=== PATIENT | male | born 1930 | race Caucasian/White ===

== ENCOUNTER 2018-02-15 01:20 | Inpatient (IN) | END 2018-02-26 18:18 | disposition home or self-care (01) | DRG 308 ==

== ENCOUNTER 2018-04-25 11:39 | Inpatient (IN) | END 2018-04-30 21:25 | disposition home health service (06) | DRG 292 ==

== ENCOUNTER 2018-10-05 14:47 | Inpatient (IN) | payer OTHER ==
[~2018-10-05] VITALS: Ht 167.6 cm; Wt 68.6 kg
[~2018-10-05 14:47] MED LIST: APIX2.5T PO; BUME1TAB PO; CARV3.1260 PO; CHOL400T10 PO; DIGO125T93 PO; FER325 PO; FINA5TAB4 PO; IPRA3AMP29 INHALATION; NEBU-27 MC; OMEG-157 PO; OMEG1CAP17 PO; POTA8CAP PO; TAMS-14 PO
--- NOTE | 2018-10-05 16:42 | ERD ---
ER Documentation Chief Complaint Chief Complaint Sent from for evaluation blanche [facility] The patient is a 88-year-old male, presenting to the ER because of generalized weakness. He went to see his physician today who ordered a blood test and he was found to have severe anemia, therefore sent to the ER for further evaluation. He denies syncope, near syncope, neck pain, chest pain, abdominal pain, vomiting, complains of loose stool. He had a digital exam in the office today that were positive for blood according to him. He does not smoke, drinks socially Past medical history: History of CHF, atrial fibrillation, hypertension, dyslipidemia, aortic stenosis, pulmonary hypertension, leukopenia, BPH Past surgical history: He had EGD and colonoscopy about a year ago that was unremarkable according to him ROS All systems reviewed and are negative except as per history of present illness. Medications Home Meds Active Scripts Bumetanide* (Bumetanide*) 1 Mg Tablet, 1 MG PO BID DIURETICS for 30 Days, #60 TAB Prov:JEIMY EWING. 04/30/18 Reliance-3/Dha/Epa/Fish Oil (FISH OIL EC 1,000 MG SOFTGEL) 1 Each Capsule.dr, 2000 MG PO BID for 30 Days, #60 CAP 1 Refill Prov:JEIMY EWING . 04/30/18 Finasteride* (Finasteride*) 5 Mg Tablet, 5 MG PO DAILY for 30 Days, #30 TAB Prov:JEIMY EWING. 04/28/18 Carvedilol* (Carvedilol*) 3.125 Mg Tablet, 3.125 MG PO BID, #60 TAB Prov:JEIMY EWING. 04/28/18 Tamsulosin Hcl* (Flomax*) 0.4 Mg Cap.er.24h, 0.4 MG PO HS, #30 CAP Prov:JEIMY EWING. 04/28/18 Nebulizer (ALTERA NEBULIZER) 1 Each Each, EACH MC Q4H PRN for SHORTNESS OF BREATH, #1 Prov:JEIMY EWING 02/25/18 Ipratropium-Albuterol (Ipratropium-Albuterol) 0.5-3 Mg/3 Ml Ampul.neb, 3 ML INHALATION Q4 PRN for SHORTNESS OF BREATH, #30 VIAL Prov:JEIMY EWING. 02/25/18 Cholecalciferol* (Vitamin D*) 400 Unit Tablet, 400 UNIT PO DAILY for 30 Days, #30 TAB Prov:JEIMY EWING 02/25/18 Ferrous Sulfate* (Ferrous Sulfate*) 325 Mg Tabec, 325 MG PO BID for 30 Days, #60 TAB Prov:JEIMY EWING 02/25/18 Potassium Chloride* (Potassium Chloride*) 8 Meq Capsule.er, 8 MEQ PO DAILY for 30 Days, #30 CAP Prov:JEIMY EWING. 02/25/18 Reported Medications Apixaban* (Eliquis*) 2.5 Mg Tablet, 2.5 MG PO BID, TAB 02/15/18 Reliance-3 Fatty Acids/Fish Oil (Fish Oil 1,000 mg Softgel) 1 Each Capsule, 1 EACH PO TID, CAP 02/15/18 Digoxin* (Lanoxin*) 0.125 Mg Tablet, 0.125 MG PO DAILY, TAB 04/19/16 Allergies Allergies: Coded Allergies: No Known Allergy (Unverified , 04/19/16) PMhx/Soc History of Surgery: No Anesthesia Reaction: No Hx Neurological Disorder: No Hx Respiratory Disorders: No Hx Cardiac Disorders: Yes (CHF, AFIB, HTN, HIGH CHOLESTEROL) Hx Psychiatric Problems: No Hx Miscellaneous Medical Probl: Yes (A-FIB , MOD.AORTIC STENOSIS , CHRONIC CHF. ) Hx Alcohol Use: No Hx Substance Use: No Hx Tobacco Use: No Smoking Status: Never smoker Physical Exam Vitals Vital Signs Date Temp Pulse Resp B/P (MAP) Pulse Ox O2 O2 Flow FiO2 Time Delivery Rate 10/05/18 69 17 96/63 (74) 99 Room Air 18:46 10/05/18 98.1 78 20 100/55 100 16:10 (70) Physical Exam Const: No acute distress. Head: Atraumatic. Eyes: Normal Conjunctiva. ENT: Normal External Ears, Nose and Mouth. Neck: Full range of motion. No meningismus. Resp: Clear to auscultation bilaterally. Cardio: Irregularly irregular, 3/6 systolic murmur best heard at the apex Abd: Soft, non distended, normal bowel sounds, non tender. Skin: No petechiae or rashes. Back: No midline or flank tenderness. Ext: No cyanosis, or edema. Neur: Awake and alert. No focal deficit Psych: Normal Mood and Affect. Result Diagram: 10/05/18 1651 10/05/18 1651 Results 24 hrs Laboratory Tests Test 10/05/18 16:51 White Blood Count 3.1 10^3/ul Red Blood Count 2.07 10^6/ul Hemoglobin 7.0 g/dl Hematocrit 23.0 % Mean Corpuscular Volume 111.1 fl Mean Corpuscular Hemoglobin 33.8 pg Mean Corpuscular Hemoglobin Concent 30.4 g/dl Red Cell Distribution Width 16.1 % Platelet Count 156 10^3/UL Mean Platelet Volume 9.9 fl Immature Granulocytes % 0.700 % Neutrophils % % Segmented Neutrophils % (Manual) 76 % Lymphocytes % % Lymphocytes % (Manual) 19 % Monocytes % % Monocytes % (Manual) 3 % Eosinophils % % Eosinophils % (Manual) 1 % Basophils % % Basophils % (Manual) 1 % Nucleated Red Blood Cells % 0.0 /100WBC Immature Granulocytes # 0.020 10^3/ul Neutrophils # 10^3/ul Lymphocytes (Manual) 0.5 10^3/ul Lymphocytes # 10^3/ul Monocytes # 10^3/ul Monocytes # (Manual) 0.0 10^3/ul Eosinophils # 10^3/ul Basophils # 10^3/ul Basophils # (Manual) 0.0 10^3/ul Nucleated Red Blood Cells # 10^3/ul Platelet Estimate NORMAL Giant Platelets 2 % Polychromasia 2+ Hypochromasia 1+ Poikilocytosis 1+ Anisocytosis 2+ Macrocytosis 2+ Tear Drop Cells 1+ Ovalocytes 1+ Prothrombin Time 15.0 Sec Prothrombin Time Ratio 1.2 INR International Normalized Ratio 1.17 Activated Partial Thromboplast Time 39.1 Sec Sodium Level 134 mmol/L Potassium Level 3.5 mmol/L Chloride Level 95 mmol/L Carbon Dioxide Level 34 mmol/L Anion Gap 5 Blood Urea Nitrogen 18 mg/dl Creatinine 0.76 mg/dl Est Glomerular Filtrat Rate mL/min mL/min Glucose Level 111 mg/dl Calcium Level 8.0 mg/dl Total Bilirubin 4.1 mg/dl Direct Bilirubin 0.00 mg/dl Indirect Bilirubin 4.1 mg/dl Aspartate Amino Transf (AST/SGOT) 27 IU/L Alanine Aminotransferase (ALT/SGPT) 17 IU/L Alkaline Phosphatase 176 IU/L Troponin I < 0.012 ng/ml B-Type Natriuretic Peptide 4580 PG/ML Total Protein 6.7 g/dl Albumin 2.9 g/dl Globulin 3.80 g/dl Albumin/Globulin Ratio 0.76 Digoxin Level 1.1 ng/ml Procedures/MDM Chest x-ray read by ER physician showed acute CHF, no pneumonia, no pneumothorax, radiology report is pending EKG: Read by emergency physician Rate/Rhythm: Atrial Fibrillation at 70 beats/min QRS, ST, T-waves: No ST elevation, no T inversion Impression: Abnormal EKG MEDICAL MAKING DECISION: The patient is a 88-year-old male, presenting with acute cinematic anemia, acute CHF exacerbation. He was treated with 2 unit of pRBC for acute symptomatic anemia. Lasix will be given after the first unit of blood test because of low blood pressure The differential diagnoses considered include but are not limited to asthma, COPD, pneumonia, pulmonary embolus, pleural effusion, congestive heart failure, gastrointestinal bleeding. Departure Diagnosis: Primary Impression: Symptomatic anemia Additional Impressions: CHF (congestive heart failure) Abnormal LFTs Leukopenia Condition: Stable Comments I discussed the findings with the patient. I discussed the patient with the hospitalist Dr Becerra at 7 pm. who was made aware of the lab, the treatment, the patient condition. The patient is admitted to [facility] Disclaimer: Inadvertent spelling and grammatical errors are likely due to EHR/dictation software use and do not reflect on the overall quality of patient care. Also, please note that the electronic time recorded on this note does not necessarily reflect the actual time of the patient encounter. PRINCESS GALLO MD Oct 05, 2018 16:42
[2018-10-05 22:08] VITALS: Ht 167.6 cm; Wt 68.6 kg
[2018-10-05 23:18] VITALS: BP 102/57; PULSE 59; RESP 16
--- NOTE | 2018-10-05 23:46 | HP ---
Date/Time of Note Date/Time of Note DATE: 10/05/18 TIME: 23:46 Assessment/Plan VTE Prophylaxis Pharmacological prophylaxis: LMWH Lines/Catheters IV Catheter Type (from Nrs): Saline Lock Urinary Cath still in place: No Assessment/Plan Assessment/Plan 1. Anemia -Patient with a history of chronic iron deficiency anemia and he is on ferrous sulfate -On questioning, patient reported dark stool. Plan is for GI consult and FOBT. Will transfuse PRBCs -Check for ferritin/iron -Patient with history of moderate aortic stenosis. Chronic anemia could be from the shearing effect 2. Acute on chronic systolic CHF -We will diurese 3. Atrial fibrillation: Rate controlled -Continue digoxin and Coreg. Hold blood thinner 4. Hypertension: Currently BP within goal 5. BPH: Continue Flomax Result Diagram: 10/05/18 1651 10/05/18 1651 Results 24hrs Laboratory Tests Test 10/05/18 16:51 White Blood Count 3.1 #L Red Blood Count 2.07 #L Hemoglobin 7.0 L Hematocrit 23.0 L Mean Corpuscular Volume 111.1 H Mean Corpuscular Hemoglobin 33.8 H Mean Corpuscular Hemoglobin Concent 30.4 L Red Cell Distribution Width 16.1 H Platelet Count 156 Mean Platelet Volume 9.9 Immature Granulocytes % 0.700 H Neutrophils % Segmented Neutrophils % (Manual) 76 Lymphocytes % Lymphocytes % (Manual) 19 Monocytes % Monocytes % (Manual) 3 Eosinophils % Eosinophils % (Manual) 1 Basophils % Basophils % (Manual) 1 Nucleated Red Blood Cells % 0.0 Immature Granulocytes # 0.020 Neutrophils # Lymphocytes (Manual) 0.5 L Lymphocytes # Monocytes # Monocytes # (Manual) 0.0 L Eosinophils # Basophils # Basophils # (Manual) 0.0 Nucleated Red Blood Cells # Platelet Estimate NORMAL Giant Platelets 2 H Polychromasia 2+ Hypochromasia 1+ Poikilocytosis 1+ Anisocytosis 2+ Macrocytosis 2+ Tear Drop Cells 1+ Ovalocytes 1+ Prothrombin Time 15.0 H Prothrombin Time Ratio 1.2 INR International Normalized Ratio 1.17 Activated Partial Thromboplast Time 39.1 H Sodium Level 134 L Potassium Level 3.5 Chloride Level 95 L Carbon Dioxide Level 34 H Anion Gap 5 Blood Urea Nitrogen 18 Creatinine 0.76 Est Glomerular Filtrat Rate mL/min Glucose Level 111 Calcium Level 8.0 L Total Bilirubin 4.1 H Direct Bilirubin 0.00 Indirect Bilirubin 4.1 H Aspartate Amino Transf (AST/SGOT) 27 Alanine Aminotransferase (ALT/SGPT) 17 Alkaline Phosphatase 176 H Troponin I < 0.012 B-Type Natriuretic Peptide 4580 H Total Protein 6.7 Albumin 2.9 L Globulin 3.80 H Albumin/Globulin Ratio 0.76 Digoxin Level 1.1 HPI/ROS Admit Date/Time Admit Date/Time Oct 05, 2018 at 19:53 Hx of Present Illness This is an 88-year-old male with a history of CHF with systolic dysfunction (EF 35% in 02/2018), pulmonary hypertension, atrial fibrillation, chronic iron deficiency anemia, leukopenia, chronic bilateral pleural effusion, BPH. Patient was sent to ER for anemia. Upon questioning, patient reported dark stool. Den ied BRBPR and hematemesis. He also reported generalized weakness and occasional shortness of breath. When he presented to ER, he was found to have a hemoglobin of 7 with MCV of 111. BNP is 4600. Chest x-ray shows stable bilateral pleural effusion. Patient was last admitted here in April of last year for lower extremity edema and shortness of breath. At that time he was ruled out for ACS. Chest CT shows bilateral pleural effusion. PMH/Family/Social Past Medical History Medical History: other (see hpi) Coded Allergies: No Known Allergy (Unverified , 04/19/16) Past Surgical History Past Surgical Hx: other (see hpi) Family History Significant Family History: no pertinent family hx Social History Alcohol Use: other Smoking Status: Unknown if ever smoked Drug Use: none, other Exam/Review of Systems Vital Signs Vitals Vital Signs Date Temp Pulse Resp B/P (MAP) Pulse Ox O2 O2 Flow FiO2 Time Delivery Rate 10/05/18 98.4 59 16 102/57 100 23:18 (72) 10/05/18 Room Air 21:13 Exam Constitutional: other (no acute distress) Head: normocephalic, atraumatic Eyes: PERRL Respiratory: clear to auscultation Cardiovascular: regular rate and rhythm Gastrointestinal: soft SAUL MAGAÑA MD Oct 05, 2018 23:46
[2018-10-06] VITALS (13 sets, daily range): BP systolic 93–170; BP diastolic 53–96; PULSE 61–95; RESP 16
[2018-10-06] MEDS ORDERED: ONDANSETRON 4 MG INJ IV PRN
[2018-10-06] MEDS ORDERED: NACL 0.9% 3 ML SYG IV SCH
[2018-10-06] MEDS ORDERED: ALBUTEROL/IPRATROPIUM (NEB) 3 ML AMP HHN PRN
[2018-10-06] MEDS ORDERED: ACETAMINOPHEN 325 MG TAB PO PRN
[2018-10-06] MEDS: FISH OIL 1,000 MG CAP PO SCH ×2 (00:13→08:22)
[2018-10-06] MEDS ORDERED: BUMETANIDE 1 MG TAB PO SCH (06:00)
[2018-10-06] MEDS: DIGOXIN 0.125 MG TAB PO SCH (08:22)
[2018-10-06] MEDS: FINASTERIDE 5 MG TAB PO SCH (08:22)
[2018-10-06] MEDS: POTASSIUM CHLORIDE (SR) 8 MEQ CAP PO SCH (08:22)
[2018-10-06] MEDS ORDERED: CHOLECALCIFEROL 400 UNITS TAB PO SCH (09:00)
[2018-10-06] MEDS ORDERED: FERROUS SULFATE (EC) 325 MG TAB PO SCH (09:00)
[2018-10-06] MEDS ORDERED: PANTOPRAZOLE 40 MG INJ IV SCH (15:00)
--- NOTE | 2018-10-06 15:12 | PN ---
Date/Time of Note Date/Time of Note DATE: 10/06/18 TIME: 15:07 Assessment/Plan VTE Prophylaxis Risk score (from [facility])>0 risk: 4 SCD applied (from [facility]): Yes SCD contraindicated: low risk/ambulating Pharmacological prophylaxis: NA/contraindicated Pharm contraindication: bleeding Lines/Catheters IV [facility] (from [facility] Saline Lock Urinary Cath still in place: No Assessment/Plan Hospital Course A/P 1. Gi bleed likely upper, mod stable, awaiting blood from blood bank. 2. Chr A fib discontinue Eliquis 3. Chr hypertension 4. Chr CAD? 5. 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 Doses started. No active chest pain dyspnea. r/b ratio noted. May proceed forward to EGD/ colonoscopy as indicated, with low perioperative risk 6. Pulmonary hypertension moderate. Prognosis guarded 7. Chronic BPH 8. Valvular heart disease: Moderate aortic stenosis 9. Acute blood loss anemia, for transfusion soon. Transfuse for hb less than 7 Subjective: No further melena. No dyspnea chest pain fever. Objective: Vital signs stable Physical exam No pallor adenopathy JVD Regular +sm, no/r/g Clear Bs+ nt/ nd no RRG Mild edema Result Diagram: 10/06/18 0557 10/06/18 0557 Results 24hrs Laboratory Tests Test 10/05/18 16:51 10/06/18 05:57 White Blood Count 3.1 #L 2.3 #L Red Blood Count 2.07 #L 1.73 L Hemoglobin 7.0 L 6.0 *L Hematocrit 23.0 L 19.4 L Mean Corpuscular Volume 111.1 H 112.1 H Mean Corpuscular Hemoglobin 33.8 H 34.7 H Mean Corpuscular Hemoglobin Concent 30.4 L 30.9 L Red Cell Distribution Width 16.1 H 15.9 H Platelet Count 156 141 Mean Platelet Volume 9.9 9.9 Immature Granulocytes % 0.700 H 0.400 Neutrophils % 64.1 Segmented Neutrophils % (Manual) 76 68 Lymphocytes % 25.6 Lymphocytes % (Manual) 19 15 Monocytes % 6.4 Monocytes % (Manual) 3 4 Eosinophils % 2.6 Eosinophils % (Manual) 1 4 Basophils % 0.9 Basophils % (Manual) 1 1 Nucleated Red Blood Cells % 0.0 0.0 Immature Granulocytes # 0.020 0.010 Neutrophils # 1.5 L Lymphocytes (Manual) 0.5 L 0.3 L Lymphocytes # 0.6 L Monocytes # 0.2 L Monocytes # (Manual) 0.0 L 0.0 L Eosinophils # 0.1 Basophils # 0.0 Basophils # (Manual) 0.0 0.0 Nucleated Red Blood Cells # 0.0 Platelet Estimate NORMAL NORMAL Giant Platelets 2 H Polychromasia 2+ 2+ Hypochromasia 1+ 1+ Poikilocytosis 1+ 1+ Anisocytosis 2+ 2+ Macrocytosis 2+ 2+ Tear Drop Cells 1+ Ovalocytes 1+ Prothrombin Time 15.0 H Prothrombin Time Ratio 1.2 INR International Normalized Ratio 1.17 Activated Partial Thromboplast Time 39.1 H Sodium Level 134 L 134 L Potassium Level 3.5 3.7 Chloride Level 95 L 97 Carbon Dioxide Level 34 H 34 H Anion Gap 5 3 L Blood Urea Nitrogen 18 17 Creatinine 0.76 0.71 Est Glomerular Filtrat Rate mL/min Glucose Level 111 86 Calcium Level 8.0 L 7.7 L Total Bilirubin 4.1 H 3.8 H Direct Bilirubin 0.00 0.00 Indirect Bilirubin 4.1 H 3.8 H Aspartate Amino Transf (AST/SGOT) 27 21 Alanine Aminotransferase (ALT/SGPT) 17 22 Alkaline Phosphatase 176 H 144 H Troponin I < 0.012 B-Type Natriuretic Peptide 4580 H Total Protein 6.7 5.5 #L Albumin 2.9 L 2.3 L Globulin 3.80 H 3.20 Albumin/Globulin Ratio 0.76 0.71 Digoxin Level 1.1 0.9 L Band Neutrophils % (Manual) 6 H Reactive Lymphocytes % (Manual) 2 H Neutrophils # (Manual) 1.6 Band Neutrophils # 0.1 Reactive Lymphocytes # 0.0 Pathologist Review (Hematology) YES Target Cells 1+ Hemoglobin A1c Iron Level 85 Total Iron Binding Capacity 236 L Percent Iron Saturation 36 Ferritin 177.0 Triglycerides Level 47 Cholesterol Level 86 L LDL Cholesterol, Calculated 40 HDL Cholesterol 37 Cholesterol/HDL Ratio 2.3 Exam/Review of Systems Exam Vitals Vital Signs Date Temp Pulse Resp B/P (MAP) Pulse Ox O2 O2 Flow FiO2 Time Delivery Rate 10/06/18 68 12:01 10/06/18 98.9 16 94/54 (67) 99 11:19 10/05/18 Room Air 21:13 Results Results 24hrs Laboratory Tests Test 10/05/18 16:51 10/06/18 05:57 White Blood Count 3.1 #L 2.3 #L Red Blood Count 2.07 #L 1.73 L Hemoglobin 7.0 L 6.0 *L Hematocrit 23.0 L 19.4 L Mean Corpuscular Volume 111.1 H 112.1 H Mean Corpuscular Hemoglobin 33.8 H 34.7 H Mean Corpuscular Hemoglobin Concent 30.4 L 30.9 L Red Cell Distribution Width 16.1 H 15.9 H Platelet Count 156 141 Mean Platelet Volume 9.9 9.9 Immature Granulocytes % 0.700 H 0.400 Neutrophils % 64.1 Segmented Neutrophils % (Manual) 76 68 Lymphocytes % 25.6 Lymphocytes % (Manual) 19 15 Monocytes % 6.4 Monocytes % (Manual) 3 4 Eosinophils % 2.6 Eosinophils % (Manual) 1 4 Basophils % 0.9 Basophils % (Manual) 1 1 Nucleated Red Blood Cells % 0.0 0.0 Immature Granulocytes # 0.020 0.010 Neutrophils # 1.5 L Lymphocytes (Manual) 0.5 L 0.3 L Lymphocytes # 0.6 L Monocytes # 0.2 L Monocytes # (Manual) 0.0 L 0.0 L Eosinophils # 0.1 Basophils # 0.0 Basophils # (Manual) 0.0 0.0 Nucleated Red Blood Cells # 0.0 Platelet Estimate NORMAL NORMAL Giant Platelets 2 H Polychromasia 2+ 2+ Hypochromasia 1+ 1+ Poikilocytosis 1+ 1+ Anisocytosis 2+ 2+ Macrocytosis 2+ 2+ Tear Drop Cells 1+ Ovalocytes 1+ Prothrombin Time 15.0 H Prothrombin Time Ratio 1.2 INR International Normalized Ratio 1.17 Activated Partial Thromboplast Time 39.1 H Sodium Level 134 L 134 L Potassium Level 3.5 3.7 Chloride Level 95 L 97 Carbon Dioxide Level 34 H 34 H Anion Gap 5 3 L Blood Urea Nitrogen 18 17 Creatinine 0.76 0.71 Est Glomerular Filtrat Rate mL/min Glucose Level 111 86 Calcium Level 8.0 L 7.7 L Total Bilirubin 4.1 H 3.8 H Direct Bilirubin 0.00 0.00 Indirect Bilirubin 4.1 H 3.8 H Aspartate Amino Transf (AST/SGOT) 27 21 Alanine Aminotransferase (ALT/SGPT) 17 22 Alkaline Phosphatase 176 H 144 H Troponin I < 0.012 B-Type Natriuretic Peptide 4580 H Total Protein 6.7 5.5 #L Albumin 2.9 L 2.3 L Globulin 3.80 H 3.20 Albumin/Globulin Ratio 0.76 0.71 Digoxin Level 1.1 0.9 L Band Neutrophils % (Manual) 6 H Reactive Lymphocytes % (Manual) 2 H Neutrophils # (Manual) 1.6 Band Neutrophils # 0.1 Reactive Lymphocytes # 0.0 Pathologist Review (Hematology) YES Target Cells 1+ Hemoglobin A1c Iron Level 85 Total Iron Binding Capacity 236 L Percent Iron Saturation 36 Ferritin 177.0 Triglycerides Level 47 Cholesterol Level 86 L LDL Cholesterol, Calculated 40 HDL Cholesterol 37 Cholesterol/HDL Ratio 2.3 Medications Medication Current Medications IV Flush (NS 3 ml) 3 ml PER PROTOCOL IV ; Start 10/06/18 at 00:00 Ondansetron HCl (Zofran Inj) 4 mg Q6H PRN IV NAUSEA/VOMITING; Start 10/06/18 at 00:00 Acetaminophen (Tylenol Tab) 650 mg Q6H PRN PO .PAIN 1-3 OR TEMP; Start 10/06/18 at 00:00 Carvedilol (Coreg) 3.125 mg BID PO ; Start 10/06/18 at 09:00 Digoxin (Digoxin) 0.125 mg DAILY PO Last administered on 10/06/18at 08:22; Admin Dose 0.125 MG; Start 10/06/18 at 09:00 Finasteride (Proscar) 5 mg DAILY PO Last administered on 10/06/18at 08:22; Admin Dose 5 MG; Start 10/06/18 at 09:00 Albuterol/ Ipratropium (Duoneb) 3 ml Q4H RESP THERAPY PRN INH SHORTNESS OF BREATH; Start 10/06/18 at 00:00 Potassium Chloride (Micro-K) 8 meq DAILY PO Last administered on 10/06/18at 08:22; Admin Dose 8 MEQ; Start 10/06/18 at 09:00 Tamsulosin HCl (Flomax) 0.4 mg HS PO ; Start 10/06/18 at 21:00 Potassium Chloride/Dextrose/ Sod Cl 1,000 ml @ 40 mls/hr Q24H IV ; Start 10/06/18 at 15:30 Pantoprazole (Protonix Iv) 40 mg DAILY@06 IV ; Start 10/06/18 at 15:00 MALINI SALDANA MD Oct 06, 2018 15:12
--- NOTE | 2018-10-06 19:43 | CONS ---
Assessment/Plan Assessment/Plan Hospital Course (Demo Recall) Summary Assessment and Plan: Assessment: Melena/anemia Indirect hyperbilirubinemia CHF - 02/2018 EF 35% HTN CAD Pulmonary hypertension, moderate Chronic BPH Valvular heart disease, moderate aortic stenosis Plan: Cardiac clearance Tentative plan for EGD tomorrow pending cardiac clearance Clear liquid diet today N.p.o. after 10/07/1907 100 Monitor labs transfuse for hemoglobin less than 7.5 Endoscopy - risks/benefits/alternatives/indications of procedure and sedation/ anesthesia discussed with patient who states understanding and gives informed consent to proceed. Increase PPI to twice daily Further recommendations based on clinical course Patient seen in collaboration with Dr. Larkin CC: TRES LARKIN MD ; Consultation Date/Type/Reason Admit Date/Time Oct 05, 2018 at 19:53 Date of Consultation: Oct 06, 2018 Type of Consult GI Reason for Consultation melena/anemia Date/Time of Note DATE: 10/06/18 TIME: 19:32 Hx of Present Illness This is an 88-year-old male with past medical history of CHF, pulmonary hypertension, atrial fibrillation, anemia, leukopenia, chronic bilateral pleural effusion, BPH. Who was admitted to the hospital with anemia initial workup patient's hemoglobin was 7.0 was checked again today patient was 6.0 is packed RBCs have been ordered 1 has been transfused patient states he was having black colored stool of notes patient was on Eliquis for atrial fibrillation. He de nies hematochezia nausea or vomiting or abdominal pain currently. Patient states his last upper endoscopy was completed at this hospital records show colonoscopy 04/19/16 moderate degree of internal/external hemorrhoids 3 polyps noted. An EGD was completed the same day showing gastric erosions rather tortuous esophagus without ulceration or neoplasm discussed plan with patient and family for EGD tomorrow pending cardiac clearance reviewed risk/benefits all verbalized understanding are agreeable to plan. Review of Systems: A 12 system, review was conducted and is negative except as noted in the HPI or here. Past Medical History Home Meds Active Scripts Bumetanide* (Bumetanide*) 1 Mg Tablet, 1 MG PO BID DIURETICS for 30 Days, #60 TAB Prov:JEIMY EWING 04/30/18 Colbert-3/Dha/Epa/Fish Oil (FISH OIL EC 1,000 MG SOFTGEL) 1 Each Capsule., 2000 MG PO BID for 30 Days, #60 CAP 1 Refill Prov:JEIMY EWING 04/30/18 Finasteride* (Finasteride*) 5 Mg Tablet, 5 MG PO DAILY for 30 Days, #30 TAB Prov:JEIMY EWING. 04/28/18 Carvedilol* (Carvedilol*) 3.125 Mg Tablet, 3.125 MG PO BID, #60 TAB Prov:JEIMY EWING 04/28/18 Tamsulosin Hcl* (Flomax*) 0.4 Mg Cap.er.24h, 0.4 MG PO HS, #30 CAP Prov:JEIMY EWING 04/28/18 Nebulizer (ALTERA NEBULIZER) 1 Each Each, EACH MC Q4H PRN for SHORTNESS OF BREATH, #1 Prov:JEIMY EWING 02/25/18 Ipratropium-Albuterol (Ipratropium-Albuterol) 0.5-3 Mg/3 Ml Ampul.neb, 3 ML INHALATION Q4 PRN for SHORTNESS OF BREATH, #30 VIAL Prov:JEIMY EWING 02/25/18 Cholecalciferol* (Vitamin D*) 400 Unit Tablet, 400 UNIT PO DAILY for 30 Days, #30 TAB Prov:JEIMY EWING 02/25/18 Ferrous Sulfate* (Ferrous Sulfate*) 325 Mg Tabec, 325 MG PO BID for 30 Days, #60 TAB Prov:JEIMY EWING 02/25/18 Potassium Chloride* (Potassium Chloride*) 8 Meq Capsule.er, 8 MEQ PO DAILY for 30 Days, #30 CAP Prov:JEIMY EWING 02/25/18 Reported Medications Apixaban* (Eliquis*) 2.5 Mg Tablet, 2.5 MG PO BID, TAB 02/15/18 Colbert-3 Fatty Acids/Fish Oil (Fish Oil 1,000 mg Softgel) 1 Each Capsule, 1 EACH PO TID, CAP 02/15/18 Digoxin* (Lanoxin*) 0.125 Mg Tablet, 0.125 MG PO DAILY, TAB 04/19/16 Medications Current Medications IV Flush (NS 3 ml) 3 ml PER PROTOCOL IV ; Start 10/06/18 at 00:00 Ondansetron HCl (Zofran Inj) 4 mg Q6H PRN IV NAUSEA/VOMITING; Start 10/06/18 at 00:00 Acetaminophen (Tylenol Tab) 650 mg Q6H PRN PO .PAIN 1-3 OR TEMP; Start 10/06/18 at 00:00 Carvedilol (Coreg) 3.125 mg BID PO ; Start 10/06/18 at 09:00 Digoxin (Digoxin) 0.125 mg DAILY PO Last administered on 10/06/18at 08:22; Admin Dose 0.125 MG; Start 10/06/18 at 09:00 Finasteride (Proscar) 5 mg DAILY PO Last administered on 10/06/18at 08:22; Admin Dose 5 MG; Start 10/06/18 at 09:00 Albuterol/ Ipratropium (Duoneb) 3 ml Q4H RESP THERAPY PRN INH SHORTNESS OF BREATH; Start 10/06/18 at 00:00 Potassium Chloride (Micro-K) 8 meq DAILY PO Last administered on 10/06/18at 08:22; Admin Dose 8 MEQ; Start 10/06/18 at 09:00 Tamsulosin HCl (Flomax) 0.4 mg HS PO ; Start 10/06/18 at 21:00 Potassium Chloride/Dextrose/ Sod Cl 1,000 ml @ 40 mls/hr Q24H IV ; Start at 15:30 Pantoprazole (Protonix Iv) 40 mg DAILY@06 IV Last administered on 10/06/18at 15:00; Admin Dose 40 MG; Start 10/06/18 at 15:00 Allergies: Coded Allergies: No Known Allergy (Unverified , 04/19/16) Past Surgical History Past Surgical Hx: other Social History Smoking Status: Never smoker Exam/Review of Systems Exam Vitals Vital Signs Date Temp Pulse Resp B/P (MAP) Pulse Ox O2 O2 Flow FiO2 Time Delivery Rate 10/06/18 74 16:01 10/06/18 98.8 16 107/61 98 15:31 (76) 10/05/18 Room Air 21:13 Exam PHYSICAL EXAMINATION: GENERAL:Elderly gentleman, alert & oriented x 3, in no acute distress SKIN: Facial discoloration EYES: Pupils equal reactive to light, no discharge. EARS/NOSE AND THROAT: Ears normal, nose normal NECK: Supple. CHEST: Inspection within normal limits. CARDIOVASCULAR: Heart: Irregular rate and rhythm RESPIRATORY: Lungs clear to auscultation GASTROINTESTINAL AND LIVER: Abdomen: Soft, non tenderness, non-distended, no hernias, no masses, no organomegaly, no ascites, no guarding, no rebound tenderness, normoactive bowel sounds. Rectal: Deferred. EXTREMITIES: No cyanosis, clubbing or edema. Results Result Diagram: 10/06/18 0557 10/06/18 0557 Results 24hrs Laboratory Tests Test 10/06/18 05:57 White Blood Count 2.3 #L Red Blood Count 1.73 L Hemoglobin 6.0 *L Hematocrit 19.4 L Mean Corpuscular Volume 112.1 H Mean Corpuscular Hemoglobin 34.7 H Mean Corpuscular Hemoglobin Concent 30.9 L Red Cell Distribution Width 15.9 H Platelet Count 141 Mean Platelet Volume 9.9 Immature Granulocytes % 0.400 Neutrophils % 64.1 Segmented Neutrophils % (Manual) 68 Band Neutrophils % (Manual) 6 H Lymphocytes % 25.6 Lymphocytes % (Manual) 15 Reactive Lymphocytes % (Manual) 2 H Monocytes % 6.4 Monocytes % (Manual) 4 Eosinophils % 2.6 Eosinophils % (Manual) 4 Basophils % 0.9 Basophils % (Manual) 1 Nucleated Red Blood Cells % 0.0 Immature Granulocytes # 0.010 Neutrophils # 1.5 L Neutrophils # (Manual) 1.6 Band Neutrophils # 0.1 Lymphocytes (Manual) 0.3 L Lymphocytes # 0.6 L Reactive Lymphocytes # 0.0 Monocytes # 0.2 L Monocytes # (Manual) 0.0 L Eosinophils # 0.1 Basophils # 0.0 Basophils # (Manual) 0.0 Nucleated Red Blood Cells # 0.0 Pathologist Review (Hematology) YES Platelet Estimate NORMAL Polychromasia 2+ Hypochromasia 1+ Poikilocytosis 1+ Anisocytosis 2+ Macrocytosis 2+ Target Cells 1+ Sodium Level 134 L Potassium Level 3.7 Chloride Level 97 Carbon Dioxide Level 34 H Anion Gap 3 L Blood Urea Nitrogen 17 Creatinine 0.71 Est Glomerular Filtrat Rate mL/min Glucose Level 86 Hemoglobin A1c Calcium Level 7.7 L Iron Level 85 Total Iron Binding Capacity 236 L Percent Iron Saturation 36 Ferritin 177.0 Total Bilirubin 3.8 H Direct Bilirubin 0.00 Indirect Bilirubin 3.8 H Aspartate Amino Transf (AST/SGOT) 21 Alanine Aminotransferase (ALT/SGPT) 22 Alkaline Phosphatase 144 H Total Protein 5.5 #L Albumin 2.3 L Globulin 3.20 Albumin/Globulin Ratio 0.71 Triglycerides Level 47 Cholesterol Level 86 L LDL Cholesterol, Calculated 40 HDL Cholesterol 37 Cholesterol/HDL Ratio 2.3 Digoxin Level 0.9 L Medications Medication Current Medications IV Flush (NS 3 ml) 3 ml PER PROTOCOL IV ; Start 10/06/18 at 00:00 Ondansetron HCl (Zofran Inj) 4 mg Q6H PRN IV NAUSEA/VOMITING; Start 10/06/18 at 00:00 Acetaminophen (Tylenol Tab) 650 mg Q6H PRN PO .PAIN 1-3 OR TEMP; Start 10/06/18 at 00:00 Carvedilol (Coreg) 3.125 mg BID PO ; Start 10/06/18 at 09:00 Digoxin (Digoxin) 0.125 mg DAILY PO Last administered on 10/06/18at 08:22; Admin Dose 0.125 MG; Start 10/06/18 at 09:00 Finasteride (Proscar) 5 mg DAILY PO Last administered on 10/06/18at 08:22; Admin Dose 5 MG; Start 10/06/18 at 09:00 Albuterol/ Ipratropium (Duoneb) 3 ml Q4H RESP THERAPY PRN INH SHORTNESS OF LUIS TH; Start 10/06/18 at 00:00 Potassium Chloride (Micro-K) 8 meq DAILY PO Last administered on 10/06/18at 08:22; Admin Dose 8 MEQ; Start 10/06/18 at 09:00 Tamsulosin HCl (Flomax) 0.4 mg HS PO ; Start 10/06/18 at 21:00 Potassium Chloride/Dextrose/ Sod Cl 1,000 ml @ 40 mls/hr Q24H IV ; Start 10/06/18 at 15:30 Pantoprazole (Protonix Iv) 40 mg DAILY@06 IV Last administered on 10/06/18at 15:00; Admin Dose 40 MG; Start 10/06/18 at 15:00 ELOINA CRUZ Oct 06, 2018 19:43
[2018-10-06] MEDS: TAMSULOSIN (SR) 0.4 MG CAP PO SCH (20:14)
[2018-10-06] MEDS: PANTOPRAZOLE 40 MG INJ IV SCH (20:17)
[2018-10-06] MEDS: D5W-0.45 NACL + KCL 10 MEQ 1,000 ML IV SCH (21:21)
[2018-10-06] MEDS ORDERED: MIDODRINE 5 MG TAB PO ONE (23:00)
[2018-10-07] VITALS (16 sets, daily range): BP systolic 80–119; BP diastolic 51–83; PULSE 57–151; RESP 16–18
[2018-10-07] MEDS ORDERED: ALBUMIN HUMAN 25% 100 ML IV ONE (04:30)
[2018-10-07] MEDS: PANTOPRAZOLE 40 MG INJ IV SCH ×2 (04:53→18:36)
[2018-10-07] MEDS: DIGOXIN 0.125 MG TAB PO SCH (09:09)
[2018-10-07] MEDS: FINASTERIDE 5 MG TAB PO SCH (09:09)
[2018-10-07] MEDS: POTASSIUM CHLORIDE (SR) 8 MEQ CAP PO SCH (09:09)
[2018-10-07] MEDS ORDERED: POTASSIUM CHLORIDE 100 ML IVPB ONE (15:00)
[2018-10-07] MEDS ORDERED: SOD CHLORIDE 0.9% 250 ML IV* ONE (15:02)
--- NOTE | 2018-10-07 15:25 | PN ---
Date/Time of Note Date/Time of Note DATE: 10/07/18 TIME: 15:23 Assessment/Plan VTE Prophylaxis Risk score (from Ns)>0 risk: 4 SCD applied (from Ns): Yes Pharmacological prophylaxis: other (scds) Lines/Catheters IV [facility] Type (from [facility] Peripheral IV Urinary Cath still in place: No Assessment/Plan Hospital Course Summary Assessment and Plan: Assessment: Melena/anemia Indirect hyperbilirubinemia CHF - 02/2018 EF 35% HTN CAD Pulmonary hypertension, moderate Chronic BPH Valvular heart disease, moderate aortic stenosis Plan: Cardiac clearance- pending Will reschedule EGD to tomorrow Restart clear liquid diet today N.p.o. after 10/08/18 0800 Monitor labs transfuse for hemoglobin less than 7.5 Endoscopy - risks/benefits/alternatives/indications of procedure and sedation/anesthesia discussed with patient who states understanding and gives informed consent to proceed. PPI to twice daily Further recommendations based on clinical course Patient seen in collaboration with Dr. Larkin Subjective: Course reviewed with nursing staff Patient interviewed and examined All labs, imaging and other results reviewed The patient feels well Discussed plan to reschedule to tomorrow No over night events No c/o n/v or abd pain PHYSICAL EXAMINATION: GENERAL:Elderly gentleman, alert & oriented x 3, in no acute distress SKIN: Facial discoloration EYES: Pupils equal reactive to light, no discharge. EARS/NOSE AND THROAT: Ears normal, nose normal NECK: Supple. CHEST: Inspection within normal limits. CARDIOVASCULAR: Heart: Irregular rate and rhythm RESPIRATORY: Lungs clear to auscultation GASTROINTESTINAL AND LIVER: Abdomen: Soft, non tenderness, non-distended, no hernias, no masses, no organomegaly, no ascites, no guarding, no rebound tenderness, normoactive bowel sounds. Rectal: Deferred. EXTREMITIES: No cyanosis, clubbing or edema. Result Diagram: 10/07/1860410/07/18604 Results 24hrs Laboratory Tests Test 10/07/18 00:32 10/07/18 06:05 10/07/18 07:09 10/07/18 12:14 Hemoglobin 8.6 #L 7.9 L Hematocrit 27.0 #L 24.5 L White Blood 2.7 L Count Red Blood Count 2.35 #L Mean Corpuscular 104.3 H Volume Mean Corpuscular 33.6 H Hemoglobin Mean Corpuscular 32.2 Hemoglobin April nt Red Cell 19.7 #H Distribution Width Platelet Count 127 L Mean Platelet 10.2 Volume Immature 1.100 H Granulocytes % Neutrophils % 71.4 Lymphocytes % 17.5 Monocytes % 7.1 Eosinophils % 2.2 Basophils % 0.7 Nucleated Red 0.0 Blood Cells % Immature 0.030 Granulocytes # Neutrophils # 1.9 Lymphocytes # 0.5 L Monocytes # 0.2 L Eosinophils # 0.1 Basophils # 0.0 Nucleated Red 0.0 Blood Cells # Sodium Level 135 Potassium Level 3.6 Chloride Level 96 L Carbon Dioxide 33 H Level Anion Gap 6 Blood Urea 15 Nitrogen Creatinine 0.70 Est Glomerular Filtrat Rate mL/min Glucose Level 91 Calcium Level 7.8 L Phosphorus Level 3.3 Magnesium Level 2.2 Total Bilirubin 4.5 H Direct Bilirubin 0.00 Indirect 4.5 H Bilirubin Aspartate Amino 18 Transf (AST/SGOT ) Alanine 21 Aminotransferase (ALT/SGPT) Alkaline 140 H Phosphatase Total Protein 5.7 L Albumin 2.6 L Globulin 3.10 Albumin/Globulin 0.83 Ratio Thyroid 2.630 Stimulating Hormone (TSH) Lab Scanned BLOOD TRANSFUSI REFERENCE LAB Report ON Exam/Review of Systems Exam Vitals Vital Signs Date Temp Pulse Resp B/P (MAP) Pulse Ox O2 O2 Flow FiO2 Time Delivery Rate 10/07/18 76 12:07 10/07/18 97.9 16 97/52 (67) 97 11:41 10/07/18 Room Air 04:02 Intake and Output 10/06/18 10/06/18 10/07/18 1515:00 23:00 07:00 IntakeIntake Total 0 ml 970 ml OutputOutput Total 600 ml BalanceBalance 0 ml 370 ml Results Results 24hrs Laboratory Tests Test 10/07/18 00:32 10/07/18 06:05 10/07/18 07:09 10/07/18 12:14 Hemoglobin 8.6 #L 7.9 L Hematocrit 27.0 #L 24.5 L White Blood 2.7 L Count Red Blood Count 2.35 #L Mean Corpuscular 104.3 H Volume Mean Corpuscular 33.6 H Hemoglobin Mean Corpuscular 32.2 Hemoglobin April nt Red Cell 19.7 #H Distribution Width Platelet Count 127 L Mean Platelet 10.2 Volume Immature 1.100 H Granulocytes % Neutrophils % 71.4 Lymphocytes % 17.5 Monocytes % 7.1 Eosinophils % 2.2 Basophils % 0.7 Nucleated Red 0.0 Blood Cells % Immature 0.030 Granulocytes # Neutrophils # 1.9 Lymphocytes # 0.5 L Monocytes # 0.2 L Eosinophils # 0.1 Basophils # 0.0 Nucleated Red 0.0 Blood Cells # Sodium Level 135 Potassium Level 3.6 Chloride Level 96 L Carbon Dioxide 33 H Level Anion Gap 6 Blood Urea 15 Nitrogen Creatinine 0.70 Est Glomerular Filtrat Rate mL/min Glucose Level 91 Calcium Level 7.8 L Phosphorus Level 3.3 Magnesium Level 2.2 Total Bilirubin 4.5 H Direct Bilirubin 0.00 Indirect 4.5 H Bilirubin Aspartate Amino 18 Transf (AST/SGOT ) Alanine 21 Aminotransferase (ALT/SGPT) Alkaline 140 H Phosphatase Total Protein 5.7 L Albumin 2.6 L Globulin 3.10 Albumin/Globulin 0.83 Ratio Thyroid 2.630 Stimulating Hormone (TSH) Lab Scanned BLOOD TRANSFUSI REFERENCE LAB Report ON Medications Medication Current Medications IV Flush (NS 3 ml) 3 ml PER PROTOCOL IV ; Start 10/06/18 at 00:00 Ondansetron HCl (Zofran Inj) 4 mg Q6H PRN IV NAUSEA/VOMITING; Start 10/06/18 at 00:00 Acetaminophen (Tylenol Tab) 650 mg Q6H PRN PO .PAIN 1-3 OR TEMP; Start 10/06/18 at 00:00 Carvedilol (Coreg) 3.125 mg BID PO ; Start 10/06/18 at 09:00 Digoxin (Digoxin) 0.125 mg DAILY PO Last administered on 10/07/18at 09:09; Admin Dose 0.125 MG; Start 10/06/18 at 09:00 Finasteride (Proscar) 5 mg DAILY PO Last administered on 10/07/18at 09:09; Admin Dose 5 MG; Start 10/06/18 at 09:00 Albuterol/ Ipratropium (Duoneb) 3 ml Q4H RESP THERAPY PRN INH SHORTNESS OF BREATH; Start 10/06/18 at 00:00 Potassium Chloride (Micro-K) 8 meq DAILY PO Last administered on 10/07/18at 09:09; Admin Dose 8 MEQ; Start 10/06/18 at 09:00 Tamsulosin HCl (Flomax) 0.4 mg HS PO Last administered on 10/06/18at 20:14; Admin Dose 0.4 MG; Start 10/06/18 at 21:00 Potassium Chloride/Dextrose/ Sod Cl 1,000 ml @ 40 mls/hr Q24H IV Last administered on 10/06/18at 21:21; Admin Dose 40 MLS/HR; Start 10/06/18 at 15:30 Pantoprazole (Protonix Iv) 40 mg BID@0600,1800 IV Last administered on 10/07/18at 04:53; Admin Dose 40 MG; Start 10/06/18 at 21:00 Potassium Chloride 100 ml @ 50 mls/hr ONCE ONCE IVPB ; Start 10/07/18 at 15:00; Stop 10/07/18 at 16:59 Furosemide (Lasix) 20 mg ONCE IV ; Start 10/07/18 at 15:30; Stop 10/08/18 at 15:29 ELOINA CRUZ Oct 07, 2018 15:25
[2018-10-07] MEDS: D5W-0.45 NACL + KCL 10 MEQ 1,000 ML IV SCH (15:30)
[2018-10-07] MEDS ORDERED: FUROSEMIDE 40 MG INJ IV SCH (15:30)
--- NOTE | 2018-10-07 17:02 | PN ---
Date/Time of Note Date/Time of Note DATE: 10/07/18 TIME: 16:59 Assessment/Plan VTE [place]axis [place] [facility] [place]: 4 [place]CD [place] [facility] Yes SCD contraindicated: low risk/ambulating Pharmacological prophylaxis: NA/contraindicated Pharm contraindication: bleeding Lines/Catheters IV [facility] Type (from [facility] Peripheral IV Urinary Cath still in place: No Assessment/Plan Hospital Course A/P 1. Gi bleed likely upper, mod stable, status post transfusion. EGD tomorrow. 2. Chr A fib discontinue Eliquis/aspirin 3. Chr hypertension 4. Chr CAD? 5. Chronic ischemic cardiomyopathy. EF of 30. No active chest pain dyspnea. r/b ratio noted. May proceed forward to EGD/ colonoscopy as indicated, with low perioperative risk 6. Pulmonary hypertension moderate. Prognosis guarded 7. Chr BPH 8. Valvular heart dz. Mod aortic stenosis 9. Acute blood loss anemia, for transfusion soon. Transfuse for hb less than 7 10. Nsvt. Electrolytes noted. May require repeat transfusion S: 10/06 no further melena. No dyspnea chest pain fever. 10/07: No further GI bleed noted. Low blood pressure and nsvt noted. Albumin/ midodrine overnight O: Vital signs stable PE No pallor adenopathy JVD Regular +sm, no/r/g Clear Bs+ nt/ nd no RRG Mild edema Result Diagram: 10/07/1860410/07/18604 Results 24hrs Laboratory Tests Test 10/07/18 00:32 10/07/18 06:05 10/07/18 07:09 10/07/18 12:14 Hemoglobin 8.6 #L 7.9 L Hematocrit 27.0 #L 24.5 L White Blood 2.7 L Count Red Blood Count 2.35 #L Mean Corpuscular 104.3 H Volume Mean Corpuscular 33.6 H Hemoglobin Mean Corpuscular 32.2 Hemoglobin April nt Red Cell 19.7 #H Distribution Width Platelet Count 127 L Mean Platelet 10.2 Volume Immature 1.100 H Granulocytes % Neutrophils % 71.4 Lymphocytes % 17.5 Monocytes % 7.1 Eosinophils % 2.2 Basophils % 0.7 Nucleated Red 0.0 Blood Cells % Immature 0.030 Granulocytes # Neutrophils # 1.9 Lymphocytes # 0.5 L Monocytes # 0.2 L Eosinophils # 0.1 Basophils # 0.0 Nucleated Red 0.0 Blood Cells # Sodium Level 135 Potassium Level 3.6 Chloride Level 96 L Carbon Dioxide 33 H Level Anion Gap 6 Blood Urea 15 Nitrogen Creatinine 0.70 Est Glomerular Filtrat Rate mL/min Glucose Level 91 Calcium Level 7.8 L Phosphorus Level 3.3 Magnesium Level 2.2 Total Bilirubin 4.5 H Direct Bilirubin 0.00 Indirect 4.5 H Bilirubin Aspartate Amino 18 Transf (AST/SGOT ) Alanine 21 Aminotransferase (ALT/SGPT) Alkaline 140 H Phosphatase Total Protein 5.7 L Albumin 2.6 L Globulin 3.10 Albumin/Globulin 0.83 Ratio Thyroid 2.630 Stimulating Hormone (TSH) Lab Scanned BLOOD TRANSFUSI REFERENCE LAB Report ON Exam/Review of Systems Exam Vitals Vital Signs Date Temp Pulse Resp B/P (MAP) Pulse Ox O2 O2 Flow FiO2 Time Delivery Rate 10/07/18 70 16:09 10/07/18 97.7 16 107/62 98 15:25 (77) 10/07/18 Room Air 04:02 Intake and Output 10/06/18 10/06/18 10/07/18 1515:00 23:00 07:00 IntakeIntake Total 0 ml 970 ml OutputOutput Total 600 ml BalanceBalance 0 ml 370 ml Results Results 24hrs Laboratory Tests Test 10/07/18 00:32 10/07/18 06:05 10/07/18 07:09 10/07/18 12:14 Hemoglobin 8.6 #L 7.9 L Hematocrit 27.0 #L 24.5 L White Blood 2.7 L Count Red Blood Count 2.35 #L Mean Corpuscular 104.3 H Volume Mean Corpuscular 33.6 H Hemoglobin Mean Corpuscular 32.2 Hemoglobin April nt Red Cell 19.7 #H Distribution Width Platelet Count 127 L Mean Platelet 10.2 Volume Immature 1.100 H Granulocytes % Neutrophils % 71.4 Lymphocytes % 17.5 Monocytes % 7.1 Eosinophils % 2.2 Basophils % 0.7 Nucleated Red 0.0 Blood Cells % Immature 0.030 Granulocytes # Neutrophils # 1.9 Lymphocytes # 0.5 L Monocytes # 0.2 L Eosinophils # 0.1 Basophils # 0.0 Nucleated Red 0.0 Blood Cells # Sodium Level 135 Potassium Level 3.6 Chloride Level 96 L Carbon Dioxide 33 H Level Anion Gap 6 Blood Urea 15 Nitrogen Creatinine 0.70 Est Glomerular Filtrat Rate mL/min Glucose Level 91 Calcium Level 7.8 L Phosphorus Level 3.3 Magnesium Level 2.2 Total Bilirubin 4.5 H Direct Bilirubin 0.00 Indirect 4.5 H Bilirubin Aspartate Amino 18 Transf (AST/SGOT ) Alanine 21 Aminotransferase (ALT/SGPT) Alkaline 140 H Phosphatase Total Protein 5.7 L Albumin 2.6 L Globulin 3.10 Albumin/Globulin 0.83 Ratio Thyroid 2.630 Stimulating Hormone (TSH) Lab Scanned BLOOD TRANSFUSI REFERENCE LAB Report ON Medications Medication Current Medications IV Flush (NS 3 ml) 3 ml PER PROTOCOL IV ; Start 10/06/18 at 00:00 Ondansetron HCl (Zofran Inj) 4 mg Q6H PRN IV NAUSEA/VOMITING; Start 10/06/18 at 00:00 Acetaminophen (Tylenol Tab) 650 mg Q6H PRN PO .PAIN 1-3 OR TEMP; Start 10/06/18 at 00:00 Carvedilol (Coreg) 3.125 mg BID PO ; Start 10/06/18 at 09:00 Digoxin (Digoxin) 0.125 mg DAILY PO Last administered on 10/07/18 09:09; Admin Dose 0.125 MG; Start 10/06/18 at 09:00 Finasteride (Proscar) 5 mg DAILY PO Last administered on 10/07/18 09:09; Admin Dose 5 MG; Start 10/06/18 at 09:00 Albuterol/ Ipratropium (Duoneb) 3 ml Q4H RESP THERAPY PRN INH SHORTNESS OF BREATH; Start 10/06/18 at 00:00 Potassium Chloride (Micro-K) 8 meq DAILY PO Last administered on 10/07/18 09:09; Admin Dose 8 MEQ; Start 10/06/18 at 09:00 Tamsulosin HCl (Flomax) 0.4 mg HS PO Last administered on 10/06/18at 20:14; Admin Dose 0.4 MG; Start 10/06/18 at 21:00 Potassium Chloride/Dextrose/ Sod Cl 1,000 ml @ 40 mls/hr Q24H IV Last administered on 10/06/18at 21:21; Admin Dose 40 MLS/HR; Start 10/06/18 at 15:30 Pantoprazole (Protonix Iv) 40 mg BID@0600,1800 IV Last administered on 10/07/18at 04:53; Admin Dose 40 MG; Start 10/06/18 at 21:00 Furosemide (Lasix) 20 mg ONCE IV ; Start 10/07/18 at 15:30; Stop 10/08/18 at 15:29 MALINI SALDANA MD Oct 07, 2018 17:02
--- NOTE | 2018-10-07 17:43 | PREAC ---
Date/Time of Note Date/Time of Note DATE: 10/07/18 TIME: 17:42 Anesthesia Eval and Record Evaluation Time Pre-Procedure Interview DATE: 10/07/18 TIME: 17:42 Age 88 Sex male NPO: 8 hrs Preoperative diagnosis Melena/anemia Planned procedure Cardiomegaly with small bilateral pleural effusions and hazy airspace opacities in the bilateral mid lung zones, which may represent pulmonary edema. Past Medical History Past Medical History: Includes (*AWAITING CARDIAC CLEARANCE) Cardio: HTN, CAD, CHF (EF 35%), Other (Valvular heart dz. Mod aortic stenosis) Pulm: Other (Pulmonary HTN) Heme: Anemia Surgery & Anesthesia Issues No known issue Meds Anticoagulation: No Beta Kerrie within 24 hr: No Reason Beta Kerrie not given: Pt. not on B-Kerrie Active Scripts Bumetanide* (Bumetanide*) 1 Mg Tablet, 1 MG PO BID DIURETICS for 30 Days, #60 TAB Prov:JEIMY EWING. 04/30/18 [place]-3/Dha/Epa/Fish Oil (FISH OIL EC 1,000 MG SOFTGEL) 1 Each Capsule.dr, 2000 MG PO BID for 30 Days, #60 CAP 1 Refill Prov:JEIMY EWING . 04/30/18 Finasteride* (Finasteride*) 5 Mg Tablet, 5 MG PO DAILY for 30 Days, #30 TAB Prov:JEIMY EWING . 04/28/18 Carvedilol* (Carvedilol*) 3.125 Mg Tablet, 3.125 MG PO BID, #60 TAB Prov:JEIMY EWING. 04/28/18 Tamsulosin Hcl* (Flomax*) 0.4 Mg Cap.er.24h, 0.4 MG PO HS, #30 CAP Prov:JEIMY EWING . 04/28/18 Nebulizer (ALTERA NEBULIZER) 1 Each Each, EACH MC Q4H PRN for SHORTNESS OF BREATH, #1 Prov:JEIMY EWING 02/25/18 Ipratropium-Albuterol (Ipratropium-Albuterol) 0.5-3 Mg/3 Ml Ampul.neb, 3 ML INHALATION Q4 PRN for SHORTNESS OF BREATH, #30 VIAL Prov:JEIMY EWING 02/25/18 Cholecalciferol* (Vitamin D*) 400 Unit Tablet, 400 UNIT PO DAILY for 30 Days, #30 TAB Prov:JEIMY EWING. 02/25/18 Ferrous Sulfate* (Ferrous Sulfate*) 325 Mg Tabec, 325 MG PO BID for 30 Days, #60 TAB Prov:JEIMY EWING. 02/25/18 Potassium Chloride* (Potassium Chloride*) 8 Meq Capsule.er, 8 MEQ PO DAILY for 30 Days, #30 CAP Prov:JEIMY EWING M. 02/25/18 Reported Medications Apixaban* (Eliquis*) 2.5 Mg Tablet, 2.5 MG PO BID, TAB 02/15/18 Branch-3 Fatty Acids/Fish Oil (Fish Oil 1,000 mg Softgel) 1 Each Capsule, 1 EACH PO TID, CAP 02/15/18 Digoxin* (Lanoxin*) 0.125 Mg Tablet, 0.125 MG PO DAILY, TAB 04/19/16 Current Medications IV Flush (NS 3 ml) 3 ml PER PROTOCOL IV ; Start 10/06/18 at 00:00 Ondansetron HCl (Zofran Inj) 4 mg Q6H PRN IV NAUSEA/VOMITING; Start 10/06/18 at 00:00 Acetaminophen (Tylenol Tab) 650 mg Q6H PRN PO .PAIN 1-3 OR TEMP; Start 10/06/18 at 00:00 Carvedilol (Coreg) 3.125 mg BID PO ; Start 10/06/18 at 09:00 Digoxin (Digoxin) 0.125 mg DAILY PO Last administered on 10/07/18at 09:09; Admin Dose 0.125 MG; Start 10/06/18 at 09:00 Finasteride (Proscar) 5 mg DAILY PO Last administered on 10/07/18at 09:09; Admin Dose 5 MG; Start 10/06/18 at 09:00 Albuterol/ Ipratropium (Duoneb) 3 ml Q4H RESP THERAPY PRN INH SHORTNESS OF BREATH; Start 10/06/18 at 00:00 Potassium Chloride (Micro-K) 8 meq DAILY PO Last administered on 10/07/18at 09:09; Admin Dose 8 MEQ; Start 10/06/18 at 09:00 Tamsulosin HCl (Flomax) 0.4 mg HS PO Last administered on 10/06/18at 20:14; Admin Dose 0.4 MG; Start 10/06/18 at 21:00 Potassium Chloride/Dextrose/ Sod Cl 1,000 ml @ 40 mls/hr Q24H IV Last administered on 10/06/18at 21:21; Admin Dose 40 MLS/HR; Start 10/06/18 at 15:30 Pantoprazole (Protonix Iv) 40 mg BID@0600,1800 IV Last administered on 10/07/18at 04:53; Admin Dose 40 MG; Start 10/06/18 at 21:00 Furosemide (Lasix) 20 mg ONCE IV ; Start 10/07/18 at 15:30; Stop 10/08/18 at 15:29 Meds reviewed: Yes Allergies Coded Allergies: No Known Allergy (Unverified , 04/19/16) Allergies Reviewed: Yes Labs/Studies Labs Reviewed: Reviewed by anesthesiologist Result Diagram: 10/07/18 0605 10/07/18 0605 Laboratory Tests 10/07/18 06:05 test: N/A Studies: ECG (a-fib) Pre-procedure Exam Last vitals Vital Signs Date Temp Pulse Resp B/P (MAP) Pulse Ox O2 O2 Flow FiO2 Time Delivery Rate 10/07/18 70 16:09 10/07/18 97.7 16 107/62 98 15:25 (77) 10/07/18 Room Air 04:02 Airway: Adequate mouth opening Mallampati: Mallampati II Teeth: Normal Lung: Normal Heart: Normal ASA Physical Status ASA physical status: 3 Emergency: None Planned Anesthetic General/MAC: MAC Pre-operative Attestations Prior to commencing anesthesia and surgery, the patient was re-evaluated, there was verification of: *The patient's identity *The results of appropriate recent lab work and preoperative vital signs *The above evaluation not changing prior to induction *Anesthetic plan, risk benefits, alternative and complications discussed with patient/family; questions answered; patient/family understands, accepts and wishes to proceed. CLOTILDE SOMMER Oct 07, 2018 17:43
[2018-10-07] MEDS: TAMSULOSIN (SR) 0.4 MG CAP PO SCH (21:24)
[2018-10-08] VITALS (14 sets, daily range): BP systolic 102–124; BP diastolic 58–76; PULSE 71–190; RESP 16–20
[2018-10-08] MEDS: PANTOPRAZOLE 40 MG INJ IV SCH ×2 (05:11→17:13)
[2018-10-08] MEDS: DIGOXIN 0.125 MG TAB PO SCH (08:29)
[2018-10-08] MEDS: POTASSIUM CHLORIDE (SR) 8 MEQ CAP PO SCH (08:29)
[2018-10-08] MEDS: FINASTERIDE 5 MG TAB PO SCH (08:29)
--- NOTE | 2018-10-08 09:06 | CONS ---
Assessment/Plan Assessment/Plan Hospital Course (Demo Recall) Pre-procedural evaluation: though the pt will undergo low risk EGD/colo, he is not currently optimized as he is decompensated and has significant CHF on exam. Will diurese and reassess tomorrow am and hopefully he will be ready by then Acute on chronic systolic heart failure: EF 35% 02/25. Decompensated on exam due to blood products Acute GI bleed/anemia: Hgb down tyo 6, s/p 4 units chronic afib: Rates controlled. Was on Eliquis but held due to GI bleed Ischemic cardiomyopathy CAD Mild-mod Pulm HTN -lasix 40mg IV x 2 doses today -CXR -will assess tomorrow am to see if he is ready for EGD, for now would postpone unless active bleeding and urgent -continue coreg 3.125mg BID -continue digoxin -hold Eliquis 2.5mg BID Consultation Date/Type/Reason Admit Date/Time Oct 05, 2018 at 19:53 Date of Consultation: Oct 08, 2018 Type of Consult Cardiology Reason for Consultation Preprocedural evaluation Requesting Provider: MALINI SALDANA MD Date/Time of Note DATE: 10/08/18 TIME: 09:05 Hx of Present Illness 88 yo M with a h/o chronic systolic heart failure (EF 35%), ischemic cardiomyopathy, CAD, chronic afib on Eliquis, mild-mod , who presented with weakness and was sent in by his PCP for evaluation of anemia. He was also noted to have melena/GI bleed. His hgb was 7 on admission, then down to 6. He has received 4 units PRBCs so far and hgb is now >10. An site interpreter was used for history. He denies dyspnea but he is visibly short of breath. No chest pain. Past Medical History per HPI Medical History: other (see hpi) Home Meds Active Scripts Bumetanide* (Bumetanide*) 1 Mg Tablet, 1 MG PO BID DIURETICS for 30 Days, #60 TAB Prov:JEIMY EWING M. 04/30/18 [place]-3/Dha/Epa/Fish Oil (FISH OIL EC 1,000 MG SOFTGEL) 1 Each Capsule.dr, 2000 MG PO BID for 30 Days, #60 CAP 1 Refill Prov:JEIMY EWING M. 04/30/18 Finasteride* (Finasteride*) 5 Mg Tablet, 5 MG PO DAILY for 30 Days, #30 TAB Prov:JEIMY WEING 04/28/18 Carvedilol* (Carvedilol*) 3.125 Mg Tablet, 3.125 MG PO BID, #60 TAB Prov:JEIMY EWING 04/28/18 Tamsulosin Hcl* (Flomax*) 0.4 Mg Cap.er.24h, 0.4 MG PO HS, #30 CAP Prov:JEIMY EWING 04/28/18 Nebulizer (ALTERA NEBULIZER) 1 Each Each, EACH MC Q4H PRN for SHORTNESS OF BREATH, #1 Prov:JEIMY EWING 02/25/18 Ipratropium-Albuterol (Ipratropium-Albuterol) 0.5-3 Mg/3 Ml Ampul.neb, 3 ML INHALATION Q4 PRN for SHORTNESS OF BREATH, #30 VIAL Prov:JEIMY EWING 02/25/18 Cholecalciferol* (Vitamin D*) 400 Unit Tablet, 400 UNIT PO DAILY for 30 Days, #30 TAB [facility] 02/25/18 Ferrous Sulfate* (Ferrous Sulfate*) 325 Mg Tabec, 325 MG PO BID for 30 Days, #60 TAB Prov:JEIMY EWING 02/25/18 Potassium Chloride* (Potassium Chloride*) 8 Meq Capsule.er, 8 MEQ PO DAILY for 30 Days, #30 CAP Prov:JEIMY EWING 02/25/18 Reported Medications Apixaban* (Eliquis*) 2.5 Mg Tablet, 2.5 MG PO BID, TAB 02/15/18 [place]-3 Fatty Acids/Fish Oil (Fish Oil 1,000 mg Softgel) 1 Each Capsule, 1 EACH PO TID, CAP 02/15/18 Digoxin* (Lanoxin*) 0.125 Mg Tablet, 0.125 MG PO DAILY, TAB 04/19/16 Medications Current Medications IV Flush (NS 3 ml) 3 ml PER PROTOCOL IV ; Start 10/06/18 at 00:00 Ondansetron HCl (Zofran Inj) 4 mg Q6H PRN IV NAUSEA/VOMITING; Start 10/06/18 at 00:00 Acetaminophen (Tylenol Tab) 650 mg Q6H PRN PO .PAIN 1-3 OR TEMP; Start 10/06/18 at 00:00 Carvedilol (Coreg) 3.125 mg BID PO ; Start 10/06/18 at 09:00 Digoxin (Digoxin) 0.125 mg DAILY PO Last administered on 10/08/18 08:29; Admin Dose 0.125 MG; Start 10/06/18 at 09:00 Finasteride (Proscar) 5 mg DAILY PO Last administered on 10/08/18 08:29; Admin Dose 5 MG; Start 10/06/18 at 09:00 Albuterol/ Ipratropium (Duoneb) 3 ml Q4H RESP THERAPY PRN INH SHORTNESS OF BREATH; Start 10/06/18 at 00:00 Potassium Chloride (Micro-K) 8 meq DAILY PO Last administered on 10/08/18 08:29; Admin Dose 8 MEQ; Start 10/06/18 at 09:00 Tamsulosin HCl (Flomax) 0.4 mg HS PO Last administered on 10/07/18 21:24; Admin Dose 0.4 MG; Start 10/06/18 at 21:00 Potassium Chloride/Dextrose/ Sod Cl 1,000 ml @ 40 mls/hr Q24H IV Last administered on 10/06/18 21:21; Admin Dose 40 MLS/HR; Start 10/06/18 at 15:30 Pantoprazole (Protonix Iv) 40 mg BID@0600,1800 IV Last administered on 9at 05:11; Admin Dose 40 MG; Start 10/06/18 at 21:00 Furosemide (Lasix) 20 mg ONCE IV Last administered on 10/07/18 22:31; Admin Dose 20 MG; Start 10/07/18 at 15:30; Stop 10/08/18 at 15:29 Allergies: Coded Allergies: No Known Allergy (Unverified , 04/19/16) Past Surgical History Past Surgical Hx: other (see hpi) Social History Alcohol Use: other Smoking Status: Unknown if ever smoked Drug Use: none, other Exam/Review of Systems Exam Vitals Vital Signs Date Temp Pulse Resp B/P (MAP) Pulse Ox O2 O2 Flow FiO2 Time Delivery Rate 10/08/18 73 08:02 10/08/18 98.6 18 102/61 97 Room Air 07:33 (75) Intake and Output 10/07/18 10/07/18 10/08/18 1414:59 22:59 06:59 IntakeIntake Total 600 ml 1120 ml OutputOutput Total 800 ml BalanceBalance 600 ml 320 ml Constitutional: alert, oriented, distress (mild respiratory ) Psych: no complaints Head: normocephalic, atraumatic Neck: jvd (10cm) Respiratory: crackles/rales (mid lungs ), wheezing; No clear to auscultation Cardiovascular: edema (trace), systolic murmur (3/6 mid peaking ); No regular rate and rhythm (IRIR) Neurological: nl mental status, nl speech Results Result Diagram: 10/08/18 0629 10/08/18 0629 Results 24hrs Laboratory Tests Test 10/07/18 12:14 10/07/18 15:24 10/08/18 06:27 10/08/18 06:29 Lab Scanned REFERENCE LAB Report Stool Occult NEGATIVE Blood Prothrombin Time 15.2 H Prothrombin Time 1.2 Ratio INR International 1.19 Normalized Ratio White Blood Count 3.7 #L Red Blood Count 3.25 #L Hemoglobin 10.4 #L Hematocrit 32.6 #L Mean Corpuscular 100.3 Volume Mean Corpuscular 32.0 Hemoglobin Mean Corpuscular 31.9 L Hemoglobin Concen t Red Cell 20.4 H Distribution Width Platelet Count 122 L Mean Platelet 9.8 Volume Immature 1.100 H Granulocytes % Neutrophils % Segmented 84 H Neutrophils % (Manual) Band Neutrophils 2 % (Manual) Lymphocytes % Lymphocytes % 11 L (Manual) Monocytes % Monocytes % 1 (Manual) Eosinophils % Basophils % Basophils % 2 (Manual) Nucleated Red 0.0 Blood Cells % Immature 0.040 H Granulocytes # Neutrophils # Neutrophils # 3.1 (Manual) Band Neutrophils 0.0 # Lymphocytes 0.4 L (Manual) Lymphocytes # Monocytes # Monocytes # 0.0 L (Manual) Eosinophils # Basophils # Basophils # 0.0 (Manual) Nucleated Red Blood Cells # Platelet Estimate DECREASED Giant Platelets 2 H Poikilocytosis 1+ Anisocytosis 1+ Macrocytosis 1+ Sodium Level 135 Potassium Level 4.0 Chloride Level 99 Carbon Dioxide 31 Level Anion Gap 5 Blood Urea 15 Nitrogen Creatinine 0.73 Est Glomerular Filtrat Rate mL/min Glucose Level 99 Calcium Level 7.8 L Phosphorus Level 3.0 Magnesium Level 2.1 Troponin I < 0.012 Test 10/08/18 08:00 Lab Scanned BLOOD TRANSFUSIO Report N Medications Medication Current Medications IV Flush (NS 3 ml) 3 ml PER PROTOCOL IV ; Start 10/06/18 at 00:00 Ondansetron HCl (Zofran Inj) 4 mg Q6H PRN IV NAUSEA/VOMITING; Start 10/06/18 at 00:00 Acetaminophen (Tylenol Tab) 650 mg Q6H PRN PO .PAIN 1-3 OR TEMP; Start 10/06/18 at 00:00 Carvedilol (Coreg) 3.125 mg BID PO ; Start 10/06/18 at 09:00 Digoxin (Digoxin) 0.125 mg DAILY PO Last administered on 10/08/18at 08:29; Admin Dose 0.125 MG; Start 10/06/18 at 09:00 Finasteride (Proscar) 5 mg DAILY PO Last administered on 10/08/18 08:29; Admin Dose 5 MG; Start 10/06/18 at 09:00 Albuterol/ Ipratropium (Duoneb) 3 ml Q4H RESP THERAPY PRN INH SHORTNESS OF BREATH; Start 10/06/18 at 00:00 Potassium Chloride (Micro-K) 8 meq DAILY PO Last administered on 10/08/18 08:29; Admin Dose 8 MEQ; Start 10/06/18 at 09:00 Tamsulosin HCl (Flomax) 0.4 mg HS PO Last administered on 10/07/18at 21:24; Admin Dose 0.4 MG; Start 10/06/18 at 21:00 Potassium Chloride/Dextrose/ Sod Cl 1,000 ml @ 40 mls/hr Q24H IV Last administered on 10/06/18 21:21; Admin Dose 40 MLS/HR; Start 10/06/18 at 15:30 Pantoprazole (Protonix Iv) 40 mg BID@0600,1800 IV Last administered on 10/08/18at 05:11; Admin Dose 40 MG; Start 10/06/18 at 21:00 Furosemide (Lasix) 20 mg ONCE IV Last administered on 10/07/18at 22:31; Admin Dose 20 MG; Start 10/07/18 at 15:30; Stop 10/08/18 at 15:29 WOLFGANG SHERIDAN Oct 08, 2018 09:06
[2018-10-08] MEDS: FUROSEMIDE 40 MG INJ IV SCH ×2 (09:47→17:13)
--- NOTE | 2018-10-08 15:11 | PN ---
Date/Time of Note Date/Time of Note DATE: 10/08/18 TIME: 15:06 Assessment/Plan VTE Prophylaxis Risk score (from Ns)>0 risk: 5 SCD applied (from Ns): Yes Pharmacological prophylaxis: other (scds) Lines/Catheters IV [facility]from [facility] Peripheral IV Urinary Cath still in place: No Assessment/Plan Hospital Course Summary Assessment and Plan: Assessment: Melena/anemia Indirect hyperbilirubinemia CHF - 02/2018 EF 35% HTN CAD Pulmonary hypertension, moderate Chronic BPH Valvular heart disease, moderate aortic stenosis Plan: Per cardiology "will assess tomorrow am to see if he is ready for EGD, for now would postpone unless active bleeding and urgent" Will reschedule EGD to tomorrow PPI to twice daily Start 2 gm Na diet- monitor for overt signs of GI bleed Patient seen in collaboration with Dr. Larkin/Rashida Subjective: Course reviewed with nursing staff Patient interviewed and examined All labs, imaging and other results reviewed Pt feels well, hgb responded well to blood transfusion Currently no overt signs of GI bleed, will start diet today, NPO after midnight PHYSICAL EXAMINATION: GENERAL:Elderly gentleman, alert & oriented x 3, in no acute distress SKIN: Facial discoloration EYES: Pupils equal reactive to light, no discharge. EARS/NOSE AND THROAT: Ears normal, nose normal NECK: Supple. CHEST: Inspection within normal limits. CARDIOVASCULAR: Heart: Irregular rate and rhythm RESPIRATORY: Lungs clear to auscultation GASTROINTESTINAL AND LIVER: Abdomen: Soft, non tenderness, non-distended, no hernias, no masses, no organomegaly, no ascites, no guarding, no rebound tenderness, normoactive bowel sounds. Rectal: Deferred. EXTREMITIES: No cyanosis, clubbing or edema. Result Diagram: 10/08/1862810/08/18628 Results 24hrs Laboratory Tests Test 10/07/18 15:24 10/08/18 06:27 10/08/18 06:29 10/08/18 08:00 Stool Occult NEGATIVE Blood Prothrombin Time 15.2 H Prothrombin Time 1.2 Ratio INR International 1.19 Normalized Ratio White Blood Count 3.7 #L Red Blood Count 3.25 #L Hemoglobin 10.4 #L Hematocrit 32.6 #L Mean Corpuscular 100.3 Volume Mean Corpuscular 32.0 Hemoglobin Mean Corpuscular 31.9 L Hemoglobin Concen t Red Cell 20.4 H Distribution Width Platelet Count 122 L Mean Platelet 9.8 Volume Immature 1.100 H Granulocytes % Neutrophils % Segmented 84 H Neutrophils % (Manual) Band Neutrophils 2 % (Manual) Lymphocytes % Lymphocytes % 11 L (Manual) Monocytes % Monocytes % 1 (Manual) Eosinophils % Basophils % Basophils % 2 (Manual) Nucleated Red 0.0 Blood Cells % Immature 0.040 H Granulocytes # Neutrophils # Neutrophils # 3.1 (Manual) Band Neutrophils 0.0 # Lymphocytes 0.4 L (Manual) Lymphocytes # Monocytes # Monocytes # 0.0 L (Manual) Eosinophils # Basophils # Basophils # 0.0 (Manual) Nucleated Red Blood Cells # Platelet Estimate DECREASED Giant Platelets 2 H Poikilocytosis 1+ Anisocytosis 1+ Macrocytosis 1+ Sodium Level 135 Potassium Level 4.0 Chloride Level 99 Carbon Dioxide 31 Level Anion Gap 5 Blood Urea 15 Nitrogen Creatinine 0.73 Est Glomerular Filtrat Rate mL/min Glucose Level 99 Calcium Level 7.8 L Phosphorus Level 3.0 Magnesium Level 2.1 Troponin I < 0.012 Lab Scanned BLOOD TRANSFUSIO Report N Exam/Review of Systems Exam Vitals Vital Signs Date Temp Pulse Resp B/P (MAP) Pulse Ox O2 O2 Flow FiO2 Time Delivery Rate 10/08/18 98.0 86 18 124/69 95 Room Air 15:03 (87) Intake and Output 10/07/18 10/07/18 10/08/18 1515:00 23:00 07:00 IntakeIntake Total 600 ml 1120 ml OutputOutput Total 800 ml BalanceBalance 600 ml 320 ml Results Results 24hrs Laboratory Tests Test 10/07/18 15:24 10/08/18 06:27 10/08/18 06:29 10/08/18 08:00 Stool Occult NEGATIVE Blood Prothrombin Time 15.2 H Prothrombin Time 1.2 Ratio INR International 1.19 Normalized Ratio White Blood Count 3.7 #L Red Blood Count 3.25 #L Hemoglobin 10.4 #L Hematocrit 32.6 #L Mean Corpuscular 100.3 Volume Mean Corpuscular 32.0 Hemoglobin Mean Corpuscular 31.9 L Hemoglobin Concen t Red Cell 20.4 H Distribution Width Platelet Count 122 L Mean Platelet 9.8 Volume Immature 1.100 H Granulocytes % Neutrophils % Segmented 84 H Neutrophils % (Manual) Band Neutrophils 2 % (Manual) Lymphocytes % Lymphocytes % 11 L (Manual) Monocytes % Monocytes % 1 (Manual) Eosinophils % Basophils % Basophils % 2 (Manual) Nucleated Red 0.0 Blood Cells % Immature 0.040 H Granulocytes # Neutrophils # Neutrophils # 3.1 (Manual) Band Neutrophils 0.0 # Lymphocytes 0.4 L (Manual) Lymphocytes # Monocytes # Monocytes # 0.0 L (Manual) Eosinophils # Basophils # Basophils # 0.0 (Manual) Nucleated Red Blood Cells # Platelet Estimate DECREASED Giant Platelets 2 H Poikilocytosis 1+ Anisocytosis 1+ Macrocytosis 1+ Sodium Level 135 Potassium Level 4.0 Chloride Level 99 Carbon Dioxide 31 Level Anion Gap 5 Blood Urea 15 Nitrogen Creatinine 0.73 Est Glomerular Filtrat Rate mL/min Glucose Level 99 Calcium Level 7.8 L Phosphorus Level 3.0 Magnesium Level 2.1 Troponin I < 0.012 Lab Scanned BLOOD TRANSFUSIO Report N Medications Medication Current Medications IV Flush (NS 3 ml) 3 ml PER PROTOCOL IV ; Start 10/06/18 at 00:00 Ondansetron HCl (Zofran Inj) 4 mg Q6H PRN IV NAUSEA/VOMITING; Start 10/06/18 at 00:00 Acetaminophen (Tylenol Tab) 650 mg Q6H PRN PO .PAIN 1-3 OR TEMP; Start 10/06/18 at 00:00 Carvedilol (Coreg) 3.125 mg BID PO ; Start 10/06/18 at 09:00 Digoxin (Digoxin) 0.125 mg DAILY PO Last administered on 10/08/18 08:29; Admin Dose 0.125 MG; Start 10/06/18 at 09:00 Finasteride (Proscar) 5 mg DAILY PO Last administered on 10/08/18at 08:29; Admin Dose 5 MG; Start 10/06/18 at 09:00 Albuterol/ Ipratropium (Duoneb) 3 ml Q4H RESP THERAPY PRN INH SHORTNESS OF BREATH; Start 10/06/18 at 00:00 Potassium Chloride (Micro-K) 8 meq DAILY PO Last administered on 10/08/18at 08:29; Admin Dose 8 MEQ; Start 10/06/18 at 09:00 Tamsulosin HCl (Flomax) 0.4 mg HS PO Last administered on 10/07/18at 21:24; Ad min Dose 0.4 MG; Start 10/06/18 at 21:00 Potassium Chloride/Dextrose/ Sod Cl 1,000 ml @ 40 mls/hr Q24H IV Last administered on 10/06/18at 21:21; Admin Dose 40 MLS/HR; Start 10/06/18 at 15:30 Pantoprazole (Protonix Iv) 40 mg BID@0600,1800 IV Last administered on 10/08/18at 05:11; Admin Dose 40 MG; Start 10/06/18 at 21:00 Furosemide (Lasix) 20 mg ONCE IV Last administered on 10/07/18at 22:31; Admin Dose 20 MG; Start 10/07/18 at 15:30; Stop 10/08/18 at 15:29 Furosemide (Lasix) 40 mg BID DIURETICS IV Last administered on 10/08/18at 09:47; Admin Dose 40 MG; Start 10/08/18 at 09:30; Stop 10/08/18 at 23:00 ELOINA CRUZ Oct 08, 2018 15:11
[2018-10-08] MEDS: D5W-0.45 NACL + KCL 10 MEQ 1,000 ML IV SCH (15:30)
--- NOTE | 2018-10-08 17:07 | PN ---
Date/Time of Note Date/Time of Note DATE: 10/08/18 TIME: 17:06 Assessment/Plan VTE Prophylaxis Risk score (from Ns)>0 risk: 5 SCD applied (from [facility] [place]): Yes SCD contraindicated: low risk/ambulating Pharmacological prophylaxis: NA/contraindicated Pharm contraindication: bleeding Lines/Catheters IV Catheter Type (from [facility]): Peripheral IV Urinary Cath still in place: No Assessment/Plan Hospital Course A/P 1. Gi bleed likely upper, mod stable, sp transfusion. Possible EGD tomorrow. 2. Chr A fib discontinue Eliquis/aspirin 3. Chr hypertension 4. Chr CAD? 5. Chronic ischemic cardiomyopathy. EF of 30. No active chest pain dyspnea. r/b ratio noted. May proceed forward to EGD/ colonoscopy as indicated, with low perioperative risk 6. Pulmonary hypertension moderate. Prognosis guarded 7. Chr BPH 8. Valvular heart dz. Mod aortic stenosis 9. Acute blood loss anemia, for transfusion soon. Transfuse for hb less than 7 10. Nsvt. Electrolytes noted. May require repeat transfusion S: 10/06 no further melena. No dyspnea chest pain fever. 10/07: No further GI bleed noted. Low blood pressure and nsvt noted. Albumin/ midodrine overnight 10/08: No distress. No active bleed. Probably fluid overloaded. EGD will be postponed until probably tomorrow. O: Vital signs stable PE No pallor/ JVD Regular +sm, no/r/g Clear Bs+ nt/ nd no RRG Mild edema Result Diagram: 10/08/18 0629 10/08/18 0629 Results 24hrs Laboratory Tests Test 10/08/18 06:27 10/08/18 06:29 10/08/18 08:00 Prothrombin Time 15.2 H Prothrombin Time Ratio 1.2 INR International 1.19 Normalized Ratio White Blood Count 3.7 #L Red Blood Count 3.25 #L Hemoglobin 10.4 #L Hematocrit 32.6 #L Mean Corpuscular Volume 100.3 Mean Corpuscular Hemoglobin 32.0 Mean Corpuscular 31.9 L Hemoglobin Concent Red Cell Distribution Width 20.4 H Platelet Count 122 L Mean Platelet Volume 9.8 Immature Granulocytes % 1.100 H Neutrophils % Segmented Neutrophils 84 H % (Manual) Band Neutrophils % (Manual) 2 Lymphocytes % Lymphocytes % (Manual) 11 L Monocytes % Monocytes % (Manual) 1 Eosinophils % Basophils % Basophils % (Manual) 2 Nucleated Red Blood Cells % 0.0 Immature Granulocytes # 0.040 H Neutrophils # Neutrophils # (Manual) 3.1 Band Neutrophils # 0.0 Lymphocytes (Manual) 0.4 L Lymphocytes # Monocytes # Monocytes # (Manual) 0.0 L Eosinophils # Basophils # Basophils # (Manual) 0.0 Nucleated Red Blood Cells # Platelet Estimate DECREASED Giant Platelets 2 H Poikilocytosis 1+ Anisocytosis 1+ Macrocytosis 1+ Sodium Level 135 Potassium Level 4.0 Chloride Level 99 Carbon Dioxide Level 31 Anion Gap 5 Blood Urea Nitrogen 15 Creatinine 0.73 Est Glomerular Filtrat Rate mL/min Glucose Level 99 Calcium Level 7.8 L Phosphorus Level 3.0 Magnesium Level 2.1 Troponin I < 0.012 Lab Scanned Report BLOOD TRANSFUSION Exam/Review of Systems Exam Vitals Vital Signs Date Temp Pulse Resp B/P (MAP) Pulse Ox O2 O2 Flow FiO2 Time Delivery Rate 10/08/18 82 16:02 10/08/18 98.0 18 124/69 95 Room Air 15:03 (87) Intake and Output 10/07/18 10/07/18 10/08/18 1515:00 23:00 07:00 IntakeIntake Total 600 ml 1120 ml OutputOutput Total 800 ml BalanceBalance 600 ml 320 ml Results Results 24hrs Laboratory Tests Test 10/08/18 06:27 10/08/18 06:29 10/08/18 08:00 Prothrombin Time 15.2 H Prothrombin Time Ratio 1.2 INR International 1.19 Normalized Ratio White Blood Count 3.7 #L Red Blood Count 3.25 #L Hemoglobin 10.4 #L Hematocrit 32.6 #L Mean Corpuscular Volume 100.3 Mean Corpuscular Hemoglobin 32.0 Mean Corpuscular 31.9 L Hemoglobin Concent Red Cell Distribution Width 20.4 H Platelet Count 122 L Mean Platelet Volume 9.8 Immature Granulocytes % 1.100 H Neutrophils % Segmented Neutrophils 84 H % (Manual) Band Neutrophils % (Manual) 2 Lymphocytes % Lymphocytes % (Manual) 11 L Monocytes % Monocytes % (Manual) 1 Eosinophils % Basophils % Basophils % (Manual) 2 Nucleated Red Blood Cells % 0.0 Immature Granulocytes # 0.040 H Neutrophils # Neutrophils # (Manual) 3.1 Band Neutrophils # 0.0 Lymphocytes (Manual) 0.4 L Lymphocytes # Monocytes # Monocytes # (Manual) 0.0 L Eosinophils # Basophils # Basophils # (Manual) 0.0 Nucleated Red Blood Cells # Platelet Estimate DECREASED Giant Platelets 2 H Poikilocytosis 1+ Anisocytosis 1+ Macrocytosis 1+ Sodium Level 135 Potassium Level 4.0 Chloride Level 99 Carbon Dioxide Level 31 Anion Gap 5 Blood Urea Nitrogen 15 Creatinine 0.73 Est Glomerular Filtrat Rate mL/min Glucose Level 99 Calcium Level 7.8 L Phosphorus Level 3.0 Magnesium Level 2.1 Troponin I < 0.012 Lab Scanned Report BLOOD TRANSFUSION Medications Medication Current Medications IV Flush (NS 3 ml) 3 ml PER PROTOCOL IV ; Start 10/06/18 at 00:00 Ondansetron HCl (Zofran Inj) 4 mg Q6H PRN IV NAUSEA/VOMITING; Start 10/06/18 at 00:00 Acetaminophen (Tylenol Tab) 650 mg Q6H PRN PO .PAIN 1-3 OR TEMP; Start 10/06/18 at 00:00 Carvedilol (Coreg) 3.125 mg BID PO ; Start 10/06/18 at 09:00 Digoxin (Digoxin) 0.125 mg DAILY PO Last administered on 10/08/18 08:29; Admin Dose 0.125 MG; Start 10/06/18 at 09:00 Finasteride (Proscar) 5 mg DAILY PO Last administered on 10/08/18 08:29; Admin Dose 5 MG; Start 10/06/18 at 09:00 Albuterol/ Ipratropium (Duoneb) 3 ml Q4H RESP THERAPY PRN INH SHORTNESS OF BREATH; Start 10/06/18 at 00:00 Potassium Chloride (Micro-K) 8 meq DAILY PO Last administered on 10/08/18 08:29; Admin Dose 8 MEQ; Start 10/06/18 at 09:00 Tamsulosin HCl (Flomax) 0.4 mg HS PO Last administered on 10/07/18 21:24; Admin Dose 0.4 MG; Start 10/06/18 at 21:00 Pantoprazole (Protonix Iv) 40 mg BID@0600,1800 IV Last administered on 10/08/18 05:11; Admin Dose 40 MG; Start 10/06/18 at 21:00 Furosemide (Lasix) 40 mg BID DIURETICS IV Last administered on 2/28/19at 09:47; Admin Dose 40 MG; Start 10/08/18 at 09:30; Stop 10/08/18 at 23:00 MALINI SALDANA MD Oct 08, 2018 17:07
[2018-10-08] MEDS: TAMSULOSIN (SR) 0.4 MG CAP PO SCH (20:42)
[2018-10-08] MEDS: ALBUTEROL/IPRATROPIUM (NEB) 3 ML AMP INH PRN (21:11)
[2018-10-09] VITALS (11 sets, daily range): BP systolic 99–120; BP diastolic 55–77; PULSE 72–110; RESP 20–22
[2018-10-09] MEDS: PANTOPRAZOLE 40 MG INJ IV SCH ×2 (05:52→18:12)
[2018-10-09] MEDS ORDERED: FUROSEMIDE 40 MG INJ IV ONE (07:30)
--- NOTE | 2018-10-09 07:35 | CONS ---
Assessment/Plan Assessment/Plan Hospital Course (Demo Recall) Pre-procedural evaluation: To undergo low risk EGD/colo. His CHF has improved with diuresis but he has wheezing on exam this am Acute on chronic systolic heart failure: EF 35% 02/25. Decompensated on exam due to blood products. Improved with diuresis with improvement in JVP and crackles but now with expiratory wheezing which may be bronchospastic Acute GI bleed/anemia: Hgb down to 6, s/p 4 units. >10 chronic afib: Rates controlled. Was on Eliquis but held due to GI bleed Ischemic cardiomyopathy CAD Mild-mod Pulm HTN -lasix 60mg IV x 1 -nebs as appears to have a bronchospastic component as opposed to cardiogenic wheezing -would reassess later this morning or afternoon. If respiratory status stable and not wheezing, can proceed with EGD. Otherwise may need to postpone again -continue coreg 3.125mg BID -continue digoxin -hold Eliquis 2.5mg BID Consultation Date/Type/Reason Admit Date/Time Oct 05, 2018 at 19:53 Initial Consult Date 10/08/18 Type of Consult Cardiology Requesting Provider: MALINI SALDANA MD Date/Time of Note DATE: 10/09/18 TIME: 07:31 24 HR Interval Summary Free Text/Dictation Short lived episodes of afib with RVR last night. Controlled this am. No complaints but has mild wheezing. No chest pain Exam/Review of Systems Exam Vitals Vital Signs Date Temp Pulse Resp B/P (MAP) Pulse Ox O2 O2 Flow FiO2 Time Delivery Rate 10/09/18 98.4 83 22 105/77 96 Room Air 07:14 (86) 10/08/18 21 21:11 Intake and Output 10/08/18 10/08/18 10/09/18 1414:59 22:59 06:59 IntakeIntake Total 580 ml OutputOutput Total 650 ml BalanceBalance -70 ml Constitutional: alert, oriented Neck: jvd (8cm) Respiratory: crackles/rales (improved but present at bases ), wheezing (expiratory ); No clear to auscultation Cardiovascular: regular rate and rhythm, systolic murmur (3/6 mid peaking KERRY); No edema Results Result Diagram: 10/09/18 0553 10/09/18 0554 Results 24hrs Laboratory Tests Test 2/28/19 08:00 10/09/18 05:53 10/09/18 05:54 Lab Scanned Report BLOOD TRANSFUSION White Blood Count 4.8 # Red Blood Count 3.12 L Hemoglobin 10.0 L Hematocrit 31.5 L Mean Corpuscular Volume 101.0 Mean Corpuscular Hemoglobin 32.1 Mean Corpuscular 31.7 L Hemoglobin Concent Red Cell Distribution Width 19.8 H Platelet Count 104 L Mean Platelet Volume 9.7 Immature Granulocytes % 0.400 Neutrophils % 79.2 H Lymphocytes % 15.8 Monocytes % 3.6 Eosinophils % 0.6 Basophils % 0.4 Nucleated Red Blood Cells % 0.0 Immature Granulocytes # 0.020 Neutrophils # 3.8 Lymphocytes # 0.8 Monocytes # 0.2 L Eosinophils # 0.0 Basophils # 0.0 Nucleated Red Blood Cells # 0.0 Digoxin Level 0.9 L Sodium Level 138 Potassium Level 4.3 Chloride Level 102 Carbon Dioxide Level 32 H Anion Gap 4 L Blood Urea Nitrogen 22 H Creatinine 0.76 Est Glomerular Filtrat Rate mL/min Glucose Level 101 Calcium Level 8.0 L Total Bilirubin 8.2 #H Direct Bilirubin 0.60 #H Indirect Bilirubin 7.6 H Aspartate Amino Transf (AST/SGOT) 20 Alanine 18 Aminotransferase (ALT/SGPT) Alkaline Phosphatase 174 H Total Protein 5.8 L Albumin 2.5 L Globulin 3.30 H Albumin/Globulin Ratio 0.75 Medications Medication Current Medications IV Flush (NS 3 ml) 3 ml PER PROTOCOL IV ; Start 10/06/18 at 00:00 Ondansetron HCl (Zofran Inj) 4 mg Q6H PRN IV NAUSEA/VOMITING; Start 10/06/18 at 00:00 Acetaminophen (Tylenol Tab) 650 mg Q6H PRN PO .PAIN 1-3 OR TEMP; Start 10/06/18 at 00:00 Carvedilol (Coreg) 3.125 mg BID PO Last administered on 10/08/18at 20:44; Admin Dose 3.125 MG; Start 10/06/18 at 09:00 Digoxin (Digoxin) 0.125 mg DAILY PO Last administered on 10/08/18at 08:29; Admin Dose 0.125 MG; Start 10/06/18 at 09:00 Finasteride (Proscar) 5 mg DAILY PO Last administered on 10/08/18 08:29; Admin Dose 5 MG; Start 10/06/18 at 09:00 Albuterol/ Ipratropium (Duoneb) 3 ml Q4H RESP THERAPY PRN INH SHORTNESS OF BREATH Last administered on 10/08/18 21:11; Admin Dose 3 ML; Start 10/06/18 at 00:00 Potassium Chloride (Micro-K) 8 meq DAILY PO Last administered on 10/08/18 08:29; Admin Dose 8 MEQ; Start 10/06/18 at 09:00 Tamsulosin HCl (Flomax) 0.4 mg HS PO Last administered on 10/08/18 20:42; Admin Dose 0.4 MG; Start 10/06/18 at 21:00 Pantoprazole (Protonix Iv) 40 mg BID@0600,1800 IV Last administered on 10/09/18 05:52; Admin Dose 40 MG; Start 10/06/18 at 21:00 WOLFGANG SHERIDAN Oct 09, 2018 07:35
[2018-10-09] MEDS: ALBUTEROL/IPRATROPIUM (NEB) 3 ML AMP INH PRN (08:29)
[2018-10-09] MEDS: FINASTERIDE 5 MG TAB PO SCH (10:35)
[2018-10-09] MEDS: DIGOXIN 0.125 MG TAB PO SCH (10:38)
[2018-10-09] MEDS: POTASSIUM CHLORIDE (SR) 8 MEQ CAP PO SCH (10:38)
--- NOTE | 2018-10-09 15:06 | PN ---
Date/Time of Note Date/Time of Note DATE: 10/09/18 TIME: 15:05 Assessment/Plan VTE Prophylaxis Risk score (from Ns)>0 risk: 4 SCD applied (from [facility] [place]): Yes SCD contraindicated: low risk/ambulating Pharmacological prophylaxis: NA/contraindicated Pharm contraindication: surgical contra Lines/Catheters IV C[facility]ter Type (from [facility]): Peripheral IV Urinary Cath still in place: No Assessment/Plan Hospital Course A/P 1. Gi bleed likely upper, stable, sp transfusion. Possible EGD soon 2. Chr A fib discontinue Eliquis/asa 3. Chr hypertension 4. Chr CAD? 5. Chronic ischemic cardiomyopathy. EF of 30. No active chest pain dyspnea. r/b ratio noted. May proceed forward to EGD/ colonoscopy as indicated, with low perioperative risk 6. Pulmonary hypertension moderate. Prognosis guarded 7. Chr BPH 8. Valvular heart dz. Mod aortic stenosis 9. Acute blood loss anemia, for transfusion soon. Transfuse for hb less than 7 10. Nsvt. Electrolytes noted. May require repeat transfusion S: 10/06 no further melena. No dyspnea chest pain fever. 10/07: No further GI bleed noted. Low blood pressure and nsvt noted. Albumin/ midodrine overnight 10/08: No distress. No active bleed. Probably fluid overloaded. EGD will be postponed until probably tomorrow. 10/09: cough, but stable vitals. should be able to tolerate surgery. will limit ivf post op O: Vital signs stable PE No pallor/ JVD Regular +sm, no/r/g Clear Bs+ nt/ nd no RRG Mild edema Result Diagram: 10/09/18 0553 10/09/18 0554 Results 24hrs Laboratory Tests Test 10/09/18 05:53 10/09/18 05:54 White Blood Count 4.8 # Red Blood Count 3.12 L Hemoglobin 10.0 L Hematocrit 31.5 L Mean Corpuscular Volume 101.0 Mean Corpuscular Hemoglobin 32.1 Mean Corpuscular Hemoglobin Concent 31.7 L Red Cell Distribution Width 19.8 H Platelet Count 104 L Mean Platelet Volume 9.7 Immature Granulocytes % 0.400 Neutrophils % 79.2 H Lymphocytes % 15.8 Monocytes % 3.6 Eosinophils % 0.6 Basophils % 0.4 Nucleated Red Blood Cells % 0.0 Immature Granulocytes # 0.020 Neutrophils # 3.8 Lymphocytes # 0.8 Monocytes # 0.2 L Eosinophils # 0.0 Basophils # 0.0 Nucleated Red Blood Cells # 0.0 Digoxin Level 0.9 L Sodium Level 138 Potassium Level 4.3 Chloride Level 102 Carbon Dioxide Level 32 H Anion Gap 4 L Blood Urea Nitrogen 22 H Creatinine 0.76 Est Glomerular Filtrat Rate mL/min Glucose Level 101 Calcium Level 8.0 L Total Bilirubin 8.2 #H Direct Bilirubin 0.60 #H Indirect Bilirubin 7.6 H Aspartate Amino Transf (AST/SGOT) 20 Alanine Aminotransferase (ALT/SGPT) 18 Alkaline Phosphatase 174 H Total Protein 5.8 L Albumin 2.5 L Globulin 3.30 H Albumin/Globulin Ratio 0.75 Exam/Review of Systems Exam Vitals Vital Signs Date Temp Pulse Resp B/P (MAP) Pulse Ox O2 O2 Flow FiO2 Time Delivery Rate 10/09/18 80 12:00 10/09/18 98.0 20 99/59 (72) 94 Room Air 11:30 10/09/18 21 08:32 Intake and Output 10/08/18 10/08/18 10/09/18 1515:00 23:00 07:00 IntakeIntake Total 580 ml OutputOutput Total 650 ml BalanceBalance -70 ml Results Results 24hrs Laboratory Tests Test 10/09/18 05:53 10/09/18 05:54 White Blood Count 4.8 # Red Blood Count 3.12 L Hemoglobin 10.0 L Hematocrit 31.5 L Mean Corpuscular Volume 101.0 Mean Corpuscular Hemoglobin 32.1 Mean Corpuscular Hemoglobin Concent 31.7 L Red Cell Distribution Width 19.8 H Platelet Count 104 L Mean Platelet Volume 9.7 Immature Granulocytes % 0.400 Neutrophils % 79.2 H Lymphocytes % 15.8 Monocytes % 3.6 Eosinophils % 0.6 Basophils % 0.4 Nucleated Red Blood Cells % 0.0 Immature Granulocytes # 0.020 Neutrophils # 3.8 Lymphocytes # 0.8 Monocytes # 0.2 L Eosinophils # 0.0 Basophils # 0.0 Nucleated Red Blood Cells # 0.0 Digoxin Level 0.9 L Sodium Level 138 Potassium Level 4.3 Chloride Level 102 Carbon Dioxide Level 32 H Anion Gap 4 L Blood Urea Nitrogen 22 H Creatinine 0.76 Est Glomerular Filtrat Rate mL/min Glucose Level 101 Calcium Level 8.0 L Total Bilirubin 8.2 #H Direct Bilirubin 0.60 #H Indirect Bilirubin 7.6 H Aspartate Amino Transf (AST/SGOT) 20 Alanine Aminotransferase (ALT/SGPT) 18 Alkaline Phosphatase 174 H Total Protein 5.8 L Albumin 2.5 L Globulin 3.30 H Albumin/Globulin Ratio 0.75 Medications Medication Current Medications IV Flush (NS 3 ml) 3 ml PER PROTOCOL IV ; Start 10/06/18 at 00:00 Ondansetron HCl (Zofran Inj) 4 mg Q6H PRN IV NAUSEA/VOMITING; Start 10/06/18 at 00:00 Acetaminophen (Tylenol Tab) 650 mg Q6H PRN PO .PAIN 1-3 OR TEMP; Start 10/06/18 at 00:00 Carvedilol (Coreg) 3.125 mg BID PO Last administered on 10/08/18 20:44; Admin Dose 3.125 MG; Start 10/06/18 at 09:00 Digoxin (Digoxin) 0.125 mg DAILY PO Last administered on 10/09/18 10:38; Admin Dose 0.125 MG; Start 10/06/18 at 09:00 Finasteride (Proscar) 5 mg DAILY PO Last administered on 10/09/18 10:35; Admin Dose 5 MG; Start 10/06/18 at 09:00 Albuterol/ Ipratropium (Duoneb) 3 ml Q4H RESP THERAPY PRN INH SHORTNESS OF BREATH Last administered on 10/09/18 08:29; Admin Dose 3 ML; Start 10/06/18 at 00:00 Potassium Chloride (Micro-K) 8 meq DAILY PO Last administered on 10/09/18 10:38; Admin Dose 8 MEQ; Start 10/06/18 at 09:00 Tamsulosin HCl (Flomax) 0.4 mg HS PO Last administered on 10/08/18 20:42; Admin Dose 0.4 MG; Start 10/06/18 at 21:00 Pantoprazole (Protonix Iv) 40 mg BID@0600,1800 IV Last administered on 10/09/18 05:52; Admin Dose 40 MG; Start 10/06/18 at 21:00 MALINI SALDANA MD Oct 09, 2018 15:06
--- NOTE | 2018-10-09 16:14 | QN ---
Documentation Comment GI INTERIM FOLLOWUP Waiting for cardiac clearance for EGD. Unable to proceed and unable to wait any further. New urgent cases to be performed on other patients. Since case is non-urgent, will reattempt EGD on Friday. SARAHY TAVAREZ Oct 09, 2018 16:14
[2018-10-09] MEDS: TAMSULOSIN (SR) 0.4 MG CAP PO SCH (20:29)
[2018-10-10] VITALS (12 sets, daily range): BP systolic 91–115; BP diastolic 52–63; PULSE 62–103; RESP 18–22
[2018-10-10] MEDS: PANTOPRAZOLE 40 MG INJ IV SCH ×2 (05:41→17:40)
[2018-10-10] MEDS: DIGOXIN 0.125 MG TAB PO SCH (09:04)
[2018-10-10] MEDS: POTASSIUM CHLORIDE (SR) 8 MEQ CAP PO SCH (09:04)
[2018-10-10] MEDS: FINASTERIDE 5 MG TAB PO SCH (09:04)
[2018-10-10] MEDS: ALBUTEROL/IPRATROPIUM (NEB) 3 ML AMP INH PRN ×3 (11:35→19:29)
--- NOTE | 2018-10-10 12:48 | PN ---
Date/Time of Note Date/Time of Note DATE: 10/10/18 TIME: 12:47 Assessment/Plan VTE Prophylaxis Risk score (from Ns)>0 risk: 3 SCD applied (from Ns): Yes Pharmacological prophylaxis: other (scds) Lines/Catheters [facility]ter Type [facility]from [facility] Peripheral IV Urinary Cath still in place: No Assessment/Plan Hospital Course Summary Assessment and Plan: Assessment: Melena/anemia Indirect hyperbilirubinemia CHF - 02/2018 EF 35% HTN CAD Pulmonary hypertension, moderate Chronic BPH Valvular heart disease, moderate aortic stenosis Plan: EGD-postponed to Friday as patient is no longer actively bleeding and not deemed an urgent procedure PPI to twice daily Ok to advance diet from GI point of view Patient seen in collaboration with Dr. Larkin/Rashida Subjective: Course reviewed with nursing staff Patient interviewed and examined All labs, imaging and other results reviewed No over night events, pt appears comfortable HGB is stable, without overt signs of GI bleed. Continue to monitor PHYSICAL EXAMINATION: GENERAL:Elderly gentleman, alert & oriented x 3, in no acute distress SKIN: Facial discoloration EYES: Pupils equal reactive to light, no discharge. EARS/NOSE AND THROAT: Ears normal, nose normal NECK: Supple. CHEST: Inspection within normal limits. CARDIOVASCULAR: Heart: Irregular rate and rhythm RESPIRATORY: Wheezing GASTROINTESTINAL AND LIVER: Abdomen: Soft, non tenderness, non-distended, no hernias, no masses, no organomegaly, no ascites, no guarding, no rebound tende rness, normoactive bowel sounds. Rectal: Deferred. EXTREMITIES: No cyanosis, clubbing or edema. Result Diagram: 10/10/18 0552 10/10/18 0552 Results 24hrs Laboratory Tests Test 10/10/18 05:52 White Blood Count 3.3 #L Red Blood Count 3.07 L Hemoglobin 9.9 L Hematocrit 31.5 L Mean Corpuscular Volume 102.6 H Mean Corpuscular Hemoglobin 32.2 Mean Corpuscular Hemoglobin Concent 31.4 L Red Cell Distribution Width 18.7 H Platelet Count 106 L Mean Platelet Volume 10.2 Immature Granulocytes % 0.300 Neutrophils % Segmented Neutrophils % (Manual) 69 Band Neutrophils % (Manual) 12 H Lymphocytes % Lymphocytes % (Manual) 8 L Reactive Lymphocytes % (Manual) 6 H Monocytes % Monocytes % (Manual) 3 Eosinophils % Eosinophils % (Manual) 2 Basophils % Nucleated Red Blood Cells % 0.0 Immature Granulocytes # 0.010 Neutrophils # Neutrophils # (Manual) 2.3 Band Neutrophils # 0.3 Lymphocytes (Manual) 0.2 L Lymphocytes # Reactive Lymphocytes # 0.1 H Monocytes # Monocytes # (Manual) 0.0 L Eosinophils # Basophils # Nucleated Red Blood Cells # Platelet Estimate DECREASED Polychromasia 1+ Poikilocytosis 1+ Anisocytosis 2+ Macrocytosis 1+ Target Cells 1+ Sodium Level 136 Potassium Level 3.8 Chloride Level 99 Carbon Dioxide Level 33 H Anion Gap 4 L Blood Urea Nitrogen 29 H Creatinine 0.74 Est Glomerular Filtrat Rate mL/min Glucose Level 100 Calcium Level 8.0 L Phosphorus Level 3.7 Magnesium Level 2.0 Total Bilirubin 9.5 H Direct Bilirubin 1.70 #H Indirect Bilirubin 7.8 H Aspartate Amino Transf (AST/SGOT) 17 Alanine Aminotransferase (ALT/SGPT) 17 Alkaline Phosphatase 156 H Total Protein 5.9 L Albumin 2.5 L Globulin 3.40 H Albumin/Globulin Ratio 0.73 Exam/Review of Systems Exam Vitals Vital Signs Date Temp Pulse Resp B/P (MAP) Pulse Ox O2 O2 Flow FiO2 Time Delivery Rate 10/10/18 83 12:00 10/10/18 16 96 21 11:37 10/10/18 98.0 103/52 Room Air 11:16 (69) Intake and Output 10/09/18 10/09/18 10/10/18 1515:00 23:00 07:00 IntakeIntake Total 30 ml 400 ml OutputOutput Total 1200 ml 450 ml BalanceBalance -1170 ml -50 ml Results Results 24hrs Laboratory Tests Test 10/10/18 05:52 White Blood Count 3.3 #L Red Blood Count 3.07 L Hemoglobin 9.9 L Hematocrit 31.5 L Mean Corpuscular Volume 102.6 H Mean Corpuscular Hemoglobin 32.2 Mean Corpuscular Hemoglobin Concent 31.4 L Red Cell Distribution Width 18.7 H Platelet Count 106 L Mean Platelet Volume 10.2 Immature Granulocytes % 0.300 Neutrophils % Segmented Neutrophils % (Manual) 69 Band Neutrophils % (Manual) 12 H Lymphocytes % Lymphocytes % (Manual) 8 L Reactive Lymphocytes % (Manual) 6 H Monocytes % Monocytes % (Manual) 3 Eosinophils % Eosinophils % (Manual) 2 Basophils % Nucleated Red Blood Cells % 0.0 Immature Granulocytes # 0.010 Neutrophils # Neutrophils # (Manual) 2.3 Band Neutrophils # 0.3 Lymphocytes (Manual) 0.2 L Lymphocytes # Reactive Lymphocytes # 0.1 H Monocytes # Monocytes # (Manual) 0.0 L Eosinophils # Basophils # Nucleated Red Blood Cells # Platelet Estimate DECREASED Polychromasia 1+ Poikilocytosis 1+ Anisocytosis 2+ Macrocytosis 1+ Target Cells 1+ Sodium Level 136 Potassium Level 3.8 Chloride Level 99 Carbon Dioxide Level 33 H Anion Gap 4 L Blood Urea Nitrogen 29 H Creatinine 0.74 Est Glomerular Filtrat Rate mL/min Glucose Level 100 Calcium Level 8.0 L Phosphorus Level 3.7 Magnesium Level 2.0 Total Bilirubin 9.5 H Direct Bilirubin 1.70 #H Indirect Bilirubin 7.8 H Aspartate Amino Transf (AST/SGOT) 17 Alanine Aminotransferase (ALT/SGPT) 17 Alkaline Phosphatase 156 H Total Protein 5.9 L Albumin 2.5 L Globulin 3.40 H Albumin/Globulin Ratio 0.73 Medications Medication Current Medications IV Flush (NS 3 ml) 3 ml PER PROTOCOL IV ; Start 10/06/18 at 00:00 Ondansetron HCl (Zofran Inj) 4 mg Q6H PRN IV NAUSEA/VOMITING; Start 10/06/18 at 00:00 Acetaminophen (Tylenol Tab) 650 mg Q6H PRN PO .PAIN 1-3 OR TEMP; Start 10/06/18 at 00:00 Carvedilol (Coreg) 3.125 mg BID PO Last administered on 10/10/18 09:04; Admin Dose 3.125 MG; Start 10/06/18 at 09:00 Digoxin (Digoxin) 0.125 mg DAILY PO Last administered on 10/10/18 09:04; Admin Dose 0.125 MG; Start 10/06/18 at 09:00 Finasteride (Proscar) 5 mg DAILY PO Last administered on 10/10/18 09:04; Admin Dose 5 MG; Start 10/06/18 at 09:00 Albuterol/ Ipratropium (Duoneb) 3 ml Q4H RESP THERAPY PRN INH SHORTNESS OF BR EATH Last administered on 10/10/18 11:35; Admin Dose 3 ML; Start 10/06/18 at 00:00 Potassium Chloride (Micro-K) 8 meq DAILY PO Last administered on 10/10/18 09:04; Admin Dose 8 MEQ; Start 10/06/18 at 09:00 Tamsulosin HCl (Flomax) 0.4 mg HS PO Last administered on 10/09/18 20:29; Admin Dose 0.4 MG; Start 10/06/18 at 21:00 Pantoprazole (Protonix Iv) 40 mg BID@0600,1800 IV Last administered on 10/10/18 05:41; Admin Dose 40 MG; Start 10/06/18 at 21:00 ELOINA CRUZ Oct 10, 2018 12:47
[2018-10-10] MEDS ORDERED: FUROSEMIDE 40 MG INJ IV ONE (17:00)
--- NOTE | 2018-10-10 17:54 | CONS ---
Assessment/Plan Assessment/Plan Hospital Course (Demo Recall) Pre-procedural evaluation: To undergo low risk EGD/colo. His CHF has improved with diuresis, but he still has wheezing on exam Acute on chronic systolic heart failure: EF 35% 02/25. Decompensated on exam due to blood products. Improved with diuresis with improvement in JVP and crackles but now with expiratory wheezing which may be bronchospastic Acute GI bleed/anemia: Hgb down to 6, s/p 4 units. >10 chronic afib: Rates controlled. Was on Eliquis but held due to GI bleed Ischemic cardiomyopathy CAD Mild-mod Pulm HTN -additional Lasix 40mg IV x 1 now -nebs as appears to have a bronchospastic component as opposed to cardiogenic wheezing -continue digoxin -hold coreg 3.125mg BID due to wheezing -hold Eliquis 2.5mg BID Consultation Date/Type/Reason Admit Date/Time Oct 05, 2018 at 19:53 Initial Consult Date 10/08/18 Type of Consult Cardiology Date/Time of Note DATE: 10/10/18 TIME: 17:51 24 HR Interval Summary Free Text/Dictation Having shortness of breath and wheezing. Detailed Summary Additional Comments 14 point review of systems without changes. Exam/Review of Systems Vital Signs Vitals Vital Signs Date Temp Pulse Resp B/P (MAP) Pulse Ox O2 O2 Flow FiO2 Time Delivery Rate 10/10/18 70 22 96 21 16:38 10/10/18 98.2 99/59 (72) Room Air 15:34 Intake and Output 10/09/18 10/09/18 10/10/18 1414:59 22:59 06:59 IntakeIntake Total 30 ml 400 ml OutputOutput Total 1200 ml 450 ml BalanceBalance -1170 ml -50 ml Exam Constitutional: alert, distress Psych: no complaints, nl mood/affect Head: normocephalic, atraumatic Eyes: nl conjunctiva, nl lids ENMT: nl external ears & nose, nl nasal mucosa & septum Neck: supple, non-tender Respiratory: crackles/rales, wheezing Cardiovascular: regular rate and rhythm, systolic murmur Gastrointestinal: soft, non-tender Musculoskeletal: nl extremities to inspection Extremities: No cyanosis, No clubbing, No edema Neurological: nl mental status, nl speech Labs Result Diagram: 10/10/18 0552 10/10/18 0552 Results 24hrs Laboratory Tests Test 10/10/18 05:52 White Blood Count 3.3 #L Red Blood Count 3.07 L Hemoglobin 9.9 L Hematocrit 31.5 L Mean Corpuscular Volume 102.6 H Mean Corpuscular Hemoglobin 32.2 Mean Corpuscular Hemoglobin Concent 31.4 L Red Cell Distribution Width 18.7 H Platelet Count 106 L Mean Platelet Volume 10.2 Immature Granulocytes % 0.300 Neutrophils % Segmented Neutrophils % (Manual) 69 Band Neutrophils % (Manual) 12 H Lymphocytes % Lymphocytes % (Manual) 8 L Reactive Lymphocytes % (Manual) 6 H Monocytes % Monocytes % (Manual) 3 Eosinophils % Eosinophils % (Manual) 2 Basophils % Nucleated Red Blood Cells % 0.0 Immature Granulocytes # 0.010 Neutrophils # Neutrophils # (Manual) 2.3 Band Neutrophils # 0.3 Lymphocytes (Manual) 0.2 L Lymphocytes # Reactive Lymphocytes # 0.1 H Monocytes # Monocytes # (Manual) 0.0 L Eosinophils # Basophils # Nucleated Red Blood Cells # Platelet Estimate DECREASED Polychromasia 1+ Poikilocytosis 1+ Anisocytosis 2+ Macrocytosis 1+ Target Cells 1+ Sodium Level 136 Potassium Level 3.8 Chloride Level 99 Carbon Dioxide Level 33 H Anion Gap 4 L Blood Urea Nitrogen 29 H Creatinine 0.74 Est Glomerular Filtrat Rate mL/min Glucose Level 100 Calcium Level 8.0 L Phosphorus Level 3.7 Magnesium Level 2.0 Total Bilirubin 9.5 H Direct Bilirubin 1.70 #H Indirect Bilirubin 7.8 H Aspartate Amino Transf (AST/SGOT) 17 Alanine Aminotransferase (ALT/SGPT) 17 Alkaline Phosphatase 156 H Total Protein 5.9 L Albumin 2.5 L Globulin 3.40 H Albumin/Globulin Ratio 0.73 Medications Medications Current Medications IV Flush (NS 3 ml) 3 ml PER PROTOCOL IV ; Start 10/06/18 at 00:00 Ondansetron HCl (Zofran Inj) 4 mg Q6H PRN IV NAUSEA/VOMITING; Start 10/06/18 at 00:00 Acetaminophen (Tylenol Tab) 650 mg Q6H PRN PO .PAIN 1-3 OR TEMP; Start 10/06/18 at 00:00 Carvedilol (Coreg) 3.125 mg BID PO Last administered on 10/10/18at 09:04; Admin Dose 3.125 MG; Start 10/06/18 at 09:00 Digoxin (Digoxin) 0.125 mg DAILY PO Last administered on 10/10/18 09:04; Admin Dose 0.125 MG; Start 10/06/18 at 09:00 Finasteride (Proscar) 5 mg DAILY PO Last administered on 10/10/18 09:04; Admin Dose 5 MG; Start 10/06/18 at 09:00 Albuterol/ Ipratropium (Duoneb) 3 ml Q4H RESP THERAPY PRN INH SHORTNESS OF BREATH Last administered on 10/10/18 16:35; Admin Dose 3 ML; Start 10/06/18 at 00:00 Potassium Chloride (Micro-K) 8 meq DAILY PO Last administered on 10/10/18 09:04; Admin Dose 8 MEQ; Start 10/06/18 at 09:00 Tamsulosin HCl (Flomax) 0.4 mg HS PO Last administered on 10/09/18 20:29; Admin Dose 0.4 MG; Start 10/06/18 at 21:00 Pantoprazole (Protonix Iv) 40 mg BID@0600,1800 IV Last administered on 10/10/18 17:40; Admin Dose 40 MG; Start 10/06/18 at 21:00 Lactobacillus Acidophilus/ Rhamnosus (Culturelle) 1 cap BID PO ; Start 10/10/18 at 21:00 GLORIA ARTIS MD Oct 10, 2018 17:54
[2018-10-10] MEDS: TAMSULOSIN (SR) 0.4 MG CAP PO SCH (21:09)
[2018-10-10] MEDS: LACTOBACILLUS RHAMNOSUS CAP PO SCH (22:27)
[2018-10-11] VITALS (12 sets, daily range): BP systolic 105–118; BP diastolic 61–71; PULSE 63–106; RESP 16–21
[2018-10-11] MEDS: ALBUTEROL/IPRATROPIUM (NEB) 3 ML AMP INH PRN (00:35)
[2018-10-11] MEDS ORDERED: LEVALBUTEROL (NEB) 0.63 MG/3 ML AMP HHN PRN (01:30)
[2018-10-11] MEDS ORDERED: IPRATROPIUM (NEB) 0.5 MG/2.5 ML AMP HHN PRN (01:30)
[2018-10-11] MEDS: IPRATROPIUM (NEB) 0.5 MG/2.5 ML AMP HHN SCH ×5 (04:49→21:44)
[2018-10-11] MEDS: LEVALBUTEROL (NEB) 0.63 MG/3 ML AMP HHN SCH ×5 (04:49→21:44)
[2018-10-11] MEDS: PANTOPRAZOLE 40 MG INJ IV SCH ×2 (05:31→17:22)
[2018-10-11] MEDS ORDERED: METHYLPREDNISOLONE 125 MG INJ IV ONE (07:00)
[2018-10-11] MEDS: POTASSIUM CHLORIDE (SR) 8 MEQ CAP PO SCH (08:59)
[2018-10-11] MEDS: LACTOBACILLUS RHAMNOSUS CAP PO SCH ×2 (08:59→20:11)
[2018-10-11] MEDS: FINASTERIDE 5 MG TAB PO SCH (08:59)
--- NOTE | 2018-10-11 12:15 | PN ---
Date/Time of Note Date/Time of Note DATE: 10/11/18 TIME: 12:12 Assessment/Plan VTE Prophylaxis Risk score (from Ns)>0 risk: 3 SCD applied (from Ns): Yes SCD contraindicated: low risk/ambulating Pharmacological prophylaxis: NA/contraindicated Pharm contraindication: bleeding Lines/Catheters [facility] Saline Lock Urinary Cath still in place: No Assessment/Plan Hospital Course A/P 1. Gi bleed likely upper, stable, sp transfusion. Hold off on EGD due to respiratory/cardio comorbidities. 2. Chr A fib dced Eliquis/asa 3. Chr hypertension 4. Chr CAD? 5. Chronic ischemic cardiomyopathy. EF of 30. May proceed forward to EGD/ colonoscopy as indicated, with low perioperative risk 6. Pulmonary hypertension moderate. Prognosis guarded 7. Chr BPH 8. Valvular heart dz. Mod aortic stenosis 9. Acute blood loss anemia, for transfusion soon. Transfuse for hb less than 7 10. Nsvt. Electrolytes noted. May require repeat transfusion 11. Pneumonia, stable start Vanco/Rocephin. Check lactic acid/ pro calcitonin. Influenza negative. 12. Bronchospasm, start short course of steroids; aerosols. S: 10/06 no further melena. No dyspnea chest pain fever. 10/07: No further GI bleed noted. Low blood pressure and nsvt noted. Albumin/ midodrine overnight 10/08: No distress. No active bleed. Probably fluid overloaded. EGD will be postponed until probably tomorrow. 10/09: cough, but stable vitals. should be able to tolerate surgery. will limit ivf post op 3 dyspnea noted 10/11: Dyspnea continues no chest pain or fever. Productive cough. CT results noted. Started on Solu-Medrol/prednisone addition O: Vital signs stable PE No pallor/ JVD Regular +sm, no/r/g Clear scattered wheezing Bs+ nt/ nd no RRG Mild edema Result Diagram: 10/10/18 0552 10/11/18 0543 Results 24hrs Laboratory Tests Test 10/11/18 05:43 Sodium Level 136 Potassium Level 3.4 L Chloride Level 96 L Carbon Dioxide Level 32 H Anion Gap 8 Blood Urea Nitrogen 33 H Creatinine 0.78 Est Glomerular Filtrat Rate mL/min Glucose Level 98 Calcium Level 8.1 L Magnesium Level 2.0 Exam/Review of Systems Exam Vitals Vital Signs Date Temp Pulse Resp B/P (MAP) Pulse Ox O2 O2 Flow FiO2 Time Delivery Rate 10/11/18 97.8 99 19 111/61 95 11:31 (78) 10/11/18 Nasal 2.0 09:02 Cannula 10/10/18 21 19:29 Intake and Output 10/10/18 10/10/18 10/11/18 1414:59 22:59 06:59 IntakeIntake Total 500 ml 200 ml OutputOutput Total 500 ml BalanceBalance 500 ml -300 ml Results Results 24hrs Laboratory Tests Test 10/11/18 05:43 Sodium Level 136 Potassium Level 3.4 L Chloride Level 96 L Carbon Dioxide Level 32 H Anion Gap 8 Blood Urea Nitrogen 33 H Creatinine 0.78 Est Glomerular Filtrat Rate mL/min Glucose Level 98 Calcium Level 8.1 L Magnesium Level 2.0 Medications Medication Current Medications IV Flush (NS 3 ml) 3 ml PER PROTOCOL IV ; Start 10/06/18 at 00:00 Ondansetron HCl (Zofran Inj) 4 mg Q6H PRN IV NAUSEA/VOMITING; Start 10/06/18 at 00:00 Acetaminophen (Tylenol Tab) 650 mg Q6H PRN PO .PAIN 1-3 OR TEMP; Start 10/06/18 at 00:00 Finasteride (Proscar) 5 mg DAILY PO Last administered on 10/11/18 08:59; Admin Dose 5 MG; Start 10/06/18 at 09:00 Potassium Chloride (Micro-K) 8 meq DAILY PO Last administered on 10/11/18 08:59; Admin Dose 8 MEQ; Start 10/06/18 at 09:00 Tamsulosin HCl (Flomax) 0.4 mg HS PO Last administered on 10/10/18 21:09; Admin Dose 0.4 MG; Start 10/06/18 at 21:00 Pantoprazole (Protonix Iv) 40 mg BID@0600,1800 IV Last administered on 10/11/18 05:31; Admin Dose 40 MG; Start 10/06/18 at 21:00 Lactobacillus Acidophilus/ Rhamnosus (Culturelle) 1 cap BID PO Last administered on 10/11/18 08:59; Admin Dose 1 CAP; Start 10/10/18 at 21:00 Levalbuterol (Xopenex Neb) 0.63 mg Q4H RESP THERAPY HHN Last administered on 10/11/18at 09:01; Admin Dose 0.63 MG; Start 10/11/18 at 05:00 Levalbuterol (Xopenex Neb) 0.63 mg Q2H RESP THERAPY PRN HHN WHEEZING AND SOB; Start 10/11/18 at 01:30 Ipratropium [place] (Atrovent 0.02% (Neb)) 0.5 mg Q4H RESP THERAPY HHN Last a dministered on 10/11/18at 09:01; Admin Dose 0.5 MG; Start 10/11/18 at 05:00 Ipratropium [place] (Atrovent 0.02% (Neb)) 0.5 mg Q2H RESP THERAPY PRN HHN WHEEZING AND SOB; Start 10/11/18 at 01:30 Digoxin (Digoxin) 0.125 mg DAILY@1300 PO ; Start 10/11/18 at 13:00 Methylprednisolone Sodium Succinate (Solu-Medrol) 80 mg Q8 IV ; Start 10/11/18 at 14:00; Stop 10/12/18 at 14:00; Status UNV Prednisone (Prednisone) 60 mg DAILY PO ; Start 10/13/18 at 09:00; Status UNV Ceftriaxone Sodium 50 ml @ 100 mls/hr Q24H IVPB ; Start 10/11/18 at 12:30; Status UNV Guaifenesin/ Dextromethorphan (Robitussin Dm Liquid Cup) 10 ml Q4H PRN PO COUGH; Start 10/11/18 at 12:30; Status UNV MALINI SALDANA MD Oct 11, 2018 12:15
[2018-10-11] MEDS: DIGOXIN 0.125 MG TAB PO SCH (12:18)
[2018-10-11] MEDS ORDERED: GUAIFENESIN/DM 5ML CUP PO PRN (12:30)
[2018-10-11] MEDS ORDERED: VANCOMYCIN IV PER PHARMACY XX SCH (12:30)
[2018-10-11] MEDS ORDERED: VANCOMYCIN HCL 1.25 GM in SOD CHLORIDE 0.9% 250 ML IVPB SCH (14:30)
[2018-10-11] MEDS: METHYLPREDNISOLONE 125 MG INJ IV SCH ×2 (14:47→22:36)
[2018-10-11] MEDS: CEFTRIAXONE 2 GM/50 ML (PMX) 50 ML IVPB SCH (14:47)
--- NOTE | 2018-10-11 15:20 | PN ---
Date/Time of Note Date/Time of Note DATE: 10/11/18 TIME: 15:09 Assessment/Plan VTE Prophylaxis Risk score (from Ns)>0 risk: 3 SCD applied (from Ns): Yes Pharmacological prophylaxis: NA/contraindicated (suspected gi bleeding) Pharm contraindication: bleeding Lines/Catheters [facility] Saline Lock Urinary Cath still in place: No Assessment/Plan Hospital Course Hospital Course Summary Assessment and Plan: Assessment: Melena/anemia Indirect hyperbilirubinemia CHF - 02/2018 EF 35% HTN CAD Pulmonary hypertension, moderate Chronic BPH Valvular heart disease, moderate aortic stenosis Plan: EGD-cancelled for Friday as patient is no longer actively bleeding. He now appears to have respiratory congestion and CT chest evidence of pulmonary in filtrated indicative of pneumonia. PPI to twice daily Diet as tolerated Patient seen in collaboration with Dr. Larkin/Rashida Subjective: Course reviewed with nursing staff Patient interviewed and examined All labs, imaging and other results reviewed No over night events, pt appears comfortable. Denies abdominal pain. Tolerating diet. HGB is stable, without overt signs of GI bleed. Continue to monitor PHYSICAL EXAMINATION: GENERAL:Elderly gentleman, alert & oriented x 3, in no acute distress SKIN: Facial discoloration EYES: Pupils equal reactive to light, no discharge. EARS/NOSE AND THROAT: Ears normal, nose normal NECK: Supple. CHEST: Inspection within normal limits. CARDIOVASCULAR: Heart: Irregular rate and rhythm RESPIRATORY: Wheezing GASTROINTESTINAL AND LIVER: Abdomen: Soft, non tenderness, non-distended, no hernias, no masses, no organomegaly, no ascites, no guarding, no rebound ten derness, normoactive bowel sounds. Rectal: Deferred. EXTREMITIES: No cyanosis, clubbing or edema. Result Diagram: 10/10/18 0552 10/11/18 0543 Results 24hrs Laboratory Tests Test 10/11/18 05:43 Sodium Level 136 Potassium Level 3.4 L Chloride Level 96 L Carbon Dioxide Level 32 H Anion Gap 8 Blood Urea Nitrogen 33 H Creatinine 0.78 Est Glomerular Filtrat Rate mL/min Glucose Level 98 Calcium Level 8.1 L Magnesium Level 2.0 CC: SARAHY TAVAREZ ; Exam/Review of Systems Exam Vitals Vital Signs Date Temp Pulse Resp B/P (MAP) Pulse Ox O2 O2 Flow FiO2 Time Delivery Rate 3/3/19 90 18 97 21 14:13 10/11/18 97.8 111/61 11:31 (78) 10/11/18 Nasal 2.0 09:02 Cannula Intake and Output 10/10/18 10/10/18 10/11/18 1515:00 23:00 07:00 IntakeIntake Total 500 ml 200 ml OutputOutput Total 500 ml BalanceBalance 500 ml -300 ml Results Results 24hrs Laboratory Tests Test 10/11/18 05:43 Sodium Level 136 Potassium Level 3.4 L Chloride Level 96 L Carbon Dioxide Level 32 H Anion Gap 8 Blood Urea Nitrogen 33 H Creatinine 0.78 Est Glomerular Filtrat Rate mL/min Glucose Level 98 Calcium Level 8.1 L Magnesium Level 2.[address] chest 10/11/18: IMPRESSION: 1. New patchy ground-glass interstitial and alveolar infiltrates in the anterior segment of the right upper lobe, medial left upper lobe and apex suggestive of multifocal pneumonia. Underlying neoplastic process , although considered less likely, cannot be excluded . 2. Stable moderate to large bilateral pleural effusions and bibasilar atelectasis. 3. No evidence of lymphadenopathy. 4. Mild hepatomegaly ascites. Medications Medication Current Medications IV Flush (NS 3 ml) 3 ml PER PROTOCOL IV ; Start 10/06/18 at 00:00 Ondansetron HCl (Zofran Inj) 4 mg Q6H PRN IV NAUSEA/VOMITING; Start 10/06/18 at 00:00 Acetaminophen (Tylenol Tab) 650 mg Q6H PRN PO .PAIN 1-3 OR TEMP; Start 10/06/18 at 00:00 Finasteride (Proscar) 5 mg DAILY PO Last administered on 10/11/18at 08:59; Admin Dose 5 MG; Start 10/06/18 at 09:00 Potassium Chloride (Micro-K) 8 meq DAILY PO Last administered on 10/11/18at 08:59; Admin Dose 8 MEQ; Start 10/06/18 at 09:00 Tamsulosin HCl (Flomax) 0.4 mg HS PO Last administered on 10/10/18at 21:09; Admin Dose 0.4 MG; Start 10/06/18 at 21:00 Pantoprazole (Protonix Iv) 40 mg BID@0600,1800 IV Last administered on 10/11/18 05:31; Admin Dose 40 MG; Start 10/06/18 at 21:00 Lactobacillus Acidophilus/ Rhamnosus (Culturelle) 1 cap BID PO Last administered on 10/11/18 08:59; Admin Dose 1 CAP; Start 10/10/18 at 21:00 Levalbuterol (Xopenex Neb) 0.63 mg Q4H RESP THERAPY HHN Last administered on 10/11/18 14:13; Admin Dose 0.63 MG; Start 10/11/18 at 05:00 Levalbuterol (Xopenex Neb) 0.63 mg Q2H RESP THERAPY PRN HHN WHEEZING AND SOB; Start 10/11/18 at 01:30 Ipratropium [place] (Atrovent 0.02% (Neb)) 0.5 mg Q4H RESP THERAPY HHN Last administered on 10/11/18 14:13; Admin Dose 0.5 MG; Start 10/11/18 at 05:00 Ipratropium [place] (Atrovent 0.02% (Neb)) 0.5 mg Q2H RESP THERAPY PRN HHN WHEEZING AND SOB; Start 10/11/18 at 01:30 Digoxin (Digoxin) 0.125 mg DAILY@1300 PO Last administered on 10/11/18 12:18; Admin Dose 0.125 MG; Start 10/11/18 at 13:00 Methylprednisolone Sodium Succinate (Solu-Medrol) 80 mg Q8 IV Last administered on 10/11/18 14:47; Admin Dose 80 MG; Start 10/11/18 at 14:00; Stop 10/12/18 at 14:00 Prednisone (Prednisone) 60 mg DAILY PO ; Start 10/13/18 at 09:00 Ceftriaxone Sodium 50 ml @ 100 mls/hr Q24H IVPB Last administered on 10/11/18 14:47; Admin Dose 100 MLS/HR; Start 10/11/18 at 14:00 Guaifenesin/ Dextromethorphan (Robitussin Dm Liquid Cup) 10 ml Q4H PRN PO COUGH; Start 10/11/18 at 12:30 Vancomycin HCl (Vanco Iv Per Pharmacy) VANCOMYCIN PER PHARM... PER PROTOCOL XX ; Start 10/11/18 at 12:30 Vancomycin HCl 1.25 gm/Sodium Chloride 250 ml @ 83.333 mls/ hr ONCE IVPB Last administered on 10/11/18 14:47; Admin Dose 83.333 MLS/HR; Start 10/11/18 at 14:30; Stop 10/11/18 at 17:29 JASWANT MEREDITH NP Oct 11, 2018 15:19
--- NOTE | 2018-10-11 17:53 | CONS ---
Assessment/Plan Assessment/Plan Hospital Course (Demo Recall) Pre-procedural evaluation: To undergo low risk EGD/colo. His CHF has improved with diuresis. Acute on chronic systolic heart failure: EF 35% 02/25. Decompensated on exam due to blood products. Improved with diuresis with improvement in JVP and crackles but now with expiratory wheezing which may be bronchospastic Acute GI bleed/anemia: Hgb down to 6, s/p 4 units. >10 chronic afib: Rates controlled. Was on Eliquis but held due to GI bleed Ischemic cardiomyopathy CAD Mild-mod Pulm HTN Bronchospasm: shortness of breath and wheezing improved on IV solumedrol -continue nebs and steroids -continue digoxin -holding coreg 3.125mg BID due to wheezing -hold Eliquis 2.5mg BID Consultation Date/Type/Reason Admit Date/Time Oct 05, 2018 at 19:53 Initial Consult Date 10/08/18 Type of Consult Cardiology Date/Time of Note DATE: 10/11/18 TIME: 17:51 24 HR Interval Summary Free Text/Dictation Started on intravenous steroids. Shortness of breath and wheezing has improved. Detailed Summary Additional Comments 14 point review of systems without changes. Exam/Review of Systems Vital Signs Vitals Vital Signs Date Temp Pulse Resp B/P (MAP) Pulse Ox O2 O2 Flow FiO2 Time Delivery Rate 10/11/18 90 18 94 21 17:15 10/11/18 97.3 106/71 15:21 (83) 10/11/18 Nasal 2.0 09:02 Cannula Intake and Output 10/10/18 10/10/18 10/11/18 1515:00 23:00 07:00 IntakeIntake Total 500 ml 200 ml OutputOutput Total 500 ml BalanceBalance 500 ml -300 ml Exam Exam Constitutional: alert, distress Psych: no complaints, nl mood/affect Head: normocephalic, atraumatic Eyes: nl conjunctiva, nl lids ENMT: nl external ears & nose, nl nasal mucosa & septum Neck: supple, non-tender Respiratory: crackles/rales, scattered wheezing Cardiovascular: regular rate and rhythm, systolic murmur Gastrointestinal: soft, non-tender Musculoskeletal: nl extremities to inspection Extremities: No cyanosis, No clubbing, No edema Neurological: nl mental status, nl speech Labs Result Diagram: 10/10/18 0552 10/11/18 0543 Results 24hrs Laboratory Tests Test 10/11/18 05:43 Sodium Level 136 Potassium Level 3.4 L Chloride Level 96 L Carbon Dioxide Level 32 H Anion Gap 8 Blood Urea Nitrogen 33 H Creatinine 0.78 Est Glomerular Filtrat Rate mL/min Glucose Level 98 Calcium Level 8.1 L Magnesium Level 2.0 Medications Medications Current Medications IV Flush (NS 3 ml) 3 ml PER PROTOCOL IV ; Start 10/06/18 at 00:00 Ondansetron HCl (Zofran Inj) 4 mg Q6H PRN IV NAUSEA/VOMITING; Start 10/06/18 at 00:00 Acetaminophen (Tylenol Tab) 650 mg Q6H PRN PO .PAIN 1-3 OR TEMP; Start 10/06/18 at 00:00 Finasteride (Proscar) 5 mg DAILY PO Last administered on 10/11/18 08:59; Admin Dose 5 MG; Start 10/06/18 at 09:00 Potassium Chloride (Micro-K) 8 meq DAILY PO Last administered on 10/11/18 08:59; Admin Dose 8 MEQ; Start 10/06/18 at 09:00 Tamsulosin HCl (Flomax) 0.4 mg HS PO Last administered on 10/10/18 21:09; Admin Dose 0.4 MG; Start 10/06/18 at 21:00 Pantoprazole (Protonix Iv) 40 mg BID@0600,1800 IV Last administered on 10/11/18 17:22; Admin Dose 40 MG; Start 10/06/18 at 21:00 Lactobacillus Acidophilus/ Rhamnosus (Culturelle) 1 cap BID PO Last admi nistered on 10/11/18 08:59; Admin Dose 1 CAP; Start 10/10/18 at 21:00 Levalbuterol (Xopenex Neb) 0.63 mg Q4H RESP THERAPY HHN Last administered on 10/11/18 17:14; Admin Dose 0.63 MG; Start 10/11/18 at 05:00 Levalbuterol (Xopenex Neb) 0.63 mg Q2H RESP THERAPY PRN HHN WHEEZING AND SOB; Start 10/11/18 at 01:30 Ipratropium [place] (Atrovent 0.02% (Neb)) 0.5 mg Q4H RESP THERAPY HHN Last administered on 10/11/18at 17:14; Admin Dose 0.5 MG; Start 10/11/18 at 05:00 Ipratropium [place] (Atrovent 0.02% (Neb)) 0.5 mg Q2H RESP THERAPY PRN HHN WHEEZING AND SOB; Start 10/11/18 at 01:30 Digoxin (Digoxin) 0.125 mg DAILY@1300 PO Last administered on 10/11/18 12:18; Admin Dose 0.125 MG; Start 10/11/18 at 13:00 Methylprednisolone Sodium Succinate (Solu-Medrol) 80 mg Q8 IV Last administered on 10/11/18at 14:47; Admin Dose 80 MG; Start 10/11/18 at 14:00; Stop 10/12/18 at 14:00 Prednisone (Prednisone) 60 mg DAILY PO ; Start 10/13/18 at 09:00 Ceftriaxone Sodium 50 ml @ 100 mls/hr Q24H IVPB Last administered on 10/11/18at 14:47; Admin Dose 100 MLS/HR; Start 10/11/18 at 14:00 Guaifenesin/ Dextromethorphan (Robitussin Dm Liquid Cup) 10 ml Q4H PRN PO COUGH; Start 10/11/18 at 12:30 Vancomycin HCl (Vanco Iv Per Pharmacy) VANCOMYCIN PER PHARM... PER PROTOCOL XX ; Start 10/11/18 at 12:30 GLORIA ARTIS MD Oct 11, 2018 17:53
[2018-10-11] MEDS: TAMSULOSIN (SR) 0.4 MG CAP PO SCH (20:11)
[2018-10-12] VITALS (12 sets, daily range): BP systolic 85–107; BP diastolic 44–62; PULSE 66–83; RESP 18
[2018-10-12] MEDS: LEVALBUTEROL (NEB) 0.63 MG/3 ML AMP HHN SCH ×6 (01:46→20:23)
[2018-10-12] MEDS: IPRATROPIUM (NEB) 0.5 MG/2.5 ML AMP HHN SCH ×6 (01:46→20:23)
[2018-10-12] MEDS: PANTOPRAZOLE 40 MG INJ IV SCH ×2 (05:42→17:56)
[2018-10-12] MEDS: METHYLPREDNISOLONE 125 MG INJ IV SCH ×2 (05:42→13:25)
[2018-10-12] MEDS: LACTOBACILLUS RHAMNOSUS CAP PO SCH ×2 (08:57→20:48)
[2018-10-12] MEDS: FINASTERIDE 5 MG TAB PO SCH (08:57)
[2018-10-12] MEDS: POTASSIUM CHLORIDE (SR) 8 MEQ CAP PO SCH (08:57)
--- NOTE | 2018-10-12 12:51 | PN ---
Date/Time of Note Date/Time of Note DATE: 10/12/18 TIME: 12:43 Assessment/Plan VTE Prophylaxis Risk score (from Ns)>0 risk: 6 SCD applied (from Ns): Yes Pharmacological prophylaxis: other (scds) Lines/Catheters [facility] Saline Lock Urinary Cath still in place: No Assessment/Plan Hospital Course Summary Assessment and Plan: Assessment: Melena- resolved Macrocytic anemia- trending down Indirect hyperbilirubinemia- trending down Thrombocytopenia Leukopenia CHF - 02/2018 EF 35% HTN CAD Pulmonary hypertension, moderate Chronic BPH Valvular heart disease, moderate aortic stenosis Plan: EGD-currently cancelled as patient is no longer actively bleeding. He now appears to have respiratory congestion and CT chest evidence of pulmonary infiltrated indicative of pneumonia HGB trending down- will proceed with EGD when cleared by cardio/medical team. Given thrombocytopenia and macrocytic anemia - will order abd us to assess the liver Continue PPI to twice daily Diet as tolerated Patient seen in collaboration with Dr. Larkin/Rashida Subjective: Course reviewed with nursing staff Patient interviewed and examined All labs, imaging and other results reviewed No over night events, pt appears comfortable. Denies abdominal pain. No over signs of GI bleed. Maintain close observation PHYSICAL EXAMINATION: GENERAL:Elderly gentleman, alert & oriented x 3, in no acute distress SKIN: Facial discoloration EYES: Pupils equal reactive to light, no discharge. EARS/NOSE AND THROAT: Ears normal, nose normal NECK: Supple. CHEST: Inspection within normal limits. CARDIOVASCULAR: Heart: Irregular rate and rhythm RESPIRATORY: Wheezing GASTROINTESTINAL AND LIVER: Abdomen: Soft, non tenderness, non-distended, no hernias, no masses, no organomegaly, no ascites, no guarding, no rebound tenderness, normoactive bowel sounds. Rectal: Deferred. EXTREMITIES: No cyanosis, clubbing or edema. Result Diagram: 10/12/18 0545 10/12/18 0545 Results 24hrs Laboratory Tests Test 10/12/18 05:45 White Blood Count 1.5 #L Red Blood Count 2.52 L Hemoglobin 8.3 L Hematocrit 26.0 L Mean Corpuscular Volume 103.2 H Mean Corpuscular Hemoglobin 32.9 Mean Corpuscular Hemoglobin Concent 31.9 L Red Cell Distribution Width 17.2 H Platelet Count 86 L Mean Platelet Volume 10.4 Immature Granulocytes % 0.000 L Neutrophils % Segmented Neutrophils % (Manual) 77 Band Neutrophils % (Manual) 16 H Lymphocytes % Lymphocytes % (Manual) 5 L Monocytes % Monocytes % (Manual) 2 Eosinophils % Basophils % Nucleated Red Blood Cells % 0.0 Immature Granulocytes # 0.000 Neutrophils # Neutrophils # (Manual) 1.2 L Band Neutrophils # 0.2 Lymphocytes (Manual) 0.0 L Lymphocytes # Monocytes # Monocytes # (Manual) 0.0 L Eosinophils # Basophils # Nucleated Red Blood Cells # Platelet Estimate DECREASED Giant Platelets 6 H Poikilocytosis 1+ Anisocytosis 2+ Macrocytosis 2+ Sodium Level 136 Potassium Level 3.8 Chloride Level 98 Carbon Dioxide Level 31 Anion Gap 7 Blood Urea Nitrogen 37 H Creatinine 0.77 Est Glomerular Filtrat Rate mL/min Glucose Level 132 Lactic Acid Level 1.2 Calcium Level 8.3 L Phosphorus Level 3.7 Magnesium Level 2.2 Total Bilirubin 3.2 #H Direct Bilirubin 0.20 # Indirect Bilirubin 3.0 H Aspartate Amino Transf (AST/SGOT) 11 L Alanine Aminotransferase (ALT/SGPT) 16 Alkaline Phosphatase 107 Troponin I < 0.012 Total Protein 5.7 L Albumin 2.4 L Globulin 3.30 H Albumin/Globulin Ratio 0.72 Exam/Review of Systems Exam Vitals Vital Signs Date Temp Pulse Resp B/P (MAP) Pulse Ox O2 O2 Flow FiO2 Time Delivery Rate 10/12/18 67 12:04 10/12/18 97.2 18 95/52 (66) 93 Nasal 11:58 Cannula 10/12/18 2.0 11:29 10/12/18 28 01:45 Intake and Output 10/11/18 10/11/18 10/12/18 1515:00 23:00 07:00 IntakeIntake Total 660 ml 200 ml OutputOutput Total 450 ml BalanceBalance 660 ml -250 ml Results Results 24hrs Laboratory Tests Test 10/12/18 05:45 White Blood Count 1.5 #L Red Blood Count 2.52 L Hemoglobin 8.3 L Hematocrit 26.0 L Mean Corpuscular Volume 103.2 H Mean Corpuscular Hemoglobin 32.9 Mean Corpuscular Hemoglobin Concent 31.9 L Red Cell Distribution Width 17.2 H Platelet Count 86 L Mean Platelet Volume 10.4 Immature Granulocytes % 0.000 L Neutrophils % Segmented Neutrophils % (Manual) 77 Band Neutrophils % (Manual) 16 H Lymphocytes % Lymphocytes % (Manual) 5 L Monocytes % Monocytes % (Manual) 2 Eosinophils % Basophils % Nucleated Red Blood Cells % 0.0 Immature Granulocytes # 0.000 Neutrophils # Neutrophils # (Manual) 1.2 L Band Neutrophils # 0.2 Lymphocytes (Manual) 0.0 L Lymphocytes # Monocytes # Monocytes # (Manual) 0.0 L Eosinophils # Basophils # Nucleated Red Blood Cells # Platelet Estimate DECREASED Giant Platelets 6 H Poikilocytosis 1+ Anisocytosis 2+ Macrocytosis 2+ Sodium Level 136 Potassium Level 3.8 Chloride Level 98 Carbon Dioxide Level 31 Anion Gap 7 Blood Urea Nitrogen 37 H Creatinine 0.77 Est Glomerular Filtrat Rate mL/min Glucose Level 132 Lactic Acid Level 1.2 Calcium Level 8.3 L Phosphorus Level 3.7 Magnesium Level 2.2 Total Bilirubin 3.2 #H Direct Bilirubin 0.20 # Indirect Bilirubin 3.0 H Aspartate Amino Transf (AST/SGOT) 11 L Alanine Aminotransferase (ALT/SGPT) 16 Alkaline Phosphatase 107 Troponin I < 0.012 Total Protein 5.7 L Albumin 2.4 L Globulin 3.30 H Albumin/Globulin Ratio 0.72 Medications Medication Current Medications IV Flush (NS 3 ml) 3 ml PER PROTOCOL IV ; Start 10/06/18 at 00:00 Ondansetron HCl (Zofran Inj) 4 mg Q6H PRN IV NAUSEA/VOMITING; Start 10/06/18 at 00:00 Acetaminophen (Tylenol Tab) 650 mg Q6H PRN PO .PAIN 1-3 OR TEMP Last administered on 10/12/18 08:58; Admin Dose 650 MG; Start 10/06/18 at 00:00 Finasteride (Proscar) 5 mg DAILY PO Last administered on 10/12/18 08:57; Admin Dose 5 MG; Start 10/06/18 at 09:00 Potassium Chloride (Micro-K) 8 meq DAILY PO Last administered on 10/12/18 08:57; Admin Dose 8 MEQ; Start 10/06/18 at 09:00 Tamsulosin HCl (Flomax) 0.4 mg HS PO Last administered on 10/11/18 20:11; Admin Dose 0.4 MG; Start 10/06/18 at 21:00 Pantoprazole (Protonix Iv) 40 mg BID@0600,1800 IV Last administered on 10/12/18 05:42; Admin Dose 40 MG; Start 10/06/18 at 21:00 Lactobacillus Acidophilus/ Rhamnosus (Culturelle) 1 cap BID PO Last administered on 10/12/18 08:57; Admin Dose 1 CAP; Start 10/10/18 at 21:00 Levalbuterol (Xopenex Neb) 0.63 mg Q4H RESP THERAPY HHN Last administered on 10/12/18 11:24; Admin Dose 0.63 MG; Start 10/11/18 at 05:00 Levalbuterol (Xopenex Neb) 0.63 mg Q2H RESP THERAPY PRN HHN WHEEZING AND SOB; Start 10/11/18 at 01:30 Ipratropium [place] (Atrovent 0.02% (Neb)) 0.5 mg Q4H RESP THERAPY HHN Last administered on 10/12/18at 09:00; Admin Dose 0.5 MG; Start 10/11/18 at 05:00 Ipratropium [place] (Atrovent 0.02% (Neb)) 0.5 mg Q2H RESP THERAPY PRN HHN WHEEZING AND SOB; Start 10/11/18 at 01:30 Digoxin (Digoxin) 0.125 mg DAILY@1300 PO Last administered on 10/11/18at 12:18; Admin Dose 0.125 MG; Start 10/11/18 at 13:00 Methylprednisolone Sodium Succinate (Solu-Medrol) 80 mg Q8 IV Last administered on 10/12/18 05:42; Admin Dose 80 MG; Start 10/11/18 at 14:00; Stop 10/12/18 at 14:00 Prednisone (Prednisone) 60 mg DAILY PO ; Start 10/13/18 at 09:00 Ceftriaxone Sodium 50 ml @ 100 mls/hr Q24H IVPB Last administered on 10/11/18at 14:47; Admin Dose 100 MLS/HR; Start 10/11/18 at 14:00 Guaifenesin/ Dextromethorphan (Robitussin Dm Liquid Cup) 10 ml Q4H PRN PO COUGH; Start 10/11/18 at 12:30 Vancomycin HCl (Vanco Iv Per Pharmacy) VANCOMYCIN PER PHARM... PER PROTOCOL XX ; Start 10/11/18 at 12:30 Vancomycin HCl 1.25 gm/Sodium Chloride 250 ml @ 83.333 mls/ hr Q24H IVPB ; Start 10/12/18 at 14:00 ELOINA CRUZ Oct 12, 2018 12:51
[2018-10-12] MEDS: DIGOXIN 0.125 MG TAB PO SCH (13:25)
--- NOTE | 2018-10-12 13:53 | PN ---
Date/Time of Note Date/Time of Note DATE: 10/12/18 TIME: 13:52 Assessment/Plan VTE Prophylaxis Risk score (from Ns)>0 risk: 6 SCD applied (from Ns): Yes Pharmacological prophylaxis: NA/contraindicated Pharm contraindication: anticoag not tolerated Lines/Catheters [facility] Peripheral IV Urinary Cath still in place: No Assessment/Plan Hospital Course SUBJECTIVE: Denies any chest pain. Denies any dyspnea. OBJECTIVE: Physical Exam General: Adequately build 88 year-old male lying in bed in no apparent distress. HEENT: Normocephalic, atraumatic. Eyes: Anicteric sclerae, conjunctivae clear. ENT: Nasal septum midline, oral mucosa moist. Neck supple, JVD noticed. Respiratory: Bilaterally diminished breath sounds. No use of accessory muscles of respiration. B/L Expiratory wheezing. Cardiovascular: S1, S2 heard. Irregularly irregular rhythm. Grade 2/3 systolic ejection murmur. Abdomen: Soft, nontender, and nondistended. Bowel sounds positive in all 4 quadrants. Genitourinary: Deferred. Extremities: No cyanosis, no clubbing, no edema. Peripheral pulses palpable. Neurologic: Cranial nerves II through XII grossly intact. The patient is awake, alert, and oriented. Skin: Normal skin turgor. No skin rashes. Labs & Vitals per chart ASSESSMENT & PLAN 71-year-old male with comorbidities including cardiomyopathy with ejection fraction 35%, pulmonary hypertension, moderate aortic stenosis, moderate tricuspid regurgitation, chronic atrial fibrillation on anticoagulation, hypertension, prostate hypertrophy, chronic bilateral pleural effusions, and chronic anemia. The patient came to the emergency room for further evaluation of anemia. The patient was admitted to inpatient setting for further treatment and evaluation. 1. Anemia. -Microcytic. -Etiology unclear. Stool for OB x1 negative. -Status post 4 units of PRBC transfusion. -Initial plan was for esophagogastroduodenoscopy. However, this was canceled because of the patient's comorbidities and high risk for undergoing endoscopy and the patient's H&H remained stable and there was no evidence of any active bleeding. 2. Acute on chronic congestive heart failure exacerbation. -Continue spot diuretics -Being followed by cardiology. 3. Ischemic cardiomyopathy. -Ejection fraction of 30%. -Continue digoxin -Unable to start the patient on beta-blockers/SUHAIL inhibitors because of low blood pressure readings. 4. Multifocal pneumonia. -CT scan from 10/11/2018 showing new patchy ground-glass interstitial and alveolar infiltrates in the anterior segment of the right upper lobe, medial left upper lobe, and apex suggestive of multifocal pneumonia. -Continue antimicrobials. 5. Reactive airway disease. -Continue tapering dose of steroids. 6. Pulmonary hypertension. -Probably secondary to valvular heart disease. 7. Chronic atrial fibrillation. -Rate controlled. -Continue digoxin. -Not a good candidate for anticoagulation because of anemia. 8. Prostatic hypertrophy. -Continue Flomax and Proscar. 9. Fluids, electrolytes, and nutrition. -Low-sodium diet. 10. Plan. -Continue diuresis. -Continue antimicrobials -Monitor H&H closely. The patient was seen in collaboration with Dr. Whyte. Result Diagram: 10/12/1845 10/12/1845 Results 24hrs Laboratory Tests Test 10/12/18 05:45 White Blood Count 1.5 #L Red Blood Count 2.52 L Hemoglobin 8.3 L Hematocrit 26.0 L Mean Corpuscular Volume 103.2 H Mean Corpuscular Hemoglobin 32.9 Mean Corpuscular Hemoglobin Concent 31.9 L Red Cell Distribution Width 17.2 H Platelet Count 86 L Mean Platelet Volume 10.4 Immature Granulocytes % 0.000 L Neutrophils % Segmented Neutrophils % (Manual) 77 Band Neutrophils % (Manual) 16 H Lymphocytes % Lymphocytes % (Manual) 5 L Monocytes % Monocytes % (Manual) 2 Eosinophils % Basophils % Nucleated Red Blood Cells % 0.0 Immature Granulocytes # 0.000 Neutrophils # Neutrophils # (Manual) 1.2 L Band Neutrophils # 0.2 Lymphocytes (Manual) 0.0 L Lymphocytes # Monocytes # Monocytes # (Manual) 0.0 L Eosinophils # Basophils # Nucleated Red Blood Cells # Platelet Estimate DECREASED Giant Platelets 6 H Poikilocytosis 1+ Anisocytosis 2+ Macrocytosis 2+ Sodium Level 136 Potassium Level 3.8 Chloride Level 98 Carbon Dioxide Level 31 Anion Gap 7 Blood Urea Nitrogen 37 H Creatinine 0.77 Est Glomerular Filtrat Rate mL/min Glucose Level 132 Lactic Acid Level 1.2 Calcium Level 8.3 L Phosphorus Level 3.7 Magnesium Level 2.2 Total Bilirubin 3.2 #H Direct Bilirubin 0.20 # Indirect Bilirubin 3.0 H Aspartate Amino Transf (AST/SGOT) 11 L Alanine Aminotransferase (ALT/SGPT) 16 Alkaline Phosphatase 107 Troponin I < 0.012 Total Protein 5.7 L Albumin 2.4 L Globulin 3.30 H Albumin/Globulin Ratio 0.72 Exam/Review of Systems Exam Vitals Vital Signs Date Temp Pulse Resp B/P (MAP) Pulse Ox O2 O2 Flow FiO2 Time Delivery Rate 10/12/18 67 12:04 10/12/18 97.2 18 95/52 (66) 93 Nasal 11:58 Cannula 10/12/18 2.0 11:29 10/12/18 28 01:45 Intake and Output 10/11/18 10/11/18 10/12/18 1515:00 23:00 07:00 IntakeIntake Total 660 ml 200 ml OutputOutput Total 450 ml BalanceBalance 660 ml -250 ml Results Results 24hrs Laboratory Tests Test 10/12/18 05:45 White Blood Count 1.5 #L Red Blood Count 2.52 L Hemoglobin 8.3 L Hematocrit 26.0 L Mean Corpuscular Volume 103.2 H Mean Corpuscular Hemoglobin 32.9 Mean Corpuscular Hemoglobin Concent 31.9 L Red Cell Distribution Width 17.2 H Platelet Count 86 L Mean Platelet Volume 10.4 Immature Granulocytes % 0.000 L Neutrophils % Segmented Neutrophils % (Manual) 77 Band Neutrophils % (Manual) 16 H Lymphocytes % Lymphocytes % (Manual) 5 L Monocytes % Monocytes % (Manual) 2 Eosinophils % Basophils % Nucleated Red Blood Cells % 0.0 Immature Granulocytes # 0.000 Neutrophils # Neutrophils # (Manual) 1.2 L Band Neutrophils # 0.2 Lymphocytes (Manual) 0.0 L Lymphocytes # Monocytes # Monocytes # (Manual) 0.0 L Eosinophils # Basophils # Nucleated Red Blood Cells # Platelet Estimate DECREASED Giant Platelets 6 H Poikilocytosis 1+ Anisocytosis 2+ Macrocytosis 2+ Sodium Level 136 Potassium Level 3.8 Chloride Level 98 Carbon Dioxide Level 31 Anion Gap 7 Blood Urea Nitrogen 37 H Creatinine 0.77 Est Glomerular Filtrat Rate mL/min Glucose Level 132 Lactic Acid Level 1.2 Calcium Level 8.3 L Phosphorus Level 3.7 Magnesium Level 2.2 Total Bilirubin 3.2 #H Direct Bilirubin 0.20 # Indirect Bilirubin 3.0 H Aspartate Amino Transf (AST/SGOT) 11 L Alanine Aminotransferase (ALT/SGPT) 16 Alkaline Phosphatase 107 Troponin I < 0.012 Total Protein 5.7 L Albumin 2.4 L Globulin 3.30 H Albumin/Globulin Ratio 0.72 Medications Medication Current Medications IV Flush (NS 3 ml) 3 ml PER PROTOCOL IV ; Start 10/06/18 at 00:00 Ondansetron HCl (Zofran Inj) 4 mg Q6H PRN IV NAUSEA/VOMITING; Start 10/06/18 at 00:00 Acetaminophen (Tylenol Tab) 650 mg Q6H PRN PO .PAIN 1-3 OR TEMP Last administered on 10/12/18 08:58; Admin Dose 650 MG; Start 10/06/18 at 00:00 Finasteride (Proscar) 5 mg DAILY PO Last administered on 10/12/18 08:57; Admin Dose 5 MG; Start 10/06/18 at 09:00 Potassium Chloride (Micro-K) 8 meq DAILY PO Last administered on 10/12/18 08:57; Admin Dose 8 MEQ; Start 10/06/18 at 09:00 Tamsulosin HCl (Flomax) 0.4 mg HS PO Last administered on 10/11/18 20:11; Admin Dose 0.4 MG; Start 10/06/18 at 21:00 Pantoprazole (Protonix Iv) 40 mg BID@0600,1800 IV Last administered on 10/12/18 05:42; Admin Dose 40 MG; Start 10/06/18 at 21:00 Lactobacillus Acidophilus/ Rhamnosus (Culturelle) 1 cap BID PO Last administered on 10/12/18 08:57; Admin Dose 1 CAP; Start 10/10/18 at 21:00 Levalbuterol (Xopenex Neb) 0.63 mg Q4H RESP THERAPY HHN Last administered on 10/12/18 11:24; Admin Dose 0.63 MG; Start 10/11/18 at 05:00 Levalbuterol (Xopenex Neb) 0.63 mg Q2H RESP THERAPY PRN HHN WHEEZING AND SOB; Start 10/11/18 at 01:30 Ipratropium [place] (Atrovent 0.02% (Neb)) 0.5 mg Q4H RESP THERAPY HHN Last administered on 10/12/18 09:00; Admin Dose 0.5 MG; Start 10/11/18 at 05:00 Ipratropium [place] (Atrovent 0.02% (Neb)) 0.5 mg Q2H RESP THERAPY PRN HHN WHEEZING AND SOB; Start 10/11/18 at 01:30 Digoxin (Digoxin) 0.125 mg DAILY@1300 PO Last administered on 10/12/18 13:25; Admin Dose 0.125 MG; Start 10/11/18 at 13:00 Methylprednisolone Sodium Succinate (Solu-Medrol) 80 mg Q8 IV Last administered on 10/12/18at 13:25; Admin Dose 80 MG; Start 10/11/18 at 14:00; Stop 10/12/18 at 1 4:00 Prednisone (Prednisone) 60 mg DAILY PO ; Start 10/13/18 at 09:00 Ceftriaxone Sodium 50 ml @ 100 mls/hr Q24H IVPB Last administered on 10/11/18at 14:47; Admin Dose 100 MLS/HR; Start 10/11/18 at 14:00 Guaifenesin/ Dextromethorphan (Robitussin Dm Liquid Cup) 10 ml Q4H PRN PO COUGH; Start 10/11/18 at 12:30 Vancomycin HCl (Vanco Iv Per Pharmacy) VANCOMYCIN PER PHARM... PER PROTOCOL XX ; Start 10/11/18 at 12:30 Vancomycin HCl 1.25 gm/Sodium Chloride 250 ml @ 83.333 mls/ hr Q24H IVPB Last administered on 10/12/18 13:26; Admin Dose 83.333 MLS/HR; Start 10/12/18 at 14:00 BENTLEY CERVANTES NP Oct 12, 2018 13:53
[2018-10-12] MEDS ORDERED: VANCOMYCIN HCL 1.25 GM in SOD CHLORIDE 0.9% 250 ML IVPB SCH (14:00)
[2018-10-12] MEDS: CEFTRIAXONE 2 GM/50 ML (PMX) 50 ML IVPB SCH (14:14)
--- NOTE | 2018-10-12 14:38 | CONS ---
Assessment/Plan Assessment/Plan Hospital Course (Demo Recall) Pre-procedural evaluation: To undergo low risk EGD/colo. CHF resolved. Mild wheezing much improved and no symptoms. Acute on chronic systolic heart failure: EF 35% 02/25. Decompensated on exam due to blood products. S/p diuresis but also bronchospastic component as well as multifocal PNA on CXR. Acute GI bleed/anemia: Hgb down to 6, s/p 4 units and >10. Now all cell lines trending down chronic afib: Rates controlled. Was on Eliquis but held due to GI bleed Ischemic cardiomyopathy CAD Mild-mod Pulm HTN -ok for EGD from cardiac perspective but with pancytopenia and low plts, being held again -lasix 20mg PO daily -holding coreg 3.125mg BID -continue digoxin -hold Eliquis 2.5mg BID Consultation Date/Type/Reason Admit Date/Time Oct 05, 2018 at 19:53 Initial Consult Date 10/08/18 Type of Consult Cardiology Date/Time of Note DATE: 10/12/18 TIME: 14:33 24 HR Interval Summary Free Text/Dictation EGD could not be done over weekend due to scheduling and ongoing wheezing. Was started on steroids. Was to have EGD today but worsening plt count but also e/o pancytopenia. No complaints Exam/Review of Systems Exam Vitals Vital Signs Date Temp Pulse Resp B/P (MAP) Pulse Ox O2 O2 Flow FiO2 Time Delivery Rate 10/12/18 95 2.0 13:53 10/12/18 75 20 Nasal 13:51 Cannula 10/12/18 97.2 95/52 (66) 11:58 10/12/18 28 01:45 Intake and Output 10/11/18 10/11/18 10/12/18 1515:00 23:00 07:00 IntakeIntake Total 660 ml 200 ml OutputOutput Total 450 ml BalanceBalance 660 ml -250 ml Constitutional: alert, oriented Head: normocephalic, atraumatic Neck: jvd (7-8cm) Respiratory: crackles/rales (mild at bases ), wheezing (mild expiratory ); No clear to auscultation Gastrointestinal: soft, non-tender; No distended Neurological: nl mental status, nl speech Results Result Diagram: 10/12/18 0545 10/12/18 0545 Results 24hrs Laboratory Tests Test 10/12/18 05:45 White Blood Count 1.5 #L Red Blood Count 2.52 L Hemoglobin 8.3 L Hematocrit 26.0 L Mean Corpuscular Volume 103.2 H Mean Corpuscular Hemoglobin 32.9 Mean Corpuscular Hemoglobin Concent 31.9 L Red Cell Distribution Width 17.2 H Platelet Count 86 L Mean Platelet Volume 10.4 Immature Granulocytes % 0.000 L Neutrophils % Segmented Neutrophils % (Manual) 77 Band Neutrophils % (Manual) 16 H Lymphocytes % Lymphocytes % (Manual) 5 L Monocytes % Monocytes % (Manual) 2 Eosinophils % Basophils % Nucleated Red Blood Cells % 0.0 Immature Granulocytes # 0.000 Neutrophils # Neutrophils # (Manual) 1.2 L Band Neutrophils # 0.2 Lymphocytes (Manual) 0.0 L Lymphocytes # Monocytes # Monocytes # (Manual) 0.0 L Eosinophils # Basophils # Nucleated Red Blood Cells # Platelet Estimate DECREASED Giant Platelets 6 H Poikilocytosis 1+ Anisocytosis 2+ Macrocytosis 2+ Sodium Level 136 Potassium Level 3.8 Chloride Level 98 Carbon Dioxide Level 31 Anion Gap 7 Blood Urea Nitrogen 37 H Creatinine 0.77 Est Glomerular Filtrat Rate mL/min Glucose Level 132 Lactic Acid Level 1.2 Calcium Level 8.3 L Phosphorus Level 3.7 Magnesium Level 2.2 Total Bilirubin 3.2 #H Direct Bilirubin 0.20 # Indirect Bilirubin 3.0 H Aspartate Amino Transf (AST/SGOT) 11 L Alanine Aminotransferase (ALT/SGPT) 16 Alkaline Phosphatase 107 Troponin I < 0.012 Total Protein 5.7 L Albumin 2.4 L Globulin 3.30 H Albumin/Globulin Ratio 0.72 Medications Medication Current Medications IV Flush (NS 3 ml) 3 ml PER PROTOCOL IV ; Start 10/06/18 at 00:00 Ondansetron HCl (Zofran Inj) 4 mg Q6H PRN IV NAUSEA/VOMITING; Start 10/06/18 at 00:00 Acetaminophen (Tylenol Tab) 650 mg Q6H PRN PO .PAIN 1-3 OR TEMP Last administered on 10/12/18at 08:58; Admin Dose 650 MG; Start 10/06/18 at 00:00 Finasteride (Proscar) 5 mg DAILY PO Last administered on 10/12/18at 08:57; Admin Dose 5 MG; Start 10/06/18 at 09:00 Potassium Chloride (Micro-K) 8 meq DAILY PO Last administered on 10/12/18 08:57; Admin Dose 8 MEQ; Start 10/06/18 at 09:00 Tamsulosin HCl (Flomax) 0.4 mg HS PO Last administered on 10/11/18 20:11; Admin Dose 0.4 MG; Start 10/06/18 at 21:00 Pantoprazole (Protonix Iv) 40 mg BID@0600,1800 IV Last administered on 10/12/18 05:42; Admin Dose 40 MG; Start 10/06/18 at 21:00 Lactobacillus Acidophilus/ Rhamnosus (Culturelle) 1 cap BID PO Last administered on 10/12/18 08:57; Admin Dose 1 CAP; Start 10/10/18 at 21:00 Levalbuterol (Xopenex Neb) 0.63 mg Q4H RESP THERAPY HHN Last administered on 10/12/18 13:48; Admin Dose 0.63 MG; Start 10/11/18 at 05:00 Levalbuterol (Xopenex Neb) 0.63 mg Q2H RESP THERAPY PRN HHN WHEEZING AND SOB; Start 10/11/18 at 01:30 Ipratropium [place] (Atrovent 0.02% (Neb)) 0.5 mg Q4H RESP THERAPY HHN Last administered on 10/12/18 13:48; Admin Dose 0.5 MG; Start 10/11/18 at 05:00 Ipratropium [place] (Atrovent 0.02% (Neb)) 0.5 mg Q2H RESP THERAPY PRN HHN WHEEZING AND SOB; Start 10/11/18 at 01:30 Digoxin (Digoxin) 0.125 mg DAILY@1300 PO Last administered on 10/12/18 13:25; Admin Dose 0.125 MG; Start 10/11/18 at 13:00 Prednisone (Prednisone) 60 mg DAILY PO ; Start 10/13/18 at 09:00 Ceftriaxone Sodium 50 ml @ 100 mls/hr Q24H IVPB Last administered on 10/12/18 14:14; Admin Dose 100 MLS/HR; Start 10/11/18 at 14:00 Guaifenesin/ Dextromethorphan (Robitussin Dm Liquid Cup) 10 ml Q4H PRN PO COUGH; Start 10/11/18 at 12:30 Vancomycin HCl (Vanco Iv Per Pharmacy) VANCOMYCIN PER PHARM... PER PROTOCOL XX ; Start 10/11/18 at 12:30 Vancomycin HCl 1.25 gm/Sodium Chloride 250 ml @ 83.333 mls/ hr Q24H IVPB Last administered on 10/12/18at 13:26; Admin Dose 83.333 MLS/HR; Start 10/12/18 at 14:00 WOLFGANG SHERIDAN Oct 12, 2018 14:38
[2018-10-12] MEDS: FUROSEMIDE 20 MG TAB PO SCH (17:56)
[2018-10-12] MEDS: TAMSULOSIN (SR) 0.4 MG CAP PO SCH (20:48)
[2018-10-13] VITALS (13 sets, daily range): BP systolic 93–108; BP diastolic 52–67; PULSE 70–96; RESP 16–19
[2018-10-13] MEDS: IPRATROPIUM (NEB) 0.5 MG/2.5 ML AMP HHN SCH ×6 (00:09→20:22)
[2018-10-13] MEDS: LEVALBUTEROL (NEB) 0.63 MG/3 ML AMP HHN SCH ×6 (00:09→20:22)
--- NOTE | 2018-10-13 05:45 | PN ---
Date/Time of Note Date/Time of Note DATE: 10/13/18 TIME: 05:45 Assessment/Plan VTE Prophylaxis Risk score (from Ns)>0 risk: 7 SCD applied (from Ns): Yes Pharmacological prophylaxis: NA/contraindicated Pharm contraindication: anticoag not tolerated Lines/Catheters [facility] Saline Lock Urinary Cath still in place: No Assessment/Plan Hospital Course SUBJECTIVE: Denies any chest pain. Denies any dyspnea. OBJECTIVE: Physical Exam General: Adequately build 88 year-old male lying in bed in no apparent distress. HEENT: Normocephalic, atraumatic. Eyes: Anicteric sclerae, conjunctivae clear. ENT: Nasal septum midline, oral mucosa moist. Neck supple, JVD noticed. Respiratory: Bilaterally diminished breath sounds. No use of accessory muscles of respiration. Expiratory wheezing. Cardiovascular: S1, S2 heard. Irregularly irregular rhythm. Grade 2/3 systolic ejection murmur. Abdomen: Soft, nontender, and nondistended. Bowel sounds positive in all 4 quadrants. Genitourinary: Deferred. Extremities: No cyanosis, no clubbing, no edema. Peripheral pulses palpable. Neurologic: Cranial nerves II through XII grossly intact. The patient is awake, alert, and oriented. Skin: Normal skin turgor. No skin rashes. Labs & Vitals per chart ASSESSMENT & PLAN 71-year-old male with comorbidities including cardiomyopathy with ejection fraction 35%, pulmonary hypertension, moderate aortic stenosis, moderate tricuspid regurgitation, chronic atrial fibrillation on anticoagulation, hypertension, prostate hypertrophy, chronic bilateral pleural effusions, and chronic anemia. The patient came to the emergency room for further evaluation of anemia. The patient was admitted to inpatient setting for further treatment and evaluation. 1. Anemia. -Microcytic. -Etiology unclear. Stool for OB x1-. -Status post 4 units of PRBC transfusion. -Initial plan was for esophagogastroduodenoscopy. However, this was canceled because of the patient's comorbidities and high risk for undergoing endoscopy and the patient's H&H remained stable and there was no evidence of any active bleeding. 2. Acute on chronic congestive heart failure exacerbation. -Continue spot diuretics -Being followed by cardiology. 3. Ischemic cardiomyopathy. -Ejection fraction of 30%. -Continue digoxin -Unable to start the patient on beta-blockers/SUHAIL inhibitors because of low blood pressure readings. 4. Multifocal pneumonia. -CT scan from 10/11/2018 showing new patchy ground-glass interstitial and alveolar infiltrates in the anterior segment of the right upper lobe, medial left upper lobe, and apex suggestive of multifocal pneumonia. -Continue antimicrobials. 5. Reactive airway disease with bronchospasms. -Continue tapering dose of steroids. 6. Moderate aortic stenosis. -Patient not a good surgical candidate. -Being followed by cardiology. 7. Pulmonary hypertension. -Probably secondary to valvular heart disease. 8. Chronic atrial fibrillation. -Rate controlled. -Continue digoxin. -Not a good candidate for anticoagulation because of anemia. 10. Prostatic hypertrophy. -Continue Flomax and Proscar. 11. Fluids, electrolytes, and nutrition. -Low-sodium diet. 12. Plan. -Continue diuresis. -Continue antimicrobials -Monitor H&H closely. The patient was seen in collaboration with Dr. Whyte. Result Diagram: 10/12/1845 10/12/18544 Exam/Review of Systems Exam Vitals Vital Signs Date Temp Pulse Resp B/P (MAP) Pulse Ox O2 O2 Flow FiO2 Time Delivery Rate 10/13/18 2.0 04:55 10/13/18 66 18 96 Nasal 04:55 Cannula 10/13/18 97.5 99/57 (71) 03:54 10/12/18 28 01:45 Intake and Output 10/12/18 10/12/18 10/13/18 1515:00 23:00 07:00 IntakeIntake Total 300 ml 300 ml OutputOutput Total 500 ml 500 ml BalanceBalance -200 ml -200 ml Medications Medication Current Medications IV Flush (NS 3 ml) 3 ml PER PROTOCOL IV ; Start 10/06/18 at 00:00 Ondansetron HCl (Zofran Inj) 4 mg Q6H PRN IV NAUSEA/VOMITING; Start 10/06/18 at 00:00 Acetaminophen (Tylenol Tab) 650 mg Q6H PRN PO .PAIN 1-3 OR TEMP Last administered on 10/12/18at 08:58; Admin Dose 650 MG; Start 10/06/18 at 00:00 Finasteride (Proscar) 5 mg DAILY PO Last administered on 10/12/18 08:57; Admin Dose 5 MG; Start 10/06/18 at 09:00 Potassium Chloride (Micro-K) 8 meq DAILY PO Last administered on 10/12/18 08:57; Admin Dose 8 MEQ; Start 10/06/18 at 09:00 Tamsulosin HCl (Flomax) 0.4 mg HS PO Last administered on 10/12/18 20:48; Admin Dose 0.4 MG; Start 10/06/18 at 21:00 Pantoprazole (Protonix Iv) 40 mg BID@0600,1800 IV Last administered on 10/12/18 17:56; Admin Dose 40 MG; Start 10/06/18 at 21:00 Lactobacillus Acidophilus/ Rhamnosus (Culturelle) 1 cap BID PO Last administered on 10/12/18 20:48; Admin Dose 1 CAP; Start 10/10/18 at 21:00 Levalbuterol (Xopenex Neb) 0.63 mg Q4H RESP THERAPY HHN Last administered on 10/13/18 04:55; Admin Dose 0.63 MG; Start 10/11/18 at 05:00 Levalbuterol (Xopenex Neb) 0.63 mg Q2H RESP THERAPY PRN HHN WHEEZING AND SOB; Start 10/11/18 at 01:30 Ipratropium [place] (Atrovent 0.02% (Neb)) 0.5 mg Q4H RESP THERAPY HHN Last administered on 10/13/18 04:55; Admin Dose 0.5 MG; Start 10/11/18 at 05:00 Ipratropium [place] (Atrovent 0.02% (Neb)) 0.5 mg Q2H RESP THERAPY PRN HHN WHEEZING AND SOB; Start 10/11/18 at 01:30 Digoxin (Digoxin) 0.125 mg DAILY@1300 PO Last administered on 10/12/18 13:25; Admin Dose 0.125 MG; Start 10/11/18 at 13:00 Prednisone (Prednisone) 60 mg DAILY PO ; Start 10/13/18 at 09:00 Ceftriaxone Sodium 50 ml @ 100 mls/hr Q24H IVPB Last administered on 10/12/18 14:14; Admin Dose 100 MLS/HR; Start 10/11/18 at 14:00 Guaifenesin/ Dextromethorphan (Robitussin Dm Liquid Cup) 10 ml Q4H PRN PO COUGH; Start 10/11/18 at 12:30 Vancomycin HCl (Vanco Iv Per Pharmacy) VANCOMYCIN PER PHARM... PER PROTOCOL XX ; Start 10/11/18 at 12:30 Vancomycin HCl 1.25 gm/Sodium Chloride 250 ml @ 83.333 mls/ hr Q24H IVPB Last administered on 10/12/18at 13:26; Admin Dose 83.333 MLS/HR; Start 10/12/18 at 14:00 Furosemide (Lasix) 20 mg DAILY PO Last administered on 10/12/18at 17:56; Admin Dose 20 MG; Start 10/12/18 at 15:00 BENTLEY CERVANTES NP Oct 13, 2018 05:45
[2018-10-13] MEDS: PANTOPRAZOLE 40 MG INJ IV SCH ×2 (06:02→17:28)
[2018-10-13] MEDS: predniSONE 20 MG TAB PO SCH (08:53)
[2018-10-13] MEDS: FINASTERIDE 5 MG TAB PO SCH (08:53)
[2018-10-13] MEDS: LACTOBACILLUS RHAMNOSUS CAP PO SCH ×2 (08:53→20:06)
[2018-10-13] MEDS: FUROSEMIDE 20 MG TAB PO SCH (08:54)
[2018-10-13] MEDS: POTASSIUM CHLORIDE (SR) 8 MEQ CAP PO SCH (08:54)
[2018-10-13] MEDS: DIGOXIN 0.125 MG TAB PO SCH (13:05)
--- NOTE | 2018-10-13 13:28 | PN ---
Date/Time of Note Date/Time of Note DATE: 10/13/18 TIME: 13:19 Assessment/Plan VTE Prophylaxis Risk score (from Ns)>0 risk: 6 SCD applied (from Ns): Yes Pharmacological prophylaxis: other (scds) Lines/Catheters [facility] Saline Lock Urinary Cath still in place: No Assessment/Plan Hospital Course Summary Assessment and Plan: Assessment: Melena- resolved Imaging suspicious for cirrhosis Macrocytic anemia- trending down Indirect hyperbilirubinemia- trending down Thrombocytopenia Leukopenia- improved CHF - 02/2018 EF 35% HTN CAD Pulmonary hypertension, moderate Chronic BPH Valvular heart disease, moderate aortic stenosis Plan: EGD tomorrow- pt cleared by cardiology I spoke to the patient's daughter Kennedy - who verbalized understanding and is agreeable to EGD Continue PPI to twice daily NPO after 10/14/18 0100 abd us reviewed- suspicious for cirrhosis The common bile duct measures 5.5 mm. risks/benefits have been reviewed- understanding verbalized, and all agree to procedure Patient seen in collaboration with Dr. Larkin/Rashida Subjective: Course reviewed with nursing staff Patient interviewed and examined All labs, imaging and other results reviewed No over night events, pt appears comfortable. Denies abdominal pain. No over signs of GI bleed. Maintain close observation. Monitor labs PHYSICAL EXAMINATION: GENERAL:Elderly gentleman, alert & oriented x 3, in no acute distress SKIN: Facial discoloration EYES: Pupils equal reactive to light, no discharge. EARS/NOSE AND THROAT: Ears normal, nose normal NECK: Supple. CHEST: Inspection within normal limits. CARDIOVASCULAR: Heart: Irregular rate and rhythm RESPIRATORY: Wheezing GASTROINTESTINAL AND LIVER: Abdomen: Soft, non tenderness, non-distended, no hernias, no masses, no organomegaly, no ascites, no guarding, no rebound tenderness, normoactive bowel sounds. Rectal: Deferred. EXTREMITIES: No cyanosis, clubbing or edema. Result Diagram: 10/13/18 0616 10/13/18 0616 Results 24hrs Laboratory Tests Test 10/13/18 06:16 White Blood Count 3.1 #L Red Blood Count 2.49 L Hemoglobin 8.1 L Hematocrit 25.9 L Mean Corpuscular Volume 104.0 H Mean Corpuscular Hemoglobin 32.5 Mean Corpuscular Hemoglobin Concent 31.3 L Red Cell Distribution Width 16.6 H Platelet Count 95 L Mean Platelet Volume 10.8 H Immature Granulocytes % 0.300 Neutrophils % 84.9 H Lymphocytes % 7.7 L Monocytes % 7.1 Eosinophils % 0.0 Basophils % 0.0 Nucleated Red Blood Cells % 0.0 Immature Granulocytes # 0.010 Neutrophils # 2.6 Lymphocytes # 0.2 L Monocytes # 0.2 L Eosinophils # 0.0 Basophils # 0.0 Nucleated Red Blood Cells # 0.0 Sodium Level 136 Potassium Level 4.0 Chloride Level 102 Carbon Dioxide Level 31 Anion Gap 3 L Blood Urea Nitrogen 48 #H Creatinine 0.76 Est Glomerular Filtrat Rate mL/min Glucose Level 118 Calcium Level 8.6 Phosphorus Level 3.7 Magnesium Level 2.4 Vitamin B12 Level 474 Folate 3.6 Exam/Review of Systems Exam Vitals Vital Signs Date Temp Pulse Resp B/P (MAP) Pulse Ox O2 O2 Flow FiO2 Time Delivery Rate 10/13/18 76 12:04 10/13/18 98.2 19 96/52 (67) 92 11:30 10/13/18 Nasal 2.0 08:31 Cannula 10/12/18 28 01:45 Intake and Output 10/12/18 10/12/18 10/13/18 1515:00 23:00 07:00 IntakeIntake Total 300 ml 300 ml OutputOutput Total 500 ml 500 ml BalanceBalance -200 ml -200 ml Results Results 24hrs Laboratory Tests Test 10/13/18 06:16 White Blood Count 3.1 #L Red Blood Count 2.49 L Hemoglobin 8.1 L Hematocrit 25.9 L Mean Corpuscular Volume 104.0 H Mean Corpuscular Hemoglobin 32.5 Mean Corpuscular Hemoglobin Concent 31.3 L Red Cell Distribution Width 16.6 H Platelet Count 95 L Mean Platelet Volume 10.8 H Immature Granulocytes % 0.300 Neutrophils % 84.9 H Lymphocytes % 7.7 L Monocytes % 7.1 Eosinophils % 0.0 Basophils % 0.0 Nucleated Red Blood Cells % 0.0 Immature Granulocytes # 0.010 Neutrophils # 2.6 Lymphocytes # 0.2 L Monocytes # 0.2 L Eosinophils # 0.0 Basophils # 0.0 Nucleated Red Blood Cells # 0.0 Sodium Level 136 Potassium Level 4.0 Chloride Level 102 Carbon Dioxide Level 31 Anion Gap 3 L Blood Urea Nitrogen 48 #H Creatinine 0.76 Est Glomerular Filtrat Rate mL/min Glucose Level 118 Calcium Level 8.6 Phosphorus Level 3.7 Magnesium Level 2.4 Vitamin B12 Level 474 Folate 3.6 Medications Medication Current Medications IV Flush (NS 3 ml) 3 ml PER PROTOCOL IV ; Start 10/06/18 at 00:00 Ondansetron HCl (Zofran Inj) 4 mg Q6H PRN IV NAUSEA/VOMITING; Start 10/06/18 at 00:00 Acetaminophen (Tylenol Tab) 650 mg Q6H PRN PO .PAIN 1-3 OR TEMP Last administered on 10/12/18 08:58; Admin Dose 650 MG; Start 10/06/18 at 00:00 Finasteride (Proscar) 5 mg DAILY PO Last administered on 10/13/18 08:53; Admin Dose 5 MG; Start 10/06/18 at 09:00 Potassium Chloride (Micro-K) 8 meq DAILY PO Last administered on 10/13/18 08:54; Admin Dose 8 MEQ; Start 10/06/18 at 09:00 Tamsulosin HCl (Flomax) 0.4 mg HS PO Last administered on 10/12/18 20:48; Admin Dose 0.4 MG; Start 10/06/18 at 21:00 Pantoprazole (Protonix Iv) 40 mg BID@0600,1800 IV Last administered on 10/13/18 06:02; Admin Dose 40 MG; Start 10/06/18 at 21:00 Lactobacillus Acidophilus/ Rhamnosus (Culturelle) 1 cap BID PO Last administered on 10/13/18 08:53; Admin Dose 1 CAP; Start 10/10/18 at 21:00 Levalbuterol (Xopenex Neb) 0.63 mg Q4H RESP THERAPY HHN Last administered on 10/13/18 08:31; Admin Dose 0.63 MG; Start 10/11/18 at 05:00 Levalbuterol (Xopenex Neb) 0.63 mg Q2H RESP THERAPY PRN HHN WHEEZING AND SOB; Start 10/11/18 at 01:30 Ipratropium [place] (Atrovent 0.02% (Neb)) 0.5 mg Q4H RESP THERAPY HHN Last administered on 10/13/18 08:31; Admin Dose 0.5 MG; Start 10/11/18 at 05:00 Ipratropium [place] (Atrovent 0.02% (Neb)) 0.5 mg Q2H RESP THERAPY PRN HHN WHEEZING AND SOB; Start 10/11/18 at 01:30 Digoxin (Digoxin) 0.125 mg DAILY@1300 PO Last administered on 10/13/18 13:05; Admin Dose 0.125 MG; Start 10/11/18 at 13:00 Prednisone (Prednisone) 60 mg DAILY PO Last administered on 10/13/18 08:53; Admin Dose 60 MG; Start 10/13/18 at 09:00 Ceftriaxone Sodium 50 ml @ 100 mls/hr Q24H IVPB Last administered on 10/12/18 14:14; Admin Dose 100 MLS/HR; Start 10/11/18 at 14:00 Guaifenesin/ Dextromethorphan (Robitussin Dm Liquid Cup) 10 ml Q4H PRN PO COUGH; Start 10/11/18 at 12:30 Vancomycin HCl (Vanco Iv Per Pharmacy) VANCOMYCIN PER PHARM... PER PROTOCOL XX ; Start 10/11/18 at 12:30 Vancomycin HCl 1.25 gm/Sodium Chloride 250 ml @ 83.333 mls/ hr Q24H IVPB Last administered on 10/12/18 13:26; Admin Dose 83.333 MLS/HR; Start 10/12/18 at 14:00 Furosemide (Lasix) 20 mg DAILY PO Last administered on 10/13/18 08:54; Admin Dose 20 MG; Start 10/12/18 at 15:00 ELOINA CRUZ Oct 13, 2018 13:28
--- NOTE | 2018-10-13 14:56 | CONS ---
DATE OF ADMISSION: 10/05/2018 DATE OF CONSULTATION: 10/13/2018 TYPE OF CONSULTATION: Infectious disease. REASON FOR CONSULTATION: Antibiotic management. HISTORY OF PRESENT ILLNESS: Abdon Johnson is an 88-year-old male who was admitted with weakn ess. He went to see his physician in the emergency room, who ordered a blood test and found to be se verely anemic and sent to the ER. His past history includes: 1. Coronary artery disease with congestive heart failure. 2. Atrial fibrillation. 3. Hypertension. 4. Dyslipidemia. 5. Aortic stenosis. 6. Pulmonary hypertension. 7. Leukopenia. 8. Benign prostatic hypertrophy. PAST SURGICAL HISTORY: Negative except for an EGD and colonoscopy which he had a year ago and was un remarkable. PAST MEDICAL HISTORY: Essentially as outlined. FAMILY HISTORY: Noncontributory. SOCIAL HISTORY: He does not smoke, drink or abuse drugs. ALLERGIES: NONE TO PENICILLIN, SULFA OR FOODS. MEDICATIONS: Per chart. REVIEW OF SYSTEMS: As per HPI. HOSPITAL COURSE: On admission, his white count was 3.1, H and H of 7 and 23, platelet count 156,000. BUN and creatinine is 18/0.76, glucose of 111. His chest x-ray on admission showed cardiomegaly wi th small bilateral pleural effusions and hazy airspace opacities in the bilateral mid lung zone which may represent pulmonary edema; however infection could have a similar appearance. The patient is cu rrently on vancomycin and ceftriaxone. He is currently afebrile. He was seen by who noted to have pulmonary hypertension well as valvular heart disease, moderate aortic stenosis. There is a plan for an EGD pending clearance. The patient's ejection fraction was found to be 35%. The EGD wa s scheduled for 10/09/2018. EGD was postponed on 10/12/2018. Melena was resolved. EGD was canceled . We will proceed with EGD when cleared by cardiomedical team. The patient was seen today by Garret Stover, nurse practitioner. PHYSICAL EXAMINATION: GENERAL: The patient is an elderly appearing male in no acute distress. VITAL SIGNS: Stable. He is afebrile. SKIN: Without generalized rash. HEENT: Within normal limits. NECK: Supple. LYMPH NODES: None palpable. CHEST: Decreased breath sounds at the bases. HEART: Irregularly irregular rhythm, grade II/ systolic ejection murmur. ABDOMEN: Soft, nontender without organosplenomegaly or masses. EXTREMITIES: Without cyanosis, clubbing or edema. RECTAL AND GENITAL: Deferred. NEUROLOGIC: No focal neurological abnormality. ANCILLARY LABORATORY DATA: Today, the patient's white count is 1.5, H and H of 8.3 and 26, platelet count of 86,000. BUN and creatinine 37/0.77 and glucose random is 132. IMPRESSION AND PLAN: As noted, the patient is on vancomycin and ceftriaxone. The patient is schedul ed for EGD tomorrow, cleared by cardiology. His recent x-ray from 10/11/2018 shows new patchy ground glass interstitial and alveolar infiltrates in the anterior segment of the right upper lobe, medial left upper lobe and apex suggesting multifocal pneumonia, underlying neoplastic process although cons idered less likely cannot be excluded. We should get a sputum culture and change his ceftriaxone to cefepime. I will also discontinue his vancomycin. I may put him on meropenem instead of cefepime. I will dictate my findings to the hospitalist and to the aforementioned consultants. Dictated By: DULCE ORTIZ MD GRANT/NTS Conf#: [id number] DID#: [id number] CC: WOLFGANG SHERIDAN MD; SAUL MAGAÑA MD; MALINI SALDANA MD;*[facility]*
--- NOTE | 2018-10-13 16:57 | CONS ---
Assessment/Plan Assessment/Plan Hospital Course (Demo Recall) Pre-procedural evaluation: To undergo low risk EGD/colo. CHF resolved. Mild wheezing much improved and no symptoms. Acute on chronic systolic heart failure: EF 35% 02/25. Decompensated on exam due to blood products. S/p diuresis but also bronchospastic component as well as multifocal PNA on CXR. Acute GI bleed/anemia: Hgb down to 6, s/p 4 units and >10. Now all cell lines trending down but improved 10/13 chronic afib: Rates controlled. Was on Eliquis but held due to GI bleed Ischemic cardiomyopathy CAD Mild-mod Pulm HTN -ok for EGD from cardiac perspective if respiratory status remains stable -lasix 20mg PO daily -holding coreg 3.125mg BID -continue digoxin -hold Eliquis 2.5mg BID Consultation Date/Type/Reason Admit Date/Time Oct 05, 2018 at 19:53 Initial Consult Date 10/08/18 Type of Consult Cardiology Date/Time of Note DATE: 10/13/18 TIME: 16:56 24 HR Interval Summary Free Text/Dictation abd ultrasound shows cirrhosis. Plan for EGD tomorrow. Exam/Review of Systems Exam Vitals Vital Signs Date Temp Pulse Resp B/P (MAP) Pulse Ox O2 O2 Flow FiO2 Time Delivery Rate 10/13/18 89 20 95 Nasal 2.0 16:24 Cannula 10/13/18 98.2 107/56 15:29 (73) 10/12/18 28 01:45 Intake and Output 10/12/18 10/12/18 10/13/18 1515:00 23:00 07:00 IntakeIntake Total 300 ml 300 ml OutputOutput Total 500 ml 500 ml BalanceBalance -200 ml -200 ml Constitutional: alert Psych: no complaints, nl mood/affect Head: normocephalic, atraumatic Neck: jvd (7-8cm) Respiratory: crackles/rales, wheezing (mild); No clear to auscultation Cardiovascular: regular rate and rhythm; No edema Gastrointestinal: soft, non-tender; No distended Neurological: nl mental status, nl speech Results Result Diagram: 10/13/18 0616 10/13/18 0616 Results 24hrs Laboratory Tests Test 10/13/18 06:14 10/13/18 06:16 Hepatitis B Surface Antigen NEGATIVE Hepatitis B Surface Antibody NEGATIVE Hepatitis C Antibody NEGATIVE White Blood Count 3.1 #L Red Blood Count 2.49 L Hemoglobin 8.1 L Hematocrit 25.9 L Mean Corpuscular Volume 104.0 H Mean Corpuscular Hemoglobin 32.5 Mean Corpuscular Hemoglobin Concent 31.3 L Red Cell Distribution Width 16.6 H Platelet Count 95 L Mean Platelet Volume 10.8 H Immature Granulocytes % 0.300 Neutrophils % 84.9 H Lymphocytes % 7.7 L Monocytes % 7.1 Eosinophils % 0.0 Basophils % 0.0 Nucleated Red Blood Cells % 0.0 Immature Granulocytes # 0.010 Neutrophils # 2.6 Lymphocytes # 0.2 L Monocytes # 0.2 L Eosinophils # 0.0 Basophils # 0.0 Nucleated Red Blood Cells # 0.0 Sodium Level 136 Potassium Level 4.0 Chloride Level 102 Carbon Dioxide Level 31 Anion Gap 3 L Blood Urea Nitrogen 48 #H Creatinine 0.76 Est Glomerular Filtrat Rate mL/min Glucose Level 118 Calcium Level 8.6 Phosphorus Level 3.7 Magnesium Level 2.4 Vitamin B12 Level 474 Folate 3.6 Medications Medication Current Medications IV Flush (NS 3 ml) 3 ml PER PROTOCOL IV ; Start 10/06/18 at 00:00 Ondansetron HCl (Zofran Inj) 4 mg Q6H PRN IV NAUSEA/VOMITING; Start 10/06/18 at 00:00 Acetaminophen (Tylenol Tab) 650 mg Q6H PRN PO .PAIN 1-3 OR TEMP Last administered on 10/12/18 08:58; Admin Dose 650 MG; Start 10/06/18 at 00:00 Finasteride (Proscar) 5 mg DAILY PO Last administered on 10/13/18 08:53; Admin Dose 5 MG; Start 10/06/18 at 09:00 Potassium Chloride (Micro-K) 8 meq DAILY PO Last administered on 10/13/18 0 8:54; Admin Dose 8 MEQ; Start 10/06/18 at 09:00 Tamsulosin HCl (Flomax) 0.4 mg HS PO Last administered on 10/12/18 20:48; Admin Dose 0.4 MG; Start 10/06/18 at 21:00 Pantoprazole (Protonix Iv) 40 mg BID@0600,1800 IV Last administered on 10/13/18 06:02; Admin Dose 40 MG; Start 10/06/18 at 21:00 Lactobacillus Acidophilus/ Rhamnosus (Culturelle) 1 cap BID PO Last administered on 10/13/18 08:53; Admin Dose 1 CAP; Start 10/10/18 at 21:00 Levalbuterol (Xopenex Neb) 0.63 mg Q4H RESP THERAPY HHN Last administered on 10/13/18 16:23; Admin Dose 0.63 MG; Start 10/11/18 at 05:00 Levalbuterol (Xopenex Neb) 0.63 mg Q2H RESP THERAPY PRN HHN WHEEZING AND SOB; Start 10/11/18 at 01:30 Ipratropium [place] (Atrovent 0.02% (Neb)) 0.5 mg Q4H RESP THERAPY HHN Last administered on 10/13/18 16:23; Admin Dose 0.5 MG; Start 10/11/18 at 05:00 Ipratropium [place] (Atrovent 0.02% (Neb)) 0.5 mg Q2H RESP THERAPY PRN HHN WHEEZING AND SOB; Start 10/11/18 at 01:30 Digoxin (Digoxin) 0.125 mg DAILY@1300 PO Last administered on 10/13/18 13:05; Admin Dose 0.125 MG; Start 10/11/18 at 13:00 Prednisone (Prednisone) 60 mg DAILY PO Last administered on 10/13/18 08:53; Admin Dose 60 MG; Start 10/13/18 at 09:00 Guaifenesin/ Dextromethorphan (Robitussin Dm Liquid Cup) 10 ml Q4H PRN PO COUGH; Start 10/11/18 at 12:30 Furosemide (Lasix) 20 mg DAILY PO Last administered on 10/13/18 08:54; Admin Dose 20 MG; Start 10/12/18 at 15:00 Meropenem/Sodium Chloride 50 ml @ 100 mls/hr Q12 IVPB ; Start 10/13/18 at 21:00 WOLFGANG SHERIDAN Oct 13, 2018 16:57
[2018-10-13] MEDS: TAMSULOSIN (SR) 0.4 MG CAP PO SCH (20:06)
[2018-10-13] MEDS: MEROPENEM 1 GM/50ML(PMX) 50 ML IVPB SCH (20:07)
[2018-10-14] VITALS (18 sets, daily range): BP systolic 86–114; BP diastolic 53–81; PULSE 50–116; RESP 11–22
[2018-10-14] MEDS: IPRATROPIUM (NEB) 0.5 MG/2.5 ML AMP HHN SCH ×6 (01:02→20:00)
[2018-10-14] MEDS: LEVALBUTEROL (NEB) 0.63 MG/3 ML AMP HHN SCH ×6 (01:02→20:00)
--- NOTE | 2018-10-14 05:36 | PN ---
Date/Time of Note Date/Time of Note DATE: 10/14/18 TIME: 05:36 Assessment/Plan VTE Prophylaxis Risk score (from Ns)>0 risk: 7 SCD applied (from Ns): Yes Pharmacological prophylaxis: NA/contraindicated Pharm contraindication: bleeding Lines/Catheters IV Catheter Type (from [facility]): [facility] Urinary Cath still in place: No Assessment/Plan Hospital Course SUBJECTIVE: Denies any chest pain. Denies any dyspnea. OBJECTIVE: Physical Exam General: Adequately build 88 year-old male lying in bed in no apparent distress. HEENT: Normocephalic, atraumatic. Eyes: Anicteric sclerae, conjunctivae clear. ENT: Nasal septum midline, oral mucosa moist. Neck supple, JVD noticed. Respiratory: Bilaterally diminished breath sounds. No use of accessory muscles of respiration. Expiratory wheezing. Cardiovascular: S1, S2 heard. Irregularly irregular rhythm. Grade 2/3 systolic ejection murmur. Abdomen: Soft, nontender, and nondistended. Bowel sounds positive in all 4 quadrants. Genitourinary: Deferred. Extremities: No cyanosis, no clubbing, no edema. Peripheral pulses palpable. Neurologic: Cranial nerves II through XII grossly intact. The patient is awake, alert, and oriented. Skin: Normal skin turgor. No skin rashes. Labs & Vitals per chart ASSESSMENT & PLAN 71-year-old male with comorbidities including cardiomyopathy with ejection fraction 35%, pulmonary hypertension, moderate aortic stenosis, moderate tricuspid regurgitation, chronic atrial fibrillation on anticoagulation, hypertension, prostate hypertrophy, chronic bilateral pleural effusions, and chronic anemia. The patient came to the emergency room for further evaluation of anemia. The patient was admitted to inpatient setting for further treatment and evaluation. 1. Anemia. -Microcytic. -Etiology unclear. Stool for OB x1-. -Status post 4 units of PRBC transfusion. -Plan for esophagogastroduodenoscopy today. 2. Acute on chronic congestive heart failure exacerbation. -Continue spot diuretics -Being followed by cardiology. 3. Ischemic cardiomyopathy. -Ejection fraction of 30%. -Continue digoxin -Unable to start the patient on beta-blockers/SUHAIL inhibitors because of low blood pressure readings. 4. Multifocal pneumonia. -CT scan from 10/11/2018 showing new patchy ground-glass interstitial and alveolar infiltrates in the anterior segment of the right upper lobe, medial left upper lobe, and apex suggestive of multifocal pneumonia. -Continue antimicrobials. 5. Reactive airway disease with bronchospasms. -Continue tapering dose of steroids. 6. Moderate aortic stenosis. -Patient not a good surgical candidate. -Being followed by cardiology. 7. Pulmonary hypertension. -Probably secondary to valvular heart disease. 8. Chronic atrial fibrillation. -Rate controlled. -Continue digoxin. -Not a good candidate for anticoagulation because of anemia. 10. Prostatic hypertrophy. -Continue Flomax and Proscar. 11. Fluids, electrolytes, and nutrition. -Low-sodium diet. 12. Plan. -Continue diuresis. -Continue antimicrobials -Monitor H&H closely. -Awaiting esophagogastroduodenoscopy. The patient was seen in collaboration with Dr. Whyte. Result Diagram: 10/13/18 0616 10/13/18 0616 Results 24hrs Laboratory Tests Test 10/13/18 06:14 10/13/18 06:16 Hepatitis B Surface Antigen NEGATIVE Hepatitis B Surface Antibody NEGATIVE Hepatitis C Antibody NEGATIVE White Blood Count 3.1 #L Red Blood Count 2.49 L Hemoglobin 8.1 L Hematocrit 25.9 L Mean Corpuscular Volume 104.0 H Mean Corpuscular Hemoglobin 32.5 Mean Corpuscular Hemoglobin Concent 31.3 L Red Cell Distribution Width 16.6 H Platelet Count 95 L Mean Platelet Volume 10.8 H Immature Granulocytes % 0.300 Neutrophils % 84.9 H Lymphocytes % 7.7 L Monocytes % 7.1 Eosinophils % 0.0 Basophils % 0.0 Nucleated Red Blood Cells % 0.0 Immature Granulocytes # 0.010 Neutrophils # 2.6 Lymphocytes # 0.2 L Monocytes # 0.2 L Eosinophils # 0.0 Basophils # 0.0 Nucleated Red Blood Cells # 0.0 Sodium Level 136 Potassium Level 4.0 Chloride Level 102 Carbon Dioxide Level 31 Anion Gap 3 L Blood Urea Nitrogen 48 #H Creatinine 0.76 Est Glomerular Filtrat Rate mL/min Glucose Level 118 Calcium Level 8.6 Phosphorus Level 3.7 Magnesium Level 2.4 Vitamin B12 Level 474 Folate 3.6 Exam/Review of Systems Exam Vitals Vital Signs Date Temp Pulse Resp B/P (MAP) Pulse Ox O2 O2 Flow FiO2 Time Delivery Rate 10/14/18 84 20 96 Nasal 2.0 04:18 Cannula 10/14/18 97.4 96/53 (67) 03:54 10/13/18 21 20:22 Intake and Output 10/13/18 10/13/18 10/14/18 1414:59 22:59 06:59 IntakeIntake Total 720 ml OutputOutput Total 400 ml BalanceBalance 320 ml Results Results 24hrs Laboratory Tests Test 10/13/18 06:14 10/13/18 06:16 Hepatitis B Surface Antigen NEGATIVE Hepatitis B Surface Antibody NEGATIVE Hepatitis C Antibody NEGATIVE White Blood Count 3.1 #L Red Blood Count 2.49 L Hemoglobin 8.1 L Hematocrit 25.9 L Mean Corpuscular Volume 104.0 H Mean Corpuscular Hemoglobin 32.5 Mean Corpuscular Hemoglobin Concent 31.3 L Red Cell Distribution Width 16.6 H Platelet Count 95 L Mean Platelet Volume 10.8 H Immature Granulocytes % 0.300 Neutrophils % 84.9 H Lymphocytes % 7.7 L Monocytes % 7.1 Eosinophils % 0.0 Basophils % 0.0 Nucleated Red Blood Cells % 0.0 Immature Granulocytes # 0.010 Neutrophils # 2.6 Lymphocytes # 0.2 L Monocytes # 0.2 L Eosinophils # 0.0 Basophils # 0.0 Nucleated Red Blood Cells # 0.0 Sodium Level 136 Potassium Level 4.0 Chloride Level 102 Carbon Dioxide Level 31 Anion Gap 3 L Blood Urea Nitrogen 48 #H Creatinine 0.76 Est Glomerular Filtrat Rate mL/min Glucose Level 118 Calcium Level 8.6 Phosphorus Level 3.7 Magnesium Level 2.4 Vitamin B12 Level 474 Folate 3.6 Medications Medication Current Medications IV Flush (NS 3 ml) 3 ml PER PROTOCOL IV ; Start 10/06/18 at 00:00 Ondansetron HCl (Zofran Inj) 4 mg Q6H PRN IV NAUSEA/VOMITING; Start 10/06/18 at 00:00 Acetaminophen (Tylenol Tab) 650 mg Q6H PRN PO .PAIN 1-3 OR TEMP Last admi nistered on 10/12/18at 08:58; Admin Dose 650 MG; Start 10/06/18 at 00:00 Finasteride (Proscar) 5 mg DAILY PO Last administered on 10/13/18at 08:53; Admin Dose 5 MG; Start 10/06/18 at 09:00 Potassium Chloride (Micro-K) 8 meq DAILY PO Last administered on 10/13/18at 08:54; Admin Dose 8 MEQ; Start 10/06/18 at 09:00 Tamsulosin HCl (Flomax) 0.4 mg HS PO Last administered on 10/13/18 20:06; Admin Dose 0.4 MG; Start 10/06/18 at 21:00 Pantoprazole (Protonix Iv) 40 mg BID@0600,1800 IV Last administered on 10/13/18 17:28; Admin Dose 40 MG; Start 10/06/18 at 21:00 Lactobacillus Acidophilus/ Rhamnosus (Culturelle) 1 cap BID PO Last administered on 10/13/18 20:06; Admin Dose 1 CAP; Start 10/10/18 at 21:00 Levalbuterol (Xopenex Neb) 0.63 mg Q4H RESP THERAPY HHN Last administered on 10/14/18 04:18; Admin Dose 0.63 MG; Start 10/11/18 at 05:00 Levalbuterol (Xopenex Neb) 0.63 mg Q2H RESP THERAPY PRN HHN WHEEZING AND SOB; Start 10/11/18 at 01:30 Ipratropium [place] (Atrovent 0.02% (Neb)) 0.5 mg Q4H RESP THERAPY HHN Last administered on 10/14/18 04:18; Admin Dose 0.5 MG; Start 10/11/18 at 05:00 Ipratropium [place] (Atrovent 0.02% (Neb)) 0.5 mg Q2H RESP THERAPY PRN HHN WHEEZING AND SOB; Start 10/11/18 at 01:30 Digoxin (Digoxin) 0.125 mg DAILY@1300 PO Last administered on 10/13/18 13:05; Admin Dose 0.125 MG; Start 10/11/18 at 13:00 Prednisone (Prednisone) 60 mg DAILY PO Last administered on 10/13/18 08:53; Admin Dose 60 MG; Start 10/13/18 at 09:00 Guaifenesin/ Dextromethorphan (Robitussin Dm Liquid Cup) 10 ml Q4H PRN PO COUGH; Start 10/11/18 at 12:30 Furosemide (Lasix) 20 mg DAILY PO Last administered on 10/13/18 08:54; Admin Dose 20 MG; Start 10/12/18 at 15:00 Meropenem/Sodium Chloride 50 ml @ 100 mls/hr Q12 IVPB Last administered on 10/13/18 20:07; Admin Dose 100 MLS/HR; Start 10/13/18 at 21:00 BENTLEY CERVANTES NP Oct 14, 2018 05:36
[2018-10-14] MEDS: PANTOPRAZOLE 40 MG INJ IV SCH ×2 (05:45→18:03)
[2018-10-14] MEDS: MEROPENEM 1 GM/50ML(PMX) 50 ML IVPB SCH ×2 (09:17→21:23)
[2018-10-14] MEDS: FUROSEMIDE 20 MG TAB PO SCH (09:18)
[2018-10-14] MEDS: LACTOBACILLUS RHAMNOSUS CAP PO SCH ×2 (09:18→21:23)
[2018-10-14] MEDS: FINASTERIDE 5 MG TAB PO SCH (09:19)
[2018-10-14] MEDS: POTASSIUM CHLORIDE (SR) 8 MEQ CAP PO SCH (09:19)
[2018-10-14] MEDS: predniSONE 20 MG TAB PO SCH (09:19)
--- NOTE | 2018-10-14 13:16 | CONS ---
Assessment/Plan Assessment/Plan Hospital Course (Demo Recall) Pre-procedural evaluation: To undergo low risk EGD/colo. CHF resolved. Mild wheezing much improved and no symptoms. Acute on chronic systolic heart failure: EF 35% 02/25. Decompensated on exam due to blood products. S/p diuresis but also bronchospastic component as well as multifocal PNA on CXR. Mild CHF still Acute GI bleed/anemia: Hgb down to 6, s/p 4 units and >10. Now all cell lines trending down but improved 10/13 chronic afib: Rates controlled. Was on Eliquis but held due to GI bleed Ischemic cardiomyopathy CAD Mild-mod Pulm HTN Cirrhosis -ok for EGD from cardiac perspective -lasix 20mg PO daily with one extra 40mg IV now -holding coreg 3.125mg BID -continue digoxin -hold Eliquis 2.5mg BID Consultation Date/Type/Reason Admit Date/Time Oct 05, 2018 at 19:53 Initial Consult Date 10/08/18 Type of Consult Cardiology Date/Time of Note DATE: 10/14/18 TIME: 13:14 24 HR Interval Summary Free Text/Dictation No complaints. Exam/Review of Systems Exam Vitals Vital Signs Date Temp Pulse Resp B/P (MAP) Pulse Ox O2 O2 Flow FiO2 Time Delivery Rate 10/14/18 65 12:16 10/14/18 97.6 20 86/56 (66) 100 Nasal 11:50 Cannula 10/14/18 2.0 08:30 10/13/18 21 20:22 Intake and Output 10/13/18 10/13/18 10/14/18 1414:59 22:59 06:59 IntakeIntake Total 720 ml 400 ml OutputOutput Total 400 ml 550 ml BalanceBalance 320 ml -150 ml Constitutional: alert, oriented Neck: jvd (8-9cm) Respiratory: crackles/rales; No clear to auscultation Cardiovascular: systolic murmur (2/6 KERRY); No regular rate and rhythm, No edema Gastrointestinal: soft, non-tender; No distended Neurological: nl mental status, nl speech Results Result Diagram: 10/14/18 0719 10/14/18 0719 Results 24hrs Laboratory Tests Test 10/14/18 07:19 White Blood Count 3.3 L Red Blood Count 2.62 L Hemoglobin 8.5 L Hematocrit 27.2 L Mean Corpuscular Volume 103.8 H Mean Corpuscular Hemoglobin 32.4 Mean Corpuscular Hemoglobin Concent 31.3 L Red Cell Distribution Width 16.6 H Platelet Count 93 L Mean Platelet Volume 10.3 Immature Granulocytes % 0.300 Neutrophils % 77.3 H Lymphocytes % 13.5 L Monocytes % 8.6 Eosinophils % 0.3 Basophils % 0.0 Nucleated Red Blood Cells % 0.0 Immature Granulocytes # 0.010 Neutrophils # 2.5 Lymphocytes # 0.4 L Monocytes # 0.3 Eosinophils # 0.0 Basophils # 0.0 Nucleated Red Blood Cells # 0.0 Prothrombin Time 15.1 H Prothrombin Time Ratio 1.2 INR International Normalized Ratio 1.18 Sodium Level 138 Potassium Level 3.9 Chloride Level 101 Carbon Dioxide Level 33 H Anion Gap 4 L Blood Urea Nitrogen 41 H Creatinine 0.67 Est Glomerular Filtrat Rate mL/min Glucose Level 95 Calcium Level 8.6 Phosphorus Level 3.3 Magnesium Level 2.4 Total Bilirubin 1.4 H Direct Bilirubin 0.00 Indirect Bilirubin 1.4 H Aspartate Amino Transf (AST/SGOT) 17 Alanine Aminotransferase (ALT/SGPT) 19 Alkaline Phosphatase 127 H Total Protein 5.2 L Albumin 2.3 L Medications Medication Current Medications IV Flush (NS 3 ml) 3 ml PER PROTOCOL IV ; Start 10/06/18 at 00:00 Ondansetron HCl (Zofran Inj) 4 mg Q6H PRN IV NAUSEA/VOMITING; Start 10/06/18 at 00:00 Acetaminophen (Tylenol Tab) 650 mg Q6H PRN PO .PAIN 1-3 OR TEMP Last administered on 10/12/18 08:58; Admin Dose 650 MG; Start 10/06/18 at 00:00 Finasteride (Proscar) 5 mg DAILY PO Last administered on 10/14/18 09:19; Admin Dose 5 MG; Start 10/06/18 at 09:00 Potassium Chloride (Micro-K) 8 meq DAILY PO Last administered on 10/14/18 09:19; Admin Dose 8 MEQ; Start 10/06/18 at 09:00 Tamsulosin HCl (Flomax) 0.4 mg HS PO Last administered on 10/13/18at 20:06; Admin Dose 0.4 MG; Start 10/06/18 at 21:00 Pantoprazole (Protonix Iv) 40 mg BID@0600,1800 IV Last administered on 10/14/18 05:45; Admin Dose 40 MG; Start 10/06/18 at 21:00 Lactobacillus Acidophilus/ Rhamnosus (Culturelle) 1 cap BID PO Last administ ered on 10/14/18 09:18; Admin Dose 1 CAP; Start 10/10/18 at 21:00 Levalbuterol (Xopenex Neb) 0.63 mg Q4H RESP THERAPY HHN Last administered on 10/14/18 12:48; Admin Dose 0.63 MG; Start 10/11/18 at 05:00 Levalbuterol (Xopenex Neb) 0.63 mg Q2H RESP THERAPY PRN HHN WHEEZING AND SOB; Start 10/11/18 at 01:30 Ipratropium [place] (Atrovent 0.02% (Neb)) 0.5 mg Q4H RESP THERAPY HHN Last administered on 10/14/18 12:48; Admin Dose 0.5 MG; Start 10/11/18 at 05:00 Ipratropium [place] (Atrovent 0.02% (Neb)) 0.5 mg Q2H RESP THERAPY PRN HHN WHEEZING AND SOB; Start 10/11/18 at 01:30 Digoxin (Digoxin) 0.125 mg DAILY@1300 PO Last administered on 10/13/18 13:05; Admin Dose 0.125 MG; Start 10/11/18 at 13:00 Prednisone (Prednisone) 60 mg DAILY PO Last administered on 10/14/18 09:19; Admin Dose 60 MG; Start 10/13/18 at 09:00 Guaifenesin/ Dextromethorphan (Robitussin Dm Liquid Cup) 10 ml Q4H PRN PO COUGH Last administered on 10/14/18 09:22; Admin Dose 10 ML; Start 10/11/18 at 12:30 Furosemide (Lasix) 20 mg DAILY PO Last administered on 10/14/18 09:18; Admin Dose 20 MG; Start 10/12/18 at 15:00 Meropenem/Sodium Chloride 50 ml @ 100 mls/hr Q12 IVPB Last administered on 10/14/18 09:17; Admin Dose 100 MLS/HR; Start 10/13/18 at 21:00 WOLFGANG SHERIDAN 6, 2019 13:16
--- NOTE | 2018-10-14 13:21 | CONS ---
Assessment/Plan Assessment/Plan Hospital Course (Demo Recall) Patient is awake getting a breathing treatment he is afebrile. WBC 3.3 H&H 8.5 and 27.2 platelet count 93 neutrophils 77.3 BUN 41 creatinine 0.67 Antimicrobials: Meropenem CT of the chest 2 days ago revealed new patchy groundglass interstitial and alveolar infiltrates in the anterior segment of the right upper lobe, medial left upper lobe and apex suggestive of multifocal pneumonia. Physical examination: Well-developed well-nourished elderly man who is awake in no distress head atraumatic normocephalic neck is supple chest rise symmetrical breath sounds with bilateral rhonchi heart: S1-S2. Abdomen soft bowel sounds present. Extremities without cyanosis Assessment: 1. Multifocal pneumonia 2. Ongoing anemia 3. Ischemic cardiomyopathy with ejection fraction of 30% 4. CHF exacerbation 5. Chronic atrial fibrillation Plan: Patient is being seen by multiple consultants we will continue him on current antibiotics, trying to obtain sputum culture will order MRSA swab as well Consultation Date/Type/Reason Admit Date/Time Oct 05, 2018 at 19:53 Initial Consult Date 10/08/18 Type of Consult id Date/Time of Note DATE: 10/14/18 TIME: 13:21 Exam/Review of Systems Exam Vitals Vital Signs Date Temp Pulse Resp B/P (MAP) Pulse Ox O2 O2 Flow FiO2 Time Delivery Rate 10/14/18 65 12:16 10/14/18 97.6 20 86/56 (66) 100 Nasal 11:50 Cannula 10/14/18 2.0 08:30 10/13/18 21 20:22 Intake and Output 10/13/18 10/13/18 10/14/18 1515:00 23:00 07:00 IntakeIntake Total 720 ml 400 ml OutputOutput Total 400 ml 550 ml BalanceBalance 320 ml -150 ml Results Result Diagram: 10/14/1819 10/14/1819 Results 24hrs Laboratory Tests Test 10/14/18 07:19 White Blood Count 3.3 L Red Blood Count 2.62 L Hemoglobin 8.5 L Hematocrit 27.2 L Mean Corpuscular Volume 103.8 H Mean Corpuscular Hemoglobin 32.4 Mean Corpuscular Hemoglobin Concent 31.3 L Red Cell Distribution Width 16.6 H Platelet Count 93 L Mean Platelet Volume 10.3 Immature Granulocytes % 0.300 Neutrophils % 77.3 H Lymphocytes % 13.5 L Monocytes % 8.6 Eosinophils % 0.3 Basophils % 0.0 Nucleated Red Blood Cells % 0.0 Immature Granulocytes # 0.010 Neutrophils # 2.5 Lymphocytes # 0.4 L Monocytes # 0.3 Eosinophils # 0.0 Basophils # 0.0 Nucleated Red Blood Cells # 0.0 Prothrombin Time 15.1 H Prothrombin Time Ratio 1.2 INR International Normalized Ratio 1.18 Sodium Level 138 Potassium Level 3.9 Chloride Level 101 Carbon Dioxide Level 33 H Anion Gap 4 L Blood Urea Nitrogen 41 H Creatinine 0.67 Est Glomerular Filtrat Rate mL/min Glucose Level 95 Calcium Level 8.6 Phosphorus Level 3.3 Magnesium Level 2.4 Total Bilirubin 1.4 H Direct Bilirubin 0.00 Indirect Bilirubin 1.4 H Aspartate Amino Transf (AST/SGOT) 17 Alanine Aminotransferase (ALT/SGPT) 19 Alkaline Phosphatase 127 H Total Protein 5.2 L Albumin 2.3 L Medications Medication Current Medications IV Flush (NS 3 ml) 3 ml PER PROTOCOL IV ; Start 10/06/18 at 00:00 Ondansetron HCl (Zofran Inj) 4 mg Q6H PRN IV NAUSEA/VOMITING; Start 10/06/18 at 00:00 Acetaminophen (Tylenol Tab) 650 mg Q6H PRN PO .PAIN 1-3 OR TEMP Last administered on 10/12/18 08:58; Admin Dose 650 MG; Start 10/06/18 at 00:00 Finasteride (Proscar) 5 mg DAILY PO Last administered on 10/14/18 09:19; Admin Dose 5 MG; Start 10/06/18 at 09:00 Potassium Chloride (Micro-K) 8 meq DAILY PO Last administered on 10/14/18 09:19; Admin Dose 8 MEQ; Start 10/06/18 at 09:00 Tamsulosin HCl (Flomax) 0.4 mg HS PO Last administered on 10/13/18 20:06; Admin Dose 0.4 MG; Start 10/06/18 at 21:00 Pantoprazole (Protonix Iv) 40 mg BID@0600,1800 IV Last administered on 10/14/18 05:45; Admin Dose 40 MG; Start 10/06/18 at 21:00 Lactobacillus Acidophilus/ Rhamnosus (Culturelle) 1 cap BID PO Last administered on 10/14/18 09:18; Admin Dose 1 CAP; Start 10/10/18 at 21:00 Levalbuterol (Xopenex Neb) 0.63 mg Q4H RESP THERAPY HHN Last administered on 10/14/18 12:48; Admin Dose 0.63 MG; Start 10/11/18 at 05:00 Levalbuterol (Xopenex Neb) 0.63 mg Q2H RESP THERAPY PRN HHN WHEEZING AND SOB; Start 10/11/18 at 01:30 Ipratropium [place] (Atrovent 0.02% (Neb)) 0.5 mg Q4H RESP THERAPY HHN Last administered on 10/14/18 12:48; Admin Dose 0.5 MG; Start 10/11/18 at 05:00 Ipratropium [place] (Atrovent 0.02% (Neb)) 0.5 mg Q2H RESP THERAPY PRN HHN WHEEZING AND SOB; Start 10/11/18 at 01:30 Digoxin (Digoxin) 0.125 mg DAILY@1300 PO Last administered on 10/13/18 13:05; Admin Dose 0.125 MG; Start 10/11/18 at 13:00 Prednisone (Prednisone) 60 mg DAILY PO Last administered on 10/14/18 09:19; Admin Dose 60 MG; Start 10/13/18 at 09:00 Guaifenesin/ Dextromethorphan (Robitussin Dm Liquid Cup) 10 ml Q4H PRN PO COUGH Last administered on 10/14/18 09:22; Admin Dose 10 ML; Start 10/11/18 at 12:30 Furosemide (Lasix) 20 mg DAILY PO Last administered on 10/14/18 09:18; Admin Dose 20 MG; Start 10/12/18 at 15:00 Meropenem/Sodium Chloride 50 ml @ 100 mls/hr Q12 IVPB Last administered on 10/14/18 09:17; Admin Dose 100 MLS/HR; Start 10/13/18 at 21:00 Furosemide (Lasix) 40 mg ONCE ONCE IV ; Start 10/14/18 at 13:30; Stop 10/14/18 at 13:31 NGUYỄN BLANCA NP Oct 14, 2018 13:21
[2018-10-14] MEDS ORDERED: FUROSEMIDE 40 MG INJ IV ONE (13:30)
[2018-10-14] MEDS ORDERED: LIDOCAINE 100 MG SYRINGE ONE (15:42)
[2018-10-14] MEDS ORDERED: PROPOFOL 20 ML ONE (15:42)
[2018-10-14] MEDS ORDERED: FENTAnyl 50 MCG/ML VIAL ONE (15:43)
[2018-10-14] MEDS: DIGOXIN 0.125 MG TAB PO SCH (18:03)
[2018-10-14] MEDS: TAMSULOSIN (SR) 0.4 MG CAP PO SCH (21:23)
[2018-10-15] VITALS (12 sets, daily range): BP systolic 95–127; BP diastolic 61–74; PULSE 63–101; RESP 18
[2018-10-15] MEDS: LEVALBUTEROL (NEB) 0.63 MG/3 ML AMP HHN SCH ×6 (00:44→20:51)
[2018-10-15] MEDS: IPRATROPIUM (NEB) 0.5 MG/2.5 ML AMP HHN SCH ×6 (00:44→20:51)
[2018-10-15] MEDS: PANTOPRAZOLE 40 MG INJ IV SCH ×2 (05:47→17:11)
[2018-10-15] MEDS: MEROPENEM 1 GM/50ML(PMX) 50 ML IVPB SCH ×2 (08:16→20:16)
[2018-10-15] MEDS: FUROSEMIDE 20 MG TAB PO SCH (08:17)
[2018-10-15] MEDS: predniSONE 20 MG TAB PO SCH (08:17)
[2018-10-15] MEDS: POTASSIUM CHLORIDE (SR) 8 MEQ CAP PO SCH (08:17)
[2018-10-15] MEDS: FINASTERIDE 5 MG TAB PO SCH (08:17)
[2018-10-15] MEDS: LACTOBACILLUS RHAMNOSUS CAP PO SCH ×2 (08:18→20:16)
--- NOTE | 2018-10-15 11:34 | PN ---
Date/Time of Note Date/Time of Note DATE: 10/15/18 TIME: 11:29 Assessment/Plan VTE Prophylaxis Risk score (from Ns)>0 risk: 3 SCD applied (from Ns): Yes Pharmacological prophylaxis: other (scds) Lines/Catheters IV [facility]ter Type (from [facility]): Peripheral IV Urinary Cath still in place: No Assessment/Plan Hospital Course Summary Assessment and Plan: Assessment: Melena- resolved EGD 10/14/18 Mild distal esophagitis Small hiatal hernia Severe gastritis. Rule out H. pylori infection, biopsies obtained to Otherwise normal EGD Imaging suspicious for cirrhosis Macrocytic anemia- trending up Indirect hyperbilirubinemia- trending down Elevated Alk phos, mild -Improved since admission Thrombocytopenia Leukopenia- improved CHF - 02/2018 EF 35% HTN CAD Pulmonary hypertension, moderate Chronic BPH Valvular heart disease, moderate aortic stenosis Plan: Continue PPI Await bx Pt to f/u with GI after d/c re: questionable liver cirrhosis, hepatitis serology neg D/c planning per hospitalist Patient seen in collaboration with Dr. Larkin/Rashida Subjective: Course reviewed with nursing staff Patient interviewed and examined All labs, imaging and other results reviewed Pt resting in bed, appears comfortable HGB is stable, without evidence of GI bleed Indirect hyperbilirubinemia/Alk phos improving PHYSICAL EXAMINATION: GENERAL:Elderly gentleman, alert & oriented x 3, in no acute distress SKIN: Facial discoloration EYES: Pupils equal reactive to light, no discharge. EARS/NOSE AND THROAT: Ears normal, nose normal NECK: Supple. CHEST: Inspection within normal limits. CARDIOVASCULAR: Heart: Irregular rate and rhythm RESPIRATORY: Wheezing GASTROINTESTINAL AND LIVER: Abdomen: Soft, non tenderness, non-distended, no hernias, no masses, no organomegaly, no ascites, no guarding, no rebound tenderness, normoactive bowel sounds. Rectal: Deferred. EXTREMITIES: No cyanosis, clubbing or edema. Result Diagram: 10/15/18 0628 10/15/18 0628 Results 24hrs Laboratory Tests Test 10/15/18 06:28 White Blood Count 3.8 L Red Blood Count 2.66 L Hemoglobin 8.7 L Hematocrit 28.3 L Mean Corpuscular Volume 106.4 H Mean Corpuscular Hemoglobin 32.7 Mean Corpuscular Hemoglobin Concent 30.7 L Red Cell Distribution Width 16.7 H Platelet Count 88 L Mean Platelet Volume 10.4 Immature Granulocytes % 0.800 H Neutrophils % 73.1 Lymphocytes % 16.1 Monocytes % 8.7 Eosinophils % 1.3 Basophils % 0.0 Nucleated Red Blood Cells % 0.0 Immature Granulocytes # 0.030 Neutrophils # 2.8 Lymphocytes # 0.6 L Monocytes # 0.3 Eosinophils # 0.1 Basophils # 0.0 Nucleated Red Blood Cells # 0.0 Sodium Level 138 Potassium Level 3.9 Chloride Level 103 Carbon Dioxide Level 34 H Anion Gap 1 L Blood Urea Nitrogen 37 H Creatinine 0.65 Est Glomerular Filtrat Rate mL/min Glucose Level 88 Calcium Level 8.5 Phosphorus Level 3.2 Magnesium Level 2.4 Exam/Review of Systems Exam Vitals Vital Signs Date Temp Pulse Resp B/P (MAP) Pulse Ox O2 O2 Flow FiO2 Time Delivery Rate 10/15/18 76 20 97 Nasal 2.0 10:48 Cannula 10/15/18 97.6 118/61 07:16 (80) 10/13/18 21 20:22 Intake and Output 10/14/18 10/14/18 10/15/18 1515:00 23:00 07:00 IntakeIntake Total 50 ml 480 ml 300 ml OutputOutput Total 720 ml 410 ml BalanceBalance 50 ml -240 ml -110 ml Results Results 24hrs Laboratory Tests Test 10/15/18 06:28 White Blood Count 3.8 L Red Blood Count 2.66 L Hemoglobin 8.7 L Hematocrit 28.3 L Mean Corpuscular Volume 106.4 H Mean Corpuscular Hemoglobin 32.7 Mean Corpuscular Hemoglobin Concent 30.7 L Red Cell Distribution Width 16.7 H Platelet Count 88 L Mean Platelet Volume 10.4 Immature Granulocytes % 0.800 H Neutrophils % 73.1 Lymphocytes % 16.1 Monocytes % 8.7 Eosinophils % 1.3 Basophils % 0.0 Nucleated Red Blood Cells % 0.0 Immature Granulocytes # 0.030 Neutrophils # 2.8 Lymphocytes # 0.6 L Monocytes # 0.3 Eosinophils # 0.1 Basophils # 0.0 Nucleated Red Blood Cells # 0.0 Sodium Level 138 Potassium Level 3.9 Chloride Level 103 Carbon Dioxide Level 34 H Anion Gap 1 L Blood Urea Nitrogen 37 H Creatinine 0.65 Est Glomerular Filtrat Rate mL/min Glucose Level 88 Calcium Level 8.5 Phosphorus Level 3.2 Magnesium Level 2.4 Medications Medication Current Medications IV Flush (NS 3 ml) 3 ml PER PROTOCOL IV ; Start 10/06/18 at 00:00 Ondansetron HCl (Zofran Inj) 4 mg Q6H PRN IV NAUSEA/VOMITING; Start 10/06/18 at 00:00 Acetaminophen (Tylenol Tab) 650 mg Q6H PRN PO .PAIN 1-3 OR TEMP Last administered on 10/12/18 08:58; Admin Dose 650 MG; Start 10/06/18 at 00:00 Finasteride (Proscar) 5 mg DAILY PO Last administered on 10/15/18 08:17; Admin Dose 5 MG; Start 10/06/18 at 09:00 Potassium Chloride (Micro-K) 8 meq DAILY PO Last administered on 10/15/18 08:17; Admin Dose 8 MEQ; Start 10/06/18 at 09:00 Tamsulosin HCl (Flomax) 0.4 mg HS PO Last administered on 10/14/18 21:23; Admin Dose 0.4 MG; Start 10/06/18 at 21:00 Pantoprazole (Protonix Iv) 40 mg BID@0600,1800 IV Last administered on 10/15/18 05:47; Admin Dose 40 MG; Start 10/06/18 at 21:00 Lactobacillus Acidophilus/ Rhamnosus (Culturelle) 1 cap BID PO Last administered on 10/15/18 08:18; Admin Dose 1 CAP; Start 10/10/18 at 21:00 Levalbuterol (Xopenex Neb) 0.63 mg Q4H RESP THERAPY HHN Last administered on 10/15/18 10:47; Admin Dose 0.63 MG; Start 10/11/18 at 05:00 Levalbuterol (Xopenex Neb) 0.63 mg Q2H RESP THERAPY PRN HHN WHEEZING AND SOB; Start 10/11/18 at 01:30 Ipratropium [place] (Atrovent 0.02% (Neb)) 0.5 mg Q4H RESP THERAPY HHN Last administered on 10/15/18 10:47; Admin Dose 0.5 MG; Start 10/11/18 at 05:00 Ipratropium [place] (Atrovent 0.02% (Neb)) 0.5 mg Q2H RESP THERAPY PRN HHN WHEEZING AND SOB; Start 10/11/18 at 01:30 Digoxin (Digoxin) 0.125 mg DAILY@1300 PO Last administered on 10/14/18 18:03; Admin Dose 0.125 MG; Start 10/11/18 at 13:00 Prednisone (Prednisone) 60 mg DAILY PO Last administered on 10/15/18 08:17; Admin Dose 60 MG; Start 10/13/18 at 09:00 Guaifenesin/ Dextromethorphan (Robitussin Dm Liquid Cup) 10 ml Q4H PRN PO COUGH Last administered on 10/14/18 09:22; Admin Dose 10 ML; Start 10/11/18 at 12:30 Furosemide (Lasix) 20 mg DAILY PO Last administered on 10/15/18 08:17; Admin Dose 20 MG; Start 10/12/18 at 15:00 Meropenem/Sodium Chloride 50 ml @ 100 mls/hr Q12 IVPB Last administered on 10/15/18 08:16; Admin Dose 100 MLS/HR; Start 10/13/18 at 21:00 ELOINA CRUZ Oct 15, 2018 11:34
--- NOTE | 2018-10-15 12:40 | PAC ---
Date/Time of Note Date/Time of Note DATE: 10/15/18 TIME: 12:40 Post-Anesthesia Notes Post-Anesthesia Note Last documented vital signs Vital Signs Date Temp Pulse Resp B/P (MAP) Pulse Ox O2 O2 Flow FiO2 Time Delivery Rate 10/15/18 65 12:32 10/15/18 97.7 18 112/64 100 Nasal 11:25 (80) Cannula 10/15/18 2.0 10:48 10/13/18 21 20:22 Activity: WNL Respiratory function: WNL Cardiovascular function: WNL Mental status: Baseline Pain reasonably controlled: Yes Hydration appropriate: Yes Nausea/Vomiting absent: Yes Alex Cohen M.D. Oct 15, 2018 12:40
--- NOTE | 2018-10-15 12:55 | CONS ---
Assessment/Plan Assessment/Plan Hospital Course (Demo Recall) Patient is awake and comfortable on nasal cannula no fevers overnight WBC 3.8 H&H 8.7 and 28.3 platelets 88 neutrophils 73.1 BUN 37 creatinine 0.65 Antimicrobials: Meropenem CT of the chest 2 days ago revealed new patchy ground glass interstitial and alveolar infiltrates in the anterior segment of the right upper lobe, medial left upper lobe and apex suggestive of multifocal pneumonia. Physical examination: Well-developed well-nourished elderly man who is awake in no distress head atraumatic normocephalic neck is supple chest rise symmetrical breath sounds with bilateral rhonchi heart: S1-S2. Abdomen soft bowel sounds present. Extremities without cyanosis Assessment: 1. Multifocal pneumonia 2. Anemia/gastritis 3. Ischemic cardiomyopathy with ejection fraction of 30% 4. CHF exacerbation 5. Chronic atrial fibrillation Plan: Stable, continue abx, f/u sputum culture and MRSA swab Consultation Date/Type/Reason Admit Date/Time Oct 05, 2018 at 19:53 Initial Consult Date 10/08/18 Type of Consult id Date/Time of Note DATE: 10/15/18 TIME: 12:54 Exam/Review of Systems Exam Vitals Vital Signs Date Temp Pulse Resp B/P (MAP) Pulse Ox O2 O2 Flow FiO2 Time Delivery Rate 10/15/18 65 12:32 10/15/18 97.7 18 112/64 100 Nasal 11:25 (80) Cannula 10/15/18 2.0 10:48 10/13/18 21 20:22 Intake and Output 10/14/18 10/14/18 10/15/18 1515:00 23:00 07:00 IntakeIntake Total 50 ml 480 ml 300 ml OutputOutput Total 720 ml 410 ml BalanceBalance 50 ml -240 ml -110 ml Results Result Diagram: 10/15/1828 10/15/18 0628 Results 24hrs Laboratory Tests Test 10/15/18 06:28 White Blood Count 3.8 L Red Blood Count 2.66 L Hemoglobin 8.7 L Hematocrit 28.3 L Mean Corpuscular Volume 106.4 H Mean Corpuscular Hemoglobin 32.7 Mean Corpuscular Hemoglobin Concent 30.7 L Red Cell Distribution Width 16.7 H Platelet Count 88 L Mean Platelet Volume 10.4 Immature Granulocytes % 0.800 H Neutrophils % 73.1 Lymphocytes % 16.1 Monocytes % 8.7 Eosinophils % 1.3 Basophils % 0.0 Nucleated Red Blood Cells % 0.0 Immature Granulocytes # 0.030 Neutrophils # 2.8 Lymphocytes # 0.6 L Monocytes # 0.3 Eosinophils # 0.1 Basophils # 0.0 Nucleated Red Blood Cells # 0.0 Sodium Level 138 Potassium Level 3.9 Chloride Level 103 Carbon Dioxide Level 34 H Anion Gap 1 L Blood Urea Nitrogen 37 H Creatinine 0.65 Est Glomerular Filtrat Rate mL/min Glucose Level 88 Calcium Level 8.5 Phosphorus Level 3.2 Magnesium Level 2.4 Medications Medication Current Medications IV Flush (NS 3 ml) 3 ml PER PROTOCOL IV ; Start 10/06/18 at 00:00 Ondansetron HCl (Zofran Inj) 4 mg Q6H PRN IV NAUSEA/VOMITING; Start 10/06/18 at 00:00 Acetaminophen (Tylenol Tab) 650 mg Q6H PRN PO .PAIN 1-3 OR TEMP Last administered on 10/12/18 08:58; Admin Dose 650 MG; Start 10/06/18 at 00:00 Finasteride (Proscar) 5 mg DAILY PO Last administered on 10/15/18 08:17; Admin Dose 5 MG; Start 10/06/18 at 09:00 Potassium Chloride (Micro-K) 8 meq DAILY PO Last administered on 10/15/18 08:17; Admin Dose 8 MEQ; Start 10/06/18 at 09:00 Tamsulosin HCl (Flomax) 0.4 mg HS PO Last administered on 10/14/18 21:23; Admin Dose 0.4 MG; Start 10/06/18 at 21:00 Pantoprazole (Protonix Iv) 40 mg BID@0600,1800 IV Last administered on 10/15/18 05:47; Admin Dose 40 MG; Start 10/06/18 at 21:00 Lactobacillus Acidophilus/ Rhamnosus (Culturelle) 1 cap BID PO Last administered on 10/15/18 08:18; Admin Dose 1 CAP; Start 10/10/18 at 21:00 Levalbuterol (Xopenex Neb) 0.63 mg Q4H RESP THERAPY HHN Last administered on 10/15/18 10:47; Admin Dose 0.63 MG; Start 10/11/18 at 05:00 Levalbuterol (Xopenex Neb) 0.63 mg Q2H RESP THERAPY PRN HHN WHEEZING AND SOB; Start 10/11/18 at 01:30 Ipratropium [place] (Atrovent 0.02% (Neb)) 0.5 mg Q4H RESP THERAPY HHN Last administered on 10/15/18 10:47; Admin Dose 0.5 MG; Start 10/11/18 at 05:00 Ipratropium [place] (Atrovent 0.02% (Neb)) 0.5 mg Q2H RESP THERAPY PRN HHN WHE EZING AND SOB; Start 10/11/18 at 01:30 Digoxin (Digoxin) 0.125 mg DAILY@1300 PO Last administered on 10/14/18 18:03; Admin Dose 0.125 MG; Start 10/11/18 at 13:00 Guaifenesin/ Dextromethorphan (Robitussin Dm Liquid Cup) 10 ml Q4H PRN PO COUGH Last administered on 10/14/18 09:22; Admin Dose 10 ML; Start 10/11/18 at 12:30 Furosemide (Lasix) 20 mg DAILY PO Last administered on 10/15/18 08:17; Admin Do se 20 MG; Start 10/12/18 at 15:00 Meropenem/Sodium Chloride 50 ml @ 100 mls/hr Q12 IVPB Last administered on 10/15/18 08:16; Admin Dose 100 MLS/HR; Start 10/13/18 at 21:00 Prednisone (Prednisone) 30 mg DAILY PO ; Start 10/16/18 at 09:00 NGUYỄN BLANCA NP Oct 15, 2018 12:55
--- NOTE | 2018-10-15 13:21 | PN ---
Date/Time of Note Date/Time of Note DATE: 10/15/18 TIME: 12:30 Assessment/Plan VTE Prophylaxis Risk score (from Ns)>0 risk: 3 SCD applied (from Ns): Yes Pharmacological prophylaxis: NA/contraindicated Pharm contraindication: anticoag not tolerated Lines/Catheters IV [facility] Peripheral IV Urinary Cath still in place: No Assessment/Plan Hospital Course SUBJECTIVE: Denies any chest pain. Denies any dyspnea. OBJECTIVE: Physical Exam General: Adequately build 88 year-old male lying in bed in no apparent distress. HEENT: Normocephalic, atraumatic. Eyes: Anicteric sclerae, conjunctivae clear. ENT: Nasal septum midline, oral mucosa moist. Neck supple, JVD noticed. Respiratory: Bilaterally diminished breath sounds. No use of accessory muscles of respiration. Expiratory wheezing. Cardiovascular: S1, S2 heard. Irregularly irregular rhythm. Grade 2/3 systolic ejection murmur. Abdomen: Soft, nontender, and nondistended. Bowel sounds positive in all 4 quadrants. Genitourinary: Deferred. Extremities: No cyanosis, no clubbing, no edema. Peripheral pulses palpable. Neurologic: Cranial nerves II through XII grossly intact. The patient is awake, alert, and oriented. Skin: Normal skin turgor. No skin rashes. Labs & Vitals per chart ASSESSMENT & PLAN 71-year-old male with comorbidities including cardiomyopathy with ejection fraction 35%, pulmonary hypertension, moderate aortic stenosis, moderate tricuspid regurgitation, chronic atrial fibrillation on anticoagulation, hypertension, prostate hypertrophy, chronic bilateral pleural effusions, and chronic anemia. The patient came to the emergency room for further evaluation of anemia. The patient was admitted to inpatient setting for further treatment and evaluation. 1. Anemia. -Microcytic. -Etiology unclear. Stool for OB x1-. -Status post 4 units of PRBC transfusion. -Status post esophagogastroduodenoscopy on 10/14/2018 that showed mild distal esophagitis, severe gastritis, and small hiatal hernia. 2. Acute on chronic congestive heart failure exacerbation. -Continue spot diuretics -Being followed by cardiology. 3. Ischemic cardiomyopathy. -Ejection fraction of 30%. -Continue digoxin -Unable to start the patient on beta-blockers/SUHAIL inhibitors because of low blood pressure readings. 4. Multifocal pneumonia. -CT scan from 10/11/2018 showing new patchy ground-glass interstitial and alveolar infiltrates in the anterior segment of the right upper lobe, medial left upper lobe, and apex suggestive of multifocal pneumonia. -Continue antimicrobials. 5. Reactive airway disease with bronchospasms. -Continue tapering dose of steroids. 6. Moderate aortic stenosis. -Patient not a good surgical candidate. -Being followed by cardiology. 7. Pulmonary hypertension. -Probably secondary to valvular heart disease. 8. Chronic atrial fibrillation. -Rate controlled. -Continue digoxin. -Not a good candidate for anticoagulation because of anemia. 10. Prostatic hypertrophy. -Continue Flomax and Proscar. 11. Fluids, electrolytes, and nutrition. -Low-sodium diet. 12. Plan. -Continue diuresis. -Continue antimicrobials -Monitor H&H closely. -Await clinical improvement before discharging the patient home Updated the patient's status to the patient's daughter who was at the bedside. The patient was seen in collaboration with Dr. Whyte. Result Diagram: 10/15/1828 10/15/1828 Results 24hrs Laboratory Tests Test 10/15/18 06:28 White Blood Count 3.8 L Red Blood Count 2.66 L Hemoglobin 8.7 L Hematocrit 28.3 L Mean Corpuscular Volume 106.4 H Mean Corpuscular Hemoglobin 32.7 Mean Corpuscular Hemoglobin Concent 30.7 L Red Cell Distribution Width 16.7 H Platelet Count 88 L Mean Platelet Volume 10.4 Immature Granulocytes % 0.800 H Neutrophils % 73.1 Lymphocytes % 16.1 Monocytes % 8.7 Eosinophils % 1.3 Basophils % 0.0 Nucleated Red Blood Cells % 0.0 Immature Granulocytes # 0.030 Neutrophils # 2.8 Lymphocytes # 0.6 L Monocytes # 0.3 Eosinophils # 0.1 Basophils # 0.0 Nucleated Red Blood Cells # 0.0 Sodium Level 138 Potassium Level 3.9 Chloride Level 103 Carbon Dioxide Level 34 H Anion Gap 1 L Blood Urea Nitrogen 37 H Creatinine 0.65 Est Glomerular Filtrat Rate mL/min Glucose Level 88 Calcium Level 8.5 Phosphorus Level 3.2 Magnesium Level 2.4 Exam/Review of Systems Exam Vitals Vital Signs Date Temp Pulse Resp B/P (MAP) Pulse Ox O2 O2 Flow FiO2 Time Delivery Rate 10/15/18 97.7 80 18 112/64 100 Nasal 11:25 (80) Cannula 10/15/18 2.0 10:48 10/13/18 21 20:22 Intake and Output 10/14/18 10/14/18 10/15/18 1515:00 23:00 07:00 IntakeIntake Total 50 ml 480 ml 300 ml OutputOutput Total 720 ml 410 ml BalanceBalance 50 ml -240 ml -110 ml Results Results 24hrs Laboratory Tests Test 10/15/18 06:28 White Blood Count 3.8 L Red Blood Count 2.66 L Hemoglobin 8.7 L Hematocrit 28.3 L Mean Corpuscular Volume 106.4 H Mean Corpuscular Hemoglobin 32.7 Mean Corpuscular Hemoglobin Concent 30.7 L Red Cell Distribution Width 16.7 H Platelet Count 88 L Mean Platelet Volume 10.4 Immature Granulocytes % 0.800 H Neutrophils % 73.1 Lymphocytes % 16.1 Monocytes % 8.7 Eosinophils % 1.3 Basophils % 0.0 Nucleated Red Blood Cells % 0.0 Immature Granulocytes # 0.030 Neutrophils # 2.8 Lymphocytes # 0.6 L Monocytes # 0.3 Eosinophils # 0.1 Basophils # 0.0 Nucleated Red Blood Cells # 0.0 Sodium Level 138 Potassium Level 3.9 Chloride Level 103 Carbon Dioxide Level 34 H Anion Gap 1 L Blood Urea Nitrogen 37 H Creatinine 0.65 Est Glomerular Filtrat Rate mL/min Glucose Level 88 Calcium Level 8.5 Phosphorus Level 3.2 Magnesium Level 2.4 Medications Medication Current Medications IV Flush (NS 3 ml) 3 ml PER PROTOCOL IV ; Start 10/06/18 at 00:00 Ondansetron HCl (Zofran Inj) 4 mg Q6H PRN IV NAUSEA/VOMITING; Start 10/06/18 at 00:00 Acetaminophen (Tylenol Tab) 650 mg Q6H PRN PO .PAIN 1-3 OR TEMP Last administered on 10/12/18 08:58; Admin Dose 650 MG; Start 10/06/18 at 00:00 Finasteride (Proscar) 5 mg DAILY PO Last administered on 10/15/18 08:17; Admin Dose 5 MG; Start 10/06/18 at 09:00 Potassium Chloride (Micro-K) 8 meq DAILY PO Last administered on 10/15/18 08:17; Admin Dose 8 MEQ; Start 10/06/18 at 09:00 Tamsulosin HCl (Flomax) 0.4 mg HS PO Last administered on 10/14/18at 21:23; Admin Dose 0.4 MG; Start 10/06/18 at 21:00 Pantoprazole (Protonix Iv) 40 mg BID@0600,1800 IV Last administered on 10/15/18 05:47; Admin Dose 40 MG; Start 10/06/18 at 21:00 Lactobacillus Acidophilus/ Rhamnosus (Culturelle) 1 cap BID PO Last administered on 10/15/18 08:18; Admin Dose 1 CAP; Start 10/10/18 at 21:00 Levalbuterol (Xopenex Neb) 0.63 mg Q4H RESP THERAPY HHN Last administered on 10/15/18 10:47; Admin Dose 0.63 MG; Start 10/11/18 at 05:00 Levalbuterol (Xopenex Neb) 0.63 mg Q2H RESP THERAPY PRN HHN WHEEZING AND SOB; Start 10/11/18 at 01:30 Ipratropium [place] (Atrovent 0.02% (Neb)) 0.5 mg Q4H RESP THERAPY HHN Last administered on 10/15/18 10:47; Admin Dose 0.5 MG; Start 10/11/18 at 05:00 Ipratropium [place] (Atrovent 0.02% (Neb)) 0.5 mg Q2H RESP THERAPY PRN HHN WHEEZING AND SOB; Start 10/11/18 at 01:30 Digoxin (Digoxin) 0.125 mg DAILY@1300 PO Last administered on 10/14/18 18:03; Admin Dose 0.125 MG; Start 10/11/18 at 13:00 Prednisone (Prednisone) 60 mg DAILY PO Last administered on 10/15/18 08:17; Admin Dose 60 MG; Start 10/13/18 at 09:00 Guaifenesin/ Dextromethorphan (Robitussin Dm Liquid Cup) 10 ml Q4H PRN PO COUGH Last administered on 10/14/18 09:22; Admin Dose 10 ML; Start 10/11/18 at 12:30 Furosemide (Lasix) 20 mg DAILY PO Last administered on 10/15/18 08:17; Admin Dose 20 MG; Start 10/12/18 at 15:00 Meropenem/Sodium Chloride 50 ml @ 100 mls/hr Q12 IVPB Last administered on 10/15/18 08:16; Admin Dose 100 MLS/HR; Start 10/13/18 at 21:00 BENTLEY CERVANTES NP Oct 15, 2018 12:41
--- NOTE | 2018-10-15 14:39 | CONS ---
Assessment/Plan Assessment/Plan Hospital Course (Demo Recall) Acute on chronic systolic heart failure: EF 35% 02/25. Decompensated on exam due to blood products. S/p diuresis but also bronchospastic component as well as multifocal PNA on CXR. Mild CHF still Acute GI bleed/anemia: Hgb down to 6, s/p 4 units and >10. Now all cell lines trending down but improved again. EGD 10/14 showed severe gastritis as well as mild esophagitis and hiatal hernia chronic afib: Rates controlled. Was on Eliquis but held due to GI bleed Ischemic cardiomyopathy CAD Mild-mod Pulm HTN Cirrhosis -lasix 20mg IV now -switch to bumex 1mg PO daily -holding coreg 3.125mg BID due to bradycardia at times -continue digoxin, check level in am -hold Eliquis 2.5mg BID until cleared by GI Consultation Date/Type/Reason Admit Date/Time Oct 05, 2018 at 19:53 Initial Consult Date 10/08/18 Type of Consult Cardiology Date/Time of Note DATE: 10/15/18 TIME: 14:35 24 HR Interval Summary Free Text/Dictation s/p EGD yesterday. No complaints today Exam/Review of Systems Exam Vitals Vital Signs Date Temp Pulse Resp B/P (MAP) Pulse Ox O2 O2 Flow FiO2 Time Delivery Rate 10/15/18 79 20 96 Nasal 2.0 14:31 Cannula 10/15/18 97.7 112/64 11:25 (80) 10/13/18 21 20:22 Intake and Output 10/14/18 10/14/18 10/15/18 1515:00 23:00 07:00 IntakeIntake Total 50 ml 480 ml 300 ml OutputOutput Total 720 ml 410 ml BalanceBalance 50 ml -240 ml -110 ml Constitutional: alert, oriented Psych: no complaints, nl mood/affect Head: normocephalic, atraumatic Neck: jvd (8-9cm) Respiratory: crackles/rales; No clear to auscultation Cardiovascular: systolic murmur (2/6 KERRY); No regular rate and rhythm, No edema Gastrointestinal: soft, non-tender; No distended Neurological: nl mental status, nl speech Results Result Diagram: 10/15/1828 10/15/18 0628 Results 24hrs Laboratory Tests Test 10/15/18 06:28 White Blood Count 3.8 L Red Blood Count 2.66 L Hemoglobin 8.7 L Hematocrit 28.3 L Mean Corpuscular Volume 106.4 H Mean Corpuscular Hemoglobin 32.7 Mean Corpuscular Hemoglobin Concent 30.7 L Red Cell Distribution Width 16.7 H Platelet Count 88 L Mean Platelet Volume 10.4 Immature Granulocytes % 0.800 H Neutrophils % 73.1 Lymphocytes % 16.1 Monocytes % 8.7 Eosinophils % 1.3 Basophils % 0.0 Nucleated Red Blood Cells % 0.0 Immature Granulocytes # 0.030 Neutrophils # 2.8 Lymphocytes # 0.6 L Monocytes # 0.3 Eosinophils # 0.1 Basophils # 0.0 Nucleated Red Blood Cells # 0.0 Sodium Level 138 Potassium Level 3.9 Chloride Level 103 Carbon Dioxide Level 34 H Anion Gap 1 L Blood Urea Nitrogen 37 H Creatinine 0.65 Est Glomerular Filtrat Rate mL/min Glucose Level 88 Calcium Level 8.5 Phosphorus Level 3.2 Magnesium Level 2.4 Medications Medication Current Medications IV Flush (NS 3 ml) 3 ml PER PROTOCOL IV ; Start 10/06/18 at 00:00 Ondansetron HCl (Zofran Inj) 4 mg Q6H PRN IV NAUSEA/VOMITING; Start 10/06/18 at 00:00 Acetaminophen (Tylenol Tab) 650 mg Q6H PRN PO .PAIN 1-3 OR TEMP Last administered on 10/12/18 08:58; Admin Dose 650 MG; Start 10/06/18 at 00:00 Finasteride (Proscar) 5 mg DAILY PO Last administered on 10/15/18 08:17; Admin Dose 5 MG; Start 10/06/18 at 09:00 Potassium Chloride (Micro-K) 8 meq DAILY PO Last administered on 10/15/18 08:17; Admin Dose 8 MEQ; Start 10/06/18 at 09:00 Tamsulosin HCl (Flomax) 0.4 mg HS PO Last administered on 10/14/18 21:23; Admin Dose 0.4 MG; Start 10/06/18 at 21:00 Pantoprazole (Protonix Iv) 40 mg BID@0600,1800 IV Last administered on 10/15/18 05:47; Admin Dose 40 MG; Start 10/06/18 at 21:00 Lactobacillus Acidophilus/ Rhamnosus (Culturelle) 1 cap BID PO Last administered on 10/15/18 08:18; Admin Dose 1 CAP; Start 10/10/18 at 21:00 Levalbuterol (Xopenex Neb) 0.63 mg Q4H RESP THERAPY HHN Last administered on 10/15/18 14:28; Admin Dose 0.63 MG; Start 10/11/18 at 05:00 Levalbuterol (Xopenex Neb) 0.63 mg Q2H RESP THERAPY PRN HHN WHEEZING AND SOB; Start 10/11/18 at 01:30 Ipratropium [place] (Atrovent 0.02% (Neb)) 0.5 mg Q4H RESP THERAPY HHN Last administered on 10/15/18 14:28; Admin Dose 0.5 MG; Start 10/11/18 at 05:00 Ipratropium [place] (Atrovent 0.02% (Neb)) 0.5 mg Q2H RESP THERAPY PRN HHN WHEEZING AND SOB; Start 10/11/18 at 01:30 Digoxin (Digoxin) 0.125 mg DAILY@1300 PO Last administered on 10/14/18 18:03; Admin Dose 0.125 MG; Start 10/11/18 at 13:00 Guaifenesin/ Dextromethorphan (Robitussin Dm Liquid Cup) 10 ml Q4H PRN PO COUGH Last administered on 10/14/18 09:22; Admin Dose 10 ML; Start 10/11/18 at 12:30 Meropenem/Sodium Chloride 50 ml @ 100 mls/hr Q12 IVPB Last administered on 10/15/18 08:16; Admin Dose 100 MLS/HR; Start 10/13/18 at 21:00 Prednisone (Prednisone) 30 mg DAILY PO ; Start 10/16/18 at 09:00 Bumetanide (Bumex) 1 mg DAILY PO ; Start 10/16/18 at 09:00 WOLFGANG SHERIDAN Oct 15, 2018 14:39
[2018-10-15] MEDS: DIGOXIN 0.125 MG TAB PO SCH (14:45)
[2018-10-15] MEDS ORDERED: FUROSEMIDE 20 MG INJ IV ONE (15:00)
[2018-10-15] MEDS: TAMSULOSIN (SR) 0.4 MG CAP PO SCH (20:16)
[2018-10-16] VITALS (12 sets, daily range): BP systolic 92–111; BP diastolic 53–65; PULSE 66–85; RESP 18–22
[2018-10-16] MEDS: LEVALBUTEROL (NEB) 0.63 MG/3 ML AMP HHN SCH ×8 (00:43→21:00)
[2018-10-16] MEDS: IPRATROPIUM (NEB) 0.5 MG/2.5 ML AMP HHN SCH ×8 (00:43→21:00)
[2018-10-16] MEDS: PANTOPRAZOLE 40 MG INJ IV SCH ×2 (07:00→17:25)
[2018-10-16] MEDS: predniSONE 10 MG TAB PO SCH (08:48)
[2018-10-16] MEDS: FINASTERIDE 5 MG TAB PO SCH (08:48)
[2018-10-16] MEDS: POTASSIUM CHLORIDE (SR) 8 MEQ CAP PO SCH (08:49)
[2018-10-16] MEDS: BUMETANIDE 1 MG TAB PO SCH (08:49)
[2018-10-16] MEDS: LACTOBACILLUS RHAMNOSUS CAP PO SCH ×2 (08:49→21:02)
[2018-10-16] MEDS: MEROPENEM 1 GM/50ML(PMX) 50 ML IVPB SCH ×2 (08:50→21:02)
--- NOTE | 2018-10-16 10:37 | PN ---
Date/Time of Note Date/Time of Note DATE: 10/16/18 TIME: 10:34 Assessment/Plan VTE Prophylaxis Risk score (from Ns)>0 risk: 3 SCD applied (from Ns): Yes Pharmacological prophylaxis: NA/contraindicated Pharm contraindication: anticoag not tolerated Lines/Catheters IV Catheter Type (from [facility]): Saline Lock Urinary Cath still in place: No Assessment/Plan Hospital Course SUBJECTIVE: Denies any chest pain. Denies any dyspnea. OBJECTIVE: Physical Exam General: Adequately build 88 year-old male lying in bed in no apparent distress. HEENT: Normocephalic, atraumatic. Eyes: Anicteric sclerae, conjunctivae clear. ENT: Nasal septum midline, oral mucosa moist. Neck supple, JVD noticed. Respiratory: Bilaterally diminished breath sounds. No use of accessory muscles of respiration. Expiratory wheezing. Cardiovascular: S1, S2 heard. Irregularly irregular rhythm. Grade 2/3 systolic ejection murmur. Abdomen: Soft, nontender, and nondistended. Bowel sounds positive in all 4 quadrants. Genitourinary: Deferred. Extremities: No cyanosis, no clubbing, no edema. Peripheral pulses palpable. Neurologic: Cranial nerves II through XII grossly intact. The patient is awake, alert, and oriented. Skin: Normal skin turgor. No skin rashes. Labs & Vitals per chart ASSESSMENT & PLAN 71-year-old male with comorbidities including cardiomyopathy with ejection fraction 35%, pulmonary hypertension, moderate aortic stenosis, moderate tricuspid regurgitation, chronic atrial fibrillation on anticoagulation, hypertension, prostate hypertrophy, chronic bilateral pleural effusions, and chronic anemia. The patient came to the emergency room for further evaluation of anemia. The patient was admitted to inpatient setting for further treatment and evaluation. 1. Anemia. -Microcytic. -Etiology unclear. Stool for OB x1-. -Status post 4 units of PRBC transfusion. -Status post esophagogastroduodenoscopy on 10/14/2018 that showed mild distal esophagitis, severe gastritis, and small hiatal hernia. 2. Pancytopenia. -Etiology unclear. -Imaging showing hepatomegaly with mild contour nodularity. ? liver cirrhosis. -Hepatitis panel negative. 3. Acute on chronic congestive heart failure exacerbation. -Continue spot diuretics -Being followed by cardiology. 4. Ischemic cardiomyopathy. -Ejection fraction of 30%. -Continue digoxin -Unable to start the patient on beta-blockers/SUHAIL inhibitors because of low blood pressure readings. 5. Multifocal pneumonia. -CT scan from 10/11/2018 showing new patchy ground-glass interstitial and alveolar infiltrates in the anterior segment of the right upper lobe, medial left upper lobe, and apex suggestive of multifocal pneumonia. -Continue antimicrobials. 6. Reactive airway disease with bronchospasms. -Continue tapering dose of steroids. 7. Moderate aortic stenosis. -Patient not a good surgical candidate. -Being followed by cardiology. 8. Pulmonary hypertension. -Probably secondary to valvular heart disease. 9. Chronic atrial fibrillation. -Rate controlled. -Continue digoxin. -Not a good candidate for anticoagulation because of anemia. 10. Prostatic hypertrophy. -Continue Flomax and Proscar. 11. Fluids, electrolytes, and nutrition. -Low-sodium diet. 12. Plan. -Continue diuresis. -Continue antimicrobials -Monitor H&H closely. -Await clinical improvement before discharging the patient home The patient was seen in collaboration with Dr. Whyte. Result Diagram: 10/16/18 0623 10/16/18 0623 Results 24hrs Laboratory Tests Test 10/16/18 06:23 White Blood Count 3.8 L Red Blood Count 2.64 L Hemoglobin 8.5 L Hematocrit 28.2 L Mean Corpuscular Volume 106.8 H Mean Corpuscular Hemoglobin 32.2 Mean Corpuscular Hemoglobin Concent 30.1 L Red Cell Distribution Width 16.3 H Platelet Count 94 L Mean Platelet Volume 11.1 H Immature Granulocytes % 1.100 H Neutrophils % 75.1 Lymphocytes % 15.6 Monocytes % 6.1 Eosinophils % 2.1 Basophils % 0.0 Nucleated Red Blood Cells % 0.0 Immature Granulocytes # 0.040 H Neutrophils # 2.8 Lymphocytes # 0.6 L Monocytes # 0.2 L Eosinophils # 0.1 Basophils # 0.0 Nucleated Red Blood Cells # 0.0 Sodium Level 140 Potassium Level 4.1 Chloride Level 102 Carbon Dioxide Level 35 H Anion Gap 3 L Blood Urea Nitrogen 35 H Creatinine 0.73 Est Glomerular Filtrat Rate mL/min Glucose Level 89 Calcium Level 8.4 Phosphorus Level 2.8 Magnesium Level 2.4 Digoxin Level 0.7 L Exam/Review of Systems Exam Vitals Vital Signs Date Temp Pulse Resp B/P (MAP) Pulse Ox O2 O2 Flow FiO2 Time Delivery Rate 10/16/18 92 18 94 21 09:04 10/16/18 98.0 95/62 (73) Nasal 07:30 Cannula 10/16/18 2.0 07:29 Intake and Output 10/15/18 10/15/18 10/16/18 1515:00 23:00 07:00 IntakeIntake Total 740 ml 200 ml OutputOutput Total 500 ml BalanceBalance 740 ml -300 ml Results Results 24hrs Laboratory Tests Test 10/16/18 06:23 White Blood Count 3.8 L Red Blood Count 2.64 L Hemoglobin 8.5 L Hematocrit 28.2 L Mean Corpuscular Volume 106.8 H Mean Corpuscular Hemoglobin 32.2 Mean Corpuscular Hemoglobin Concent 30.1 L Red Cell Distribution Width 16.3 H Platelet Count 94 L Mean Platelet Volume 11.1 H Immature Granulocytes % 1.100 H Neutrophils % 75.1 Lymphocytes % 15.6 Monocytes % 6.1 Eosinophils % 2.1 Basophils % 0.0 Nucleated Red Blood Cells % 0.0 Immature Granulocytes # 0.040 H Neutrophils # 2.8 Lymphocytes # 0.6 L Monocytes # 0.2 L Eosinophils # 0.1 Basophils # 0.0 Nucleated Red Blood Cells # 0.0 Sodium Level 140 Potassium Level 4.1 Chloride Level 102 Carbon Dioxide Level 35 H Anion Gap 3 L Blood Urea Nitrogen 35 H Creatinine 0.73 Est Glomerular Filtrat Rate mL/min Glucose Level 89 Calcium Level 8.4 Phosphorus Level 2.8 Magnesium Level 2.4 Digoxin Level 0.7 L Medications Medication Current Medications IV Flush (NS 3 ml) 3 ml PER PROTOCOL IV ; Start 10/06/18 at 00:00 Ondansetron HCl (Zofran Inj) 4 mg Q6H PRN IV NAUSEA/VOMITING; Start 10/06/18 at 00:00 Acetaminophen (Tylenol Tab) 650 mg Q6H PRN PO .PAIN 1-3 OR TEMP Last adm inistered on 10/12/18 08:58; Admin Dose 650 MG; Start 10/06/18 at 00:00 Finasteride (Proscar) 5 mg DAILY PO Last administered on 10/16/18at 08:48; Admin Dose 5 MG; Start 10/06/18 at 09:00 Potassium Chloride (Micro-K) 8 meq DAILY PO Last administered on 10/16/18at 08:49; Admin Dose 8 MEQ; Start 10/06/18 at 09:00 Tamsulosin HCl (Flomax) 0.4 mg HS PO Last administered on 10/15/18 20:16; Admin Dose 0.4 MG; Start 10/06/18 at 21:00 Pantoprazole (Protonix Iv) 40 mg BID@0600,1800 IV Last administered on 10/16/18 07:00; Admin Dose 40 MG; Start 10/06/18 at 21:00 Lactobacillus Acidophilus/ Rhamnosus (Culturelle) 1 cap BID PO Last administered on 10/16/18 08:49; Admin Dose 1 CAP; Start 10/10/18 at 21:00 Levalbuterol (Xopenex Neb) 0.63 mg Q4H RESP THERAPY HHN Last administered on 10/16/18 09:04; Admin Dose 0.63 MG; Start 10/11/18 at 05:00 Levalbuterol (Xopenex Neb) 0.63 mg Q2H RESP THERAPY PRN HHN WHEEZING AND SOB; Start 10/11/18 at 01:30 Ipratropium [place] (Atrovent 0.02% (Neb)) 0.5 mg Q4H RESP THERAPY HHN Last administered on 10/16/18 09:04; Admin Dose 0.5 MG; Start 10/11/18 at 05:00 Ipratropium [place] (Atrovent 0.02% (Neb)) 0.5 mg Q2H RESP THERAPY PRN HHN WHEEZING AND SOB; Start 10/11/18 at 01:30 Digoxin (Digoxin) 0.125 mg DAILY@1300 PO Last administered on 10/15/18 14:45; Admin Dose 0.125 MG; Start 10/11/18 at 13:00 Guaifenesin/ Dextromethorphan (Robitussin Dm Liquid Cup) 10 ml Q4H PRN PO COUGH Last administered on 10/14/18 09:22; Admin Dose 10 ML; Start 10/11/18 at 12:30 Meropenem/Sodium Chloride 50 ml @ 100 mls/hr Q12 IVPB Last administered on 10/16/18 08:50; Admin Dose 100 MLS/HR; Start 10/13/18 at 21:00 Prednisone (Prednisone) 30 mg DAILY PO Last administered on 10/16/18 08:48; Admin Dose 30 MG; Start 10/16/18 at 09:00 Bumetanide (Bumex) 1 mg DAILY PO Last administered on 10/16/18at 08:49; Admin Dose 1 MG; Start 10/16/18 at 09:00 BENTLEY CERVANTES NP Oct 16, 2018 10:37
--- NOTE | 2018-10-16 11:46 | CONS ---
Assessment/Plan Assessment/Plan Hospital Course (Demo Recall) Acute on chronic systolic heart failure: EF 35% 02/25. Decompensated on exam due to blood products. S/p diuresis but also bronchospastic component as well as multifocal PNA on CXR. Euvolemic on exam with normal JVP Acute GI bleed/anemia: Hgb down to 6, s/p 4 units and >10. Now all cell lines trending down but improved again. EGD 10/14 showed severe gastritis as well as mi ld esophagitis and hiatal hernia chronic afib: Rates controlled. Was on Eliquis but held due to GI bleed Ischemic cardiomyopathy CAD Mild-mod Pulm HTN Cirrhosis -dispo planning -bumex 1mg PO daily -holding coreg 3.125mg BID due to bradycardia at times -continue digoxin, levels are ok -hold Eliquis 2.5mg BID until cleared by GI Consultation Date/Type/Reason Admit Date/Time Oct 05, 2018 at 19:53 Initial Consult Date 10/08/18 Type of Consult Cardiology Date/Time of Note DATE: 10/16/18 TIME: 11:45 24 HR Interval Summary Free Text/Dictation No events. Remains stable. No SOB. Exam/Review of Systems Exam Vitals Vital Signs Date Temp Pulse Resp B/P (MAP) Pulse Ox O2 O2 Flow FiO2 Time Delivery Rate 10/16/18 97.6 73 22 97/53 (68) 96 Room Air 11:30 10/16/18 21 09:04 10/16/18 2.0 07:29 Intake and Output 10/15/18 10/15/18 10/16/18 1515:00 23:00 07:00 IntakeIntake Total 740 ml 200 ml OutputOutput Total 500 ml BalanceBalance 740 ml -300 ml Constitutional: alert, oriented Head: normocephalic, atraumatic Neck: No jvd Respiratory: crackles/rales (at bases), wheezing (mild ); No clear to auscultation Gastrointestinal: soft, non-tender; No distended Neurological: nl mental status, nl speech Results Result Diagram: 10/16/18 0623 10/16/18 0623 Results 24hrs Laboratory Tests Test 10/16/18 06:23 White Blood Count 3.8 L Red Blood Count 2.64 L Hemoglobin 8.5 L Hematocrit 28.2 L Mean Corpuscular Volume 106.8 H Mean Corpuscular Hemoglobin 32.2 Mean Corpuscular Hemoglobin Concent 30.1 L Red Cell Distribution Width 16.3 H Platelet Count 94 L Mean Platelet Volume 11.1 H Immature Granulocytes % 1.100 H Neutrophils % 75.1 Lymphocytes % 15.6 Monocytes % 6.1 Eosinophils % 2.1 Basophils % 0.0 Nucleated Red Blood Cells % 0.0 Immature Granulocytes # 0.040 H Neutrophils # 2.8 Lymphocytes # 0.6 L Monocytes # 0.2 L Eosinophils # 0.1 Basophils # 0.0 Nucleated Red Blood Cells # 0.0 Sodium Level 140 Potassium Level 4.1 Chloride Level 102 Carbon Dioxide Level 35 H Anion Gap 3 L Blood Urea Nitrogen 35 H Creatinine 0.73 Est Glomerular Filtrat Rate mL/min Glucose Level 89 Calcium Level 8.4 Phosphorus Level 2.8 Magnesium Level 2.4 Digoxin Level 0.7 L Medications Medication Current Medications IV Flush (NS 3 ml) 3 ml PER PROTOCOL IV ; Start 10/06/18 at 00:00 Ondansetron HCl (Zofran Inj) 4 mg Q6H PRN IV NAUSEA/VOMITING; Start 10/06/18 at 00:00 Acetaminophen (Tylenol Tab) 650 mg Q6H PRN PO .PAIN 1-3 OR TEMP Last administered on 10/12/18 08:58; Admin Dose 650 MG; Start 10/06/18 at 00:00 Finasteride (Proscar) 5 mg DAILY PO Last administered on 10/16/18 08:48; Admin Dose 5 MG; Start 10/06/18 at 09:00 Potassium Chloride (Micro-K) 8 meq DAILY PO Last administered on 10/16/18 08:49; Admin Dose 8 MEQ; Start 10/06/18 at 09:00 Tamsulosin HCl (Flomax) 0.4 mg HS PO Last administered on 10/15/18 20:16; Admin Dose 0.4 MG; Start 10/06/18 at 21:00 Pantoprazole (Protonix Iv) 40 mg BID@0600,1800 IV Last administered on 10/16/18 07:00; Admin Dose 40 MG; Start 10/06/18 at 21:00 Lactobacillus Acidophilus/ Rhamnosus (Culturelle) 1 cap BID PO Last administered on 3/8/19at 08:49; Admin Dose 1 CAP; Start 10/10/18 at 21:00 Levalbuterol (Xopenex Neb) 0.63 mg Q4H RESP THERAPY HHN Last administered on 10/16/18 09:04; Admin Dose 0.63 MG; Start 10/11/18 at 05:00 Levalbuterol (Xopenex Neb) 0.63 mg Q2H RESP THERAPY PRN HHN WHEEZING AND SOB; Start 10/11/18 at 01:30 Ipratropium [place] (Atrovent 0.02% (Neb)) 0.5 mg Q4H RESP THERAPY HHN Last administered on 10/16/18 09:04; Admin Dose 0.5 MG; Start 10/11/18 at 05:00 Ipratropium [place] (Atrovent 0.02% (Neb)) 0.5 mg Q2H RESP THERAPY PRN HHN WHEEZING AND SOB; Start 10/11/18 at 01:30 Digoxin (Digoxin) 0.125 mg DAILY@1300 PO Last administered on 10/15/18 14:45; Admin Dose 0.125 MG; Start 10/11/18 at 13:00 Guaifenesin/ Dextromethorphan (Robitussin Dm Liquid Cup) 10 ml Q4H PRN PO COUGH Last administered on 10/14/18 09:22; Admin Dose 10 ML; Start 10/11/18 at 12:30 Meropenem/Sodium Chloride 50 ml @ 100 mls/hr Q12 IVPB Last administered on 10/16/18 08:50; Admin Dose 100 MLS/HR; Start 10/13/18 at 21:00 Prednisone (Prednisone) 30 mg DAILY PO Last administered on 10/16/18 08:48; Admin Dose 30 MG; Start 10/16/18 at 09:00 Bumetanide (Bumex) 1 mg DAILY PO Last administered on 10/16/18 08:49; Admin Dose 1 MG; Start 10/16/18 at 09:00 WOLFGANG SHERIDAN Oct 16, 2018 11:46
--- NOTE | 2018-10-16 13:31 | PN ---
Date/Time of Note Date/Time of Note DATE: 10/16/18 TIME: 13:27 Assessment/Plan VTE Prophylaxis Risk score (from Ns)>0 risk: 3 SCD applied (from Ns): Yes Pharmacological prophylaxis: NA/contraindicated Pharm contraindication: bleeding Lines/Catheters IV C[facility]ter Type (from [facility]): Saline Lock Urinary Cath still in place: No Assessment/Plan Assessment/Plan Assessment: Melena- resolved EGD 10/14/18 Mild distal esophagitis Small hiatal hernia Severe gastritis. Rule out H. pylori infection, biopsies obtained to Otherwise normal EGD Stomach body and antrum biopsy: -- Chronic gastritis, mild, with extensive intestinal metaplasia of antral mucosa. -- No Helicobacter organisms are identified in a Giemsa stain. -- There is no evidence of dysplasia or malignancy. Imaging suspicious for cirrhosis Macrocytic anemia- trending up Indirect hyperbilirubinemia- trending down Elevated Alk phos, mild -Improved since admission Thrombocytopenia Leukopenia- improved CHF - 02/2018 EF 35% HTN CAD Pulmonary hypertension, moderate Chronic BPH Valvular heart disease, moderate aortic stenosis Plan: Continue PPI Await bx Pt to f/u with GI after d/c re: questionable liver cirrhosis, hepatitis serology neg D/c planning per hospitalist Patient seen in collaboration with Dr. Larkin/Rashida Subjective: Course reviewed with nursing staff Patient interviewed and examined All labs, imaging and other results reviewed Pt resting is sitting in the recliner. He is tolerating regular diet well. Denies abdominal pain, nausea or vomiting. Discussed results of EGD with the patient. There is no evidence of GI bleed. Hemoglobin is stable. Continue monitoring. PHYSICAL EXAMINATION: GENERAL:Elderly gentleman, alert & oriented x 3, in no acute distress SKIN: Facial discoloration EYES: Pupils equal reactive to light, no discharge. EARS/NOSE AND THROAT: Ears normal, nose normal NECK: Supple. CHEST: Inspection within normal limits. CARDIOVASCULAR: Heart: Irregular rate and rhythm RESPIRATORY: Wheezing GASTROINTESTINAL AND LIVER: Abdomen: Soft, non tenderness, non-distended, no hernias, no masses, no organomegaly, no ascites, no guarding, no rebound tenderness, normoactive bowel sounds. Rectal: Deferred. EXTREMITIES: No cyanosis, clubbing or edema. Result Diagram: 10/16/18 0623 10/16/18 0623 Results 24hrs Laboratory Tests Test 10/16/18 06:23 White Blood Count 3.8 L Red Blood Count 2.64 L Hemoglobin 8.5 L Hematocrit 28.2 L Mean Corpuscular Volume 106.8 H Mean Corpuscular Hemoglobin 32.2 Mean Corpuscular Hemoglobin Concent 30.1 L Red Cell Distribution Width 16.3 H Platelet Count 94 L Mean Platelet Volume 11.1 H Immature Granulocytes % 1.100 H Neutrophils % 75.1 Lymphocytes % 15.6 Monocytes % 6.1 Eosinophils % 2.1 Basophils % 0.0 Nucleated Red Blood Cells % 0.0 Immature Granulocytes # 0.040 H Neutrophils # 2.8 Lymphocytes # 0.6 L Monocytes # 0.2 L Eosinophils # 0.1 Basophils # 0.0 Nucleated Red Blood Cells # 0.0 Sodium Level 140 Potassium Level 4.1 Chloride Level 102 Carbon Dioxide Level 35 H Anion Gap 3 L Blood Urea Nitrogen 35 H Creatinine 0.73 Est Glomerular Filtrat Rate mL/min Glucose Level 89 Calcium Level 8.4 Phosphorus Level 2.8 Magnesium Level 2.4 Digoxin Level 0.7 L CC: TRES LARKIN MD ; Exam/Review of Systems Exam Vitals Vital Signs Date Temp Pulse Resp B/P (MAP) Pulse Ox O2 O2 Flow FiO2 Time Delivery Rate 10/16/18 66 12:14 10/16/18 97.6 22 97/53 (68) 96 Room Air 11:30 10/16/18 21 09:04 10/16/18 2.0 07:29 Intake and Output 10/15/18 10/15/18 10/16/18 1414:59 22:59 06:59 IntakeIntake Total 740 ml 200 ml OutputOutput Total 500 ml BalanceBalance 740 ml -300 ml Results Results 24hrs Laboratory Tests Test 10/16/18 06:23 White Blood Count 3.8 L Red Blood Count 2.64 L Hemoglobin 8.5 L Hematocrit 28.2 L Mean Corpuscular Volume 106.8 H Mean Corpuscular Hemoglobin 32.2 Mean Corpuscular Hemoglobin Concent 30.1 L Red Cell Distribution Width 16.3 H Platelet Count 94 L Mean Platelet Volume 11.1 H Immature Granulocytes % 1.100 H Neutrophils % 75.1 Lymphocytes % 15.6 Monocytes % 6.1 Eosinophils % 2.1 Basophils % 0.0 Nucleated Red Blood Cells % 0.0 Immature Granulocytes # 0.040 H Neutrophils # 2.8 Lymphocytes # 0.6 L Monocytes # 0.2 L Eosinophils # 0.1 Basophils # 0.0 Nucleated Red Blood Cells # 0.0 Sodium Level 140 Potassium Level 4.1 Chloride Level 102 Carbon Dioxide Level 35 H Anion Gap 3 L Blood Urea Nitrogen 35 H Creatinine 0.73 Est Glomerular Filtrat Rate mL/min Glucose Level 89 Calcium Level 8.4 Phosphorus Level 2.8 Magnesium Level 2.4 Digoxin Level 0.7 L Medications Medication Current Medications IV Flush (NS 3 ml) 3 ml PER PROTOCOL IV ; Start 10/06/18 at 00:00 Ondansetron HCl (Zofran Inj) 4 mg Q6H PRN IV NAUSEA/VOMITING; Start 10/06/18 at 00:00 Acetaminophen (Tylenol Tab) 650 mg Q6H PRN PO .PAIN 1-3 OR TEMP Last administered on 10/12/18 08:58; Admin Dose 650 MG; Start 10/06/18 at 00:00 Finasteride (Proscar) 5 mg DAILY PO Last administered on 10/16/18 08:48; Admin Dose 5 MG; Start 10/06/18 at 09:00 Potassium Chloride (Micro-K) 8 meq DAILY PO Last administered on 10/16/18 08:49; Admin Dose 8 MEQ; Start 10/06/18 at 09:00 Tamsulosin HCl (Flomax) 0.4 mg HS PO Last administered on 10/15/18 20:16; Admin Dose 0.4 MG; Start 10/06/18 at 21:00 Pantoprazole (Protonix Iv) 40 mg BID@0600,1800 IV Last administered on 10/16/18 07:00; Admin Dose 40 MG; Start 10/06/18 at 21:00 Lactobacillus Acidophilus/ Rhamnosus (Culturelle) 1 cap BID PO Last administered on 10/16/18 08:49; Admin Dose 1 CAP; Start 10/10/18 at 21:00 Levalbuterol (Xopenex Neb) 0.63 mg Q4H RESP THERAPY HHN Last administered on 10/16/18 09:04; Admin Dose 0.63 MG; Start 10/11/18 at 05:00 Levalbuterol (Xopenex Neb) 0.63 mg Q2H RESP THERAPY PRN HHN WHEEZING AND SOB; Start 10/11/18 at 01:30 Ipratropium [place] (Atrovent 0.02% (Neb)) 0.5 mg Q4H RESP THERAPY HHN Last administered on 10/16/18 09:04; Admin Dose 0.5 MG; Start 10/11/18 at 05:00 Ipratropium [place] (Atrovent 0.02% (Neb)) 0.5 mg Q2H RESP THERAPY PRN HHN WHEEZING AND SOB; Start 10/11/18 at 01:30 Digoxin (Digoxin) 0.125 mg DAILY@1300 PO Last administered on 10/15/18 14:45; Admin Dose 0.125 MG; Start 10/11/18 at 13:00 Guaifenesin/ Dextromethorphan (Robitussin Dm Liquid Cup) 10 ml Q4H PRN PO COUGH Last administered on 10/14/18 09:22; Admin Dose 10 ML; Start 10/11/18 at 12:30 Meropenem/Sodium Chloride 50 ml @ 100 mls/hr Q12 IVPB Last administered on 10/16/18 08:50; Admin Dose 100 MLS/HR; Start 10/13/18 at 21:00 Prednisone (Prednisone) 30 mg DAILY PO Last administered on 10/16/18 08:48; Admin Dose 30 MG; Start 10/16/18 at 09:00 Bumetanide (Bumex) 1 mg DAILY PO Last administered on 10/16/18 08:49; Admin Dose 1 MG; Start 10/16/18 at 09:00 JEFF MENDEZ NP Oct 16, 2018 13:31
[2018-10-16] MEDS: DIGOXIN 0.125 MG TAB PO SCH (13:52)
--- NOTE | 2018-10-16 15:00 | CONS ---
Assessment/Plan Assessment/Plan Hospital Course (Demo Recall) Patient is alert sitting up in a chair comfortable off oxygen on room air no fevers overnight she remains on meropenem. WBC today 3.8 no shift no bands BUN 35 creatinine 0.73 Antimicrobials: Meropenem CT of the chest 2 days ago revealed new patchy ground glass interstitial and alveolar infiltrates in the anterior segment of the right upper lobe, medial left upper lobe and apex suggestive of multifocal pneumonia. Physical examination: Well-developed well-nourished elderly man who is awake in no distress head atraumatic normocephalic neck is supple chest rise symmetrical breath sounds with bilateral rhonchi heart: S1-S2. Abdomen soft bowel sounds present. Extremities without cyanosis Assessment: 1. Multifocal pneumonia 2. Anemia/gastritis 3. Ischemic cardiomyopathy with ejection fraction of 30% 4. CHF exacerbation 5. Chronic atrial fibrillation Plan: Patient is doing better, continue on current antibiotics, anticipate discharge on oral Levaquin and Augmentin for 7 more days Consultation Date/Type/Reason Admit Date/Time Oct 05, 2018 at 19:53 Initial Consult Date 10/08/18 Type of Consult id Date/Time of Note DATE: 10/16/18 TIME: 14:59 Exam/Review of Systems Exam Vitals Vital Signs Date Temp Pulse Resp B/P (MAP) Pulse Ox O2 O2 Flow FiO2 Time Delivery Rate 10/16/18 85 18 95 21 13:37 10/16/18 97.6 97/53 (68) Room Air 11:30 10/16/18 2.0 07:29 Intake and Output 10/15/18 10/15/18 10/16/18 1414:59 22:59 06:59 IntakeIntake Total 740 ml 200 ml OutputOutput Total 500 ml BalanceBalance 740 ml -300 ml Results Result Diagram: 10/16/18 0623 10/16/18 0623 Results 24hrs Laboratory Tests Test 10/16/18 06:23 White Blood Count 3.8 L Red Blood Count 2.64 L Hemoglobin 8.5 L Hematocrit 28.2 L Mean Corpuscular Volume 106.8 H Mean Corpuscular Hemoglobin 32.2 Mean Corpuscular Hemoglobin Concent 30.1 L Red Cell Distribution Width 16.3 H Platelet Count 94 L Mean Platelet Volume 11.1 H Immature Granulocytes % 1.100 H Neutrophils % 75.1 Lymphocytes % 15.6 Monocytes % 6.1 Eosinophils % 2.1 Basophils % 0.0 Nucleated Red Blood Cells % 0.0 Immature Granulocytes # 0.040 H Neutrophils # 2.8 Lymphocytes # 0.6 L Monocytes # 0.2 L Eosinophils # 0.1 Basophils # 0.0 Nucleated Red Blood Cells # 0.0 Sodium Level 140 Potassium Level 4.1 Chloride Level 102 Carbon Dioxide Level 35 H Anion Gap 3 L Blood Urea Nitrogen 35 H Creatinine 0.73 Est Glomerular Filtrat Rate mL/min Glucose Level 89 Calcium Level 8.4 Phosphorus Level 2.8 Magnesium Level 2.4 Digoxin Level 0.7 L Medications Medication Current Medications IV Flush (NS 3 ml) 3 ml PER PROTOCOL IV ; Start 10/06/18 at 00:00 Ondansetron HCl (Zofran Inj) 4 mg Q6H PRN IV NAUSEA/VOMITING; Start 10/06/18 at 00:00 Acetaminophen (Tylenol Tab) 650 mg Q6H PRN PO .PAIN 1-3 OR TEMP Last administered on 10/12/18 08:58; Admin Dose 650 MG; Start 10/06/18 at 00:00 Finasteride (Proscar) 5 mg DAILY PO Last administered on 10/16/18 08:48; Admin Dose 5 MG; Start 10/06/18 at 09:00 Potassium Chloride (Micro-K) 8 meq DAILY PO Last administered on 10/16/18 08:49; Admin Dose 8 MEQ; Start 10/06/18 at 09:00 Tamsulosin HCl (Flomax) 0.4 mg HS PO Last administered on 10/15/18 20:16; Admin Dose 0.4 MG; Start 10/06/18 at 21:00 Pantoprazole (Protonix Iv) 40 mg BID@0600,1800 IV Last administered on 10/16/18 07:00; Admin Dose 40 MG; Start 10/06/18 at 21:00 Lactobacillus Acidophilus/ Rhamnosus (Culturelle) 1 cap BID PO Last administered on 10/16/18 08:49; Admin Dose 1 CAP; Start 10/10/18 at 21:00 Levalbuterol (Xopenex Neb) 0.63 mg Q4H RESP THERAPY HHN Last administered on 10/16/18 13:37; Admin Dose 0.63 MG; Start 10/11/18 at 05:00 Levalbuterol (Xopenex Neb) 0.63 mg Q2H RESP THERAPY PRN HHN WHEEZING AND SOB; Start 10/11/18 at 01:30 Ipratropium [place] (Atrovent 0.02% (Neb)) 0.5 mg Q4H RESP THERAPY HHN Last administered on 10/16/18 13:37; Admin Dose 0.5 MG; Start 10/11/18 at 05:00 Ipratropium [place] (Atrovent 0.02% (Neb)) 0.5 mg Q2H RESP THERAPY PRN HHN WHEEZING AND SOB; Start 10/11/18 at 01:30 Digoxin (Digoxin) 0.125 mg DAILY@1300 PO Last administered on 10/16/18 13:52; Admin Dose 0.125 MG; Start 10/11/18 at 13:00 Guaifenesin/ Dextromethorphan (Robitussin Dm Liquid Cup) 10 ml Q4H PRN PO COUGH Last administered on 10/14/18 09:22; Admin Dose 10 ML; Start 10/11/18 at 12:30 Meropenem/Sodium Chloride 50 ml @ 100 mls/hr Q12 IVPB Last administered on 10/16/18 08:50; Admin Dose 100 MLS/HR; Start 10/13/18 at 21:00 Prednisone (Prednisone) 30 mg DAILY PO Last administered on 10/16/18 08:48; Admin Dose 30 MG; Start 10/16/18 at 09:00 Bumetanide (Bumex) 1 mg DAILY PO Last administered on 10/16/18 08:49; Admin Dose 1 MG; Start 10/16/18 at 09:00 NGUYỄN BLANCA NP Oct 16, 2018 15:00
[2018-10-16] MEDS: TAMSULOSIN (SR) 0.4 MG CAP PO SCH (21:02)
[2018-10-17] VITALS (7 sets, daily range): BP systolic 95–108; BP diastolic 57–67; PULSE 67–90; RESP 18–22
[2018-10-17] MEDS: IPRATROPIUM (NEB) 0.5 MG/2.5 ML AMP HHN SCH ×3 (04:52→12:13)
[2018-10-17] MEDS: LEVALBUTEROL (NEB) 0.63 MG/3 ML AMP HHN SCH ×3 (04:53→12:13)
[2018-10-17] MEDS: PANTOPRAZOLE 40 MG INJ IV SCH (06:15)
[2018-10-17] MEDS: MEROPENEM 1 GM/50ML(PMX) 50 ML IVPB SCH (08:54)
[2018-10-17] MEDS: BUMETANIDE 1 MG TAB PO SCH (08:54)
[2018-10-17] MEDS: predniSONE 10 MG TAB PO SCH (08:54)
[2018-10-17] MEDS: POTASSIUM CHLORIDE (SR) 8 MEQ CAP PO SCH (08:55)
[2018-10-17] MEDS: LACTOBACILLUS RHAMNOSUS CAP PO SCH (08:55)
[2018-10-17] MEDS: FINASTERIDE 5 MG TAB PO SCH (08:55)
[2018-10-17] MEDS ORDERED: BUME1TAB PO (09:36)
[2018-10-17] MEDS ORDERED: AMOX1TAB10 PO (09:40)
[2018-10-17] MEDS ORDERED: LEVO500T10 PO (09:40)
[2018-10-17] MEDS ORDERED: MED4DP PO (09:40)
[2018-10-17] MEDS ORDERED: PANT40TA3 PO (09:41)
--- NOTE | 2018-10-17 09:42 | PDOCDIS ---
Discharge Instructions CONDITION [id number] Patient Condition: [id number] Stable HOME CARE INSTRUCTIONS: [id number] Diet Instructions: [id number] Low Fat /Cholesterol FOLLOW UP/APPOINTMENTS Follow-up Plan Gomez Worthy MD Specialty: Internal Medicine Office Address: [address] [facility] [address] [place], [place] [id number] Office OTHER ORDERS: Other Orders: 1. Resume home medications including Eliquis (blood thinner). Stop taking Coreg. Start taking Bumex orally once a day. 2. Complete the course of antibiotics. 3. Continue taking Protonix twice daily for at least 6 weeks. 4. Take a low-cholesterol diet as tolerated. 5. Resume activities as tolerated. 6. Please follow-up with your primary care physician in 2 weeks. If you do not have a primary care physician, please call Dr. Gomez Worthy's office. 7. Please go to the nearest emergency room if you have any chest pain, hector rtness of breath, dizziness, or any other unusual signs/symptoms. 1. Reanude los medicamentos caseros incluyendo Eliquis (anticoagulante). Eda de kip Coreg. Comience a kip Bumex por va oral dakota vez al da. 2. Completa el curso de antibiticos. 3. Contine tomando Protonix dos veces al da michael al menos 6 semanas. 4. Kip dakota dieta baja en colesterol segn lo tolere. 5. Reanudar las actividades segn lo tolerado. 6. Por favor, haresh un seguimiento con corbin mdico de atencin primaria en 2 semana s. Si no tiene un mdico de atencin primaria, llame a la oficina del Dr. Gomez Worthy. 7. Vaya a la yovany de emergencias ms cercana si tiene dolor en el pecho, dificultad para respirar, mareos o cualquier otro signo / MACIDO,BENTLEY PARK Oct 17, 2018 09:42
--- NOTE | 2018-10-17 09:50 | DS ---
Date/Time of Note Date/Time of Note DATE: 10/17/18 TIME: 09:48 Discharge Summary Admission/Discharge Info Admit Date/Time Oct 05, 2018 at 19:53 Discharge Date/Time Discharge Diagnosis 1. Microcytic anemia. 2. Mild distal esophagitis. 3. Severe gastritis. 4. Pancytopenia. 5. Acute on chronic congestive heart failure exacerbation. 6. Ischemic cardiomyopathy. Ejection fraction of 30%. 7. Multifocal pneumonia. 8. Reactive airway disease with bronchospasms. 9. Moderate aortic stenosis. 10. Pulmonary hypertension. 11. Chronic atrial fibrillation. 12. Prostatic hypertrophy. Patient Condition: Stable Consults 1. Tariq Briones MD, Infectious Diseases. 2. Craig Rainey MD, Cardiology. 3. Joe Field MD, Gastroenterology. Procedures Esophagogastroduodenoscopy Impression: Mild distal esophagitis; severe gastritis; small hiatal hernia. CT Chest IMPRESSION: 1. New patchy ground-glass interstitial and alveolar infiltrates in the anterior segment of the right upper lobe, medial left upper lobe and apex suggestive of multifocal pneumonia. Underlying neoplastic process , although considered less likely, cannot be excluded . 2. Stable moderate to large bilateral pleural effusions and bibasilar atelectasis. 3. No evidence of lymphadenopathy. 4. Mild hepatomegaly ascites. Hx of Present Illness This is a 71-year-old male with comorbidities including cardiomyopathy with ejection fraction 35%, pulmonary hypertension, moderate aortic stenosis, moderate tricuspid regurgitation, chronic atrial fibrillation on anticoagulation, hypertension, prostate hypertrophy, chronic bilateral pleural effusions, and chronic anemia. The patient came to the emergency room for f urther evaluation of anemia. The patient was admitted to inpatient setting for further treatment and evaluation. Hospital Course The patient's anemia was extensively evaluated. The patient's stool for OB x1 was negative. The patient received 4 units of PRBC transfusion. A gastroenterology consult was obtained. The patient was previously on Eliquis. This was withheld upon ER admission. The patient has chronic atrial fibrillation. Therefore, cardiology was involved in the patient's case. The patient also has underlying ischemic cardiomyopathy. The patient finally underwent an esophagogastroduodenoscopy on 10/14/2018 that showed mild distal esophagitis and severe gastritis. The patient's gastric biopsy was negative for any H. pylori however this showed chronic gastritis. The patient was maintained on proton pump inhibitor therapy. The patient's Eliquis will be resumed after confirming this with the patient's gastroenterology upon discharge. The patient was maintained on her Lasix therapy for his underlying CHF exacerbation, systolic dysfunction. Patient was continued on digoxin. It was unable to start beta-blockers/SUHAIL inhibitors because of low blood pressure readings. The patient also had borderline low heart rate that contraindicated with the initiation of Coreg on this patient. The patient underwent a CT scan on 10/11/2018 that showed a new patchy ground-glass interstitial and alveolar infiltrates in the anterior segment of the right lobe. The patient was therefore treated for pneumonia. The patient was initially maintained on vancomycin plus ceftriaxone. Later, this was changed to meropenem as per ID recommendations. Patient will be discharged home on Levaquin plus Augmentin to complete a course of 7 days. Patient was also noticed to have reactive airway disease with bronchospasms. Therefore, the patient was on tapering dose of steroids along with inhaled bronchodilators with improvement the patient's symptoms. The patient also has moderate aortic stenosis. The patient is not a good surgical candidate provided his comorbidities including cardiomyopathy, atrial fibrillation, etc. The patient also has pulmonary hypertension. This could be most probably secondary to his left heart disease as well as valvular heart disease. Patient has prostatic hypertrophy. The patient was continued on Flomax and Proscar. Patient was noticed to be pancytopenic. The etiology of this remains unclear. The patient's platelet level was although in a safe range to be initiated on Eliquis therapy. The patient's abdominal imaging showed mild hepatomegaly and ascites. At the patient's abdominal ultrasound was showing coarse and slightly nodular liver suspicious for cirrhosis. The patient's hepatitis serology was negative. The patient was evaluated by physical therapy. Physical therapy recommended no skilled physical therapy needs. The patient was also evaluated b y speech therapy. Speech therapy recommended a ground diet because of poor dentition. The patient had a stable hospital course. The patient was cleared by consultants to be discharged home. The patient denied any complaints at the time of discharge. Discharge Instructions 1. Resume home medications including Eliquis (blood thinner). Stop taking Coreg. Start taking Bumex orally once a day. 2. Complete the course of antibiotics. 3. Continue taking Protonix twice daily for at least 6 weeks. 4. Take a low-cholesterol diet as tolerated. 5. Resume activities as tolerated. 6. Please follow-up with your primary care physician in 2 weeks. If you do not have a primary care physician, please call Dr. Gomez Worthy's office. 7. Please go to the nearest emergency room if you have any chest pain, shortness of breath, dizziness, or any other unusual signs/symptoms. At this time I would like to thank all the consultants for seeing the patient, doing the necessary procedures, and providing clinical recommendations. The patient/patient's family verbalized understanding of the discharge instructions. The patient was seen in collaboration with Dr. Lassiter. Home Meds Active Scripts Pantoprazole* (Protonix*) 40 Mg Tablet., 40 MG PO BID, #60 TAB Prov:BENTLEY CERVANTES NP 10/17/18 Methylprednisolone* (Medrol* DOSE PACK) 4 Mg/Dose-Pack Tab.ds.pk, 4 MG PO . DIRECTED, #1 PACKET Prov:BENTLEY CERVANTES NP 10/17/18 Amoxicillin/Potassium Clav (Amox-Clav 875-125 mg Tablet) 875-125 mg Tab, 1 TAB PO BID for 7 Days, #14 TAB Prov:BENTLEY CERVANTES NP 10/17/18 Levofloxacin* (Levofloxacin*) 500 Mg Tablet, 500 MG PO DAILY, #7 TAB Prov:BENTLEY CERVANTES NP 10/17/18 Bumetanide* (Bumetanide*) 1 Mg Tablet, 1 MG PO DAILY, #30 TAB Prov:BENTLEY CERVANTES NP 10/17/18 Pollard-3/Dha/Epa/Fish Oil (FISH OIL EC 1,000 MG SOFTGEL) 1 Each Capsule., 2000 MG PO BID for 30 Days, #60 CAP 1 Refill Prov:JEIMY EWING. 04/30/18 Finasteride* (Finasteride*) 5 Mg Tablet, 5 MG PO DAILY for 30 Days, #30 TAB Prov:KAYLINJEIMY Polo. 04/28/18 Tamsulosin Hcl* (Flomax*) 0.4 Mg Cap.er.24h, 0.4 MG PO HS, #30 CAP Prov:KAYLINJEIMY Polo. 04/28/18 Nebulizer (ALTERA NEBULIZER) 1 Each Each, EACH MC Q4H PRN for SHORTNESS OF BREATH, #1 Prov:JEIMY EWING. 02/25/18 Ipratropium-Albuterol (Ipratropium-Albuterol) 0.5-3 Mg/3 Ml Ampul.neb, 3 ML INHALATION Q4 PRN for SHORTNESS OF BREATH, #30 VIAL Prov:JEIMY EWING. 02/25/18 Cholecalciferol* (Vitamin D*) 400 Unit Tablet, 400 UNIT PO DAILY for 30 Days, #30 TAB Prov:JEIMY EWING. 02/25/18 Ferrous Sulfate* (Ferrous Sulfate*) 325 Mg Tabec, 325 MG PO BID for 30 Days, #60 TAB Prov:JEIMY EWING. 02/25/18 Potassium Chloride* (Potassium Chloride*) 8 Meq Capsule.er, 8 MEQ PO DAILY for 30 Days, #30 CAP Prov:JEIMY EWING. 02/25/18 Reported Medications Apixaban* (Eliquis*) 2.5 Mg Tablet, 2.5 MG PO BID, TAB 02/15/18 Pollard-3 Fatty Acids/Fish Oil (Fish Oil 1,000 mg Softgel) 1 Each Capsule, 1 EACH PO TID, CAP 02/15/18 Digoxin* (Lanoxin*) 0.125 Mg Tablet, 0.125 MG PO DAILY, TAB 04/19/16 Discontinued Scripts Bumetanide* (Bumetanide*) 1 Mg Tablet, 1 MG PO BID DIURETICS for 30 Days, #60 TAB Prov:JEIMY EWING. 04/30/18 Carvedilol* (Carvedilol*) 3.125 Mg Tablet, 3.125 MG PO BID, #60 TAB Prov:JEIMY EWING. 04/28/18 Follow-up Plan Gomez Worthy MD Specialty: Internal Medicine Office Address: [address] [place], [place] [id number] Office Primary Care Provider Care Physician No Primary Time spent on discharge: > 30 minutes Pending Labs Laboratory Tests Test 10/17/18 06:41 White Blood Count 4.7 10^3/ul (4.8-10.8) Red Blood Count 2.68 10^6/ul (4.70-6.10) Hemoglobin 8.7 g/dl (14.0-18.0) Hematocrit 27.9 % (42.0-52.0) Mean Corpuscular Volume 104.1 fl (82.0-101.0) Mean Corpuscular Hemoglobin 32.5 pg (29.0-33.0) Mean Corpuscular Hemoglobin Concent 31.2 g/dl (32.0-37.0) Red Cell Distribution Width 15.9 % (11.5-14.5) Platelet Count 103 10^3/UL (140-415) Mean Platelet Volume 10.6 fl (7.4-10.4) Immature Granulocytes % 1.300 % (0.001-0.429) Neutrophils % 81.6 % (39.0-77.0) Lymphocytes % 9.0 % (15.0-51.0) Monocytes % 6.4 % (0.0-11.0) Eosinophils % 1.7 % (0.0-7.0) Basophils % 0.0 % (0.0-2.0) Nucleated Red Blood Cells % 0.0 /100WBC (0.0-0.0) Immature Granulocytes # 0.060 10^3/ul (0.0-0.031) Neutrophils # 3.8 10^3/ul (1.6-7.5) Lymphocytes # 0.4 10^3/ul (0.8-2.9) Monocytes # 0.3 10^3/ul (0.3-0.9) Eosinophils # 0.1 10^3/ul (0.0-0.5) Basophils # 0.0 10^3/ul (0.0-0.1) Nucleated Red Blood Cells # 0.0 10^3/ul (0.0-0.0) Sodium Level 139 mmol/L (135-144) Potassium Level 4.9 mmol/L (3.5-5.1) Chloride Level 101 mmol/L (97-110) Carbon Dioxide Level 37 mmol/L (21-31) Anion Gap 1 (5-13) Blood Urea Nitrogen 31 mg/dl (7-20) Creatinine 0.62 mg/dl (0.61-1.24) Est Glomerular Filtrat Rate mL/min mL/min (>60) Glucose Level 90 mg/dl (70-220) Calcium Level 8.5 mg/dl (8.4-10.2) Phosphorus Level 2.5 mg/dl (2.5-4.9) Magnesium Level 2.3 mg/dl (1.7-2.5) Total Bilirubin 2.1 mg/dl (0.2-1.3) Direct Bilirubin 0.00 mg/dl (0.00-0.20) Indirect Bilirubin 2.1 mg/dl (0-1.1) Aspartate Amino Transf (AST/SGOT) 37 IU/L (15-46) Alanine Aminotransferase (ALT/SGPT) 52 IU/L (13-69) Alkaline Phosphatase 132 IU/L (42-121) Ammonia < 9 umol/l (9-30) Total Protein 5.2 g/dl (6.1-8.1) Albumin 2.2 g/dl (3.3-4.9) Globulin 3.00 g/dl (1.3-3.2) Albumin/Globulin Ratio 0.73 BENTLEY CERVANTES NP Oct 17, 2018 09:50
[2018-10-17] MEDS: DIGOXIN 0.125 MG TAB PO SCH (12:32)
--- NOTE | 2018-10-17 13:52 | CONS ---
Consultation Date/Type/Reason Admit Date/Time Oct 05, 2018 at 19:53 Initial Consult Date SUBJECTIVE: Pt is awake, alert, afebrile. States that he is feeling better. VS: stable. T: 97.6 LABS: reviewed. WBC 4.7 -improving. H&H stable. Antimicrobials: Meropenem CT of the chest (10/14/18) revealed new patchy ground glass interstitial and alveolar infiltrates in the anterior segment of the right upper lobe, medial left upper lobe and apex suggestive of multifocal pneumonia. Physical examination: GEN: Well-developed well-nourished elderly man who is awake in no distress HENT:head atraumatic normocephalic, neck is supple PULM: chest rise symmetrical breath sounds with bilateral rhonchi Heart: RRR, S1-S2. Abdomen soft bowel sounds present. Extremities without cyanosis Assessment: 1. Multifocal pneumonia 2. Anemia/gastritis 3. Ischemic cardiomyopathy with ejection fraction of 30% 4. CHF exacerbation 5. Chronic atrial fibrillation Plan: Patient is improving with current treatment. Continue on current antibiotics. Anticipate discharge on oral Levaquin and Augmentin for 7 more days. Date/Time of Note DATE: 10/17/18 TIME: 13:49 Exam/Review of Systems Exam Vitals Vital Signs Date Temp Pulse Resp B/P (MAP) Pulse Ox O2 O2 Flow FiO2 Time Delivery Rate 10/17/18 88 18 98 21 12:13 10/17/18 97.6 108/59 11:38 (75) 10/17/18 Nasal 2.0 09:13 Cannula Intake and Output 10/16/18 10/16/18 10/17/18 1414:59 22:59 06:59 IntakeIntake Total 860 ml 300 ml OutputOutput Total 500 ml BalanceBalance 860 ml -200 ml Results Result Diagram: 10/17/18 0641 10/17/18 0641 Results 24hrs Laboratory Tests Test 10/17/18 06:41 White Blood Count 4.7 #L Red Blood Count 2.68 L Hemoglobin 8.7 L Hematocrit 27.9 L Mean Corpuscular Volume 104.1 H Mean Corpuscular Hemoglobin 32.5 Mean Corpuscular Hemoglobin Concent 31.2 L Red Cell Distribution Width 15.9 H Platelet Count 103 L Mean Platelet Volume 10.6 H Immature Granulocytes % 1.300 H Neutrophils % 81.6 H Lymphocytes % 9.0 L Monocytes % 6.4 Eosinophils % 1.7 Basophils % 0.0 Nucleated Red Blood Cells % 0.0 Immature Granulocytes # 0.060 H Neutrophils # 3.8 Lymphocytes # 0.4 L Monocytes # 0.3 Eosinophils # 0.1 Basophils # 0.0 Nucleated Red Blood Cells # 0.0 Sodium Level 139 Potassium Level 4.9 Chloride Level 101 Carbon Dioxide Level 37 H Anion Gap 1 L Blood Urea Nitrogen 31 H Creatinine 0.62 Est Glomerular Filtrat Rate mL/min Glucose Level 90 Calcium Level 8.5 Phosphorus Level 2.5 Magnesium Level 2.3 Total Bilirubin 2.1 H Direct Bilirubin 0.00 Indirect Bilirubin 2.1 H Aspartate Amino Transf (AST/SGOT) 37 Alanine Aminotransferase (ALT/SGPT) 52 Alkaline Phosphatase 132 H Ammonia < 9 L Total Protein 5.2 L Albumin 2.2 L Globulin 3.00 Albumin/Globulin Ratio 0.73 Medications Medication Current Medications IV Flush (NS 3 ml) 3 ml PER PROTOCOL IV ; Start 10/06/18 at 00:00 Ondansetron HCl (Zofran Inj) 4 mg Q6H PRN IV NAUSEA/VOMITING; Start 10/06/18 at 00:00 Acetaminophen (Tylenol Tab) 650 mg Q6H PRN PO .PAIN 1-3 OR TEMP Last administered on 10/12/18 08:58; Admin Dose 650 MG; Start 10/06/18 at 00:00 Finasteride (Proscar) 5 mg DAILY PO Last administered on 10/17/18 08:55; Admin Dose 5 MG; Start 10/06/18 at 09:00 Potassium Chloride (Micro-K) 8 meq DAILY PO Last administered on 10/17/18 08:55; Admin Dose 8 MEQ; Start 10/06/18 at 09:00 Tamsulosin HCl (Flomax) 0.4 mg HS PO Last administered on 10/16/18 21:02; Admin Dose 0.4 MG; Start 10/06/18 at 21:00 Pantoprazole (Protonix Iv) 40 mg BID@0600,1800 IV Last administered on 10/17/18 06:15; Admin Dose 40 MG; Start 10/06/18 at 21:00 Lactobacillus Acidophilus/ Rhamnosus (Culturelle) 1 cap BID PO Last administered on 10/17/18 08:55; Admin Dose 1 CAP; Start 10/10/18 at 21:00 Levalbuterol (Xopenex Neb) 0.63 mg Q4H RESP THERAPY HHN Last administered on 10/17/18 12:13; Admin Dose 0.63 MG; Start 10/11/18 at 05:00 Levalbuterol (Xopenex Neb) 0.63 mg Q2H RESP THERAPY PRN HHN WHEEZING AND SOB; Start 10/11/18 at 01:30 Ipratropium [place] (Atrovent 0.02% (Neb)) 0.5 mg Q4H RESP THERAPY HHN Last administered on 10/17/18 12:13; Admin Dose 0.5 MG; Start 10/11/18 at 05:00 Ipratropium [place] (Atrovent 0.02% (Neb)) 0.5 mg Q2H RESP THERAPY PRN HHN WHEEZING AND SOB; Start 10/11/18 at 01:30 Digoxin (Digoxin) 0.125 mg DAILY@1300 PO Last administered on 10/17/18 12:32; Admin Dose 0.125 MG; Start 10/11/18 at 13:00 Guaifenesin/ Dextromethorphan (Robitussin Dm Liquid Cup) 10 ml Q4H PRN PO COUGH Last administered on 10/14/18 09:22; Admin Dose 10 ML; Start 10/11/18 at 12:30 Meropenem/Sodium Chloride 50 ml @ 100 mls/hr Q12 IVPB Last administered on 10/17/18 08:54; Admin Dose 100 MLS/HR; Start 10/13/18 at 21:00 Prednisone (Prednisone) 30 mg DAILY PO Last administered on 10/17/18 08:54; Admin Dose 30 MG; Start 10/16/18 at 09:00 Bumetanide (Bumex) 1 mg DAILY PO Last administered on 10/17/18 08:54; Admin Dose 1 MG; Start 10/16/18 at 09:00 DANILO AMBROCIO Oct 17, 2018 13:52
== END 2018-10-17 13:55 | disposition home or self-care (01) | DRG 808 ==
LOC: E/R 14:47 → TEL 19:53
PROVIDERS: ADMIT Internal Medicine; ATTEND Internal Medicine
PROC: 30233N1 Transfusion of Nonautologous Red Blood Cells into Peripheral Vein, Percutaneous Approach (ICD-10-PCS; principal; 2018-10-06)
PROC: 0DB68ZX Excision of Stomach, Via Natural or Artificial Opening Endoscopic, Diagnostic (ICD-10-PCS; 2018-10-14)
DX: D61.818 Other pancytopenia (principal); L89.153 Pressure ulcer of sacral region, stage 3; I50.23 Acute on chronic systolic (congestive) heart failure; J18.9 Pneumonia, unspecified organism; K92.1 Melena; I47.2 Ventricular tachycardia; D62 Acute posthemorrhagic anemia; D50.9 Iron deficiency anemia, unspecified; I11.0 Hypertensive heart disease with heart failure; I48.91 Unspecified atrial fibrillation; N40.0 Benign prostatic hyperplasia without lower urinary tract symptoms; I25.10 Atherosclerotic heart disease of native coronary artery without angina pectoris; I25.5 Ischemic cardiomyopathy; I27.20 Pulmonary hypertension, unspecified; I35.0 Nonrheumatic aortic (valve) stenosis; E80.6 Other disorders of bilirubin metabolism; E78.5 Hyperlipidemia, unspecified; D72.819 Decreased white blood cell count, unspecified; J45.909 Unspecified asthma, uncomplicated; K74.60 Unspecified cirrhosis of liver; K20.9 Esophagitis, unspecified; K29.70 Gastritis, unspecified, without bleeding
CPT/HCPCS: 36415; 36430; 71045; 71250; 76705; 80048; 80053; 80061; 80076; 80162; 82140; 82270; 82607; 82728; 82746; 83036; 83540; 83605; 83735; 83880; 84100; 84145; 84443; 84484; 85014; 85018; 85025; 85610; 85730; 86706; 86803; 86850; 86860; 86870; 86880; 86900; 86901; 86902; 86906; 86920; 86970; 86971; 86978; 87081; 87340; 87400; 88305; 88312; 92526; 92610; 93005; 94640; 94664; 97110; 97116; 97162; 97530; C9113; J0696; J1940; J2001; J2185; J2930; J3010; J3370; J3480; J7040; J7050; J7512; P9016; P9047

== ENCOUNTER 2018-10-30 18:10 | Inpatient (IN) | payer OTHER ==
[~2018-10-30] VITALS: Ht 170.2 cm; Wt 70.4 kg
[~2018-10-30 18:10] MED LIST changes: +AMOX1TAB10 PO; -CARV3.1260 PO; +LEVO500T10 PO; +MED4DP PO; +PANT40TA3 PO
--- NOTE | 2018-10-30 21:44 | ERD ---
ER Documentation Chief Complaint Chief Complaint pt is bib family with c/o swollen legs starting yesterday HPI During the patient's encounter translation services were utilized Language: [Liberian] Source: [in person] 88-year-old gentleman history of cirrhosis, possibly heart failure with recent hospitalization for upper GI bleed status post transfusion. Patient presents with persistent bilateral lower extremity edema and shortness of breath that is positional and worse with laying flat over the past 24-48 hours. His card iologist recently increased his Bumex to 1 mg twice daily yesterday without response. The patient still has persistent symptoms. He denies any chest pain, no fevers or chills, no abdominal distention or pain. No hematemesis or melena. ROS All systems reviewed and are negative except as per history of present illness. Medications Home Meds Active Scripts Pantoprazole* (Protonix*) 40 Mg Tablet.dr, 40 MG PO BID, #60 TAB Prov:BENTLEY CERVANTES RESEARCH TEST ENGINE OPERATOR 10/17/18 Bumetanide* (Bumetanide*) 1 Mg Tablet, 1 MG PO DAILY, #30 TAB Prov:BENTLEY CERVANTES RESEARCH TEST ENGINE OPERATOR 10/17/18 Ferrous Sulfate* (Ferrous Sulfate*) 325 Mg Tabec, 325 MG PO BID for 30 Days, #60 TAB Prov:JEIMY EWING M. 02/25/18 Potassium Chloride* (Potassium Chloride*) 8 Meq Capsule.er, 8 MEQ PO DAILY for 30 Days, #30 CAP Prov:JEIMY EWING M. 02/25/18 Reported Medications Citalopram Hydrobromide* (Citalopram Hydrobromide*) 10 Mg Tablet, 10 MG PO DAILY, #30 TAB 10/30/18 Cholecalciferol* (Vitamin D3*) 1,000 Unit Tablet, 1000 UNIT PO DAILY, TAB 10/30/18 Apixaban* (Eliquis*) 2.5 Mg Tablet, 2.5 MG PO BID, TAB 02/15/18 [place]-3 Fatty Acids/Fish Oil (Fish Oil 1,000 mg Softgel) 1 Each Capsule, 1 EACH PO TID, CAP 02/15/18 Digoxin* (Lanoxin*) 0.125 Mg Tablet, 0.125 MG PO DAILY, TAB 04/19/16 Discontinued Scripts Methylprednisolone* (Medrol* DOSE PACK) 4 Mg/Dose-Pack Tab.ds.pk, 4 MG PO . DIRECTED, #1 PACKET Prov:BENTLEY CERVANTES RESEARCH TEST ENGINE OPERATOR 10/17/18 Amoxicillin/Potassium Clav (Amox-Clav 875-125 mg Tablet) 875-125 mg Tab, 1 TAB PO BID for 7 Days, #14 TAB Prov:BENTLEY CERVANTES RESEARCH TEST ENGINE OPERATOR 10/17/18 Levofloxacin* (Levofloxacin*) 500 Mg Tablet, 500 MG PO DAILY, #7 TAB Prov:BENTLEY CERVANTES RESEARCH TEST ENGINE OPERATOR 10/17/18 [place]-3/Dha/Epa/Fish Oil (FISH OIL EC 1,000 MG SOFTGEL) 1 Each Capsule.dr, 2000 MG PO BID for 30 Days, #60 CAP 1 Refill Prov:JEIMY EWING. 04/30/18 Finasteride* (Finasteride*) 5 Mg Tablet, 5 MG PO DAILY for 30 Days, #30 TAB Prov:JEIMY EWING. 04/28/18 Tamsulosin Hcl* (Flomax*) 0.4 Mg Cap.er.24h, 0.4 MG PO HS, #30 CAP Prov:JEIMY EWING. 04/28/18 Nebulizer (ALTERA NEBULIZER) 1 Each Each, EACH MC Q4H PRN for SHORTNESS OF BREATH, #1 Prov:JEIMY EWING. 02/25/18 Ipratropium-Albuterol (Ipratropium-Albuterol) 0.5-3 Mg/3 Ml Ampul.neb, 3 ML INHALATION Q4 PRN for SHORTNESS OF BREATH, #30 VIAL Prov:JEIMY EWING. 02/25/18 Cholecalciferol* (Vitamin D*) 400 Unit Tablet, 400 UNIT PO DAILY for 30 Days, #30 TAB Prov:JEIMY EWING. 02/25/18 Allergies Allergies: Coded Allergies: No Known Allergy (Unverified , 10/30/18) PMhx/Soc History of Surgery: No Anesthesia Reaction: No Hx Neurological Disorder: No Hx Respiratory Disorders: Yes (CHF) Hx Cardiac Disorders: Yes (AFIB,HIGH CHOL) Hx Psychiatric Problems: No Hx Miscellaneous Medical Probl: Yes Hx Alcohol Use: No Hx Substance Use: No Hx Tobacco Use: No Physical Exam Vitals Vital Signs Date Temp Pulse Resp B/P (MAP) Pulse Ox O2 O2 Flow FiO2 Time Delivery Rate 3/22/19 97.3 66 20 103/58 95 18:18 (73) Physical Exam General: Well developed, well nourished, no acute distress Head: Normocephalic, atraumatic. Eyes: Pupils equally reactive, EOM intact ENT: Moist mucous membranes Neck: Supple, no lymphadenopathy Respiratory: Rales at the bases bilaterally, no distress Cardiovascular: RRR, no murmurs, rubs, or gallops Abdominal: Soft, non-tender, non-distended, no peritoneal signs : Deferred MSK: Bilateral pitting edema to the knees , no unilateral swelling, 5/5 strength Neurologic: Alert and oriented, moving all extremities, normal speech, no focal weakness, no cerebellar signs Skin: No rash Psych: Normal mood Result Diagram: 10/30/18215510/30/182155 Results 24 hrs Laboratory Tests Test 10/30/18 21:56 10/30/18 21:57 White Blood Count 3.3 10^3/ul Red Blood Count 2.32 10^6/ul Hemoglobin 7.8 g/dl Hematocrit 24.8 % Mean Corpuscular Volume 106.9 fl Mean Corpuscular Hemoglobin 33.6 pg Mean Corpuscular Hemoglobin Concent 31.5 g/dl Red Cell Distribution Width 17.1 % Platelet Count 113 10^3/UL Mean Platelet Volume 10.1 fl Immature Granulocytes % 0.600 % Neutrophils % 72.4 % Lymphocytes % 19.3 % Monocytes % 3.1 % Eosinophils % 4.3 % Basophils % 0.3 % Nucleated Red Blood Cells % 0.0 /100WBC Immature Granulocytes # 0.020 10^3/ul Neutrophils # 2.4 10^3/ul Lymphocytes # 0.6 10^3/ul Monocytes # 0.1 10^3/ul Eosinophils # 0.1 10^3/ul Basophils # 0.0 10^3/ul Nucleated Red Blood Cells # 0.0 10^3/ul Prothrombin Time 13.2 Sec Prothrombin Time Ratio 1.0 INR International Normalized Ratio 0.99 Activated Partial Thromboplast Time 39.8 Sec Sodium Level 136 mmol/L Potassium Level 4.1 mmol/L Chloride Level 99 mmol/L Carbon Dioxide Level 33 mmol/L Anion Gap 4 Blood Urea Nitrogen 20 mg/dl Creatinine 0.79 mg/dl Est Glomerular Filtrat Rate mL/min mL/min Glucose Level 113 mg/dl Calcium Level 7.9 mg/dl Total Bilirubin 1.2 mg/dl Direct Bilirubin 0.00 mg/dl Indirect Bilirubin 1.2 mg/dl Aspartate Amino Transf (AST/SGOT) 31 IU/L Alanine Aminotransferase (ALT/SGPT) 30 IU/L Alkaline Phosphatase 272 IU/L Troponin I < 0.012 ng/ml B-Type Natriuretic Peptide 3870 PG/ML Total Protein 5.8 g/dl Albumin 2.7 g/dl Globulin 3.10 g/dl Albumin/Globulin Ratio 0.87 Digoxin Level 0.7 ng/ml Current Medications Medications Dose Sig/Thierry Start Time Status Last (Trade) Ordered Route PRN Stop Time Admin Dose Reason Admin Bumetanide 1 mg NOW ONCE 10/30/18 DC 10/30/18 (Bumex) IV 22:00 22:25 10/30/18 22:01 Procedures/MDM EKG, MONITORS, & DIAGNOSTIC IMAGING: EKG: EKG: I reviewed and interpreted a 12-lead EKG. Rhythm: Normal sinus rhythm ST Changes: No contiguous ST segment elevations T waves: No contiguous T wave inversions Impression: No evidence of acute cardiac ischemia Chest x-ray: IMPRESSION: Bibasilar atelectasis is improving. Interstitial edema suggesting cardiopulmonary congestion is improving. Trace pleural effusions are improving. RPTAT: AADD Bilateral lower extremity duplex: IMPRESSION: No evidence of a deep vein thrombosis within the bilateral lower extremities. RPTAT: AADD LAB INTERPRETATION: I reviewed the laboratory testing and it shows anemia of 7.8, negative troponin, elevated BNP MEDICAL DECISION MAKING: The patient's presentation is consistent with volume overload possibly secondary to blood transfusion and recent hospitalization. He is failing outpatient increase dosing of his diuretic. The patient does have evidence of pulmonary edema, bilateral lower extremity edema. I have lower concern for DVT the duplex would be appropriate given recent hospitalization and comorbidities. Patient h as multiple reasons for volume overload including likely cardiomyopathy as well as liver insufficiency. Patient will benefit from IV diuretics and inpatient hospitalization. No indication for nitroglycerin drip or positive pressure ventilation at this time. ER COURSE: * Bumex 1 mg IV provided, nitroglycerin held given no significant respiratory distress and borderline blood pressure. * The patient's hemoglobin is consistent with baseline. The patient was given diuresis as documented above. He stable for admission. CONSULTATION: None DISPOSITION PLAN: Accepting care team and consultations: I discussed the current laboratory data, diagnostic imaging and emergency care provided. Admitting team: Dr. Moscoso Admitting team indication: Insurance directed Departure Diagnosis: Primary Impression: Volume overload Hypervolemia type: unspecified Qualified Codes: E87.70 - Fluid overload, unspecified Additional Impression: Pulmonary edema Chronicity: acute Qualified Codes: J81.0 - Acute pulmonary edema Condition: Stable BAHMAN FOREMAN MD Oct 30, 2018 21:44
[2018-10-30] MEDS ORDERED: BUMETANIDE 1 MG INJ IV ONE (22:00)
[2018-10-30] MEDS ORDERED: CITA10TA5 PO (22:44)
[2018-10-30] MEDS ORDERED: CHOL100062 PO (22:44)
--- NOTE | 2018-10-30 23:48 | HP ---
Date/Time of Note Date/Time of Note DATE: 10/30/18 TIME: 23:48 Assessment/Plan VTE Prophylaxis SCD applied (from Nsg): Yes Pharmacological prophylaxis: NA/contraindicated Pharm contraindication: low risk/ambulating Lines/Catheters IV Catheter Type (from Nrsg): Saline Lock Assessment/Plan Hospital Course This is a 88-year-old male being admitted to the telemetrzy floor for: #1 Volume overload: Likely multifactorial secondary to underlying CHF and/or liver cirrhosis.: He did have an echocardiogram in February 2018 which showed an EF of approximately 30%. At the current time will obtain another echocardiogram to assess his current heart function and structure. We will put the patient on 1 mg IV twice daily Bumex. Will put the patient on fluid restriction of 1200 cc. Will monitor daily weights. Will consult cardiology #2 Acute on chronic systolic CHF exacerbation: We will obtain an echocardiogram to further evaluate. Diuresis as per #1. Cardiology on consult #3 Liver cirrhosis: Previous hepatitis antibodies negative, INR 0.99. Continue diuresis as per 1. Consider spironolactone. #4 Macrocytic anemia: Currently no signs of active bleeding. Likely secondary to underlying cirrhosis. Stable continue iron #5 moderate aortic stenosis: Monitor closely, will further evaluate on echocardiogram. #6 chronic atrial fibrillation: Patient currently is in normal sinus rhythm. Continue Eliquis #7 pulmonary hypertension: Further orders depending on cardio eval. #8 severe gastritis: Continue PPI #9 DVT GI prophylaxis: Eliquis, PPI Further treatment strategy will be implemented as per the clinical course Result Diagram: 10/30/18215510/30/182155 Results 24hrs Laboratory Tests Test 10/30/18 21:56 10/30/18 21:57 White Blood Count 3.3 #L Red Blood Count 2.32 L Hemoglobin 7.8 L Hematocrit 24.8 L Mean Corpuscular Volume 106.9 H Mean Corpuscular Hemoglobin 33.6 H Mean Corpuscular Hemoglobin Concent 31.5 L Red Cell Distribution Width 17.1 H Platelet Count 113 L Mean Platelet Volume 10.1 Immature Granulocytes % 0.600 H Neutrophils % 72.4 Lymphocytes % 19.3 Monocytes % 3.1 Eosinophils % 4.3 Basophils % 0.3 Nucleated Red Blood Cells % 0.0 Immature Granulocytes # 0.020 Neutrophils # 2.4 Lymphocytes # 0.6 L Monocytes # 0.1 L Eosinophils # 0.1 Basophils # 0.0 Nucleated Red Blood Cells # 0.0 Prothrombin Time 13.2 Prothrombin Time Ratio 1.0 INR International Normalized Ratio 0.99 Activated Partial Thromboplast Time 39.8 H Sodium Level 136 Potassium Level 4.1 Chloride Level 99 Carbon Dioxide Level 33 H Anion Gap 4 L Blood Urea Nitrogen 20 Creatinine 0.79 Est Glomerular Filtrat Rate mL/min Glucose Level 113 Calcium Level 7.9 L Total Bilirubin 1.2 Direct Bilirubin 0.00 Indirect Bilirubin 1.2 H Aspartate Amino Transf (AST/SGOT) 31 Alanine Aminotransferase (ALT/SGPT) 30 Alkaline Phosphatase 272 H Troponin I < 0.012 B-Type Natriuretic Peptide 3870 H Total Protein 5.8 L Albumin 2.7 L Globulin 3.10 Albumin/Globulin Ratio 0.87 Digoxin Level 0.7 L HPI/ROS Admit Date/Time Admit Date/Time Hx of Present Illness cc: bilateral lower extremity edema 88-year-old gentleman history of cirrhosis, possibly heart failure with recent hospitalization for upper GI bleed status post transfusion. Patient presents with persistent bilateral lower extremity edema and shortness of breath that is positional and worse with laying flat over the past 24-48 hours. His marine designer recently increased his Bumex to 1 mg twice daily yesterday without response. The patient still has persistent symptoms. He denies any chest pain, no fevers or chills, no abdominal distention or pain. No hematemesis or melena. Allergies: NKDA Medications: See Oct Const: As per HPI Eyes : No pain discharge or redness or change in visual acuity ENT: No pain, sore throat, congestion, congestion, dysphagia or discharge Respiratory: No shortness of breath, cough, sputum, wheezing, or pleuritic pain Cardiovascular: As per HPI GI : no change in appetite, abdominal pain, nausea, vomiting, diarrhea, constipation, or change in the color his stool Genitourinary: No dysuria, hematuria, flank pain , discharge or CVA tenderness Musculoskeletal: As per HPI Skin: No rash, bruising or hives Neuro: No headache, dizziness, syncope, seizure, focal weakness Endocrine: No polyuria, polydipsia, temperature intolerance Psych: No hallucination, depression, anxiety or suicidal ideation PMH/Family/Social Past Medical History 1. Microcytic anemia. 2. Mild distal esophagitis. 3. Severe gastritis. 4. Pancytopenia. 5. Acute on chronic congestive heart failure exacerbation. 6. Ischemic cardiomyopathy. Ejection fraction of 30%. 7. Moderate aortic stenosis. 8. Pulmonary hypertension. 9. Chronic atrial fibrillation. 10. Prostatic hypertrophy. Coded Allergies: No Known Allergy (Unverified , 10/30/18) Past Surgical History unable to obtain Past Surgical Hx: other Family History Significant Family History: no pertinent family hx Social History Alcohol Use: none Smoking Status: Never smoker Drug Use: none Exam/Review of Systems Vital Signs Vitals Vital Signs Date Temp Pulse Resp B/P (MAP) Pulse Ox O2 O2 Flow FiO2 Time Delivery Rate 10/30/18 97.3 66 20 103/58 95 18:18 (73) Exam Exam General: Patient is currently lying in bed he does not appear to be in any acute distress HEENT: Atraumatic, normocephalic. The pupils are equal, round and reactive. Extraocular motor are intact Neck: Supple with full range of motion. No rigidity or meningismus Chest: Nontender Lungs: Rales bilaterally, nonlabored breathing Heart: Normal S1-S2, Regular rhythm and rate. Systolic murmur Abdomen: Soft , nontender, nondistended , bowel sounds are present. No guarding no rebound tenderness , No masses or organomegaly. No costovertebral temporal a ngle mass Extremities: Extensive 2+ pitting edema of the bilateral lower extremities up to the level of the mid thigh, trace pitting edema of the bilateral upper extremities Neurologic: Normal mental status, speech normal, cranial nerves II through XII are intact, motor and sensory are intact, Additional Comments PROCEDURE: XR Chest. CLINICAL INDICATION: Shortness of breath, congestion TECHNIQUE: Single frontal radiograph of the chest. COMPARISON: CR CHEST 04/16/2015 FINDINGS: Bibasilar atelectasis is improving. Interstitial edema suggesting cardiopulmonary congestion is improving. Trace pleural effusions are improving. No pneumothorax. Cardiomegaly unchanged. Vascular calcifications of the aorta are present compatible with atherosclerosis. IMPRESSION: Bibasilar atelectasis is improving. Interstitial edema suggesting cardiopulmonary congestion is improving. Trace pleural effusions are improving. RPTAT: AADD .Dorian Galeano MD, MD Date Time Electronically viewed and signed by .Dorian Galeano MD, MD on 10/30/2018 22:50 .B/ CC: BAHMAN FOREMAN MD [id number] EKG: EKG: I reviewed and interpreted a 12-lead EKG. Rhythm: Normal sinus rhythm ST Changes: No contiguous ST segment elevations T waves: No contiguous T wave inversions Impression: No evidence of acute cardiac ischemiaPROCEDURE: Ultrasound of the bilateral lower extremity venous system. CLINICAL INDICATION: Bilateral leg pain and swelling, deep venous thrombosis TECHNIQUE: Mendoza scale with and without compression, color doppler, spectral doppler of the venous system of the bilateral lower extremities was performed. Venous augmentation maneuvers were utilized. COMPARISON: US EXTREMITY 04/24/2018 FINDINGS: Right: Common femoral vein: Patent. Femoral vein: Patent. Popliteal vein: Patent. Calf veins: Patent. No soft tissue abnormalities are identified. Left: Common femoral vein: Patent. Femoral vein: Patent. Popliteal vein: Patent. Calf veins: Patent. No soft tissue abnormalities are identified. IMPRESSION: No evidence of a deep vein thrombosis within the bilateral lower extremities. RPTAT: AADD .Dorian Galeano MD, MD Date Time Electronically viewed and signed by .Dorian Galeano MD, MD on 10/30/2018 22:52 .B/ CC: BAHMAN FOREMAN MD [id number] NOE DICK Oct 30, 2018 23:48
[2018-10-31] VITALS (11 sets, daily range): BP systolic 82–108; BP diastolic 59–66; PULSE 63–118; RESP 17–20; Ht 170.2 cm; Wt 70.4 kg
[2018-10-31] MEDS ORDERED: DOCUSATE SODIUM 100 MG CAP PO PRN
[2018-10-31] MEDS ORDERED: ACETAMINOPHEN 325 MG TAB PO PRN
[2018-10-31] MEDS ORDERED: NACL 0.9% 3 ML SYG IV SCH
[2018-10-31] MEDS ORDERED: BISACODYL (EC) 5 MG TAB PO PRN
[2018-10-31] MEDS ORDERED: NITROGLYCERIN (SL) 0.4 MG TAB SL PRN
[2018-10-31] MEDS ORDERED: ONDANSETRON 4 MG INJ IV PRN
[2018-10-31] MEDS ORDERED: BUMETANIDE 1 MG INJ IV SCH ×2 (09:00→20:00)
[2018-10-31] MEDS: FISH OIL 1,000 MG CAP PO SCH ×3 (10:36→20:54)
[2018-10-31] MEDS: APIXABAN 5 MG TABLET PO SCH ×2 (10:36→20:55)
[2018-10-31] MEDS: POTASSIUM CHLORIDE (SR) 8 MEQ CAP PO SCH (10:36)
[2018-10-31] MEDS: PANTOPRAZOLE (EC) 40 MG TAB PO SCH ×2 (10:37→17:46)
[2018-10-31] MEDS: CITALOPRAM 20 MG TAB PO SCH (10:37)
[2018-10-31] MEDS: FERROUS SULFATE (EC) 325 MG TAB PO SCH ×2 (10:38→20:54)
--- NOTE | 2018-10-31 10:39 | PN ---
Date/Time of Note Date/Time of Note DATE: 10/31/18 TIME: 10:39 Assessment/Plan VTE Prophylaxis Risk score (from Ns)>0 risk: 4 SCD applied (from Ns): Yes Pharmacological prophylaxis: apixaban Lines/Catheters IV [facility]from [facility] Peripheral IV Assessment/Plan Hospital Course SUBJECTIVE: Denies any chest pain but complains of dyspnea. OBJECTIVE: Physical Exam General: Adequately build 88 year-old male lying in bed in no apparent distress. HEENT: Normocephalic, atraumatic. Eyes: Anicteric sclerae, conjunctivae clear. ENT: Nasal septum midline, oral mucosa moist. Neck supple, JVD noticed. Respiratory: Bilaterally diminished breath sounds. Minimal use of accessory muscles of respiration. Bibasilar rales. Cardiovascular: S1, S2 heard. Irregularly irregular rhythm. Grade 2/3 systolic ejection murmur. Abdomen: Nontender, and slightly distended. Bowel sounds positive in all 4 quadrants. Genitourinary: Deferred. Extremities: No cyanosis, no clubbing. B/L LE 2-3+ pitting edema. Neurologic: Cranial nerves II through XII grossly intact. The patient is awake, alert, and oriented. Skin: Normal skin turgor. No skin rashes. ASSESSMENT & PLAN This is an 88-year-old male with comorbidities including cardiomyopathy with ejection fraction 30%, pulmonary hypertension, moderate aortic stenosis, moderate tricuspid regurgitation, chronic atrial fibrillation on anticoagulation, hypertension, prostate hypertrophy, chronic bilateral pleural effusions, gastritis, and chronic anemia. The patient was brought to the ER by his family for evaluation of B/L LE edema. The patient was admitted to inpatient setting for further treatment and evaluation. 1. Acute on chronic congestive heart failure exacerbation. -Continue diuretics. -Cardiology evaluation pending. 2. Ischemic cardiomyopathy. -Ejection fraction of 30%. -Continue digoxin -Unable to start the patient on beta-blockers/SUHAIL inhibitors because of low blood pressure readings. 3. Moderate aortic stenosis. -Patient not a good surgical candidate. -Being followed by cardiology. 4. Pulmonary hypertension. -Probably secondary to valvular heart disease. 5. Chronic atrial fibrillation. -Rate controlled. -Continue digoxin. -Factor Xa inhibitors for stroke prophylaxis. 6. Prostatic hypertrophy. -Continue Flomax . 7. Gastritis. -Continue PPI. 8. Fluids, electrolytes, and nutrition. -Low-sodium diet. 9. DVT prophylaxis. -Factor Xa inhibitors may need to hold, if worsening anemia. 10. Plan. -Continue diuresis. -Monitor H&H closely. -Await cardiology evaluation. The patient was seen in collaboration with Dr. Lassiter. Result Diagram: 10/31/18 0607 10/31/18 0602 Results 24hrs Laboratory Tests Test 10/30/18 21:56 10/30/18 21:57 10/31/18 06:02 10/31/18 06:07 White Blood Count 3.3 #L 3.2 L Red Blood Count 2.32 L 2.21 L Hemoglobin 7.8 L 7.3 L Hematocrit 24.8 L 23.6 L Mean Corpuscular 106.9 H 106.8 H Volume Mean Corpuscular 33.6 H 33.0 Hemoglobin Mean Corpuscular 31.5 L 30.9 L Hemoglobin Concent Red Cell 17.1 H 17.1 H Distribution Width Platelet Count 113 L 99 L Mean Platelet Volume 10.1 11.0 H Immature 0.600 H 0.300 Granulocytes % Neutrophils % 72.4 65.3 Lymphocytes % 19.3 22.5 Monocytes % 3.1 6.6 Eosinophils % 4.3 4.7 Basophils % 0.3 0.6 Nucleated Red Blood 0.0 2.2 H Cells % Immature 0.020 0.010 Granulocytes # Neutrophils # 2.4 2.1 Lymphocytes # 0.6 L 0.7 L Monocytes # 0.1 L 0.2 L Eosinophils # 0.1 0.2 Basophils # 0.0 0.0 Nucleated Red Blood 0.0 0.1 H Cells # Prothrombin Time 13.2 Prothrombin Time 1.0 Ratio INR International 0.99 Normalized Ratio Activated 39.8 H Partial Thromboplast Time Sodium Level 136 138 Potassium Level 4.1 4.4 Chloride Level 99 98 Carbon Dioxide Level 33 H 36 H Anion Gap 4 L 4 L Blood Urea Nitrogen 20 20 Creatinine 0.79 0.68 Est Glomerular Filtrat Rate mL/min Glucose Level 113 84 Calcium Level 7.9 L 7.8 L Total Bilirubin 1.2 1.2 Direct Bilirubin 0.00 0.00 Indirect Bilirubin 1.2 H 1.2 H Aspartate Amino 31 30 Transf (AST/SGOT) Alanine 30 25 Aminotransferase (AL T/SGPT) Alkaline Phosphatase 272 H 238 H Troponin I < 0.012 B-Type Natriuretic 3870 H Peptide Total Protein 5.8 L 5.4 L Albumin 2.7 L 2.3 L Globulin 3.10 3.10 Albumin/Globulin 0.87 0.74 Ratio Digoxin Level 0.7 L Exam/Review of Systems Exam Vitals Vital Signs Date Temp Pulse Resp B/P (MAP) Pulse Ox O2 O2 Flow FiO2 Time Delivery Rate 10/31/18 77 08:01 10/31/18 97.4 17 101/63 100 07:45 (76) 10/31/18 Room Air 04:03 Intake and Output 10/30/18 10/30/18 10/31/18 1515:00 23:00 07:00 IntakeIntake Total 250 ml BalanceBalance 250 ml Results Results 24hrs Laboratory Tests Test 10/30/18 21:56 10/30/18 21:57 10/31/18 06:02 10/31/18 06:07 White Blood Count 3.3 #L 3.2 L Red Blood Count 2.32 L 2.21 L Hemoglobin 7.8 L 7.3 L Hematocrit 24.8 L 23.6 L Mean Corpuscular 106.9 H 106.8 H Volume Mean Corpuscular 33.6 H 33.0 Hemoglobin Mean Corpuscular 31.5 L 30.9 L Hemoglobin Concent Red Cell 17.1 H 17.1 H Distribution Width Platelet Count 113 L 99 L Mean Platelet Volume 10.1 11.0 H Immature 0.600 H 0.300 Granulocytes % Neutrophils % 72.4 65.3 Lymphocytes % 19.3 22.5 Monocytes % 3.1 6.6 Eosinophils % 4.3 4.7 Basophils % 0.3 0.6 Nucleated Red Blood 0.0 2.2 H Cells % Immature 0.020 0.010 Granulocytes # Neutrophils # 2.4 2.1 Lymphocytes # 0.6 L 0.7 L Monocytes # 0.1 L 0.2 L Eosinophils # 0.1 0.2 Basophils # 0.0 0.0 Nucleated Red Blood 0.0 0.1 H Cells # Prothrombin Time 13.2 Prothrombin Time 1.0 Ratio INR International 0.99 Normalized Ratio Activated 39.8 H Partial Thromboplast Time Sodium Level 136 138 Potassium Level 4.1 4.4 Chloride Level 99 98 Carbon Dioxide Level 33 H 36 H Anion Gap 4 L 4 L Blood Urea Nitrogen 20 20 Creatinine 0.79 0.68 Est Glomerular Filtrat Rate mL/min Glucose Level 113 84 Calcium Level 7.9 L 7.8 L Total Bilirubin 1.2 1.2 Direct Bilirubin 0.00 0.00 Indirect Bilirubin 1.2 H 1.2 H Aspartate Amino 31 30 Transf (AST/SGOT) Alanine 30 25 Aminotransferase (AL T/SGPT) Alkaline Phosphatase 272 H 238 H Troponin I < 0.012 B-Type Natriuretic 3870 H Peptide Total Protein 5.8 L 5.4 L Albumin 2.7 L 2.3 L Globulin 3.10 3.10 Albumin/Globulin 0.87 0.74 Ratio Digoxin Level 0.7 L Medications Medication Current Medications IV Flush (NS 3 ml) 3 ml PER PROTOCOL IV ; Start 10/31/18 at 00:00 Ondansetron HCl (Zofran Inj) 4 mg Q6H PRN IV NAUSEA/VOMITING; Start 10/31/18 at 00:00 Nitroglycerin (Nitroglycerin (Sl Tab) 0.4 Mg) 1 tab Q5M PRN SL .CHEST PAIN; Start 10/31/18 at 00:00 Acetaminophen (Tylenol Tab) 650 mg Q6H PRN PO .PAIN 1-3 OR TEMP; Start 10/31/18 at 00:00 Docusate Sodium (Colace) 100 mg Q12H PRN PO .CONSTIPATION; Start 10/31/18 at 00:00 Bisacodyl (Dulcolax) 5 mg DAILY PRN PO .CONSTIPATION; Start 10/31/18 at 00:00 Bumetanide (Bumex) 1 mg DAILY IV ; Start 10/31/18 at 09:00 Apixaban (Eliquis) 2.5 mg BID PO ; Start 10/31/18 at 09:00 Citalopram Hydrobromide (Celexa) 10 mg DAILY PO ; Start 10/31/18 at 09:00 Digoxin (Digoxin) 0.125 mg DAILY@1300 PO ; Start 10/31/18 at 13:00 Ferrous Sulfate (Ferrous Sulfate (Ec)) 325 mg BID PO ; Start 10/31/18 at 09:00 Pantoprazole (Protonix Tab) 40 mg BID@0600,1800 PO ; Start 10/31/18 at 09:00 Potassium Chloride (Micro-K) 8 meq DAILY PO ; Start 10/31/18 at 09:00 Fish Oil (Fish Oil) 1,000 mg TID PO ; Start 10/31/18 at 09:00 BENTLEY CERVANTES NP Oct 31, 2018 10:39
[2018-10-31] MEDS: LEVALBUTEROL (NEB) 0.63 MG/3 ML AMP HHN SCH ×2 (14:00→19:54)
[2018-10-31] MEDS: DIGOXIN 0.125 MG TAB PO SCH (15:12)
--- NOTE | 2018-10-31 19:11 | CONS ---
Assessment/Plan Assessment/Plan Hospital Course (Demo Recall) Acute on chronic diastolic heart failure: EF 35% 02/25 but now 55% 10/27 on my read. Decompensated on exam Recent GI bleed/anemia: Was transfused last admission. EGD 10/14/18 showed severe gastritis as well as mild esophagitis and hiatal hernia but no active bleeding. Eliquis was restarted as outpt chronic afib: Rates controlled. 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 -increase to bumex 2mg IV BID -continue digoxin -Eliquis 2.5mg BID, watch for worsening anemia Consultation Date/Type/Reason Admit Date/Time Date of Consultation: Oct 31, 2018 Type of Consult Cardiology Reason for Consultation CHF Requesting Provider: NOE DICK Date/Time of Note DATE: 10/31/18 TIME: 19:10 Hx of Present Illness 88 yo M with a h/o chronic systolic heart failure (EF 35% 02/25 now 55% 10/27), ischemic cardiomyopathy, CAD, chronic afib on Eliquis, recent admission for anemia with EGD showing severe gastritis but no active bleeding, who presented with worsening leg edema and dyspnea. He was discharged last admission with bumex 1mg PO daily. Pt has mild SOB but no chest pain. per hPI Past Medical History per hPI Home Meds Active Scripts Pantoprazole* (Protonix*) 40 Mg Tablet.dr, 40 MG PO BID, #60 TAB Prov:BENTLEY CERVANTES STEM CRUSHER 10/17/18 Bumetanide* (Bumetanide*) 1 Mg Tablet, 1 MG PO DAILY, #30 TAB Prov:BENTLEY CERVANTES [employer] CRUSHER 10/17/18 Ferrous Sulfate* (Ferrous Sulfate*) 325 Mg Tabec, 325 MG PO BID for 30 Days, #60 TAB Prov:JEIMY EWING. 02/25/18 Potassium Chloride* (Potassium Chloride*) 8 Meq Capsule.er, 8 MEQ PO DAILY for 30 Days, #30 CAP Prov:JEIMY EWING. 02/25/18 Reported Medications Citalopram Hydrobromide* (Citalopram Hydrobromide*) 10 Mg Tablet, 10 MG PO DAILY, #30 TAB 10/30/18 Cholecalciferol* (Vitamin D3*) 1,000 Unit Tablet, 1000 UNIT PO DAILY, TAB 10/30/18 Apixaban* (Eliquis*) 2.5 Mg Tablet, 2.5 MG PO BID, TAB 02/15/18 [place]-3 Fatty Acids/Fish Oil (Fish Oil 1,000 mg Softgel) 1 Each Capsule, 1 EACH PO TID, CAP 02/15/18 Digoxin* (Lanoxin*) 0.125 Mg Tablet, 0.125 MG PO DAILY, TAB 04/19/16 Discontinued Scripts Methylprednisolone* (Medrol* DOSE PACK) 4 Mg/Dose-Pack Tab.ds.pk, 4 MG PO . DIRECTED, #1 PACKET Prov:BENTLEY CERVANTES [employer] CRUSHER 10/17/18 Amoxicillin/Potassium Clav (Amox-Clav 875-125 mg Tablet) 875-125 mg Tab, 1 TAB PO BID for 7 Days, #14 TAB Prov:BENTLEY CERVANTES [employer] CRUSHER 10/17/18 Levofloxacin* (Levofloxacin*) 500 Mg Tablet, 500 MG PO DAILY, #7 TAB Prov:BENTLEY CERVANTES [employer] CRUSHER 10/17/18 [place]-3/Dha/Epa/Fish Oil (FISH OIL EC 1,000 MG SOFTGEL) 1 Each Capsule.dr, 2000 MG PO BID for 30 Days, #60 CAP 1 Refill Prov:JEIMY EWING 04/30/18 Finasteride* (Finasteride*) 5 Mg Tablet, 5 MG PO DAILY for 30 Days, #30 TAB Prov:JEIMY EWING 04/28/18 Tamsulosin Hcl* (Flomax*) 0.4 Mg Cap.er.24h, 0.4 MG PO HS, #30 CAP Prov:JEIMY EWING 04/28/18 Nebulizer (ALTERA NEBULIZER) 1 Each Each, EACH MC Q4H PRN for SHORTNESS OF BREATH, #1 Prov:JEIMY EWING 02/25/18 Ipratropium-Albuterol (Ipratropium-Albuterol) 0.5-3 Mg/3 Ml Ampul.neb, 3 ML INHA LATION Q4 PRN for SHORTNESS OF BREATH, #30 VIAL Prov:JEIMY EWING 02/25/18 Cholecalciferol* (Vitamin D*) 400 Unit Tablet, 400 UNIT PO DAILY for 30 Days, #30 TAB Prov:JEIMY EWING. 02/25/18 Medications Current Medications IV Flush (NS 3 ml) 3 ml PER PROTOCOL IV ; Start 10/31/18 at 00:00 Ondansetron HCl (Zofran Inj) 4 mg Q6H PRN IV NAUSEA/VOMITING; Start 10/31/18 at 00:00 Nitroglycerin (Nitroglycerin (Sl Tab) 0.4 Mg) 1 tab Q5M PRN SL .CHEST PAIN; Start 10/31/18 at 00:00 Acetaminophen (Tylenol Tab) 650 mg Q6H PRN PO .PAIN 1-3 OR TEMP; Start 10/31/18 at 00:00 Docusate Sodium (Colace) 100 mg Q12H PRN PO .CONSTIPATION; Start 10/31/18 at 00:00 Bisacodyl (Dulcolax) 5 mg DAILY PRN PO .CONSTIPATION; Start 10/31/18 at 00:00 Bumetanide (Bumex) 1 mg DAILY IV Last administered on 10/31/18 10:38; Admin Dose 1 MG; Start 10/31/18 at 09:00 Apixaban (Eliquis) 2.5 mg BID PO Last administered on 10/31/18 10:36; Admin Dose 2.5 MG; Start 10/31/18 at 09:00 Citalopram Hydrobromide (Celexa) 10 mg DAILY PO Last administered on 10/31/18 10:37; Admin Dose 10 MG; Start 10/31/18 at 09:00 Digoxin (Digoxin) 0.125 mg DAILY@1300 PO Last administered on 10/31/18 15:12; Admin Dose 0.125 MG; Start 10/31/18 at 13:00 Ferrous Sulfate (Ferrous Sulfate (Ec)) 325 mg BID PO Last administered on 10/31/18 10:38; Admin Dose 325 MG; Start 10/31/18 at 09:00 Pantoprazole (Protonix Tab) 40 mg BID@0600,1800 PO Last administered on 10/31/18 17:46; Admin Dose 40 MG; Start 10/31/18 at 09:00 Potassium Chloride (Micro-K) 8 meq DAILY PO Last administered on 10/31/18at 10:36; Admin Dose 8 MEQ; Start 10/31/18 at 09:00 Fish Oil (Fish Oil) 1,000 mg TID PO Last administered on 10/31/18at 15:11; Admin Dose 1,000 MG; Start 10/31/18 at 09:00 Levalbuterol (Xopenex Neb) 0.63 mg Q6H RESP THERAPY HHN ; Start 10/31/18 at 14:00 Tamsulosin HCl (Flomax) 0.4 mg HS PO ; Start 10/31/18 at 21:00 Allergies: Coded Allergies: No Known Allergy (Unverified , 10/30/18) Past Surgical History Past Surgical Hx: other Social History Alcohol Use: none Smoking Status: Never smoker Drug Use: none Exam/Review of Systems Exam Vitals Vital Signs Date Temp Pulse Resp B/P (MAP) Pulse Ox O2 O2 Flow FiO2 Time Delivery Rate 10/31/18 63 16:01 10/31/18 97.9 17 102/59 94 15:36 (73) 10/31/18 Room Air 04:03 Intake and Output 10/30/18 10/30/18 10/31/18 1515:00 23:00 07:00 IntakeIntake Total 250 ml BalanceBalance 250 ml Constitutional: alert, oriented Head: normocephalic, atraumatic Neck: jvd (9cm with V wave) Respiratory: crackles/rales (at bases); No clear to auscultation Cardiovascular: edema (3+), systolic murmur (3/6 KERRY); No regular rate and rhythm (IRIR) Gastrointestinal: soft, non-tender; No distended Neurological: nl mental status, nl speech Results Result Diagram: 10/31/18 0607 10/31/18 0602 Results 24hrs Laboratory Tests Test 10/30/18 21:56 10/30/18 21:57 10/31/18 06:02 10/31/18 06:07 White Blood Count 3.3 #L 3.2 L Red Blood Count 2.32 L 2.21 L Hemoglobin 7.8 L 7.3 L Hematocrit 24.8 L 23.6 L Mean Corpuscular 106.9 H 106.8 H Volume Mean Corpuscular 33.6 H 33.0 Hemoglobin Mean Corpuscular 31.5 L 30.9 L Hemoglobin Concent Red Cell 17.1 H 17.1 H Distribution Width Platelet Count 113 L 99 L Mean Platelet Volume 10.1 11.0 H Immature 0.600 H 0.300 Granulocytes % Neutrophils % 72.4 65.3 Lymphocytes % 19.3 22.5 Monocytes % 3.1 6.6 Eosinophils % 4.3 4.7 Basophils % 0.3 0.6 Nucleated Red Blood 0.0 2.2 H Cells % Immature 0.020 0.010 Granulocytes # Neutrophils # 2.4 2.1 Lymphocytes # 0.6 L 0.7 L Monocytes # 0.1 L 0.2 L Eosinophils # 0.1 0.2 Basophils # 0.0 0.0 Nucleated Red Blood 0.0 0.1 H Cells # Prothrombin Time 13.2 Prothrombin Time 1.0 Ratio INR International 0.99 Normalized Ratio Activated 39.8 H Partial Thromboplast Time Sodium Level 136 138 Potassium Level 4.1 4.4 Chloride Level 99 98 Carbon Dioxide Level 33 H 36 H Anion Gap 4 L 4 L Blood Urea Nitrogen 20 20 Creatinine 0.79 0.68 Est Glomerular Filtrat Rate mL/min Glucose Level 113 84 Calcium Level 7.9 L 7.8 L Total Bilirubin 1.2 1.2 Direct Bilirubin 0.00 0.00 Indirect Bilirubin 1.2 H 1.2 H Aspartate Amino 31 30 Transf (AST/SGOT) Alanine 30 25 Aminotransferase (AL T/SGPT) Alkaline Phosphatase 272 H 238 H Troponin I < 0.012 B-Type Natriuretic 3870 H Peptide Total Protein 5.8 L 5.4 L Albumin 2.7 L 2.3 L Globulin 3.10 3.10 Albumin/Globulin 0.87 0.74 Ratio Digoxin Level 0.7 L Test 10/31/18 13:03 Urine Color STRAW Urine Clarity CLEAR Urine pH 6.0 Urine Specific 1.006 [place] Urine Ketones NEGATIVE Urine Nitrite NEGATIVE Urine Bilirubin NEGATIVE Urine Urobilinogen NEGATIVE Urine Leukocyte NEGATIVE Esterase Urine Microscopic 1 RBC Urine Microscopic 0 WBC Urine Hemoglobin 1+ H Urine Glucose NEGATIVE Urine Total Protein NEGATIVE Medications Medication Current Medications IV Flush (NS 3 ml) 3 ml PER PROTOCOL IV ; Start 10/31/18 at 00:00 Ondansetron HCl (Zofran Inj) 4 mg Q6H PRN IV NAUSEA/VOMITING; Start 10/31/18 at 00:00 Nitroglycerin (Nitroglycerin (Sl Tab) 0.4 Mg) 1 tab Q5M PRN SL .CHEST PAIN; Start 10/31/18 at 00:00 Acetaminophen (Tylenol Tab) 650 mg Q6H PRN PO .PAIN 1-3 OR TEMP; Start 10/31/18 at 00:00 Docusate Sodium (Colace) 100 mg Q12H PRN PO .CONSTIPATION; Start 10/31/18 at 00:00 Bisacodyl (Dulcolax) 5 mg DAILY PRN PO .CONSTIPATION; Start 10/31/18 at 00:00 Bumetanide (Bumex) 1 mg DAILY IV Last administered on 10/31/18 10:38; Admin Dose 1 MG; Start 10/31/18 at 09:00 Apixaban (Eliquis) 2.5 mg BID PO Last administered on 10/31/18 10:36; Admin Dose 2.5 MG; Start 10/31/18 at 09:00 Citalopram Hydrobromide (Celexa) 10 mg DAILY PO Last administered on 10/31/18 10:37; Admin Dose 10 MG; Start 10/31/18 at 09:00 Digoxin (Digoxin) 0.125 mg DAILY@1300 PO Last administered on 10/31/18 15:12; Admin Dose 0.125 MG; Start 10/31/18 at 13:00 Ferrous Sulfate (Ferrous Sulfate (Ec)) 325 mg BID PO Last administered on 10/31/18 10:38; Admin Dose 325 MG; Start 10/31/18 at 09:00 Pantoprazole (Protonix Tab) 40 mg BID@0600,1800 PO Last administered on 10/31/18 17:46; Admin Dose 40 MG; Start 10/31/18 at 09:00 Potassium Chloride (Micro-K) 8 meq DAILY PO Last administered on 10/31/18 10:36; Admin Dose 8 MEQ; Start 10/31/18 at 09:00 Fish Oil (Fish Oil) 1,000 mg TID PO Last administered on 10/31/18 15:11; Admin Dose 1,000 MG; Start 10/31/18 at 09:00 Levalbuterol (Xopenex Neb) 0.63 mg Q6H RESP THERAPY HHN ; Start 10/31/18 at 14:00 Tamsulosin HCl (Flomax) 0.4 mg HS PO ; Start 10/31/18 at 21:00 WOLFGANG SHERIDAN Oct 31, 2018 19:11
--- NOTE | 2018-10-31 19:29 | RADRPT ---
Echocardiogram Report Patient Name: Jeffery POOLE ID: [id number] : [id number] (88y 9m)Study Date: 10/31/2018 2:11:58 PM Gender: MAccession #: [id number] Tech: Valdo Polo [facility] Location: 52- Ref.Physician: NOE DICK Height(Cm): BSA: Weight(Kg): Quality: AdequateAccount #: Procedures: Echocardiographic Report: Transthoracic echocardiogram with complete 2D, M-Mode, and doppler examination. Indications: Congestive Heart Failure. Measurements: 2D/M Mode Doppler Measurement Value Normal Range Measurement Value Normal Range LVIDd 2D 4.3 [ 4.2 - 5.8 ] cm AV Peak Johnny 1.7 [ 100.0 - 170.0 ] cm/sec LVIDs 2D 3.2 [ 2.5 - 4.0 ] cm AV Peak PG 12.0 [ 2.0 - 9.0 ] mmHg LVPWd 2D 0.9 [ 0.6 - 1.0 ] cm LVOT Peak Johnny 0.7 [ 70.0 - 110.0 ] cm/sec IVSd 2D 0.8 [ 0.6 - 1.0 ] cm LVOT Peak PG 2.0 [ 2.0 - 6.0 ] mmHg AoR Diam 2D 3.4 [ 2.6 - 3.4 ] cm TR Peak Johnny 2.7 [ 100.0 - 280.0 ] cm/sec EDV 2D 82.6 [ 62.0 - 150.0 ] ml TR Peak PG 29.0 mmHg ESV 2D 39.4 [ 21.0 - 61.0 ] ml EF 2D 52.3 [ 52.0 - 72.0 ] percent LA Dimen 2D 4.1 [ 3.0 - 4.0 ] cm Findings: Left Ventricle: Normal left ventricular systolic function. Normal left ventricular cavity size. Normal left ventricular wall thickness. Ejection fraction is visually estimated at 55 %. Right Ventricle: Normal right ventricular size. Normal right ventricular systolic function. Left Atrium: There is severe enlargement of left atrium. Right Atrium: There is severe enlargement of right atrium. Atrial Septum: Normal atrial septum. Ventricular septum: Normal/intact ventricular septum. Mitral Valve: Mild mitral annular calcification. Mild mitral valve regurgitation. Aortic Valve: Aortic sclerosis without significant stenosis. Moderate aortic valve regurgitation. Tricuspid Valve: Normal appearance of the tricuspid valve. Estimated peak PA systolic pressure 29 mmHg plus RA pressure (not estimated). Likely underestimated with severe TR. 29 mmHg. There is severe tricuspid regurgitation. Pericardium: Normal pericardium with no significant pericardial effusion. Aorta: Ascending aorta is mildly dilated at 3.8 cm. IVC: The IVC is not well visualized. Pulmonary Artery: Normal pulmonary artery size. Conclusions: Normal left ventricular systolic function. Normal left ventricular cavity size. Normal left ventricular wall thickness. Ejection fraction is visually estimated at 55 %. Aortic sclerosis without significant stenosis. Moderate aortic valve regurgitation. Severe tricuspid regurgitation. Severe biatrial enlargement. Ascending aorta is mildly dilated at 3.8 cm. Estimated peak PA systolic pressure 29 mmHg plus RA pressure (not estimated). Likely underestimated with severe TR. 29 mmHg. Electronically Signed By: Craig Rainey 2018-10-31 19:29:25 PDT
[2018-10-31] MEDS: BUMETANIDE 2 MG in DEXTROSE 5% 17 ML IV SCH (20:54)
[2018-10-31] MEDS: TAMSULOSIN (SR) 0.4 MG CAP PO SCH (20:55)
[2018-11-01] VITALS (11 sets, daily range): BP systolic 87–117; BP diastolic 53–67; PULSE 52–154; RESP 17–19
[2018-11-01] MEDS: LEVALBUTEROL (NEB) 0.63 MG/3 ML AMP HHN SCH ×4 (02:20→20:57)
[2018-11-01] MEDS: PANTOPRAZOLE (EC) 40 MG TAB PO SCH ×2 (05:48→18:04)
[2018-11-01] MEDS: BUMETANIDE 2 MG in DEXTROSE 5% 17 ML IV SCH ×2 (05:49→18:04)
[2018-11-01] MEDS: POTASSIUM CHLORIDE (SR) 8 MEQ CAP PO SCH (08:21)
[2018-11-01] MEDS: APIXABAN 5 MG TABLET PO SCH ×2 (08:21→21:47)
[2018-11-01] MEDS: CITALOPRAM 20 MG TAB PO SCH (08:21)
[2018-11-01] MEDS: FISH OIL 1,000 MG CAP PO SCH ×3 (08:21→21:47)
[2018-11-01] MEDS: FERROUS SULFATE (EC) 325 MG TAB PO SCH ×2 (08:22→21:47)
--- NOTE | 2018-11-01 09:42 | CONS ---
Assessment/Plan Assessment/Plan Hospital Course (Demo Recall) Acute on chronic diastolic heart failure: EF 35% 02/25 but now 55% 10/27 on my read. Decompensated on exam but improving with diuresis Recent GI bleed/anemia: Was transfused last admission. EGD 10/14/18 showed severe gastritis as well as mild esophagitis and hiatal hernia but no active bleeding. Eliquis was restarted as outpt chronic afib: Rates controlled. 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 No complaints Exam/Review of Systems Exam Vitals Vital Signs Date Temp Pulse Resp B/P (MAP) Pulse Ox O2 O2 Flow FiO2 Time Delivery Rate 11/01/18 86 08:31 11/01/18 18 99 21 07:40 11/01/18 98.0 97/64 (75) Room Air 07:08 Intake and Output 10/31/18 10/31/18 11/01/18 1414:59 22:59 06:59 IntakeIntake Total 705 ml 525 ml OutputOutput Total 275 ml 925 ml 1700 ml BalanceBalance -275 ml -220 ml -1175 ml Constitutional: alert, oriented Head: normocephalic, atraumatic Neck: jvd (10cm) Respiratory: crackles/rales; No clear to auscultation Cardiovascular: regular rate and rhythm, edema (3+), systolic murmur (2/6 KERRY) Neurological: nl mental status, nl speech Results Result Diagram: 11/01/18 0640 11/01/18 0640 Results 24hrs Laboratory Tests Test 10/31/18 13:03 11/01/18 06:40 Urine Color STRAW Urine Clarity CLEAR Urine pH 6.0 Urine Specific [place] 1.006 Urine Ketones NEGATIVE Urine Nitrite NEGATIVE Urine Bilirubin NEGATIVE Urine Urobilinogen NEGATIVE Urine Leukocyte Esterase NEGATIVE Urine Microscopic RBC 1 Urine Microscopic WBC 0 Urine Hemoglobin 1+ H Urine Glucose NEGATIVE Urine Total Protein NEGATIVE White Blood Count 3.2 L Red Blood Count 2.26 L Hemoglobin 7.5 L Hematocrit 24.1 L Mean Corpuscular Volume 106.6 H Mean Corpuscular Hemoglobin 33.2 H Mean Corpuscular Hemoglobin Concent 31.1 L Red Cell Distribution Width 17.0 H Platelet Count 99 L Mean Platelet Volume 10.5 H Immature Granulocytes % 0.300 Neutrophils % 59.3 Lymphocytes % 27.8 Monocytes % 6.3 Eosinophils % 5.7 Basophils % 0.6 Nucleated Red Blood Cells % 0.0 Immature Granulocytes # 0.010 Neutrophils # 1.9 Lymphocytes # 0.9 Monocytes # 0.2 L Eosinophils # 0.2 Basophils # 0.0 Nucleated Red Blood Cells # 0.0 Sodium Level 138 Potassium Level 4.3 Chloride Level 100 Carbon Dioxide Level 35 H Anion Gap 3 L Blood Urea Nitrogen 21 H Creatinine 0.76 Est Glomerular Filtrat Rate mL/min Glucose Level 87 Calcium Level 8.0 L Phosphorus Level 3.5 Magnesium Level 2.0 Total Bilirubin 1.2 Direct Bilirubin 0.00 Indirect Bilirubin 1.2 H Aspartate Amino Transf (AST/SGOT) 51 #H Alanine Aminotransferase (ALT/SGPT) 42 Alkaline Phosphatase 315 H B-Type Natriuretic Peptide 3210 H Total Protein 5.4 L Albumin 2.4 L Globulin 3.00 Albumin/Globulin Ratio 0.80 Medications Medication Current Medications IV Flush (NS 3 ml) 3 ml PER PROTOCOL IV ; Start 10/31/18 at 00:00 Ondansetron HCl (Zofran Inj) 4 mg Q6H PRN IV NAUSEA/VOMITING; Start 10/31/18 at 00:00 Nitroglycerin (Nitroglycerin (Sl Tab) 0.4 Mg) 1 tab Q5M PRN SL .CHEST PAIN; Start 10/31/18 at 00:00 Acetaminophen (Tylenol Tab) 650 mg Q6H PRN PO .PAIN 1-3 OR TEMP; Start 10/31/18 at 00:00 Docusate Sodium (Colace) 100 mg Q12H PRN PO .CONSTIPATION; Start 10/31/18 at 00:00 Bisacodyl (Dulcolax) 5 mg DAILY PRN PO .CONSTIPATION; Start 10/31/18 at 00:00 Apixaban (Eliquis) 2.5 mg BID PO Last administered on 11/01/18 08:21; Admin Dose 2.5 MG; Start 10/31/18 at 09:00 Citalopram Hydrobromide (Celexa) 10 mg DAILY PO Last administered on 11/01/18 08:21; Admin Dose 10 MG; Start 10/31/18 at 09:00 Digoxin (Digoxin) 0.125 mg DAILY@1300 PO Last administered on 10/31/18 15:12; Admin Dose 0.125 MG; Start 10/31/18 at 13:00 Ferrous Sulfate (Ferrous Sulfate (Ec)) 325 mg BID PO Last administered on 11/01/18 08:22; Admin Dose 325 MG; Start 10/31/18 at 09:00 Pantoprazole (Protonix Tab) 40 mg BID@0600,1800 PO Last administered on 11/01/18 05:48; Admin Dose 40 MG; Start 10/31/18 at 09:00 Potassium Chloride (Micro-K) 8 meq DAILY PO Last administered on 11/01/18 08:21; Admin Dose 8 MEQ; Start 10/31/18 at 09:00 Fish Oil (Fish Oil) 1,000 mg TID PO Last administered on 11/01/18 08:21; Admin Dose 1,000 MG; Start 10/31/18 at 09:00 Levalbuterol (Xopenex Neb) 0.63 mg Q6H RESP THERAPY HHN Last administered on 11/01/18 07:40; Admin Dose 0.63 MG; Start 10/31/18 at 14:00 Tamsulosin HCl (Flomax) 0.4 mg HS PO Last administered on 10/31/18 20:55; Admin Dose 0.4 MG; Start 10/31/18 at 21:00 Bumetanide 2 mg/ Dextrose 25 ml @ 50 mls/hr BID DIURETICS IV Last administered on 11/01/18 05:49; Admin Dose 50 MLS/HR; Start 10/31/18 at 20:30 WOLFGANG SHERIDAN Nov 01, 2018 09:42
--- NOTE | 2018-11-01 09:49 | PN ---
Date/Time of Note Date/Time of Note DATE: 11/01/18 TIME: 09:46 Assessment/Plan VTE Prophylaxis Risk score (from Ns)>0 risk: 4 SCD applied (from Ns): No SCD contraindicated: other Pharmacological prophylaxis: apixaban Lines/Catheters IV Catheter Type (from [facility]): Peripheral IV Assessment/Plan Hospital Course SUBJECTIVE: Denies any chest pain but complains of dyspnea. OBJECTIVE: Physical Exam General: Adequately build 88 year-old male lying in bed in no apparent distress. HEENT: Normocephalic, atraumatic. Eyes: Anicteric sclerae, conjunctivae clear. ENT: Nasal septum midline, oral mucosa moist. Neck supple, JVD noticed. Respiratory: Bilaterally diminished breath sounds. Minimal use of accessory muscles of respiration. Bibasilar rales. Cardiovascular: S1, S2 heard. Irregularly irregular rhythm. Grade 2/3 systolic ejection murmur. Abdomen: Nontender, and slightly distended. Bowel sounds positive in all 4 quadrants. Genitourinary: Deferred. Extremities: No cyanosis, no clubbing. B/L LE 2-3+ pitting edema. Neurologic: Cranial nerves II through XII grossly intact. The patient is awake, alert, and oriented. Skin: Normal skin turgor. No skin rashes. ASSESSMENT & PLAN This is an 88-year-old male with comorbidities including cardiomyopathy with ejection fraction 55%, pulmonary hypertension, moderate aortic stenosis, severe tricuspid regurgitation, chronic atrial fibrillation on anticoagulation, hypertension, prostate hypertrophy, chronic bilateral pleural effusions, gastritis, cirrhotic changes of the liver, and chronic anemia. The patient was brought to the ER by his family for evaluation of B/L LE edema. The patient was admitted to inpatient setting for further treatment and evaluation. 1. Acute on chronic congestive heart failure exacerbation, diastolic dysfunction. -Continue diuretics. -Cardiology following. 2. Ischemic cardiomyopathy. -Ejection fraction of 55%. -Continue digoxin -Unable to start the patient on beta-blockers/SUHAIL inhibitors because of low blood pressure readings. 3. Moderate aortic stenosis. -Patient not a good surgical candidate. -Being followed by cardiology. 4. Pulmonary hypertension. -Probably secondary to valvular heart disease. 5. Chronic atrial fibrillation. -Rate controlled. -Continue digoxin. -Factor Xa inhibitors for stroke prophylaxis. 6. Prostatic hypertrophy. -Continue Flomax . 7. Gastritis. -Continue PPI. 8. Fluids, electrolytes, and nutrition. -Low-sodium diet. 9. DVT prophylaxis. -Factor Xa inhibitors (may need to hold, if worsening anemia). 10. Plan. -Continue diuresis. -Monitor H&H closely. -Await clinical improvement. The patient was seen in collaboration with Dr. Lassiter. Result Diagram: 11/01/18 0640 11/01/18 0640 Results 24hrs Laboratory Tests Test 10/31/18 13:03 11/01/18 06:40 Urine Color STRAW Urine Clarity CLEAR Urine pH 6.0 Urine Specific [place] 1.006 Urine Ketones NEGATIVE Urine Nitrite NEGATIVE Urine Bilirubin NEGATIVE Urine Urobilinogen NEGATIVE Urine Leukocyte Esterase NEGATIVE Urine Microscopic RBC 1 Urine Microscopic WBC 0 Urine Hemoglobin 1+ H Urine Glucose NEGATIVE Urine Total Protein NEGATIVE White Blood Count 3.2 L Red Blood Count 2.26 L Hemoglobin 7.5 L Hematocrit 24.1 L Mean Corpuscular Volume 106.6 H Mean Corpuscular Hemoglobin 33.2 H Mean Corpuscular Hemoglobin Concent 31.1 L Red Cell Distribution Width 17.0 H Platelet Count 99 L Mean Platelet Volume 10.5 H Immature Granulocytes % 0.300 Neutrophils % 59.3 Lymphocytes % 27.8 Monocytes % 6.3 Eosinophils % 5.7 Basophils % 0.6 Nucleated Red Blood Cells % 0.0 Immature Granulocytes # 0.010 Neutrophils # 1.9 Lymphocytes # 0.9 Monocytes # 0.2 L Eosinophils # 0.2 Basophils # 0.0 Nucleated Red Blood Cells # 0.0 Sodium Level 138 Potassium Level 4.3 Chloride Level 100 Carbon Dioxide Level 35 H Anion Gap 3 L Blood Urea Nitrogen 21 H Creatinine 0.76 Est Glomerular Filtrat Rate mL/min Glucose Level 87 Calcium Level 8.0 L Phosphorus Level 3.5 Magnesium Level 2.0 Total Bilirubin 1.2 Direct Bilirubin 0.00 Indirect Bilirubin 1.2 H Aspartate Amino Transf (AST/SGOT) 51 #H Alanine Aminotransferase (ALT/SGPT) 42 Alkaline Phosphatase 315 H B-Type Natriuretic Peptide 3210 H Total Protein 5.4 L Albumin 2.4 L Globulin 3.00 Albumin/Globulin Ratio 0.80 Exam/Review of Systems Exam Vitals Vital Signs Date Temp Pulse Resp B/P (MAP) Pulse Ox O2 O2 Flow FiO2 Time Delivery Rate 11/01/18 86 08:31 11/01/18 18 99 21 07:40 11/01/18 98.0 97/64 (75) Room Air 07:08 Intake and Output 10/31/18 10/31/18 11/01/18 1515:00 23:00 07:00 IntakeIntake Total 705 ml 525 ml OutputOutput Total 275 ml 925 ml 1700 ml BalanceBalance -275 ml -220 ml -1175 ml Results Results 24hrs Laboratory Tests Test 10/31/18 13:03 11/01/18 06:40 Urine Color STRAW Urine Clarity CLEAR Urine pH 6.0 Urine Specific [place] 1.006 Urine Ketones NEGATIVE Urine Nitrite NEGATIVE Urine Bilirubin NEGATIVE Urine Urobilinogen NEGATIVE Urine Leukocyte Esterase NEGATIVE Urine Microscopic RBC 1 Urine Microscopic WBC 0 Urine Hemoglobin 1+ H Urine Glucose NEGATIVE Urine Total Protein NEGATIVE White Blood Count 3.2 L Red Blood Count 2.26 L Hemoglobin 7.5 L Hematocrit 24.1 L Mean Corpuscular Volume 106.6 H Mean Corpuscular Hemoglobin 33.2 H Mean Corpuscular Hemoglobin Concent 31.1 L Red Cell Distribution Width 17.0 H Platelet Count 99 L Mean Platelet Volume 10.5 H Immature Granulocytes % 0.300 Neutrophils % 59.3 Lymphocytes % 27.8 Monocytes % 6.3 Eosinophils % 5.7 Basophils % 0.6 Nucleated Red Blood Cells % 0.0 Immature Granulocytes # 0.010 Neutrophils # 1.9 Lymphocytes # 0.9 Monocytes # 0.2 L Eosinophils # 0.2 Basophils # 0.0 Nucleated Red Blood Cells # 0.0 Sodium Level 138 Potassium Level 4.3 Chloride Level 100 Carbon Dioxide Level 35 H Anion Gap 3 L Blood Urea Nitrogen 21 H Creatinine 0.76 Est Glomerular Filtrat Rate mL/min Glucose Level 87 Calcium Level 8.0 L Phosphorus Level 3.5 Magnesium Level 2.0 Total Bilirubin 1.2 Direct Bilirubin 0.00 Indirect Bilirubin 1.2 H Aspartate Amino Transf (AST/SGOT) 51 #H Alanine Aminotransferase (ALT/SGPT) 42 Alkaline Phosphatase 315 H B-Type Natriuretic Peptide 3210 H Total Protein 5.4 L Albumin 2.4 L Globulin 3.00 Albumin/Globulin Ratio 0.80 Medications Medication Current Medications IV Flush (NS 3 ml) 3 ml PER PROTOCOL IV ; Start 10/31/18 at 00:00 Ondansetron HCl (Zofran Inj) 4 mg Q6H PRN IV NAUSEA/VOMITING; Start 10/31/18 at 00:00 Nitroglycerin (Nitroglycerin (Sl Tab) 0.4 Mg) 1 tab Q5M PRN SL .CHEST PAIN; Start 10/31/18 at 00:00 Acetaminophen (Tylenol Tab) 650 mg Q6H PRN PO .PAIN 1-3 OR TEMP; Start 10/31/18 at 00:00 Docusate Sodium (Colace) 100 mg Q12H PRN PO .CONSTIPATION; Start 10/31/18 at 00:00 Bisacodyl (Dulcolax) 5 mg DAILY PRN PO .CONSTIPATION; Start 10/31/18 at 00:00 Apixaban (Eliquis) 2.5 mg BID PO Last administered on 11/01/18 08:21; Admin Dose 2.5 MG; Start 10/31/18 at 09:00 Citalopram Hydrobromide (Celexa) 10 mg DAILY PO Last administered on 11/01/18 08:21; Admin Dose 10 MG; Start 10/31/18 at 09:00 Digoxin (Digoxin) 0.125 mg DAILY@1300 PO Last administered on 10/31/18 15:12; Admin Dose 0.125 MG; Start 10/31/18 at 13:00 Ferrous Sulfate (Ferrous Sulfate (Ec)) 325 mg BID PO Last administered on 11/01/18 08:22; Admin Dose 325 MG; Start 10/31/18 at 09:00 Pantoprazole (Protonix Tab) 40 mg BID@0600,1800 PO Last administered on 11/01/18 05:48; Admin Dose 40 MG; Start 10/31/18 at 09:00 Potassium Chloride (Micro-K) 8 meq DAILY PO Last administered on 11/01/18 08:21; Admin Dose 8 MEQ; Start 10/31/18 at 09:00 Fish Oil (Fish Oil) 1,000 mg TID PO Last administered on 11/01/18 08:21; Admin Dose 1,000 MG; Start 10/31/18 at 09:00 Levalbuterol (Xopenex Neb) 0.63 mg Q6H RESP THERAPY HHN Last administered on 11/01/18 07:40; Admin Dose 0.63 MG; Start 10/31/18 at 14:00 Tamsulosin HCl (Flomax) 0.4 mg HS PO Last administered on 3/23/19at 20:55; Admin Dose 0.4 MG; Start 10/31/18 at 21:00 Bumetanide 2 mg/ Dextrose 25 ml @ 50 mls/hr BID DIURETICS IV Last administered on 11/01/18at 05:49; Admin Dose 50 MLS/HR; Start 10/31/18 at 20:30 BENTLEY CERVANTES NP Nov 01, 2018 09:49
[2018-11-01] MEDS: DIGOXIN 0.125 MG TAB PO SCH (14:06)
[2018-11-01] MEDS: TAMSULOSIN (SR) 0.4 MG CAP PO SCH (21:47)
[2018-11-02] VITALS (8 sets, daily range): BP systolic 88–110; BP diastolic 56–67; PULSE 61–91; RESP 16–18
[2018-11-02] MEDS: LEVALBUTEROL (NEB) 0.63 MG/3 ML AMP HHN SCH ×4 (01:35→21:26)
[2018-11-02] MEDS: PANTOPRAZOLE (EC) 40 MG TAB PO SCH ×2 (06:05→18:15)
[2018-11-02] MEDS: BUMETANIDE 2 MG in DEXTROSE 5% 17 ML IV SCH ×2 (06:06→18:15)
[2018-11-02] MEDS: FISH OIL 1,000 MG CAP PO SCH ×3 (09:58→21:45)
[2018-11-02] MEDS: APIXABAN 5 MG TABLET PO SCH ×2 (09:58→21:45)
[2018-11-02] MEDS: CITALOPRAM 20 MG TAB PO SCH (09:59)
[2018-11-02] MEDS: FERROUS SULFATE (EC) 325 MG TAB PO SCH ×2 (09:59→21:45)
[2018-11-02] MEDS: POTASSIUM CHLORIDE (SR) 8 MEQ CAP PO SCH (13:49)
[2018-11-02] MEDS: DIGOXIN 0.125 MG TAB PO SCH (13:50)
--- NOTE | 2018-11-02 13:59 | PN ---
Date/Time of Note Date/Time of Note DATE: 11/02/18 TIME: 13:54 Assessment/Plan VTE Prophylaxis Risk score (from [facility])>0 risk: 4 SCD applied (from [facility]): No SCD contraindicated: low risk/ambulating Pharmacological prophylaxis: NA/contraindicated, LMWH Pharm contraindication: low risk/ambulating Lines/Catheters IV Catheter Type (from [facility]): [place]ine Lock Urinary Cath still in place: No Assessment/Plan Hospital Course Assessment and plan 1. Decompensated CHF, stable continue diuretics. 2. Valvular heart dz: Mod A Stenosis; Mod/ severe TR 3. History of Gi bleed/ esophagitis. 4. Chr A fib Eliquis vs asa 5. Chr hypertension 6. Chr CAD? 7. Chr ischemic cardiomyopathy. EF was 30, now up to 55% 8. Pulmonary hypertension? 9. Chr BPH 10. Chr anemia. 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 Subjective no fever chest pain. Edema noted Objective: Vital signs stable blood pressure around 100 Physical exam No pallor JVD Regular, faint sm Mostly clear no tachypnea Benign Positive edema Result Diagram: 11/02/18 0609 11/02/18 0609 Results 24hrs Laboratory Tests Test 11/02/18 06:09 White Blood Count 2.9 L Red Blood Count 2.20 L Hemoglobin 7.3 L Hematocrit 23.6 L Mean Corpuscular Volume 107.3 H Mean Corpuscular Hemoglobin 33.2 H Mean Corpuscular Hemoglobin Concent 30.9 L Red Cell Distribution Width 17.2 H Platelet Count 102 L Mean Platelet Volume 10.0 Immature Granulocytes % 0.700 H Neutrophils % 65.1 Lymphocytes % 22.0 Monocytes % 6.3 Eosinophils % 5.2 Basophils % 0.7 Nucleated Red Blood Cells % 0.0 Immature Granulocytes # 0.020 Neutrophils # 1.9 Lymphocytes # 0.6 L Monocytes # 0.2 L Eosinophils # 0.2 Basophils # 0.0 Nucleated Red Blood Cells # 0.0 Sodium Level 140 Potassium Level 4.5 Chloride Level 97 Carbon Dioxide Level 37 H Anion Gap 6 Blood Urea Nitrogen 24 H Creatinine 0.81 Est Glomerular Filtrat Rate mL/min Glucose Level 92 Calcium Level 8.0 L Phosphorus Level 3.3 Magnesium Level 2.0 Total Bilirubin 1.2 Direct Bilirubin 0.00 Indirect Bilirubin 1.2 H Aspartate Amino Transf (AST/SGOT) 53 H Alanine Aminotransferase (ALT/SGPT) 46 Alkaline Phosphatase 313 H Total Protein 5.4 L Albumin 2.4 L Globulin 3.00 Albumin/Globulin Ratio 0.80 Exam/Review of Systems Exam Vitals Vital Signs Date Temp Pulse Resp B/P (MAP) Pulse Ox O2 O2 Flow FiO2 Time Delivery Rate 11/02/18 83 16 103/56 97 13:50 (72) 11/02/18 97.8 13:44 11/02/18 Room Air 05:48 11/01/18 21 20:57 Intake and Output 11/01/18 11/01/18 11/02/18 1515:00 23:00 07:00 IntakeIntake Total 1200 ml 25 ml OutputOutput Total 200 ml 900 ml BalanceBalance -200 ml 300 ml 25 ml Results Results 24hrs Laboratory Tests Test 11/02/18 06:09 White Blood Count 2.9 L Red Blood Count 2.20 L Hemoglobin 7.3 L Hematocrit 23.6 L Mean Corpuscular Volume 107.3 H Mean Corpuscular Hemoglobin 33.2 H Mean Corpuscular Hemoglobin Concent 30.9 L Red Cell Distribution Width 17.2 H Platelet Count 102 L Mean Platelet Volume 10.0 Immature Granulocytes % 0.700 H Neutrophils % 65.1 Lymphocytes % 22.0 Monocytes % 6.3 Eosinophils % 5.2 Basophils % 0.7 Nucleated Red Blood Cells % 0.0 Immature Granulocytes # 0.020 Neutrophils # 1.9 Lymphocytes # 0.6 L Monocytes # 0.2 L Eosinophils # 0.2 Basophils # 0.0 Nucleated Red Blood Cells # 0.0 Sodium Level 140 Potassium Level 4.5 Chloride Level 97 Carbon Dioxide Level 37 H Anion Gap 6 Blood Urea Nitrogen 24 H Creatinine 0.81 Est Glomerular Filtrat Rate mL/min Glucose Level 92 Calcium Level 8.0 L Phosphorus Level 3.3 Magnesium Level 2.0 Total Bilirubin 1.2 Direct Bilirubin 0.00 Indirect Bilirubin 1.2 H Aspartate Amino Transf (AST/SGOT) 53 H Alanine Aminotransferase (ALT/SGPT) 46 Alkaline Phosphatase 313 H Total Protein 5.4 L Albumin 2.4 L Globulin 3.00 Albumin/Globulin Ratio 0.80 Medications Medication Current Medications IV Flush (NS 3 ml) 3 ml PER PROTOCOL IV ; Start 10/31/18 at 00:00 Ondansetron HCl (Zofran Inj) 4 mg Q6H PRN IV NAUSEA/VOMITING; Start 10/31/18 at 00:00 Nitroglycerin (Nitroglycerin (Sl Tab) 0.4 Mg) 1 tab Q5M PRN SL .CHEST PAIN; Start 10/31/18 at 00:00 Acetaminophen (Tylenol Tab) 650 mg Q6H PRN PO .PAIN 1-3 OR TEMP; Start 10/31/18 at 00:00 Docusate Sodium (Colace) 100 mg Q12H PRN PO .CONSTIPATION; Start 10/31/18 at 00:00 Bisacodyl (Dulcolax) 5 mg DAILY PRN PO .CONSTIPATION; Start 10/31/18 at 00:00 Apixaban (Eliquis) 2.5 mg BID PO Last administered on 11/02/18 09:58; Admin Dose 2.5 MG; Start 10/31/18 at 09:00 Citalopram Hydrobromide (Celexa) 10 mg DAILY PO Last administered on 11/02/18 09:59; Admin Dose 10 MG; Start 10/31/18 at 09:00 Digoxin (Digoxin) 0.125 mg DAILY@1300 PO Last administered on 11/02/18 13:50; Admin Dose 0.125 MG; Start 10/31/18 at 13:00 Ferrous Sulfate (Ferrous Sulfate (Ec)) 325 mg BID PO Last administered on 11/02/18 09:59; Admin Dose 325 MG; Start 10/31/18 at 09:00 Pantoprazole (Protonix Tab) 40 mg BID@0600,1800 PO Last administered on 06:05; Admin Dose 40 MG; Start 10/31/18 at 09:00 Potassium Chloride (Micro-K) 8 meq DAILY PO Last administered on 11/02/18 13:49; Admin Dose 8 MEQ; Start 10/31/18 at 09:00 Fish Oil (Fish Oil) 1,000 mg TID PO Last administered on 11/02/18 13:49; Admin Dose 1,000 MG; Start 10/31/18 at 09:00 Levalbuterol (Xopenex Neb) 0.63 mg Q6H RESP THERAPY HHN Last administered on 11/02/18 07:38; Admin Dose 0.63 MG; Start 10/31/18 at 14:00 Tamsulosin HCl (Flomax) 0.4 mg HS PO Last administered on 11/01/18at 21:47; Admin Dose 0.4 MG; Start 10/31/18 at 21:00 Bumetanide 2 mg/ Dextrose 25 ml @ 50 mls/hr BID DIURETICS IV Last administered on 11/02/18at 06:06; Admin Dose 50 MLS/HR; Start 10/31/18 at 20:30 Miscellaneous Information Patients own medicat... BID@10,16 XX ; Start 11/02/18 at 16:00 MALINI SALDANA MD Nov 02, 2018 13:59
--- NOTE | 2018-11-02 19:14 | CONS ---
Assessment/Plan Cardiology NYHA: III Heart Failure Type: Acute on Chronic Heart Failure Type: Diastolic Assessment/Plan Hospital Course (Demo Recall) Acute on chronic diastolic heart failure: EF 35% 02/25 but now 55% 10/27 on my read. Decompensated on exam but improving with diuresis Recent GI bleed/anemia: Was transfused last admission. EGD 10/14/18 showed severe gastritis as well as mild esophagitis and hiatal hernia but no active bleeding. Eliquis was restarted as outpt chronic afib: Rates controlled. 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 -continue bumex 2mg IV BID -continue digoxin -Eliquis 2.5mg BID, watch for worsening anemia Consultation Date/Type/Reason Admit Date/Time Oct 30, 2018 at 23:49 Initial Consult Date 10/31/18 Type of Consult Cardiology Date/Time of Note DATE: 11/02/18 TIME: 19:13 24 HR Interval Summary Free Text/Dictation No acute events. Detailed Summary Additional Comments 14 point review of systems without changes. Exam/Review of Systems Vital Signs Vitals Vital Signs Date Temp Pulse Resp B/P (MAP) Pulse Ox O2 O2 Flow FiO2 Time Delivery Rate 11/02/18 72 20 97 21 14:04 11/02/18 103/56 13:50 (72) 11/02/18 97.8 13:44 11/02/18 Room Air 05:48 Intake and Output 11/01/18 11/01/18 11/02/18 1515:00 23:00 07:00 IntakeIntake Total 1200 ml 25 ml OutputOutput Total 200 ml 900 ml BalanceBalance -200 ml 300 ml 25 ml Exam Exam Constitutional: alert, oriented Head: normocephalic, atraumatic Neck: jvd (10cm) Respiratory: crackles/rales; No clear to auscultation Cardiovascular: regular rate and rhythm, edema (3+), systolic murmur (2/6 KERRY) Neurological: nl mental status, nl speech Labs Result Diagram: 11/02/18 0609 11/02/18 0609 Results 24hrs Laboratory Tests Test 11/02/18 06:09 White Blood Count 2.9 L Red Blood Count 2.20 L Hemoglobin 7.3 L Hematocrit 23.6 L Mean Corpuscular Volume 107.3 H Mean Corpuscular Hemoglobin 33.2 H Mean Corpuscular Hemoglobin Concent 30.9 L Red Cell Distribution Width 17.2 H Platelet Count 102 L Mean Platelet Volume 10.0 Immature Granulocytes % 0.700 H Neutrophils % 65.1 Lymphocytes % 22.0 Monocytes % 6.3 Eosinophils % 5.2 Basophils % 0.7 Nucleated Red Blood Cells % 0.0 Immature Granulocytes # 0.020 Neutrophils # 1.9 Lymphocytes # 0.6 L Monocytes # 0.2 L Eosinophils # 0.2 Basophils # 0.0 Nucleated Red Blood Cells # 0.0 Sodium Level 140 Potassium Level 4.5 Chloride Level 97 Carbon Dioxide Level 37 H Anion Gap 6 Blood Urea Nitrogen 24 H Creatinine 0.81 Est Glomerular Filtrat Rate mL/min Glucose Level 92 Calcium Level 8.0 L Phosphorus Level 3.3 Magnesium Level 2.0 Total Bilirubin 1.2 Direct Bilirubin 0.00 Indirect Bilirubin 1.2 H Aspartate Amino Transf (AST/SGOT) 53 H Alanine Aminotransferase (ALT/SGPT) 46 Alkaline Phosphatase 313 H Total Protein 5.4 L Albumin 2.4 L Globulin 3.00 Albumin/Globulin Ratio 0.80 Medications Medications Current Medications IV Flush (NS 3 ml) 3 ml PER PROTOCOL IV ; Start 10/31/18 at 00:00 Ondansetron HCl (Zofran Inj) 4 mg Q6H PRN IV NAUSEA/VOMITING; Start 10/31/18 at 00:00 Nitroglycerin (Nitroglycerin (Sl Tab) 0.4 Mg) 1 tab Q5M PRN SL .CHEST PAIN; Start 10/31/18 at 00:00 Acetaminophen (Tylenol Tab) 650 mg Q6H PRN PO .PAIN 1-3 OR TEMP; Start 10/31/18 at 00:00 Docusate Sodium (Colace) 100 mg Q12H PRN PO .CONSTIPATION; Start 10/31/18 at 00:00 Bisacodyl (Dulcolax) 5 mg DAILY PRN PO .CONSTIPATION; Start 10/31/18 at 00:00 Apixaban (Eliquis) 2.5 mg BID PO Last administered on 11/02/18at 09:58; Admin Dose 2.5 MG; Start 10/31/18 at 09:00 Citalopram Hydrobromide (Celexa) 10 mg DAILY PO Last administered on 11/02/18 09:59; Admin Dose 10 MG; Start 10/31/18 at 09:00 Digoxin (Digoxin) 0.125 mg DAILY@1300 PO Last administered on 11/02/18 13:50; Admin Dose 0.125 MG; Start 10/31/18 at 13:00 Ferrous Sulfate (Ferrous Sulfate (Ec)) 325 mg BID PO Last administered on 11/02/18 09:59; Admin Dose 325 MG; Start 10/31/18 at 09:00 Pantoprazole (Protonix Tab) 40 mg BID@0600,1800 PO Last administered on 11/02/18 18:15; Admin Dose 40 MG; Start 10/31/18 at 09:00 Potassium Chloride (Micro-K) 8 meq DAILY PO Last administered on 11/02/18 13:49; Admin Dose 8 MEQ; Start 10/31/18 at 09:00 Fish Oil (Fish Oil) 1,000 mg TID PO Last administered on 11/02/18 13:49; Admin Dose 1,000 MG; Start 10/31/18 at 09:00 Levalbuterol (Xopenex Neb) 0.63 mg Q6H RESP THERAPY HHN Last administered on 11/02/18 14:01; Admin Dose 0.63 MG; Start 10/31/18 at 14:00 Tamsulosin HCl (Flomax) 0.4 mg HS PO Last administered on 11/01/18 21:47; Admin Dose 0.4 MG; Start 10/31/18 at 21:00 Bumetanide 2 mg/ Dextrose 25 ml @ 50 mls/hr BID DIURETICS IV Last administered on 11/02/18 18:15; Admin Dose 50 MLS/HR; Start 10/31/18 at 20:30 Miscellaneous Information Patients own medicat... BID@10,16 XX ; Start 11/02/18 at 16:00 GLORIA ARTIS MD Nov 02, 2018 19:14
[2018-11-02] MEDS: TAMSULOSIN (SR) 0.4 MG CAP PO SCH (21:45)
[2018-11-03] VITALS (7 sets, daily range): BP systolic 83–96; BP diastolic 50–61; PULSE 64–91; RESP 18–19
[2018-11-03] MEDS: LEVALBUTEROL (NEB) 0.63 MG/3 ML AMP HHN SCH ×2 (02:08→08:01)
[2018-11-03] MEDS: PANTOPRAZOLE (EC) 40 MG TAB PO SCH ×2 (05:47→18:37)
[2018-11-03] MEDS: BUMETANIDE 2 MG in DEXTROSE 5% 17 ML IV SCH (05:47)
[2018-11-03] MEDS: APIXABAN 5 MG TABLET PO SCH ×2 (09:43→20:55)
[2018-11-03] MEDS: CITALOPRAM 20 MG TAB PO SCH (09:44)
[2018-11-03] MEDS: FISH OIL 1,000 MG CAP PO SCH ×3 (09:44→20:55)
[2018-11-03] MEDS: POTASSIUM CHLORIDE (SR) 8 MEQ CAP PO SCH (09:44)
[2018-11-03] MEDS: FERROUS SULFATE (EC) 325 MG TAB PO SCH ×2 (09:44→20:55)
--- NOTE | 2018-11-03 11:23 | PN ---
Date/Time of Note Date/Time of Note DATE: 11/03/18 TIME: 11:22 Assessment/Plan VTE Prophylaxis Risk score (from [facility])>0 risk: 4 SCD applied (from [facility]): No SCD contraindicated: low risk/ambulating Pharmacological prophylaxis: LMWH Lines/Catheters IV Catheter Type (from [facility] Saline Lock Urinary Cath still in place: No Assessment/Plan Hospital Course Assessment and plan 1. Decompensated CHF, stable continue/adjust diuretics. 2. Valvular heart dz: Mod A Stenosis; Mod/ severe TR 3. History of Gi bleed/ esophagitis. 4. Chr A fib Eliquis vs asa 5. Chr hypertension 6. Chr CAD? 7. Chr ischemic cardiomyopathy. EF was 30, now up to 55% 8. Pulmonary hypertension? 9. Chr BPH 10. Chr anemia. 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 Subjective 11/02 no fever chest pain. Edema noted 11/03 low BP noted no diarrhea or GI bleed Objective: Vital signs stable blood pressure around 90/ 100 Physical exam No pallor JVD Regular, faint sm Mostly clear no tachypnea Benign less edema Result Diagram: 11/03/18 0440 11/03/18 0440 Results 24hrs Laboratory Tests Test 11/03/18 04:30 11/03/18 04:40 Phosphorus Level 3.4 Magnesium Level 1.9 White Blood Count 2.6 L Red Blood Count 2.06 L Hemoglobin 7.0 L Hematocrit 22.1 L Mean Corpuscular Volume 107.3 H Mean Corpuscular Hemoglobin 34.0 H Mean Corpuscular Hemoglobin Concent 31.7 L Red Cell Distribution Width 17.2 H Platelet Count 99 L Mean Platelet Volume 10.4 Immature Granulocytes % 0.400 Neutrophils % Segmented Neutrophils % (Manual) 71 Band Neutrophils % (Manual) 5 H Lymphocytes % Lymphocytes % (Manual) 19 Monocytes % Monocytes % (Manual) 2 Eosinophils % Eosinophils % (Manual) 1 Basophils % Basophils % (Manual) 2 Nucleated Red Blood Cells % 0.0 Immature Granulocytes # 0.010 Neutrophils # Neutrophils # (Manual) 1.8 Band Neutrophils # 0.1 Lymphocytes (Manual) 0.4 L Lymphocytes # Monocytes # Monocytes # (Manual) 0.0 L Eosinophils # Basophils # Basophils # (Manual) 0.0 Nucleated Red Blood Cells # Platelet Estimate DECREASED Polychromasia 1+ Anisocytosis 1+ Macrocytosis 1+ Ovalocytes 1+ Sodium Level 137 Potassium Level 3.5 Chloride Level 98 Carbon Dioxide Level 37 H Anion Gap 2 L Blood Urea Nitrogen 23 H Creatinine 0.81 Est Glomerular Filtrat Rate mL/min Glucose Level 87 Calcium Level 7.7 L Total Bilirubin 1.4 H Direct Bilirubin 0.00 Indirect Bilirubin 1.4 H Aspartate Amino Transf (AST/SGOT) 33 Alanine Aminotransferase (ALT/SGPT) 38 Alkaline Phosphatase 290 H Total Protein 5.2 L Albumin 2.3 L Globulin 2.90 Albumin/Globulin Ratio 0.79 Exam/Review of Systems Exam Vitals Vital Signs Date Temp Pulse Resp B/P (MAP) Pulse Ox O2 O2 Flow FiO2 Time Delivery Rate 11/03/18 68 20 97 21 08:03 11/03/18 98.2 92/52 (65) 07:54 11/02/18 Room Air 05:48 Intake and Output 11/02/18 11/02/18 11/03/18 1515:00 23:00 07:00 IntakeIntake Total 25 ml OutputOutput Total 500 ml 500 ml BalanceBalance -500 ml -475 ml Results Results 24hrs Laboratory Tests Test 11/03/18 04:30 11/03/18 04:40 Phosphorus Level 3.4 Magnesium Level 1.9 White Blood Count 2.6 L Red Blood Count 2.06 L Hemoglobin 7.0 L Hematocrit 22.1 L Mean Corpuscular Volume 107.3 H Mean Corpuscular Hemoglobin 34.0 H Mean Corpuscular Hemoglobin Concent 31.7 L Red Cell Distribution Width 17.2 H Platelet Count 99 L Mean Platelet Volume 10.4 Immature Granulocytes % 0.400 Neutrophils % Segmented Neutrophils % (Manual) 71 Band Neutrophils % (Manual) 5 H Lymphocytes % Lymphocytes % (Manual) 19 Monocytes % Monocytes % (Manual) 2 Eosinophils % Eosinophils % (Manual) 1 Basophils % Basophils % (Manual) 2 Nucleated Red Blood Cells % 0.0 Immature Granulocytes # 0.010 Neutrophils # Neutrophils # (Manual) 1.8 Band Neutrophils # 0.1 Lymphocytes (Manual) 0.4 L Lymphocytes # Monocytes # Monocytes # (Manual) 0.0 L Eosinophils # Basophils # Basophils # (Manual) 0.0 Nucleated Red Blood Cells # Platelet Estimate DECREASED Polychromasia 1+ Anisocytosis 1+ Macrocytosis 1+ Ovalocytes 1+ Sodium Level 137 Potassium Level 3.5 Chloride Level 98 Carbon Dioxide Level 37 H Anion Gap 2 L Blood Urea Nitrogen 23 H Creatinine 0.81 Est Glomerular Filtrat Rate mL/min Glucose Level 87 Calcium Level 7.7 L Total Bilirubin 1.4 H Direct Bilirubin 0.00 Indirect Bilirubin 1.4 H Aspartate Amino Transf (AST/SGOT) 33 Alanine Aminotransferase (ALT/SGPT) 38 Alkaline Phosphatase 290 H Total Protein 5.2 L Albumin 2.3 L Globulin 2.90 Albumin/Globulin Ratio 0.79 Medications Medication Current Medications IV Flush (NS 3 ml) 3 ml PER PROTOCOL IV ; Start 10/31/18 at 00:00 Ondansetron HCl (Zofran Inj) 4 mg Q6H PRN IV NAUSEA/VOMITING; Start 10/31/18 at 00:00 Nitroglycerin (Nitroglycerin (Sl Tab) 0.4 Mg) 1 tab Q5M PRN SL .CHEST PAIN; Start 10/31/18 at 00:00 Acetaminophen (Tylenol Tab) 650 mg Q6H PRN PO .PAIN 1-3 OR TEMP; Start 10/31/18 at 00:00 Docusate Sodium (Colace) 100 mg Q12H PRN PO .CONSTIPATION; Start 10/31/18 at 00:00 Bisacodyl (Dulcolax) 5 mg DAILY PRN PO .CONSTIPATION; Start 10/31/18 at 00:00 Apixaban (Eliquis) 2.5 mg BID PO Last administered on 11/03/18at 09:43; Admin Dose 2.5 MG; Start 10/31/18 at 09:00 Citalopram Hydrobromide (Celexa) 10 mg DAILY PO Last administered on 11/03/18 09:44; Admin Dose 10 MG; Start 10/31/18 at 09:00 Digoxin (Digoxin) 0.125 mg DAILY@1300 PO Last administered on 11/02/18at 13:50; Admin Dose 0.125 MG; Start 10/31/18 at 13:00 Ferrous Sulfate (Ferrous Sulfate (Ec)) 325 mg BID PO Last administered on 11/03/18 09:44; Admin Dose 325 MG; Start 10/31/18 at 09:00 Pantoprazole (Protonix Tab) 40 mg BID@0600,1800 PO Last administered on 11/03/18at 05:47; Admin Dose 40 MG; Start 10/31/18 at 09:00 Potassium Chloride (Micro-K) 8 meq DAILY PO Last administered on 11/03/18 09:44; Admin Dose 8 MEQ; Start 10/31/18 at 09:00 Fish Oil (Fish Oil) 1,000 mg TID PO Last administered on 11/03/18 09:44; Admin Dose 1,000 MG; Start 10/31/18 at 09:00 Levalbuterol (Xopenex Neb) 0.63 mg Q6H RESP THERAPY HHN Last administered on 11/03/18 08:01; Admin Dose 0.63 MG; Start 10/31/18 at 14:00 Tamsulosin HCl (Flomax) 0.4 mg HS PO Last administered on 11/02/18 21:45; Admin Dose 0.4 MG; Start 10/31/18 at 21:00 Bumetanide 2 mg/ Dextrose 25 ml @ 50 mls/hr BID DIURETICS IV Last administered on 11/02/18 18:15; Admin Dose 50 MLS/HR; Start 10/31/18 at 20:30 Miscellaneous Information Patients own medicat... BID@10,16 XX ; Start 11/02/18 at 16:00 MALINI SALDANA MD Nov 03, 2018 11:23
[2018-11-03] MEDS: LEVALBUTEROL (NEB) 0.63 MG/3 ML AMP HHN PRN (13:56)
[2018-11-03] MEDS: DIGOXIN 0.125 MG TAB PO SCH (14:36)
--- NOTE | 2018-11-03 16:09 | CONS ---
Assessment/Plan Cardiology NYHA: III Heart Failure Type: Acute on Chronic Heart Failure Type: Diastolic Assessment/Plan Hospital Course (Demo Recall) Acute on chronic diastolic heart failure: EF 35% 02/25 but now 55% 10/27 on my read. Decompensated on exam but improving with diuresis Recent GI bleed/anemia: Was transfused last admission. EGD 10/14/18 showed severe gastritis as well as mild esophagitis and hiatal hernia but no active bleeding. Eliquis was restarted as outpt chronic afib: Rates controlled. 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 Detailed Summary Additional Comments 14 point review of systems without changes. Exam/Review of Systems Vital Signs Vitals Vital Signs Date Temp Pulse Resp B/P (MAP) Pulse Ox O2 O2 Flow FiO2 Time Delivery Rate 11/03/18 65 18 94/50 (65) 14:28 11/03/18 98 21 13:56 11/03/18 98.2 07:54 11/02/18 Room Air 05:48 Intake and Output 11/02/18 11/02/18 11/03/18 1515:00 23:00 07:00 IntakeIntake Total 25 ml OutputOutput Total 500 ml 500 ml BalanceBalance -500 ml -475 ml Exam Exam Constitutional: alert, oriented Head: normocephalic, atraumatic Neck: jvd (10cm) Respiratory: crackles/rales; No clear to auscultation Cardiovascular: regular rate and rhythm, edema (3+), systolic murmur (2/6 KERRY) Neurological: nl mental status, nl speech Labs Result Diagram: 11/03/18 0440 11/03/18 0440 Results 24hrs Laboratory Tests Test 11/03/18 04:30 11/03/18 04:40 Phosphorus Level 3.4 Magnesium Level 1.9 White Blood Count 2.6 L Red Blood Count 2.06 L Hemoglobin 7.0 L Hematocrit 22.1 L Mean Corpuscular Volume 107.3 H Mean Corpuscular Hemoglobin 34.0 H Mean Corpuscular Hemoglobin Concent 31.7 L Red Cell Distribution Width 17.2 H Platelet Count 99 L Mean Platelet Volume 10.4 Immature Granulocytes % 0.400 Neutrophils % Segmented Neutrophils % (Manual) 71 Band Neutrophils % (Manual) 5 H Lymphocytes % Lymphocytes % (Manual) 19 Monocytes % Monocytes % (Manual) 2 Eosinophils % Eosinophils % (Manual) 1 Basophils % Basophils % (Manual) 2 Nucleated Red Blood Cells % 0.0 Immature Granulocytes # 0.010 Neutrophils # Neutrophils # (Manual) 1.8 Band Neutrophils # 0.1 Lymphocytes (Manual) 0.4 L Lymphocytes # Monocytes # Monocytes # (Manual) 0.0 L Eosinophils # Basophils # Basophils # (Manual) 0.0 Nucleated Red Blood Cells # Platelet Estimate DECREASED Polychromasia 1+ Anisocytosis 1+ Macrocytosis 1+ Ovalocytes 1+ Sodium Level 137 Potassium Level 3.5 Chloride Level 98 Carbon Dioxide Level 37 H Anion Gap 2 L Blood Urea Nitrogen 23 H Creatinine 0.81 Est Glomerular Filtrat Rate mL/min Glucose Level 87 Calcium Level 7.7 L Total Bilirubin 1.4 H Direct Bilirubin 0.00 Indirect Bilirubin 1.4 H Aspartate Amino Transf (AST/SGOT) 33 Alanine Aminotransferase (ALT/SGPT) 38 Alkaline Phosphatase 290 H Total Protein 5.2 L Albumin 2.3 L Globulin 2.90 Albumin/Globulin Ratio 0.79 Medications Medications Current Medications IV Flush (NS 3 ml) 3 ml PER PROTOCOL IV ; Start 10/31/18 at 00:00 Ondansetron HCl (Zofran Inj) 4 mg Q6H PRN IV NAUSEA/VOMITING; Start 10/31/18 at 00:00 Nitroglycerin (Nitroglycerin (Sl Tab) 0.4 Mg) 1 tab Q5M PRN SL .CHEST PAIN; Start 10/31/18 at 00:00 Acetaminophen (Tylenol Tab) 650 mg Q6H PRN PO .PAIN 1-3 OR TEMP; Start 10/31/18 at 00:00 Docusate Sodium (Colace) 100 mg Q12H PRN PO .CONSTIPATION; Start 10/31/18 at 00:00 Bisacodyl (Dulcolax) 5 mg DAILY PRN PO .CONSTIPATION; Start 10/31/18 at 00:00 Apixaban (Eliquis) 2.5 mg BID PO Last administered on 11/03/18 09:43; Admin Dose 2.5 MG; Start 10/31/18 at 09:00 Citalopram Hydrobromide (Celexa) 10 mg DAILY PO Last administered on 11/03/18 09:44; Admin Dose 10 MG; Start 10/31/18 at 09:00 Digoxin (Digoxin) 0.125 mg DAILY@1300 PO Last administered on 11/03/18 14:36; Admin Dose 0.125 MG; Start 10/31/18 at 13:00 Ferrous Sulfate (Ferrous Sulfate (Ec)) 325 mg BID PO Last administered on 11/03/18 09:44; Admin Dose 325 MG; Start 10/31/18 at 09:00 Pantoprazole (Protonix Tab) 40 mg BID@0600,1800 PO Last administered on 11/03/18 05:47; Admin Dose 40 MG; Start 10/31/18 at 09:00 Potassium Chloride (Micro-K) 8 meq DAILY PO Last administered on 11/03/18 09:44; Admin Dose 8 MEQ; Start 10/31/18 at 09:00 Fish Oil (Fish Oil) 1,000 mg TID PO Last administered on 11/03/18 14:36; Admin Dose 1,000 MG; Start 10/31/18 at 09:00 Tamsulosin HCl (Flomax) 0.4 mg HS PO Last administered on 11/02/18 21:45; Admin Dose 0.4 MG; Start 10/31/18 at 21:00 Miscellaneous Information Patients own medicat... BID@10,16 XX ; Start 11/02/18 at 16:00 Levalbuterol (Xopenex Neb) 0.63 mg Q2H RESP THERAPY PRN HHN WHEEZING AND RESP DISTRESS Last administered on 11/03/18 13:56; Admin Dose 0.63 MG; Start 11/03/18 at 11:30 Bumetanide (Bumex) 0.5 mg DAILY PO ; Start 11/04/18 at 09:00 GLORIA ARTIS MD Nov 03, 2018 16:09
[2018-11-03] MEDS: TAMSULOSIN (SR) 0.4 MG CAP PO SCH (20:54)
[2018-11-04 01:44] VITALS: BP 99/54; PULSE 77; RESP 18
[2018-11-04] MEDS: PANTOPRAZOLE (EC) 40 MG TAB PO SCH ×2 (05:58→18:01)
[2018-11-04 08:05] VITALS: BP 90/56; PULSE 81; RESP 18
[2018-11-04] MEDS: CITALOPRAM 20 MG TAB PO SCH (08:32)
[2018-11-04] MEDS: APIXABAN 5 MG TABLET PO SCH ×2 (08:33→21:26)
[2018-11-04] MEDS: POTASSIUM CHLORIDE (SR) 8 MEQ CAP PO SCH (08:33)
[2018-11-04] MEDS: FISH OIL 1,000 MG CAP PO SCH ×3 (08:33→21:26)
[2018-11-04] MEDS: FERROUS SULFATE (EC) 325 MG TAB PO SCH ×2 (08:33→21:26)
[2018-11-04] MEDS ORDERED: BUMETANIDE 0.5 MG TAB PO SCH (09:00)
--- NOTE | 2018-11-04 10:39 | CONS ---
Assessment/Plan Assessment/Plan Hospital Course (Demo Recall) Acute on chronic diastolic heart failure: EF 35% 02/25 but now 55% 10/27 on my read. Decompensated on exam but improved from admission Recent GI bleed/anemia: Was transfused last admission. EGD 10/14/18 showed severe gastritis as well as mild esophagitis and hiatal hernia but no active bleeding. Eliquis was restarted as outpt chronic afib: Rates controlled. 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 Still edematous Exam/Review of Systems Exam Vitals Vital Signs Date Temp Pulse Resp B/P (MAP) Pulse Ox O2 O2 Flow FiO2 Time Delivery Rate 11/04/18 98.3 81 18 90/56 (67) 97 Room Air 08:05 11/03/18 21 13:56 Intake and Output 11/03/18 11/03/18 11/04/18 1515:00 23:00 07:00 IntakeIntake Total 220 ml 340 ml 360 ml OutputOutput Total 1020 ml 700 ml 400 ml BalanceBalance -800 ml -360 ml -40 ml Constitutional: alert, oriented Psych: no complaints Head: normocephalic Neck: jvd (9cm) Respiratory: crackles/rales; No clear to auscultation Cardiovascular: regular rate and rhythm, edema (1-2+), systolic murmur Gastrointestinal: soft, non-tender; No distended Neurological: nl mental status, nl speech Results Result Diagram: 11/04/18 0452 11/04/18 0452 Results 24hrs Laboratory Tests Test 11/04/18 04:52 White Blood Count 3.0 L Red Blood Count 2.12 L Hemoglobin 7.2 L Hematocrit 23.1 L Mean Corpuscular Volume 109.0 H Mean Corpuscular Hemoglobin 34.0 H Mean Corpuscular Hemoglobin Concent 31.2 L Red Cell Distribution Width 17.2 H Platelet Count 117 L Mean Platelet Volume 10.5 H Immature Granulocytes % 0.700 H Neutrophils % 59.6 Lymphocytes % 26.6 Monocytes % 6.7 Eosinophils % 5.7 Basophils % 0.7 Nucleated Red Blood Cells % 0.0 Immature Granulocytes # 0.020 Neutrophils # 1.8 Lymphocytes # 0.8 Monocytes # 0.2 L Eosinophils # 0.2 Basophils # 0.0 Nucleated Red Blood Cells # 0.0 Sodium Level 137 Potassium Level 4.2 Chloride Level 98 Carbon Dioxide Level 36 H Anion Gap 3 L Blood Urea Nitrogen 25 H Creatinine 0.77 Est Glomerular Filtrat Rate mL/min Glucose Level 88 Calcium Level 7.9 L Magnesium Level 2.0 Total Bilirubin 1.5 H Direct Bilirubin 0.00 Indirect Bilirubin 1.5 H Aspartate Amino Transf (AST/SGOT) 30 Alanine Aminotransferase (ALT/SGPT) 38 Alkaline Phosphatase 283 H Total Protein 5.3 L Albumin 2.3 L Globulin 3.00 Albumin/Globulin Ratio 0.76 Thyroid Stimulating Hormone (TSH) 2.700 Digoxin Level 1.1 Medications Medication Current Medications IV Flush (NS 3 ml) 3 ml PER PROTOCOL IV ; Start 10/31/18 at 00:00 Ondansetron HCl (Zofran Inj) 4 mg Q6H PRN IV NAUSEA/VOMITING; Start 10/31/18 at 00:00 Nitroglycerin (Nitroglycerin (Sl Tab) 0.4 Mg) 1 tab Q5M PRN SL .CHEST PAIN; Start 10/31/18 at 00:00 Acetaminophen (Tylenol Tab) 650 mg Q6H PRN PO .PAIN 1-3 OR TEMP; Start 10/31/18 at 00:00 Docusate Sodium (Colace) 100 mg Q12H PRN PO .CONSTIPATION; Start 10/31/18 at 00:00 Bisacodyl (Dulcolax) 5 mg DAILY PRN PO .CONSTIPATION; Start 10/31/18 at 00:00 Apixaban (Eliquis) 2.5 mg BID PO Last administered on 11/04/18at 08:33; Admin Dose 2.5 MG; Start 10/31/18 at 09:00 Citalopram Hydrobromide (Celexa) 10 mg DAILY PO Last administered on 11/04/18 08:32; Admin Dose 10 MG; Start 10/31/18 at 09:00 Digoxin (Digoxin) 0.125 mg DAILY@1300 PO Last administered on 11/03/18 14:36; Admin Dose 0.125 MG; Start 10/31/18 at 13:00 Ferrous Sulfate (Ferrous Sulfate (Ec)) 325 mg BID PO Last administered on 11/04/18 08:33; Admin Dose 325 MG; Start 10/31/18 at 09:00 Pantoprazole (Protonix Tab) 40 mg BID@0600,1800 PO Last administered on 11/04/18 05:58; Admin Dose 40 MG; Start 10/31/18 at 09:00 Potassium Chloride (Micro-K) 8 meq DAILY PO Last administered on 11/04/18 08:33; Admin Dose 8 MEQ; Start 10/31/18 at 09:00 Fish Oil (Fish Oil) 1,000 mg TID PO Last administered on 11/04/18 08:33; Admin Dose 1,000 MG; Start 10/31/18 at 09:00 Tamsulosin HCl (Flomax) 0.4 mg HS PO Last administered on 11/03/18 20:54; Admin Dose 0.4 MG; Start 10/31/18 at 21:00 Miscellaneous Information Patients own medicat... BID@10,16 XX ; Start 11/02/18 at 16:00 Levalbuterol (Xopenex Neb) 0.63 mg Q2H RESP THERAPY PRN HHN WHEEZING AND RESP DISTRESS Last administered on 11/03/18 13:56; Admin Dose 0.63 MG; Start 11/03/18 at 11:30 Bumetanide (Bumex) 1 mg BID@06,18 PO ; Start 11/04/18 at 18:00 WOLFGANG SHERIDAN Nov 04, 2018 10:39
--- NOTE | 2018-11-04 12:07 | PN ---
Date/Time of Note Date/Time of Note DATE: 11/04/18 TIME: 12:06 Assessment/Plan VTE Prophylaxis Risk score (from [facility])>0 risk: 4 SCD applied (from [facility]): Yes SCD contraindicated: low risk/ambulating Pharmacological prophylaxis: LMWH Lines/Catheters IV Catheter Type (from [facility] Saline Lock Urinary Cath still in place: No Assessment/Plan Hospital Course Assessment and plan 1. Decompensated CHF, stable cont/adjust diuretics. Unfortunately therapy will be challenging due to low blood pressure 2. Valvular heart dz: Mod A Stenosis; Mod/ severe TR 3. History of Gi bleed/ esophagitis. 4. Chr A fib Eliquis vs asa 5. Chr hypertension 6. Chr CAD? 7. Chr ischemic cardiomyopathy. EF was 30, now up to 55% 8. Pulmonary hypertension? 9. Chr BPH 10. Chr anemia. 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 Subjective 11/02 no fever chest pain. Edema noted 11/03 low BP noted no diarrhea or GI bleed 11/04: Lethargic but no distress otherwise Objective: Vital signs stable blood pressure around 90 Physical exam No pallor/ JVD Regular, faint sm Mostly clear no tachypnea Benign More edema today Result Diagram: 11/04/18 0452 11/04/18 0452 Results 24hrs Laboratory Tests Test 11/04/18 04:52 White Blood Count 3.0 L Red Blood Count 2.12 L Hemoglobin 7.2 L Hematocrit 23.1 L Mean Corpuscular Volume 109.0 H Mean Corpuscular Hemoglobin 34.0 H Mean Corpuscular Hemoglobin Concent 31.2 L Red Cell Distribution Width 17.2 H Platelet Count 117 L Mean Platelet Volume 10.5 H Immature Granulocytes % 0.700 H Neutrophils % 59.6 Lymphocytes % 26.6 Monocytes % 6.7 Eosinophils % 5.7 Basophils % 0.7 Nucleated Red Blood Cells % 0.0 Immature Granulocytes # 0.020 Neutrophils # 1.8 Lymphocytes # 0.8 Monocytes # 0.2 L Eosinophils # 0.2 Basophils # 0.0 Nucleated Red Blood Cells # 0.0 Sodium Level 137 Potassium Level 4.2 Chloride Level 98 Carbon Dioxide Level 36 H Anion Gap 3 L Blood Urea Nitrogen 25 H Creatinine 0.77 Est Glomerular Filtrat Rate mL/min Glucose Level 88 Calcium Level 7.9 L Magnesium Level 2.0 Total Bilirubin 1.5 H Direct Bilirubin 0.00 Indirect Bilirubin 1.5 H Aspartate Amino Transf (AST/SGOT) 30 Alanine Aminotransferase (ALT/SGPT) 38 Alkaline Phosphatase 283 H Total Protein 5.3 L Albumin 2.3 L Globulin 3.00 Albumin/Globulin Ratio 0.76 Thyroid Stimulating Hormone (TSH) 2.700 Digoxin Level 1.1 Exam/Review of Systems Exam Vitals Vital Signs Date Temp Pulse Resp B/P (MAP) Pulse Ox O2 O2 Flow FiO2 Time Delivery Rate 11/04/18 98.3 81 18 90/56 (67) 97 Room Air 08:05 11/03/18 21 13:56 Intake and Output 11/03/18 11/03/18 11/04/18 1515:00 23:00 07:00 IntakeIntake Total 220 ml 340 ml 360 ml OutputOutput Total 1020 ml 700 ml 400 ml BalanceBalance -800 ml -360 ml -40 ml Results Results 24hrs Laboratory Tests Test 11/04/18 04:52 White Blood Count 3.0 L Red Blood Count 2.12 L Hemoglobin 7.2 L Hematocrit 23.1 L Mean Corpuscular Volume 109.0 H Mean Corpuscular Hemoglobin 34.0 H Mean Corpuscular Hemoglobin Concent 31.2 L Red Cell Distribution Width 17.2 H Platelet Count 117 L Mean Platelet Volume 10.5 H Immature Granulocytes % 0.700 H Neutrophils % 59.6 Lymphocytes % 26.6 Monocytes % 6.7 Eosinophils % 5.7 Basophils % 0.7 Nucleated Red Blood Cells % 0.0 Immature Granulocytes # 0.020 Neutrophils # 1.8 Lymphocytes # 0.8 Monocytes # 0.2 L Eosinophils # 0.2 Basophils # 0.0 Nucleated Red Blood Cells # 0.0 Sodium Level 137 Potassium Level 4.2 Chloride Level 98 Carbon Dioxide Level 36 H Anion Gap 3 L Blood Urea Nitrogen 25 H Creatinine 0.77 Est Glomerular Filtrat Rate mL/min Glucose Level 88 Calcium Level 7.9 L Magnesium Level 2.0 Total Bilirubin 1.5 H Direct Bilirubin 0.00 Indirect Bilirubin 1.5 H Aspartate Amino Transf (AST/SGOT) 30 Alanine Aminotransferase (ALT/SGPT) 38 Alkaline Phosphatase 283 H Total Protein 5.3 L Albumin 2.3 L Globulin 3.00 Albumin/Globulin Ratio 0.76 Thyroid Stimulating Hormone (TSH) 2.700 Digoxin Level 1.1 Medications Medication Current Medications IV Flush (NS 3 ml) 3 ml PER PROTOCOL IV ; Start 10/31/18 at 00:00 Ondansetron HCl (Zofran Inj) 4 mg Q6H PRN IV NAUSEA/VOMITING; Start 10/31/18 at 00:00 Nitroglycerin (Nitroglycerin (Sl Tab) 0.4 Mg) 1 tab Q5M PRN SL .CHEST PAIN; Start 10/31/18 at 00:00 Acetaminophen (Tylenol Tab) 650 mg Q6H PRN PO .PAIN 1-3 OR TEMP; Start 10/31/18 at 00:00 Docusate Sodium (Colace) 100 mg Q12H PRN PO .CONSTIPATION; Start 10/31/18 at 00:00 Bisacodyl (Dulcolax) 5 mg DAILY PRN PO .CONSTIPATION; Start 10/31/18 at 00:00 Apixaban (Eliquis) 2.5 mg BID PO Last administered on 11/04/18 08:33; Admin Dose 2.5 MG; Start 10/31/18 at 09:00 Citalopram Hydrobromide (Celexa) 10 mg DAILY PO Last administered on 11/04/18 08:32; Admin Dose 10 MG; Start 10/31/18 at 09:00 Digoxin (Digoxin) 0.125 mg DAILY@1300 PO Last administered on 11/03/18 14:36; Admin Dose 0.125 MG; Start 10/31/18 at 13:00 Ferrous Sulfate (Ferrous Sulfate (Ec)) 325 mg BID PO Last administered on 11/04/18 08:33; Admin Dose 325 MG; Start 10/31/18 at 09:00 Pantoprazole (Protonix Tab) 40 mg BID@0600,1800 PO Last administered on 11/04/18 05:58; Admin Dose 40 MG; Start 10/31/18 at 09:00 Potassium Chloride (Micro-K) 8 meq DAILY PO Last administered on 11/04/18 08:33; Admin Dose 8 MEQ; Start 10/31/18 at 09:00 Fish Oil (Fish Oil) 1,000 mg TID PO Last administered on 11/04/18 08:33; Admin Dose 1,000 MG; Start 10/31/18 at 09:00 Tamsulosin HCl (Flomax) 0.4 mg HS PO Last administered on 11/03/18at 20:54; Admin Dose 0.4 MG; Start 10/31/18 at 21:00 Miscellaneous Information Patients own medicat... BID@10,16 XX ; Start 11/02/18 at 16:00 Levalbuterol (Xopenex Neb) 0.63 mg Q2H RESP THERAPY PRN HHN WHEEZING AND RESP DISTRESS Last administered on 11/03/18at 13:56; Admin Dose 0.63 MG; Start 11/03/18 at 11:30 Bumetanide (Bumex) 1 mg BID@06,18 PO ; Start 11/04/18 at 18:00 MALINI SALDANA MD Nov 04, 2018 12:07
[2018-11-04] MEDS: DIGOXIN 0.125 MG TAB PO SCH (12:53)
[2018-11-04 15:51] VITALS: BP 95/55; PULSE 80; RESP 18
[2018-11-04] MEDS: BUMETANIDE 1 MG TAB PO SCH (18:01)
[2018-11-04 19:50] VITALS: BP 104/67; PULSE 75; RESP 18
[2018-11-04] MEDS: TAMSULOSIN (SR) 0.4 MG CAP PO SCH (21:27)
[2018-11-05 02:35] VITALS: BP 100/57; PULSE 79; RESP 18
[2018-11-05] MEDS: BUMETANIDE 1 MG TAB PO SCH ×2 (06:58→17:02)
[2018-11-05] MEDS: PANTOPRAZOLE (EC) 40 MG TAB PO SCH ×2 (06:58→17:02)
[2018-11-05 08:23] VITALS: BP 103/56; PULSE 69; RESP 18
[2018-11-05] MEDS: POTASSIUM CHLORIDE (SR) 8 MEQ CAP PO SCH ×2 (08:36→10:18)
[2018-11-05] MEDS: FERROUS SULFATE (EC) 325 MG TAB PO SCH ×2 (08:36→20:42)
[2018-11-05] MEDS: APIXABAN 5 MG TABLET PO SCH ×2 (08:37→20:42)
[2018-11-05] MEDS: CITALOPRAM 20 MG TAB PO SCH (08:37)
[2018-11-05] MEDS: FISH OIL 1,000 MG CAP PO SCH ×3 (08:37→20:42)
--- NOTE | 2018-11-05 09:43 | CONS ---
Assessment/Plan Assessment/Plan Hospital Course (Demo Recall) Acute on chronic diastolic heart failure: EF 35% 02/25 but now 55% 10/27 on my read. Improved with diuresis Recent GI bleed/anemia: Was transfused last admission. EGD 10/14/18 showed severe gastritis as well as mild esophagitis and hiatal hernia but no active bleeding. Eliquis was restarted as outpt chronic afib: Rates controlled. 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 Exam/Review of Systems Exam Vitals Vital Signs Date Temp Pulse Resp B/P (MAP) Pulse Ox O2 O2 Flow FiO2 Time Delivery Rate 11/05/18 98.4 69 18 103/56 98 08:23 (72) 11/04/18 Room Air 15:51 11/03/18 21 13:56 Intake and Output 11/04/18 11/04/18 11/05/18 1515:00 23:00 07:00 IntakeIntake Total 450 ml OutputOutput Total 100 ml 301 ml 200 ml BalanceBalance -100 ml 149 ml -200 ml Constitutional: alert, oriented Psych: no complaints Head: normocephalic Neck: jvd (9cm) Respiratory: crackles/rales; No clear to auscultation Cardiovascular: regular rate and rhythm, edema (1-2+) Neurological: nl mental status, nl speech Results Result Diagram: 11/05/18 0452 11/05/18 0452 Results 24hrs Laboratory Tests Test 11/05/18 04:52 White Blood Count 2.8 L Red Blood Count 2.15 L Hemoglobin 7.3 L Hematocrit 23.1 L Mean Corpuscular Volume 107.4 H Mean Corpuscular Hemoglobin 34.0 H Mean Corpuscular Hemoglobin Concent 31.6 L Red Cell Distribution Width 17.1 H Platelet Count 120 L Mean Platelet Volume 10.3 Immature Granulocytes % 0.400 Neutrophils % 61.3 Lymphocytes % 25.9 Monocytes % 5.3 Eosinophils % 6.7 Basophils % 0.4 Nucleated Red Blood Cells % 0.0 Immature Granulocytes # 0.010 Neutrophils # 1.7 Lymphocytes # 0.7 L Monocytes # 0.2 L Eosinophils # 0.2 Basophils # 0.0 Nucleated Red Blood Cells # 0.0 Sodium Level 138 Potassium Level 3.4 L Chloride Level 98 Carbon Dioxide Level 35 H Anion Gap 5 Blood Urea Nitrogen 22 H Creatinine 0.71 Est Glomerular Filtrat Rate mL/min Glucose Level 84 Calcium Level 7.6 L Magnesium Level 2.0 Medications Medication Current Medications IV Flush (NS 3 ml) 3 ml PER PROTOCOL IV ; Start 10/31/18 at 00:00 Ondansetron HCl (Zofran Inj) 4 mg Q6H PRN IV NAUSEA/VOMITING; Start 10/31/18 at 00:00 Nitroglycerin (Nitroglycerin (Sl Tab) 0.4 Mg) 1 tab Q5M PRN SL .CHEST PAIN; Start 10/31/18 at 00:00 Acetaminophen (Tylenol Tab) 650 mg Q6H PRN PO .PAIN 1-3 OR TEMP; Start 10/31/18 at 00:00 Docusate Sodium (Colace) 100 mg Q12H PRN PO .CONSTIPATION; Start 10/31/18 at 00:00 Bisacodyl (Dulcolax) 5 mg DAILY PRN PO .CONSTIPATION; Start 10/31/18 at 00:00 Apixaban (Eliquis) 2.5 mg BID PO Last administered on 11/05/18at 08:37; Admin Dose 2.5 MG; Start 10/31/18 at 09:00 Citalopram Hydrobromide (Celexa) 10 mg DAILY PO Last administered on 11/05/18at 08:37; Admin Dose 10 MG; Start 10/31/18 at 09:00 Digoxin (Digoxin) 0.125 mg DAILY@1300 PO Last administered on 11/04/18at 12:53; Admin Dose 0.125 MG; Start 10/31/18 at 13:00 Ferrous Sulfate (Ferrous Sulfate (Ec)) 325 mg BID PO Last administered on 11/05/18 08:36; Admin Dose 325 MG; Start 10/31/18 at 09:00 Pantoprazole (Protonix Tab) 40 mg BID@0600,1800 PO Last administered on 11/05/18 06:58; Admin Dose 40 MG; Start 10/31/18 at 09:00 Fish Oil (Fish Oil) 1,000 mg TID PO Last administered on 11/05/18 08:37; Admin Dose 1,000 MG; Start 10/31/18 at 09:00 Tamsulosin HCl (Flomax) 0.4 mg HS PO Last administered on 11/04/18 21:27; Admin Dose 0.4 MG; Start 10/31/18 at 21:00 Miscellaneous Information Patients own medicat... BID@10,16 XX ; Start 11/02/18 at 16:00 Levalbuterol (Xopenex Neb) 0.63 mg Q2H RESP THERAPY PRN HHN WHEEZING AND RESP DISTRESS Last administered on 11/03/18at 13:56; Admin Dose 0.63 MG; Start at 11:30 Bumetanide (Bumex) 1 mg BID@06,18 PO Last administered on 11/05/18 06:58; Admin Dose 1 MG; Start 11/04/18 at 18:00 Potassium Chloride (Micro-K) 16 meq DAILY PO ; Start 11/06/18 at 09:00; Status UNV Potassium Chloride (Potassium Chloride Pwd/Soln) 40 meq ONCE ONCE PO ; Start 11/05/18 at 10:00; Stop 11/05/18 at 10:01; Status UNV WOLFGANG SHERIDAN Nov 05, 2018 09:43
[2018-11-05] MEDS ORDERED: POTASSIUM CHLORIDE 20 MEQ POWDER FOR ORAL SOLN PO ONE (10:00)
[2018-11-05] MEDS: DIGOXIN 0.125 MG TAB PO SCH (12:22)
--- NOTE | 2018-11-05 12:33 | PN ---
Date/Time of Note Date/Time of Note DATE: 11/05/18 TIME: 12:31 Assessment/Plan VTE Prophylaxis [place] [facility] [place] risk: 3 SCD applied ([place] [facility] [place] Yes SCD contraindicated: low risk/ambulating Pharmacological prophylaxis: LMWH Lines/Catheters [facility] Saline Lock Urinary Cath still in place: No Assessment/Plan Hospital Course Assessment and plan 1. Decompensated CHF, stable cont/adjust diuretics. Unfortunately therapy will be challenging due to low bp 2. Valvular heart dz: Mod A Stenosis; Mod/ severe TR 3. History of Gi bleed/ esophagitis. 4. Chr A fib Eliquis vs asa 5. Chr hypertension 6. Chr CAD? 7. Chr ischemic cardiomyopathy. EF was 30, now up to 55% 8. Pulmonary hypertension? 9. Chr BPH 10. Chr anemia. 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 12. Deconditioning, probably home tomorrow with home health safety PT and DME if needed. 13. Anemia stable observe S: 11/02 no fever chest pain. Edema noted 11/03 low BP noted no diarrhea or GI bleed 11/04: Lethargic but no distress otherwise 11/05: Edema tad bit better. No chest pain fever. Ambulated a little bit. O: Vital signs stable blood pressure around 90 PE No pallor/ JVD Regular, faint sm Mostly clear no tachypnea Benign Less edema today Result Diagram: 11/05/18 0452 11/05/18 0452 Results 24hrs Laboratory Tests Test 11/05/18 04:52 White Blood Count 2.8 L Red Blood Count 2.15 L Hemoglobin 7.3 L Hematocrit 23.1 L Mean Corpuscular Volume 107.4 H Mean Corpuscular Hemoglobin 34.0 H Mean Corpuscular Hemoglobin Concent 31.6 L Red Cell Distribution Width 17.1 H Platelet Count 120 L Mean Platelet Volume 10.3 Immature Granulocytes % 0.400 Neutrophils % 61.3 Lymphocytes % 25.9 Monocytes % 5.3 Eosinophils % 6.7 Basophils % 0.4 Nucleated Red Blood Cells % 0.0 Immature Granulocytes # 0.010 Neutrophils # 1.7 Lymphocytes # 0.7 L Monocytes # 0.2 L Eosinophils # 0.2 Basophils # 0.0 Nucleated Red Blood Cells # 0.0 Sodium Level 138 Potassium Level 3.4 L Chloride Level 98 Carbon Dioxide Level 35 H Anion Gap 5 Blood Urea Nitrogen 22 H Creatinine 0.71 Est Glomerular Filtrat Rate mL/min Glucose Level 84 Calcium Level 7.6 L Magnesium Level 2.0 Exam/Review of Systems Exam Vitals Vital Signs Date Temp Pulse Resp B/P (MAP) Pulse Ox O2 O2 Flow FiO2 Time Delivery Rate 11/05/18 98.4 69 18 103/56 98 08:23 (72) 11/04/18 Room Air 15:51 11/03/18 21 13:56 Intake and Output 11/04/18 11/04/18 11/05/18 1515:00 23:00 07:00 IntakeIntake Total 450 ml OutputOutput Total 100 ml 301 ml 200 ml BalanceBalance -100 ml 149 ml -200 ml Results Results 24hrs Laboratory Tests Test 11/05/18 04:52 White Blood Count 2.8 L Red Blood Count 2.15 L Hemoglobin 7.3 L Hematocrit 23.1 L Mean Corpuscular Volume 107.4 H Mean Corpuscular Hemoglobin 34.0 H Mean Corpuscular Hemoglobin Concent 31.6 L Red Cell Distribution Width 17.1 H Platelet Count 120 L Mean Platelet Volume 10.3 Immature Granulocytes % 0.400 Neutrophils % 61.3 Lymphocytes % 25.9 Monocytes % 5.3 Eosinophils % 6.7 Basophils % 0.4 Nucleated Red Blood Cells % 0.0 Immature Granulocytes # 0.010 Neutrophils # 1.7 Lymphocytes # 0.7 L Monocytes # 0.2 L Eosinophils # 0.2 Basophils # 0.0 Nucleated Red Blood Cells # 0.0 Sodium Level 138 Potassium Level 3.4 L Chloride Level 98 Carbon Dioxide Level 35 H Anion Gap 5 Blood Urea Nitrogen 22 H Creatinine 0.71 Est Glomerular Filtrat Rate mL/min Glucose Level 84 Calcium Level 7.6 L Magnesium Level 2.0 Medications Medication Current Medications IV Flush (NS 3 ml) 3 ml PER PROTOCOL IV ; Start 10/31/18 at 00:00 Ondansetron HCl (Zofran Inj) 4 mg Q6H PRN IV NAUSEA/VOMITING; Start 10/31/18 at 00:00 Nitroglycerin (Nitroglycerin (Sl Tab) 0.4 Mg) 1 tab Q5M PRN SL .CHEST PAIN; Start 10/31/18 at 00:00 Acetaminophen (Tylenol Tab) 650 mg Q6H PRN PO .PAIN 1-3 OR TEMP; Start 10/31/18 at 00:00 Docusate Sodium (Colace) 100 mg Q12H PRN PO .CONSTIPATION; Start 10/31/18 at 00:00 Bisacodyl (Dulcolax) 5 mg DAILY PRN PO .CONSTIPATION; Start 10/31/18 at 00:00 Apixaban (Eliquis) 2.5 mg BID PO Last administered on 11/05/18 08:37; Admin Dose 2.5 MG; Start 10/31/18 at 09:00 Citalopram Hydrobromide (Celexa) 10 mg DAILY PO Last administered on 11/05/18 08:37; Admin Dose 10 MG; Start 10/31/18 at 09:00 Digoxin (Digoxin) 0.125 mg DAILY@1300 PO Last administered on 11/05/18 12:22; Admin Dose 0.125 MG; Start 10/31/18 at 13:00 Ferrous Sulfate (Ferrous Sulfate (Ec)) 325 mg BID PO Last administered on 11/05/18 08:36; Admin Dose 325 MG; Start 10/31/18 at 09:00 Pantoprazole (Protonix Tab) 40 mg BID@0600,1800 PO Last administered on 11/05/18 06:58; Admin Dose 40 MG; Start 10/31/18 at 09:00 Fish Oil (Fish Oil) 1,000 mg TID PO Last administered on 11/05/18 12:21; Admin Dose 1,000 MG; Start 10/31/18 at 09:00 Tamsulosin HCl (Flomax) 0.4 mg HS PO Last administered on 11/04/18 21:27; Admin Dose 0.4 MG; Start 10/31/18 at 21:00 Miscellaneous Information Patients own medicat... BID@10,16 XX ; Start 11/02/18 at 16:00 Levalbuterol (Xopenex Neb) 0.63 mg Q2H RESP THERAPY PRN HHN WHEEZING AND RESP DISTRESS Last administered on 11/03/18 13:56; Admin Dose 0.63 MG; Start 11/03/18 at 11:30 Bumetanide (Bumex) 1 mg BID@06,18 PO Last administered on 11/05/18 06:58; Admin Dose 1 MG; Start 11/04/18 at 18:00 Potassium Chloride (Micro-K) 16 meq DAILY PO ; Start 11/05/18 at 10:18 MALINI SALDANA MD Nov 05, 2018 12:32
[2018-11-05] MEDS: SENNA/DOCUSATE NA (8.6MG/50MG) TAB PO SCH (13:00)
[2018-11-05 15:23] VITALS: BP 103/57; PULSE 77; RESP 18
[2018-11-05] MEDS: THIAMINE 100 MG TAB PO SCH (17:02)
[2018-11-05 19:50] VITALS: BP 119/66; PULSE 97; RESP 20
[2018-11-05] MEDS: TAMSULOSIN (SR) 0.4 MG CAP PO SCH (20:43)
[2018-11-06 02:20] VITALS: BP 94/56; PULSE 81; RESP 20
[2018-11-06] MEDS: PANTOPRAZOLE (EC) 40 MG TAB PO SCH ×2 (06:44→18:08)
[2018-11-06] MEDS: BUMETANIDE 1 MG TAB PO SCH ×2 (06:44→18:08)
[2018-11-06 08:30] VITALS: BP 107/65; PULSE 82; RESP 18
[2018-11-06] MEDS: FERROUS SULFATE (EC) 325 MG TAB PO SCH ×2 (09:00→20:51)
[2018-11-06] MEDS: FISH OIL 1,000 MG CAP PO SCH ×3 (09:00→20:51)
[2018-11-06] MEDS: CITALOPRAM 20 MG TAB PO SCH (09:00)
[2018-11-06] MEDS: THIAMINE 100 MG TAB PO SCH (09:01)
[2018-11-06] MEDS: SENNA/DOCUSATE NA (8.6MG/50MG) TAB PO SCH (09:01)
[2018-11-06] MEDS: APIXABAN 5 MG TABLET PO SCH ×2 (09:01→20:51)
[2018-11-06] MEDS: POTASSIUM CHLORIDE (SR) 8 MEQ CAP PO SCH (09:02)
--- NOTE | 2018-11-06 12:37 | PN ---
Date/Time of Note Date/Time of Note DATE: 11/06/18 TIME: 12:35 Assessment/Plan VTE Prophylaxis Risk score (from [facility] [place])>0 risk: 4 SCD applied (from [facility] [place]): No SCD contraindicated: low risk/ambulating Pharmacological prophylaxis: LMWH Lines/Catheters IV Catheter Type (from [facility]): Saline Lock Urinary Cath still in place: No Assessment/Plan Hospital Course Assessment and plan 1. Decompensated CHF, stable cont present therapy [no mack i; dig level stable]. Unfortunately therapy will be challenging due to low bp 2. Valvular heart dz: Mod A Stenosis; Mod/ severe TR 3. History of Gi bleed/ esophagitis. 4. Chr A fib Eliquis vs asa 5. Chr hypertension 6. Chr CAD? 7. Chr ischemic cardiomyopathy. EF was 30, now up to 55% 8. Pulmonary hypertension? 9. Chr BPH 10. Chr anemia. 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 12. Deconditioning, probably home tomorrow w home health/ safety/ PT/ and DME if needed. 13. Anemia stable observe S: 11/02 no fever chest pain. Edema noted 11/03 low BP noted no diarrhea or GI bleed 11/04: Lethargic but no distress otherwise 11/05: Edema tad bit better. No chest pain fever. Ambulated a little bit. 11/06: Somewhat more stable. Occasional delirium. No distress. Probably home tomorrow if ambulation improved need to set up home needs O: Vital signs stable blood pressure around 90/ 105 PE No pallor/ JVD Regular, faint sm Mostly clear no tachypnea Benign Less edema today Result Diagram: 11/06/18 0453 11/06/18 0453 Results 24hrs Laboratory Tests Test 11/06/18 04:53 White Blood Count 2.7 L Red Blood Count 2.18 L Hemoglobin 7.4 L Hematocrit 23.5 L Mean Corpuscular Volume 107.8 H Mean Corpuscular Hemoglobin 33.9 H Mean Corpuscular Hemoglobin Concent 31.5 L Red Cell Distribution Width 16.9 H Platelet Count 115 L Mean Platelet Volume 10.3 Immature Granulocytes % 0.700 H Neutrophils % 58.6 Lymphocytes % 27.7 Monocytes % 6.3 Eosinophils % 6.3 Basophils % 0.4 Nucleated Red Blood Cells % 0.0 Immature Granulocytes # 0.020 Neutrophils # 1.6 Lymphocytes # 0.8 Monocytes # 0.2 L Eosinophils # 0.2 Basophils # 0.0 Nucleated Red Blood Cells # 0.0 Sodium Level 137 Potassium Level 3.7 Chloride Level 98 Carbon Dioxide Level 36 H Anion Gap 3 L Blood Urea Nitrogen 19 Creatinine 0.72 Est Glomerular Filtrat Rate mL/min Glucose Level 85 Calcium Level 7.8 L Magnesium Level 2.0 Digoxin Level 1.2 Exam/Review of Systems Exam Vitals Vital Signs Date Temp Pulse Resp B/P (MAP) Pulse Ox O2 O2 Flow FiO2 Time Delivery Rate 11/06/18 98.3 82 18 107/65 95 08:30 (79) 11/06/18 Room Air 02:20 11/03/18 21 13:56 Intake and Output 11/05/18 11/05/18 11/06/18 1515:00 23:00 07:00 IntakeIntake Total 600 ml 200 ml OutputOutput Total 250 ml 450 ml 480 ml BalanceBalance 350 ml -250 ml -480 ml Results Results 24hrs Laboratory Tests Test 11/06/18 04:53 White Blood Count 2.7 L Red Blood Count 2.18 L Hemoglobin 7.4 L Hematocrit 23.5 L Mean Corpuscular Volume 107.8 H Mean Corpuscular Hemoglobin 33.9 H Mean Corpuscular Hemoglobin Concent 31.5 L Red Cell Distribution Width 16.9 H Platelet Count 115 L Mean Platelet Volume 10.3 Immature Granulocytes % 0.700 H Neutrophils % 58.6 Lymphocytes % 27.7 Monocytes % 6.3 Eosinophils % 6.3 Basophils % 0.4 Nucleated Red Blood Cells % 0.0 Immature Granulocytes # 0.020 Neutrophils # 1.6 Lymphocytes # 0.8 Monocytes # 0.2 L Eosinophils # 0.2 Basophils # 0.0 Nucleated Red Blood Cells # 0.0 Sodium Level 137 Potassium Level 3.7 Chloride Level 98 Carbon Dioxide Level 36 H Anion Gap 3 L Blood Urea Nitrogen 19 Creatinine 0.72 Est Glomerular Filtrat Rate mL/min Glucose Level 85 Calcium Level 7.8 L Magnesium Level 2.0 Digoxin Level 1.2 Medications Medication Current Medications IV Flush (NS 3 ml) 3 ml PER PROTOCOL IV ; Start 10/31/18 at 00:00 Ondansetron HCl (Zofran Inj) 4 mg Q6H PRN IV NAUSEA/VOMITING; Start 10/31/18 at 00:00 Nitroglycerin (Nitroglycerin (Sl Tab) 0.4 Mg) 1 tab Q5M PRN SL .CHEST PAIN; Start 10/31/18 at 00:00 Acetaminophen (Tylenol Tab) 650 mg Q6H PRN PO .PAIN 1-3 OR TEMP; Start 10/31/18 at 00:00 Docusate Sodium (Colace) 100 mg Q12H PRN PO .CONSTIPATION; Start 10/31/18 at 00:00 Bisacodyl (Dulcolax) 5 mg DAILY PRN PO .CONSTIPATION; Start 10/31/18 at 00:00 Apixaban (Eliquis) 2.5 mg BID PO Last administered on 11/06/18 09:01; Admin Dose 2.5 MG; Start 10/31/18 at 09:00 Citalopram Hydrobromide (Celexa) 10 mg DAILY PO Last administered on 11/06/18 09:00; Admin Dose 10 MG; Start 10/31/18 at 09:00 Digoxin (Digoxin) 0.125 mg DAILY@1300 PO Last administered on 11/05/18 12:22; Admin Dose 0.125 MG; Start 10/31/18 at 13:00 Ferrous Sulfate (Ferrous Sulfate (Ec)) 325 mg BID PO Last administered on 11/06/18 09:00; Admin Dose 325 MG; Start 10/31/18 at 09:00 Pantoprazole (Protonix Tab) 40 mg BID@0600,1800 PO Last administered on 11/06/18 06:44; Admin Dose 40 MG; Start 10/31/18 at 09:00 Fish Oil (Fish Oil) 1,000 mg TID PO Last administered on 11/06/18 09:00; Admin Dose 1,000 MG; Start 10/31/18 at 09:00 Tamsulosin HCl (Flomax) 0.4 mg HS PO Last administered on 11/05/18 20:43; Admin Dose 0.4 MG; Start 10/31/18 at 21:00 Miscellaneous Information Patients own medicat... BID@10,16 XX ; Start 11/02/18 at 16:00 Levalbuterol (Xopenex Neb) 0.63 mg Q2H RESP THERAPY PRN HHN WHEEZING AND RESP DISTRESS Last administered on 11/03/18 13:56; Admin Dose 0.63 MG; Start 11/03/18 at 11:30 Bumetanide (Bumex) 1 mg BID@06,18 PO Last administered on 11/06/18 06:44; Admin Dose 1 MG; Start 11/04/18 at 18:00 Potassium Chloride (Micro-K) 16 meq DAILY PO Last administered on 11/06/18 09:02; Admin Dose 16 MEQ; Start 11/05/18 at 10:18 Senna/Docusate Sodium (Senokot-S) 2 tab DAILY PO Last administered on 11/06/18 09:01; Admin Dose 2 TAB; Start 11/05/18 at 13:00 Thiamine HCl (Vitamin B1) 100 mg DAILY PO Last administered on 11/06/18 09:01; Admin Dose 100 MG; Start 11/05/18 at 13:00 MALINI SALDANA MD Nov 06, 2018 12:37
--- NOTE | 2018-11-06 12:43 | CONS ---
Assessment/Plan Assessment/Plan Hospital Course (Demo Recall) Acute on chronic diastolic heart failure: EF 35% 02/25 but now 55% 10/27 on my read. Now euvolemic Recent GI bleed/anemia: Was transfused last admission. EGD 10/14/18 showed severe gastritis as well as mild esophagitis and hiatal hernia but no active bleeding. Eliquis was restarted as outpt chronic afib: Rates controlled. 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 Exam/Review of Systems Exam Vitals Vital Signs Date Temp Pulse Resp B/P (MAP) Pulse Ox O2 O2 Flow FiO2 Time Delivery Rate 11/06/18 98.3 82 18 107/65 95 08:30 (79) 11/06/18 Room Air 02:20 11/03/18 21 13:56 Intake and Output 11/05/18 11/05/18 11/06/18 1515:00 23:00 07:00 IntakeIntake Total 600 ml 200 ml OutputOutput Total 250 ml 450 ml 480 ml BalanceBalance 350 ml -250 ml -480 ml Constitutional: alert, oriented Neck: jvd (8cm) Respiratory: crackles/rales; No clear to auscultation Cardiovascular: regular rate and rhythm, edema (trace) Gastrointestinal: soft, non-tender; No distended Neurological: nl mental status, nl speech Results Result Diagram: 11/06/18 0453 11/06/18 0453 Results 24hrs Laboratory Tests Test 11/06/18 04:53 White Blood Count 2.7 L Red Blood Count 2.18 L Hemoglobin 7.4 L Hematocrit 23.5 L Mean Corpuscular Volume 107.8 H Mean Corpuscular Hemoglobin 33.9 H Mean Corpuscular Hemoglobin Concent 31.5 L Red Cell Distribution Width 16.9 H Platelet Count 115 L Mean Platelet Volume 10.3 Immature Granulocytes % 0.700 H Neutrophils % 58.6 Lymphocytes % 27.7 Monocytes % 6.3 Eosinophils % 6.3 Basophils % 0.4 Nucleated Red Blood Cells % 0.0 Immature Granulocytes # 0.020 Neutrophils # 1.6 Lymphocytes # 0.8 Monocytes # 0.2 L Eosinophils # 0.2 Basophils # 0.0 Nucleated Red Blood Cells # 0.0 Sodium Level 137 Potassium Level 3.7 Chloride Level 98 Carbon Dioxide Level 36 H Anion Gap 3 L Blood Urea Nitrogen 19 Creatinine 0.72 Est Glomerular Filtrat Rate mL/min Glucose Level 85 Calcium Level 7.8 L Magnesium Level 2.0 Digoxin Level 1.2 Medications Medication Current Medications IV Flush (NS 3 ml) 3 ml PER PROTOCOL IV ; Start 10/31/18 at 00:00 Ondansetron HCl (Zofran Inj) 4 mg Q6H PRN IV NAUSEA/VOMITING; Start 10/31/18 at 00:00 Nitroglycerin (Nitroglycerin (Sl Tab) 0.4 Mg) 1 tab Q5M PRN SL .CHEST PAIN; Start 10/31/18 at 00:00 Acetaminophen (Tylenol Tab) 650 mg Q6H PRN PO .PAIN 1-3 OR TEMP; Start 10/31/18 at 00:00 Docusate Sodium (Colace) 100 mg Q12H PRN PO .CONSTIPATION; Start 10/31/18 at 00:00 Bisacodyl (Dulcolax) 5 mg DAILY PRN PO .CONSTIPATION; Start 10/31/18 at 00:00 Apixaban (Eliquis) 2.5 mg BID PO Last administered on 11/06/18at 09:01; Admin Dose 2.5 MG; Start 10/31/18 at 09:00 Citalopram Hydrobromide (Celexa) 10 mg DAILY PO Last administered on 11/06/18at 09:00; Admin Dose 10 MG; Start 10/31/18 at 09:00 Digoxin (Digoxin) 0.125 mg DAILY@1300 PO Last administered on 11/05/18at 12:22; Admin Dose 0.125 MG; Start 10/31/18 at 13:00 Ferrous Sulfate (Ferrous Sulfate (Ec)) 325 mg BID PO Last administered on 11/06/18 09:00; Admin Dose 325 MG; Start 10/31/18 at 09:00 Pantoprazole (Protonix Tab) 40 mg BID@0600,1800 PO Last administered on 11/06/18 06:44; Admin Dose 40 MG; Start 10/31/18 at 09:00 Fish Oil (Fish Oil) 1,000 mg TID PO Last administered on 11/06/18 09:00; Admin Dose 1,000 MG; Start 10/31/18 at 09:00 Tamsulosin HCl (Flomax) 0.4 mg HS PO Last administered on 11/05/18 20:43; Admin Dose 0.4 MG; Start 10/31/18 at 21:00 Miscellaneous Information Patients own medicat... BID@10,16 XX ; Start 11/02/18 at 16:00 Levalbuterol (Xopenex Neb) 0.63 mg Q2H RESP THERAPY PRN HHN WHEEZING AND RESP DISTRESS Last administered on 11/03/18 13:56; Admin Dose 0.63 MG; Start 11/03/18 at 11:30 Bumetanide (Bumex) 1 mg BID@06,18 PO Last administered on 11/06/18 06:44; Admin Dose 1 MG; Start 11/04/18 at 18:00 Potassium Chloride (Micro-K) 16 meq DAILY PO Last administered on 11/06/18 09:02; Admin Dose 16 MEQ; Start 11/05/18 at 10:18 Senna/Docusate Sodium (Senokot-S) 2 tab DAILY PO Last administered on 11/06/18 09:01; Admin Dose 2 TAB; Start 11/05/18 at 13:00 Thiamine HCl (Vitamin B1) 100 mg DAILY PO Last administered on 11/06/18 09:01; Admin Dose 100 MG; Start 11/05/18 at 13:00 WOLFGANG SHERIDAN Nov 06, 2018 12:43
[2018-11-06] MEDS: DIGOXIN 0.125 MG TAB PO SCH (13:35)
[2018-11-06 15:06] VITALS: BP 108/74; PULSE 71; RESP 18
[2018-11-06 20:09] VITALS: BP 100/63; PULSE 78; RESP 20
[2018-11-06] MEDS: TAMSULOSIN (SR) 0.4 MG CAP PO SCH (20:51)
[2018-11-06] MEDS: LEVALBUTEROL (NEB) 0.63 MG/3 ML AMP HHN PRN (22:19)
[2018-11-07 01:43] VITALS: BP 98/57; PULSE 74; RESP 17
[2018-11-07] MEDS: PANTOPRAZOLE (EC) 40 MG TAB PO SCH ×2 (06:53→17:55)
[2018-11-07] MEDS: BUMETANIDE 1 MG TAB PO SCH ×2 (06:53→17:54)
[2018-11-07 07:46] VITALS: BP 96/60; PULSE 72; RESP 18
[2018-11-07] MEDS: SENNA/DOCUSATE NA (8.6MG/50MG) TAB PO SCH (09:00)
[2018-11-07] MEDS: POTASSIUM CHLORIDE (SR) 8 MEQ CAP PO SCH (09:37)
[2018-11-07] MEDS: FISH OIL 1,000 MG CAP PO SCH ×3 (09:38→21:48)
[2018-11-07] MEDS: CITALOPRAM 20 MG TAB PO SCH (09:38)
[2018-11-07] MEDS: FERROUS SULFATE (EC) 325 MG TAB PO SCH ×2 (09:39→21:48)
[2018-11-07] MEDS: APIXABAN 5 MG TABLET PO SCH ×2 (09:41→21:48)
--- NOTE | 2018-11-07 13:01 | PDOCDIS ---
Discharge Instructions CONDITION [id number] Patient Condition: [id number] Stable HOME CARE INSTRUCTIONS: [id number] Diet Instructions: [id number] Low Fat /Cholesterol ACTIVITY: [id number] Activity Restrictions: [id number] Slowly Increase Activity Rest between Activity Avoid heavy lifting Do not operate Machinery Avoid Heavy Housework Keep Limb Elevated [id number] Bathing Restrictions: [id number] Shower FOLLOW UP/APPOINTMENTS Follow-up Plan appt primary 1wk Cardio & Nephrology 1-2wk Lab- do every Friday for 2-3wks MALINI SALDANA MD Nov 07, 2018 13:01
[2018-11-07] MEDS ORDERED: POTA8TAB2 PO (13:04)
[2018-11-07] MEDS ORDERED: TAMS-14 PO (13:04)
[2018-11-07] MEDS ORDERED: ACET325T33 PO (13:04)
[2018-11-07] MEDS ORDERED: THIA100T56 PO (13:04)
[2018-11-07] MEDS ORDERED: SENOKOTS PO (13:04)
[2018-11-07] MEDS ORDERED: BUME1TAB PO (13:04)
--- NOTE | 2018-11-07 13:18 | DS ---
Date/Time of Note Date/Time of Note DATE: 11/07/18 TIME: 13:15 Discharge Summary Admission/Discharge Info Admit Date/Time Oct 30, 2018 at 23:49 Discharge Date/Time Patient Condition: Stable Consults Dr Rainey Procedures Labs Venous ultrasound no DVT digoxin 1.1 yesterday. Chest x-ray improved fluid Hx of Present Illness Evaluated managed for fluid overload Hospital Course Hospitalist coverage/hospital course Assessment and plan 1. 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 stable cont present therapy [no mack i/bb; dig level stable]. Unfortunately management/ stability will be challenging due to low bp. High chance of recurrent admission. Consider outpatient palliative care. Prognosis stable but progressingly worse. Given instructions to check BMP digoxin level every Friday for the next 3 weeks. 2. Valvular heart dz: Mod A Stenosis; Mod/ severe TR 3. History of Gi bleed/ esophagitis. 4. Chr A fib Eliquis 5. Chr hypertension 6. Chr CAD? 7. Chr ischemic cardiomyopathy. EF was 30, now up to 55% 8. Pulmonary hypertension? 9. Chr BPH 10. Chr anemia. 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 12. Deconditioning, home w home health/ safety/ PT/ and DME if needed. Instructed not to drive/etc. 13. Anemia stable observe S: 11/02 no fever chest pain. Edema noted 11/03 low BP noted no diarrhea or GI bleed 11/04: Lethargic but no distress otherwise 11/05: Edema tad bit better. No chest pain fever. Ambulated a little bit. 11/06: Somewhat more stable. Occasional delirium. No distress. Probably home tomorrow if ambulation improved need to set up home needs 11/08 no distress fever cough or edema. Fatigue. Participating with PT. O: Vital signs stable blood pressure around 90/ 105 PE No pallor/ JVD Regular, faint sm Mostly clear no tachypnea Benign Less edema today Home Meds Active Scripts Thiamine* (Vitamin B-1*) 100 Mg Tablet, 100 MG PO DAILY for 30 Days, #30 TAB Prov:MALINI SALDANA MD 11/07/18 Sennosides/Docusate Sodium (Dok Plus Tablet) 1 Each Tablet, 2 TAB PO DAILY for 5 Days, #10 TAB 2 Refills Prov:MALINI SALDANA MD 11/07/18 Potassium Chloride* (Klor-Con*) 8 Meq Tablet.sa, 16 MEQ PO DAILY for 10 Days, #10 Prov:MALINI SALDANA MD 11/07/18 Bumetanide* (Bumetanide*) 1 Mg Tablet, 1 MG PO BID@06,18 for 10 Days, #20 TAB Prov:MALINI SALDANA MD 11/07/18 Acetaminophen* (Tylenol*) 325 Mg Tablet, 650 MG PO Q6H PRN for .PAIN 1-3 OR TEMP for 1 Day, TAB Prov:MALINI SALDANA MD 11/07/18 Tamsulosin Hcl* (Flomax*) 0.4 Mg Cap.er.24h, 0.4 MG PO HS for 14 Days, #14 CAP Prov:MALINI SALDANA MD 11/07/18 Pantoprazole* (Protonix*) 40 Mg Tablet.dr, 40 MG PO BID, #60 TAB Prov:BENTLEY CERVANTES NP 10/17/18 Ferrous Sulfate* (Ferrous Sulfate*) 325 Mg Tabec, 325 MG PO BID for 30 Days, #60 TAB Prov:JEIMY EWING 02/25/18 Reported Medications Citalopram Hydrobromide* (Citalopram Hydrobromide*) 10 Mg Tablet, 10 MG PO DAILY, #30 TAB 10/30/18 Cholecalciferol* (Vitamin D3*) 1,000 Unit Tablet, 1000 UNIT PO DAILY, TAB 10/30/18 Apixaban* (Eliquis*) 2.5 Mg Tablet, 2.5 MG PO BID, TAB 02/15/18 Redwood-3 Fatty Acids/Fish Oil (Fish Oil 1,000 mg Softgel) 1 Each Capsule, 1 EACH PO TID, CAP 02/15/18 Digoxin* (Lanoxin*) 0.125 Mg Tablet, 0.125 MG PO DAILY, TAB 04/19/16 Discontinued Scripts Bumetanide* (Bumetanide*) 1 Mg Tablet, 1 MG PO DAILY, #30 TAB Prov:BENTLEY CERVANTES NP 10/17/18 Potassium Chloride* (Potassium Chloride*) 8 Meq Capsule.er, 8 MEQ PO DAILY for 30 Days, #30 CAP Prov:JEIMY EWING 02/25/18 Follow-up Plan appt primary 1wk Cardio & Nephrology 1-2wk Lab- do every Friday for 2-3wks Primary Care Provider Care Physician No Primary Time spent on discharge: > 30 minutes MALINI SALDANA MD Nov 07, 2018 13:18
[2018-11-07 13:43] VITALS: BP 101/64; PULSE 76; RESP 16
[2018-11-07] MEDS: DIGOXIN 0.125 MG TAB PO SCH (14:20)
[2018-11-07] MEDS: THIAMINE 100 MG TAB PO SCH (17:54)
[2018-11-07 20:15] VITALS: BP 111/55; PULSE 99; RESP 18
[2018-11-07] MEDS: TAMSULOSIN (SR) 0.4 MG CAP PO SCH (21:48)
[2018-11-08 02:30] VITALS: BP 104/59; PULSE 88; RESP 18
[2018-11-08] MEDS: BUMETANIDE 1 MG TAB PO SCH (05:29)
[2018-11-08] MEDS: PANTOPRAZOLE (EC) 40 MG TAB PO SCH (05:29)
[2018-11-08 08:12] VITALS: BP 100/58; PULSE 75; RESP 18
[2018-11-08] MEDS: THIAMINE 100 MG TAB PO SCH (08:55)
[2018-11-08] MEDS: POTASSIUM CHLORIDE (SR) 8 MEQ CAP PO SCH (08:55)
[2018-11-08] MEDS: SENNA/DOCUSATE NA (8.6MG/50MG) TAB PO SCH (08:56)
[2018-11-08] MEDS: FERROUS SULFATE (EC) 325 MG TAB PO SCH (08:57)
[2018-11-08] MEDS: CITALOPRAM 20 MG TAB PO SCH (08:57)
[2018-11-08] MEDS: FISH OIL 1,000 MG CAP PO SCH ×2 (08:57→13:21)
[2018-11-08] MEDS: APIXABAN 5 MG TABLET PO SCH (08:58)
--- NOTE | 2018-11-08 13:13 | PN ---
Date/Time of Note Date/Time of Note DATE: 11/08/18 TIME: 13:11 Assessment/Plan VTE Prophylaxis Risk score (from Ns)>0 risk: 3 SCD applied (from Ns): No SCD contraindicated: low risk/ambulating Pharmacological prophylaxis: LMWH Lines/Catheters IV C[facility]ter Type (from [facility] [place] [facility] Urinary Cath still in place: No Assessment/Plan Hospital Course Hospitalist coverage/hospital course Assessment and plan 1. Ac/ chr decompensated CHF. stable cont present therapy [no mack i/bb; dig level stable]. Unfortunately management/ stability will be challenging due to low bp. High chance of recurrent admission. Consider outpt palliative care. Prognosis stable, but progressively worse. Given instructions to check BMP digoxin level Q Mon for the next 3 weeks. 2. Valvular heart dz: Mod A Stenosis; Mod/ severe TR 3. History of Gi bleed/ esophagitis. 4. Chr A fib Eliquis 5. Chr hypertension 6. Chr CAD? 7. Chr ischemic cardiomyopathy. EF was 30, now up to 55% 8. Pulmonary hypertension? 9. Chr BPH 10. Chr anemia. 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 12. Deconditioning, home w home health/ safety/ PT/ and DME if needed. Instructed not to drive/etc. 13. Anemia stable observe S: 11/02 no fever chest pain. Edema noted 11/03 low BP noted no diarrhea or GI bleed 11/04: Lethargic but no distress otherwise 11/05: Edema tad bit better. No chest pain fever. Ambulated a little bit. 11/06: Somewhat more stable. Occasional delirium. No distress. Probably home tomorrow if ambulation improved need to set up home needs 11/07 no distress fever cough or edema. Fatigue. Participating with PT. 11/08 no distress O: Vital signs stable blood pressure around 105 PE No pallor/ JVD Regular, faint sm Mostly clear no tachypnea Benign Less edema today Result Diagram: 11/06/18 0453 11/06/18 0453 Exam/Review of Systems Exam Vitals Vital Signs Date Temp Pulse Resp B/P (MAP) Pulse Ox O2 O2 Flow FiO2 Time Delivery Rate 11/08/18 98.0 75 18 100/58 94 Room Air 08:12 (72) 11/06/18 21 22:21 Intake and Output 11/07/18 11/07/18 11/08/18 1515:00 23:00 07:00 IntakeIntake Total 120 ml 300 ml OutputOutput Total 400 ml 500 ml BalanceBalance -280 ml -200 ml Medications Medication Current Medications IV Flush (NS 3 ml) 3 ml PER PROTOCOL IV ; Start 10/31/18 at 00:00 Ondansetron HCl (Zofran Inj) 4 mg Q6H PRN IV NAUSEA/VOMITING; Start 10/31/18 at 00:00 Nitroglycerin (Nitroglycerin (Sl Tab) 0.4 Mg) 1 tab Q5M PRN SL .CHEST PAIN; Start 10/31/18 at 00:00 Acetaminophen (Tylenol Tab) 650 mg Q6H PRN PO .PAIN 1-3 OR TEMP; Start 10/31/18 at 00:00 Docusate Sodium (Colace) 100 mg Q12H PRN PO .CONSTIPATION; Start 10/31/18 at 00:00 Bisacodyl (Dulcolax) 5 mg DAILY PRN PO .CONSTIPATION; Start 10/31/18 at 00:00 Apixaban (Eliquis) 2.5 mg BID PO Last administered on 11/08/18at 08:58; Admin Dose 2.5 MG; Start 10/31/18 at 09:00 Citalopram Hydrobromide (Celexa) 10 mg DAILY PO Last administered on 11/08/18 08:57; Admin Dose 10 MG; Start 10/31/18 at 09:00 Digoxin (Digoxin) 0.125 mg DAILY@1300 PO Last administered on 11/07/18at 14:20; Admin Dose 0.125 MG; Start 10/31/18 at 13:00 Ferrous Sulfate (Ferrous Sulfate (Ec)) 325 mg BID PO Last administered on 11/08/18 08:57; Admin Dose 325 MG; Start 10/31/18 at 09:00 Pantoprazole (Protonix Tab) 40 mg BID@0600,1800 PO Last administered on 11/08/18at 05:29; Admin Dose 40 MG; Start 10/31/18 at 09:00 Fish Oil (Fish Oil) 1,000 mg TID PO Last administered on 11/08/18at 08:57; Admin Dose 1,000 MG; Start 10/31/18 at 09:00 Tamsulosin HCl (Flomax) 0.4 mg HS PO Last administered on 11/07/18 21:48; Admin Dose 0.4 MG; Start 10/31/18 at 21:00 Miscellaneous Information Patients own medicat... BID@10,16 XX ; Start 11/02/18 at 16:00 Levalbuterol (Xopenex Neb) 0.63 mg Q2H RESP THERAPY PRN HHN WHEEZING AND RESP DISTRESS Last administered on 11/06/18 22:19; Admin Dose 0.63 MG; Start 11/03/18 at 11:30 Bumetanide (Bumex) 1 mg BID@06,18 PO Last administered on 11/08/18 05:29; Admin Dose 1 MG; Start 11/04/18 at 18:00 Potassium Chloride (Micro-K) 16 meq DAILY PO Last administered on 11/08/18 08:55; Admin Dose 16 MEQ; Start 11/05/18 at 10:18 Senna/Docusate Sodium (Senokot-S) 2 tab DAILY PO Last administered on 11/08/18 08:56; Admin Dose 2 TAB; Start 11/05/18 at 13:00 Thiamine HCl (Vitamin B1) 100 mg DAILY PO Last administered on 11/08/18 08:55; Admin Dose 100 MG; Start 11/05/18 at 13:00 MALINI SALDANA MD Nov 08, 2018 13:13
[2018-11-08] MEDS: DIGOXIN 0.125 MG TAB PO SCH (13:23)
== END 2018-11-08 15:20 | disposition home health service (06) | DRG 293 ==
LOC: E/R 18:10 → TEL 23:49 → MS1 11-02 04:33
PROVIDERS: ADMIT Family Medicine; ATTEND Internal Medicine
DX: I11.0 Hypertensive heart disease with heart failure (principal); I50.33 Acute on chronic diastolic (congestive) heart failure; I25.5 Ischemic cardiomyopathy; I35.0 Nonrheumatic aortic (valve) stenosis; I07.1 Rheumatic tricuspid insufficiency; K74.60 Unspecified cirrhosis of liver; D53.9 Nutritional anemia, unspecified; I48.2 Chronic atrial fibrillation; I27.20 Pulmonary hypertension, unspecified; I25.10 Atherosclerotic heart disease of native coronary artery without angina pectoris; K29.70 Gastritis, unspecified, without bleeding; N40.0 Benign prostatic hyperplasia without lower urinary tract symptoms; Z79.01 Long term (current) use of anticoagulants
CPT/HCPCS: 36415; 71045; 80048; 80053; 80162; 81001; 83735; 83880; 84100; 84443; 84484; 85025; 85610; 85730; 93005; 93306; 93970; 94640; 94664; 96374; 97116; 97162; 97530

== ENCOUNTER 2019-03-31 18:30 | Inpatient (IN) | payer OTHER ==
[~2019-03-31] VITALS: Ht 165.1 cm; Wt 68.5 kg
[~2019-03-31 18:30] MED LIST changes: +ACET325T33 PO; -AMOX1TAB10 PO; +CARAS PO; +CHOL100062 PO; -CHOL400T10 PO; +CITA10TA5 PO; +DIGO250T PO; -FINA5TAB4 PO; -IPRA3AMP29 INHALATION; +LACT1CAP28 PO; -LEVO500T10 PO; -MED4DP PO; +MEMA10TA PO; +METR-122 PO; -NEBU-27 MC; -OMEG-157 PO; +POTA20PA23 PO; -POTA8CAP PO; +POTA8TAB2 PO; +SENOKOTS PO; +THIA100T56 PO
[2019-03-31] MEDS ORDERED: SOD CHLORIDE 0.9% 500 ML IV ONE ×2 (20:30→23:00)
[2019-03-31] MEDS: POTASSIUM CHLORIDE 100 ML IVPB SCH ×2 (20:40→22:25)
[2019-03-31] MEDS ORDERED: NACL 0.9% 3 ML SYG IV SCH (22:00)
[2019-03-31] MEDS ORDERED: ACETAMINOPHEN 325 MG TAB PO PRN (22:00)
[2019-03-31] MEDS ORDERED: ONDANSETRON 4 MG INJ IV PRN (22:00)
[2019-03-31] MEDS ORDERED: MAGNESIUM SULFATE 3 GM in DEXTROSE 5% 100 ML IVPB ONE (22:00)
[2019-03-31] MEDS ORDERED: DOCUSATE SODIUM 100 MG CAP PO PRN (22:00)
[2019-03-31] MEDS ORDERED: BISACODYL (EC) 5 MG TAB PO PRN (22:00)
[2019-03-31] MEDS ORDERED: SOD CHLORIDE 0.9% 1,000 ML IV SCH (22:00)
[2019-03-31] MEDS: ALBUMIN HUMAN 25% 100 ML IV SCH ×2 (22:58→23:53)
[2019-04-01] VITALS (7 sets, daily range): BP systolic 97–123; BP diastolic 55–59; PULSE 52–66; RESP 18–19; Ht 165.1 cm; Wt 68.5 kg
[2019-04-01] MEDS: CEFTRIAXONE 1 GM/50 ML (PMX) 50 ML IVPB SCH ×2 (01:11→22:43)
[2019-04-01] MEDS: POTASSIUM CHLORIDE 100 ML IVPB SCH (01:11)
[2019-04-01] MEDS ORDERED: ATROPINE 1 MG/10 ML SYRINGE IV PRN (05:30)
[2019-04-01] MEDS: PIPER-TAZO 3.375 GM IV (PMX) 100 ML IVPB SCH ×4 (06:07→23:51)
[2019-04-01] MEDS ORDERED: DIGOXIN IMMUNE FAB (OVINE) 0.5 VIAL in SOD CHLORIDE 0.9% 50 ML IVPB ONE (07:00)
[2019-04-01] MEDS: MEMANTINE 10 MG TAB PO SCH ×2 (09:00→20:57)
[2019-04-01] MEDS: FERROUS SULFATE (EC) 325 MG TAB PO SCH ×2 (09:00→20:57)
[2019-04-01] MEDS: FISH OIL 1,000 MG CAP PO SCH ×3 (09:00→20:57)
[2019-04-01] MEDS: CHOLECALCIFEROL 1,000 UNIT TAB PO SCH (09:00)
[2019-04-01] MEDS: POTASSIUM CHLORIDE 20 MEQ POWDER FOR ORAL SOLN PO SCH (11:02)
[2019-04-01] MEDS ORDERED: LIDOCAINE 1% (MPF) 5 ML VIAL ONE (12:35)
[2019-04-01] MEDS: PANTOPRAZOLE (EC) 40 MG TAB PO SCH (17:34)
[2019-04-01] MEDS: TAMSULOSIN (SR) 0.4 MG CAP PO SCH (20:57)
[2019-04-01] MEDS ORDERED: DIGOXIN IMMUNE FAB (OVINE) 1 VIAL in SOD CHLORIDE 0.9% 50 ML IVPB ONE (23:30)
[2019-04-02] VITALS: BP 109/59; PULSE 67; RESP 18
[2019-04-02 04:00] VITALS: BP 102/64; PULSE 60; RESP 18
[2019-04-02] MEDS: PANTOPRAZOLE (EC) 40 MG TAB PO SCH ×2 (05:36→17:35)
[2019-04-02] MEDS: PIPER-TAZO 3.375 GM IV (PMX) 100 ML IVPB SCH ×4 (05:36→23:52)
[2019-04-02] MEDS ORDERED: POTASSIUM CHLORIDE (SR) 20 MEQ TAB PO STA (07:01)
[2019-04-02 07:40] VITALS: BP 102/60; PULSE 66; RESP 18
[2019-04-02] MEDS: POTASSIUM CHLORIDE 100 ML IVPB SCH ×2 (08:01→15:57)
[2019-04-02] MEDS: MEMANTINE 10 MG TAB PO SCH ×2 (09:13→20:07)
[2019-04-02] MEDS: FERROUS SULFATE (EC) 325 MG TAB PO SCH ×2 (09:13→20:07)
[2019-04-02] MEDS: CHOLECALCIFEROL 1,000 UNIT TAB PO SCH (09:13)
[2019-04-02] MEDS: POTASSIUM CHLORIDE 20 MEQ POWDER FOR ORAL SOLN PO SCH (09:13)
[2019-04-02] MEDS: FISH OIL 1,000 MG CAP PO SCH ×3 (09:13→20:09)
[2019-04-02 11:43] VITALS: BP 107/55; PULSE 66; RESP 18
[2019-04-02 15:53] VITALS: BP 103/58; PULSE 58; RESP 18
[2019-04-02] MEDS: BUMETANIDE 1 MG TAB PO SCH (17:35)
[2019-04-02 20:00] VITALS: BP 104/56; PULSE 66; RESP 19
[2019-04-02] MEDS: APIXABAN 5 MG TABLET PO SCH (20:06)
[2019-04-02] MEDS: TAMSULOSIN (SR) 0.4 MG CAP PO SCH (20:07)
[2019-04-02] MEDS: CEFTRIAXONE 1 GM/50 ML (PMX) 50 ML IVPB SCH (22:49)
[2019-04-03] VITALS: BP 108/60; PULSE 64; RESP 20
[2019-04-03 04:00] VITALS: BP 102/63; PULSE 68; RESP 19
[2019-04-03] MEDS: PIPER-TAZO 3.375 GM IV (PMX) 100 ML IVPB SCH ×4 (05:21→23:38)
[2019-04-03] MEDS: BUMETANIDE 1 MG TAB PO SCH ×2 (05:21→17:33)
[2019-04-03] MEDS: PANTOPRAZOLE (EC) 40 MG TAB PO SCH ×2 (05:21→17:33)
[2019-04-03 07:23] VITALS: BP 99/55; PULSE 62; RESP 18
[2019-04-03] MEDS: APIXABAN 5 MG TABLET PO SCH ×2 (09:30→20:34)
[2019-04-03] MEDS: FISH OIL 1,000 MG CAP PO SCH ×3 (09:30→20:34)
[2019-04-03] MEDS: FERROUS SULFATE (EC) 325 MG TAB PO SCH ×2 (09:30→20:34)
[2019-04-03] MEDS: CHOLECALCIFEROL 1,000 UNIT TAB PO SCH (09:30)
[2019-04-03] MEDS: POTASSIUM CHLORIDE 20 MEQ POWDER FOR ORAL SOLN PO SCH (09:30)
[2019-04-03] MEDS: MEMANTINE 10 MG TAB PO SCH ×2 (09:31→20:34)
[2019-04-03 11:54] VITALS: BP 106/66; PULSE 65; RESP 18
[2019-04-03 15:35] VITALS: BP 104/56; PULSE 74; RESP 18
[2019-04-03 20:00] VITALS: BP 106/53; PULSE 72; RESP 18
[2019-04-03] MEDS: TAMSULOSIN (SR) 0.4 MG CAP PO SCH (20:34)
[2019-04-03] MEDS: LOPERAMIDE 2 MG CAP PO SCH (22:00)
[2019-04-03] MEDS: CEFTRIAXONE 1 GM/50 ML (PMX) 50 ML IVPB SCH (23:38)
[2019-04-04] VITALS (7 sets, daily range): BP systolic 90–117; BP diastolic 50–72; PULSE 55–98; RESP 18–20
[2019-04-04] MEDS: BUMETANIDE 1 MG TAB PO SCH ×2 (06:13→17:30)
[2019-04-04] MEDS: PIPER-TAZO 3.375 GM IV (PMX) 100 ML IVPB SCH ×3 (06:13→17:30)
[2019-04-04] MEDS: PANTOPRAZOLE (EC) 40 MG TAB PO SCH ×2 (06:14→17:30)
[2019-04-04] MEDS: POTASSIUM CHLORIDE 20 MEQ POWDER FOR ORAL SOLN PO SCH (09:01)
[2019-04-04] MEDS: FISH OIL 1,000 MG CAP PO SCH ×3 (09:02→20:22)
[2019-04-04] MEDS: APIXABAN 5 MG TABLET PO SCH ×2 (09:02→20:22)
[2019-04-04] MEDS: CHOLECALCIFEROL 1,000 UNIT TAB PO SCH (09:02)
[2019-04-04] MEDS: LOPERAMIDE 2 MG CAP PO SCH ×2 (09:02→20:22)
[2019-04-04] MEDS: FERROUS SULFATE (EC) 325 MG TAB PO SCH ×2 (09:03→20:22)
[2019-04-04] MEDS: MEMANTINE 10 MG TAB PO SCH ×2 (09:03→20:22)
[2019-04-04] MEDS ORDERED: SOD CHLORIDE 0.9% 250 ML IV* ONE (13:31)
[2019-04-04] MEDS ORDERED: HYOSCYAMINE 0.125 MG SUBL TAB PO SCH (14:00)
[2019-04-04] MEDS: HYOSCYAMINE 0.125 MG SUBL TAB PO SCH ×2 (17:30→22:34)
[2019-04-04] MEDS: LACTOBACILLUS RHAMNOSUS CAP PO SCH (20:22)
[2019-04-04] MEDS: TAMSULOSIN (SR) 0.4 MG CAP PO SCH (20:22)
[2019-04-04] MEDS: CEFTRIAXONE 1 GM/50 ML (PMX) 50 ML IVPB SCH (22:34)
[2019-04-05] MEDS: PIPER-TAZO 3.375 GM IV (PMX) 100 ML IVPB SCH ×4 (00:07→18:33)
[2019-04-05 03:55] VITALS: BP 113/67; PULSE 74; RESP 18
[2019-04-05] MEDS: BUMETANIDE 1 MG TAB PO SCH ×2 (06:21→18:33)
[2019-04-05] MEDS: HYOSCYAMINE 0.125 MG SUBL TAB PO SCH ×3 (06:21→21:58)
[2019-04-05] MEDS: PANTOPRAZOLE (EC) 40 MG TAB PO SCH ×2 (06:21→18:33)
[2019-04-05 07:44] VITALS: BP 102/58; PULSE 69; RESP 20
[2019-04-05] MEDS: LACTOBACILLUS RHAMNOSUS CAP PO SCH ×2 (09:09→21:59)
[2019-04-05] MEDS: MEMANTINE 10 MG TAB PO SCH ×2 (09:09→21:58)
[2019-04-05] MEDS: FERROUS SULFATE (EC) 325 MG TAB PO SCH ×2 (09:09→21:58)
[2019-04-05] MEDS: CALCIUM POLYCARBOPHIL 625 MG TAB PO SCH (09:09)
[2019-04-05] MEDS: POTASSIUM CHLORIDE 20 MEQ POWDER FOR ORAL SOLN PO SCH (09:09)
[2019-04-05] MEDS: CHOLECALCIFEROL 1,000 UNIT TAB PO SCH (09:09)
[2019-04-05] MEDS: FISH OIL 1,000 MG CAP PO SCH ×3 (09:09→21:58)
[2019-04-05] MEDS: LOPERAMIDE 2 MG CAP PO SCH ×2 (09:10→21:58)
[2019-04-05] MEDS: APIXABAN 5 MG TABLET PO SCH (09:10)
[2019-04-05] MEDS ORDERED: ALBUTEROL/IPRATROPIUM (NEB) 3 ML AMP HHN PRN (10:00)
[2019-04-05 11:36] VITALS: BP 107/61; PULSE 69; RESP 20
[2019-04-05] MEDS: ALBUTEROL/IPRATROPIUM (NEB) 3 ML AMP HHN SCH ×2 (15:25→19:29)
[2019-04-05 16:20] VITALS: BP 111/59; PULSE 60; RESP 20
[2019-04-05] MEDS: SUCRALFATE (100 MG/ML) 10ML CUP PO SCH ×2 (18:33→21:58)
[2019-04-05 20:00] VITALS: BP 107/65; PULSE 77; RESP 19
[2019-04-05] MEDS: TAMSULOSIN (SR) 0.4 MG CAP PO SCH (21:58)
[2019-04-06] VITALS: BP 101/61; PULSE 93; RESP 19
[2019-04-06] MEDS: PIPER-TAZO 3.375 GM IV (PMX) 100 ML IVPB SCH ×3 (00:05→12:52)
[2019-04-06 04:00] VITALS: BP 100/60; PULSE 66; RESP 20
[2019-04-06] MEDS: BUMETANIDE 1 MG TAB PO SCH ×2 (05:22→17:26)
[2019-04-06] MEDS: PANTOPRAZOLE (EC) 40 MG TAB PO SCH ×2 (06:25→17:26)
[2019-04-06] MEDS: HYOSCYAMINE 0.125 MG SUBL TAB PO SCH (06:25)
[2019-04-06 07:30] VITALS: BP 100/55; PULSE 72; RESP 20
[2019-04-06] MEDS: CALCIUM POLYCARBOPHIL 625 MG TAB PO SCH (08:31)
[2019-04-06] MEDS: FISH OIL 1,000 MG CAP PO SCH ×3 (08:31→20:41)
[2019-04-06] MEDS: LOPERAMIDE 2 MG CAP PO SCH (08:31)
[2019-04-06] MEDS: CHOLECALCIFEROL 1,000 UNIT TAB PO SCH (08:32)
[2019-04-06] MEDS: SUCRALFATE (100 MG/ML) 10ML CUP PO SCH ×4 (08:32→20:41)
[2019-04-06] MEDS: FERROUS SULFATE (EC) 325 MG TAB PO SCH ×2 (08:32→20:41)
[2019-04-06] MEDS: LACTOBACILLUS RHAMNOSUS CAP PO SCH ×2 (08:32→20:41)
[2019-04-06] MEDS: POTASSIUM CHLORIDE 20 MEQ POWDER FOR ORAL SOLN PO SCH (08:32)
[2019-04-06] MEDS: MEMANTINE 10 MG TAB PO SCH ×2 (08:32→20:42)
[2019-04-06] MEDS: ALBUTEROL/IPRATROPIUM (NEB) 3 ML AMP HHN SCH ×3 (09:15→19:37)
[2019-04-06 11:38] VITALS: BP 113/58; PULSE 63; RESP 20
[2019-04-06] MEDS ORDERED: LOPERAMIDE 2 MG CAP PO PRN (12:00)
[2019-04-06] MEDS ORDERED: HYOSCYAMINE 0.125 MG SUBL TAB PO PRN (12:00)
[2019-04-06] MEDS ORDERED: BISACODYL (EC) 5 MG TAB PO ONE (12:00)
[2019-04-06 15:44] VITALS: BP 100/64; PULSE 68; RESP 18
[2019-04-06] MEDS ORDERED: MAGNESIUM CITRATE 300 ML BTL PO ONE (17:30)
[2019-04-06] MEDS ORDERED: POLYETHYLENE GLYCOL 3350 119 GM POWDER PO ONE (18:30)
[2019-04-06 19:15] VITALS: BP 100/57; PULSE 70; RESP 19
[2019-04-06] MEDS: TAMSULOSIN (SR) 0.4 MG CAP PO SCH (20:41)
[2019-04-07] VITALS (16 sets, daily range): BP systolic 83–121; BP diastolic 58–74; PULSE 59–92; RESP 10–29
[2019-04-07] MEDS: BUMETANIDE 1 MG TAB PO SCH ×2 (05:36→18:17)
[2019-04-07] MEDS: PANTOPRAZOLE (EC) 40 MG TAB PO SCH ×2 (05:36→18:17)
[2019-04-07] MEDS ORDERED: POLYETHYLENE GLYCOL 3350 119 GM POWDER PO ONE (06:00)
[2019-04-07] MEDS ORDERED: BISACODYL (EC) 5 MG TAB PO ONE (08:00)
[2019-04-07] MEDS: ALBUTEROL/IPRATROPIUM (NEB) 3 ML AMP HHN SCH ×3 (08:19→20:05)
[2019-04-07] MEDS: CHOLECALCIFEROL 1,000 UNIT TAB PO SCH (09:03)
[2019-04-07] MEDS: LACTOBACILLUS RHAMNOSUS CAP PO SCH ×2 (09:03→21:36)
[2019-04-07] MEDS: MEMANTINE 10 MG TAB PO SCH ×2 (09:03→21:35)
[2019-04-07] MEDS: FERROUS SULFATE (EC) 325 MG TAB PO SCH ×2 (09:04→21:36)
[2019-04-07] MEDS: FISH OIL 1,000 MG CAP PO SCH ×3 (09:04→21:35)
[2019-04-07] MEDS: POTASSIUM CHLORIDE 20 MEQ POWDER FOR ORAL SOLN PO SCH (09:04)
[2019-04-07] MEDS: CALCIUM POLYCARBOPHIL 625 MG TAB PO SCH (09:04)
[2019-04-07] MEDS: SUCRALFATE (100 MG/ML) 10ML CUP PO SCH ×4 (09:09→21:35)
[2019-04-07] MEDS ORDERED: POTASSIUM CHLORIDE 100 ML IVPB ONE (10:00)
[2019-04-07] MEDS ORDERED: POTASSIUM CHLORIDE (SR) 20 MEQ TAB PO STA (16:23)
[2019-04-07] MEDS ORDERED: LIDOCAINE 100 MG SYRINGE ONE (16:29)
[2019-04-07] MEDS ORDERED: PROPOFOL 40 ML ONE (16:29)
[2019-04-07] MEDS ORDERED: FENTAnyl 50 MCG/ML VIAL ONE (16:30)
[2019-04-07] MEDS: TAMSULOSIN (SR) 0.4 MG CAP PO SCH (21:35)
[2019-04-08] VITALS (8 sets, daily range): BP systolic 97–134; BP diastolic 57–89; PULSE 65–100; RESP 20
[2019-04-08] MEDS: PANTOPRAZOLE (EC) 40 MG TAB PO SCH ×2 (06:21→17:03)
[2019-04-08] MEDS: BUMETANIDE 1 MG TAB PO SCH ×2 (06:21→17:03)
[2019-04-08] MEDS: ALBUTEROL/IPRATROPIUM (NEB) 3 ML AMP HHN SCH ×3 (08:07→20:41)
[2019-04-08] MEDS: POTASSIUM CHLORIDE 20 MEQ POWDER FOR ORAL SOLN PO SCH (09:16)
[2019-04-08] MEDS: FERROUS SULFATE (EC) 325 MG TAB PO SCH ×2 (09:17→20:54)
[2019-04-08] MEDS: MEMANTINE 10 MG TAB PO SCH ×2 (09:17→20:54)
[2019-04-08] MEDS: CHOLECALCIFEROL 1,000 UNIT TAB PO SCH (09:17)
[2019-04-08] MEDS: FISH OIL 1,000 MG CAP PO SCH ×3 (09:17→20:54)
[2019-04-08] MEDS: SUCRALFATE (100 MG/ML) 10ML CUP PO SCH ×4 (09:17→20:54)
[2019-04-08] MEDS: CALCIUM POLYCARBOPHIL 625 MG TAB PO SCH (09:17)
[2019-04-08] MEDS: LACTOBACILLUS RHAMNOSUS CAP PO SCH ×2 (09:17→20:54)
[2019-04-08] MEDS ORDERED: BISACODYL (EC) 5 MG TAB PO ONE (14:30)
[2019-04-08] MEDS ORDERED: MAGNESIUM CITRATE 300 ML BTL PO ONE (17:30)
[2019-04-08] MEDS ORDERED: POLYETHYLENE GLYCOL 3350 119 GM POWDER PO ONE (18:30)
[2019-04-08] MEDS ORDERED: SOD CHLORIDE 0.9% 100 ML ONE (18:55)
[2019-04-08] MEDS ORDERED: IOHEXOL 300MG/ML 150 ML BTL ONE (18:55)
[2019-04-08] MEDS: TAMSULOSIN (SR) 0.4 MG CAP PO SCH (20:54)
[2019-04-09] VITALS (15 sets, daily range): BP systolic 95–120; BP diastolic 61–74; PULSE 69–93; RESP 16–56
[2019-04-09] MEDS: BUMETANIDE 1 MG TAB PO SCH ×2 (05:47→18:00)
[2019-04-09] MEDS: PANTOPRAZOLE (EC) 40 MG TAB PO SCH ×2 (05:47→18:00)
[2019-04-09] MEDS ORDERED: POLYETHYLENE GLYCOL 3350 119 GM POWDER PO ONE (06:00)
[2019-04-09] MEDS: ALBUTEROL/IPRATROPIUM (NEB) 3 ML AMP HHN SCH ×3 (07:55→20:00)
[2019-04-09] MEDS ORDERED: BISACODYL (EC) 5 MG TAB PO ONE (08:00)
[2019-04-09] MEDS ORDERED: POTASSIUM CHLORIDE 50 ML IVPB ONE (08:00)
[2019-04-09] MEDS: SUCRALFATE (100 MG/ML) 10ML CUP PO SCH ×4 (08:56→22:30)
[2019-04-09] MEDS: MEMANTINE 10 MG TAB PO SCH ×2 (08:57→22:30)
[2019-04-09] MEDS: LACTOBACILLUS RHAMNOSUS CAP PO SCH ×2 (08:57→22:31)
[2019-04-09] MEDS: FERROUS SULFATE (EC) 325 MG TAB PO SCH ×2 (08:57→21:00)
[2019-04-09] MEDS: CHOLECALCIFEROL 1,000 UNIT TAB PO SCH (08:57)
[2019-04-09] MEDS: FISH OIL 1,000 MG CAP PO SCH ×3 (08:58→22:31)
[2019-04-09] MEDS: CALCIUM POLYCARBOPHIL 625 MG TAB PO SCH (09:07)
[2019-04-09] MEDS: POTASSIUM CHLORIDE 100 ML IVPB SCH ×2 (10:21→12:37)
[2019-04-09] MEDS: POTASSIUM CHLORIDE 20 MEQ POWDER FOR ORAL SOLN PO SCH (10:25)
[2019-04-09] MEDS ORDERED: PROPOFOL 20 ML ONE ×2 (19:09→19:37)
[2019-04-09] MEDS ORDERED: PHENYLephrine (100 MCG/ML) 10ML SYG ONE (19:37)
[2019-04-09] MEDS: TAMSULOSIN (SR) 0.4 MG CAP PO SCH (22:30)
[2019-04-10] VITALS: BP 88/49; PULSE 107; RESP 19
[2019-04-10 03:49] VITALS: BP 95/61; PULSE 87
[2019-04-10] MEDS: PANTOPRAZOLE (EC) 40 MG TAB PO SCH ×2 (06:57→18:26)
[2019-04-10] MEDS: BUMETANIDE 1 MG TAB PO SCH ×2 (06:57→18:26)
[2019-04-10 07:49] VITALS: BP 96/52; PULSE 84; RESP 20
[2019-04-10] MEDS: ALBUTEROL/IPRATROPIUM (NEB) 3 ML AMP HHN SCH ×2 (07:53→20:46)
[2019-04-10] MEDS: FERROUS SULFATE (EC) 325 MG TAB PO SCH ×2 (08:07→20:22)
[2019-04-10] MEDS: CALCIUM POLYCARBOPHIL 625 MG TAB PO SCH (08:07)
[2019-04-10] MEDS: POTASSIUM CHLORIDE 20 MEQ POWDER FOR ORAL SOLN PO SCH (08:07)
[2019-04-10] MEDS: CHOLECALCIFEROL 1,000 UNIT TAB PO SCH (08:07)
[2019-04-10] MEDS: SUCRALFATE (100 MG/ML) 10ML CUP PO SCH ×4 (08:07→20:22)
[2019-04-10] MEDS: LACTOBACILLUS RHAMNOSUS CAP PO SCH ×2 (08:07→20:22)
[2019-04-10] MEDS: FISH OIL 1,000 MG CAP PO SCH ×3 (08:07→20:22)
[2019-04-10] MEDS: MEMANTINE 10 MG TAB PO SCH ×2 (08:07→20:22)
[2019-04-10 11:30] VITALS: BP 104/59; PULSE 86; RESP 20
[2019-04-10 15:29] VITALS: BP 93/63; PULSE 90; RESP 20
[2019-04-10 20:12] VITALS: BP 102/67; PULSE 64; RESP 19
[2019-04-10] MEDS: TAMSULOSIN (SR) 0.4 MG CAP PO SCH (20:22)
[2019-04-11] VITALS (7 sets, daily range): BP systolic 90–99; BP diastolic 56–61; PULSE 64–96; RESP 19–20
[2019-04-11] MEDS: PANTOPRAZOLE (EC) 40 MG TAB PO SCH ×2 (06:25→17:13)
[2019-04-11] MEDS: BUMETANIDE 1 MG TAB PO SCH ×2 (06:25→17:13)
[2019-04-11] MEDS: ALBUTEROL/IPRATROPIUM (NEB) 3 ML AMP HHN SCH ×3 (07:37→20:04)
[2019-04-11] MEDS: POTASSIUM CHLORIDE 20 MEQ POWDER FOR ORAL SOLN PO SCH (08:29)
[2019-04-11] MEDS: CALCIUM POLYCARBOPHIL 625 MG TAB PO SCH (08:29)
[2019-04-11] MEDS: LACTOBACILLUS RHAMNOSUS CAP PO SCH ×2 (08:29→20:16)
[2019-04-11] MEDS: SUCRALFATE (100 MG/ML) 10ML CUP PO SCH ×4 (08:29→20:15)
[2019-04-11] MEDS: CHOLECALCIFEROL 1,000 UNIT TAB PO SCH (08:29)
[2019-04-11] MEDS: FISH OIL 1,000 MG CAP PO SCH ×3 (08:29→20:16)
[2019-04-11] MEDS: MEMANTINE 10 MG TAB PO SCH ×2 (08:29→20:16)
[2019-04-11] MEDS: FERROUS SULFATE (EC) 325 MG TAB PO SCH ×2 (08:29→20:16)
[2019-04-11] MEDS: TAMSULOSIN (SR) 0.4 MG CAP PO SCH (20:16)
[2019-04-11] MEDS: APIXABAN 5 MG TABLET PO SCH (20:17)
[2019-04-12 03:30] VITALS: BP 99/60; PULSE 92; RESP 19
[2019-04-12] MEDS: PANTOPRAZOLE (EC) 40 MG TAB PO SCH ×2 (05:26→17:05)
[2019-04-12] MEDS: BUMETANIDE 1 MG TAB PO SCH ×2 (05:26→17:05)
[2019-04-12 07:37] VITALS: BP 103/61; PULSE 72; RESP 18
[2019-04-12] MEDS: CHOLECALCIFEROL 1,000 UNIT TAB PO SCH (08:02)
[2019-04-12] MEDS: APIXABAN 5 MG TABLET PO SCH ×2 (08:02→21:41)
[2019-04-12] MEDS: SUCRALFATE (100 MG/ML) 10ML CUP PO SCH ×4 (08:02→21:41)
[2019-04-12] MEDS: POTASSIUM CHLORIDE 20 MEQ POWDER FOR ORAL SOLN PO SCH (08:02)
[2019-04-12] MEDS: CALCIUM POLYCARBOPHIL 625 MG TAB PO SCH (08:03)
[2019-04-12] MEDS: FERROUS SULFATE (EC) 325 MG TAB PO SCH ×2 (08:03→21:41)
[2019-04-12] MEDS: MEMANTINE 10 MG TAB PO SCH ×2 (08:03→21:41)
[2019-04-12] MEDS: LACTOBACILLUS RHAMNOSUS CAP PO SCH ×2 (08:03→21:41)
[2019-04-12] MEDS: FISH OIL 1,000 MG CAP PO SCH ×3 (08:03→21:41)
[2019-04-12] MEDS: ALBUTEROL/IPRATROPIUM (NEB) 3 ML AMP HHN SCH ×3 (08:31→20:11)
[2019-04-12 11:19] VITALS: BP 96/68; PULSE 124; RESP 20
[2019-04-12 15:45] VITALS: BP 97/61; PULSE 94; RESP 20
[2019-04-12 20:00] VITALS: BP 100/58; PULSE 70; RESP 19
[2019-04-12] MEDS: TAMSULOSIN (SR) 0.4 MG CAP PO SCH (21:41)
[2019-04-13] VITALS (7 sets, daily range): BP systolic 87–99; BP diastolic 50–68; PULSE 78–100; RESP 18–20
[2019-04-13] MEDS: PANTOPRAZOLE (EC) 40 MG TAB PO SCH ×2 (06:34→18:04)
[2019-04-13] MEDS: BUMETANIDE 1 MG TAB PO SCH ×2 (06:34→18:04)
[2019-04-13] MEDS: ALBUTEROL/IPRATROPIUM (NEB) 3 ML AMP HHN SCH ×3 (08:04→20:21)
[2019-04-13] MEDS: LACTOBACILLUS RHAMNOSUS CAP PO SCH ×2 (09:03→21:53)
[2019-04-13] MEDS: APIXABAN 5 MG TABLET PO SCH ×2 (09:03→21:53)
[2019-04-13] MEDS: MEMANTINE 10 MG TAB PO SCH ×2 (09:03→21:53)
[2019-04-13] MEDS: CHOLECALCIFEROL 1,000 UNIT TAB PO SCH (09:03)
[2019-04-13] MEDS: SUCRALFATE (100 MG/ML) 10ML CUP PO SCH ×4 (09:03→21:53)
[2019-04-13] MEDS: FISH OIL 1,000 MG CAP PO SCH ×3 (09:05→21:53)
[2019-04-13] MEDS: FERROUS SULFATE (EC) 325 MG TAB PO SCH ×2 (09:05→21:53)
[2019-04-13] MEDS: POTASSIUM CHLORIDE 20 MEQ POWDER FOR ORAL SOLN PO SCH (09:05)
[2019-04-13] MEDS ORDERED: POTASSIUM CHLORIDE 20 MEQ POWDER FOR ORAL SOLN PO ONE (11:30)
[2019-04-13] MEDS ORDERED: MAGNESIUM SULFATE 2 GM/50 ML 50 ML IVPB ONE (11:30)
[2019-04-13] MEDS: CALCIUM POLYCARBOPHIL 625 MG TAB PO SCH (11:57)
[2019-04-13] MEDS: TAMSULOSIN (SR) 0.4 MG CAP PO SCH (21:53)
[2019-04-14 04:00] VITALS: BP 95/62; PULSE 95; RESP 20
[2019-04-14] MEDS: PANTOPRAZOLE (EC) 40 MG TAB PO SCH (06:32)
[2019-04-14] MEDS: BUMETANIDE 1 MG TAB PO SCH (06:32)
[2019-04-14 07:42] VITALS: BP 103/70; PULSE 72; RESP 20
[2019-04-14] MEDS: SUCRALFATE (100 MG/ML) 10ML CUP PO SCH ×2 (08:20→13:28)
[2019-04-14] MEDS: CALCIUM POLYCARBOPHIL 625 MG TAB PO SCH (08:21)
[2019-04-14] MEDS: FERROUS SULFATE (EC) 325 MG TAB PO SCH (08:21)
[2019-04-14] MEDS: FISH OIL 1,000 MG CAP PO SCH ×2 (08:21→13:28)
[2019-04-14] MEDS: CHOLECALCIFEROL 1,000 UNIT TAB PO SCH (08:21)
[2019-04-14] MEDS: LACTOBACILLUS RHAMNOSUS CAP PO SCH (08:21)
[2019-04-14] MEDS: POTASSIUM CHLORIDE 20 MEQ POWDER FOR ORAL SOLN PO SCH (08:21)
[2019-04-14] MEDS: APIXABAN 5 MG TABLET PO SCH (08:21)
[2019-04-14] MEDS: MEMANTINE 10 MG TAB PO SCH (08:21)
[2019-04-14] MEDS: ALBUTEROL/IPRATROPIUM (NEB) 3 ML AMP HHN SCH ×2 (08:50→13:22)
[2019-04-14 11:20] VITALS: BP 99/66; RESP 22
== END 2019-04-14 14:01 | DRG 393 ==
LOC: E/R 18:30 → 6WM 20:47 → CANRESERV 22:48 → ENRESERV 22:48 → CANRESERV 22:54
PROVIDERS: ADMIT Family Medicine; ATTEND Internal Medicine
PROC: 0W9G3ZZ Drainage of Peritoneal Cavity, Percutaneous Approach (ICD-10-PCS; principal; 2019-04-01)
PROC: 30233N1 Transfusion of Nonautologous Red Blood Cells into Peripheral Vein, Percutaneous Approach (ICD-10-PCS; 2019-04-05)
PROC: 0DB78ZX Excision of Stomach, Pylorus, Via Natural or Artificial Opening Endoscopic, Diagnostic (ICD-10-PCS; 2019-04-07)
PROC: 0DBM8ZX Excision of Descending Colon, Via Natural or Artificial Opening Endoscopic, Diagnostic (ICD-10-PCS; 2019-04-07)
PROC: 0DBN8ZX Excision of Sigmoid Colon, Via Natural or Artificial Opening Endoscopic, Diagnostic (ICD-10-PCS; 2019-04-07)
PROC: 0DB98ZX Excision of Duodenum, Via Natural or Artificial Opening Endoscopic, Diagnostic (ICD-10-PCS; 2019-04-07 17:00)
PROC: 0DBF8ZX Excision of Right Large Intestine, Via Natural or Artificial Opening Endoscopic, Diagnostic (ICD-10-PCS; 2019-04-09)
PROC: 0DBK8ZZ Excision of Ascending Colon, Via Natural or Artificial Opening Endoscopic (ICD-10-PCS; 2019-04-09)
PROC: 0DBN8ZZ Excision of Sigmoid Colon, Via Natural or Artificial Opening Endoscopic (ICD-10-PCS; 2019-04-09)
PROC: 0DBM8ZZ Excision of Descending Colon, Via Natural or Artificial Opening Endoscopic (ICD-10-PCS; 2019-04-09)
DX: K52.1 Toxic gastroenteritis and colitis (principal); I50.33 Acute on chronic diastolic (congestive) heart failure; D61.818 Other pancytopenia; R18.8 Other ascites; T46.0X5A Adverse effect of cardiac-stimulant glycosides and drugs of similar action, initial encounter; D53.9 Nutritional anemia, unspecified; E87.6 Hypokalemia; I27.20 Pulmonary hypertension, unspecified; I35.0 Nonrheumatic aortic (valve) stenosis; I48.2 Chronic atrial fibrillation; I49.8 Other specified cardiac arrhythmias; I25.5 Ischemic cardiomyopathy; I25.10 Atherosclerotic heart disease of native coronary artery without angina pectoris; K29.30 Chronic superficial gastritis without bleeding; K74.60 Unspecified cirrhosis of liver; K31.7 Polyp of stomach and duodenum; K63.5 Polyp of colon; N40.0 Benign prostatic hyperplasia without lower urinary tract symptoms; R11.2 Nausea with vomiting, unspecified; R10.9 Unspecified abdominal pain; Z79.01 Long term (current) use of anticoagulants
CPT/HCPCS: 36415; 36430; 71045; 74176; 74177; 80048; 80053; 80061; 80162; 81003; 82042; 82140; 82270; 82607; 82746; 82945; 83036; 83690; 83735; 83880; 84100; 84157; 84443; 85025; 85610; 85730; 86850; 86870; 86880; 86900; 86901; 86902; 86920; 86978; 87045; 87070; 87075; 87102; 87116; 87177; 87205; 88104; 88305; 88312; 89051; 93005; 93306; 94640; 96374; 97110; 97116; 97162; 97530; J0696; J2001; J2370; J2543; J3010; J3475; J3480; J7030; J7040; P9016; P9047; Q9967